=== PATIENT | male | born 1940 | race Caucasian/White ===

== ENCOUNTER 2016-06-11 16:14 | Inpatient (IN) | payer MEDICARE, BC ==
[2016-06-11 18:40] LABS: Basophils % (A) 0 %; CH 31.8; CHCM 35.4; Eosinophils # (A) 0.2 k/uL (0-0.7); Eosinophils % (A) 4 %; HCT 46.4 % (39.0-53.0); HDW 3.14; HGB 15.6 gm/dL (13.0-17.5); Luc # (Auto) 0.17; Luc % (Auto) 3; Lymphocytes # (A) 0.9 k/uL (1.0-4.8); Lymphocytes % (A) 16 %; MCH 30.4 pg (25.0-35.0); MCHC 33.6 g/dL (31.0-37.0); MCV 90.6 fL (80.0-100.0); Mean Platelet Volume 9.5; Monocytes # (A) 0.4 k/uL (0-1.0); Monocytes % (A) 7 %; Neutrophils % (A) 70 %; RBC 5.12 m/uL (4.30-5.90); RDW 14.2 % (11.5-15.5); WBC 5.8 k/uL (3.8-10.6); WBC (Perox) 5.91
--- NOTE | 2016-06-11 18:44 | XR ---
EXAMINATION TYPE: XR chest 2V DATE OF EXAM: 06/11/2016 6:32 PM COMPARISON: 10/15/2015 HISTORY: Weakness TECHNIQUE: Frontal and lateral views of the chest are obtained. FINDINGS: There is no heart failure nor confluent pneumonic infiltrate. There are sternal wires. The re is old right side rib fracture. There are no hilar masses. There is spurring in the thoracic spine . There is no evidence of pleural effusion. IMPRESSION: No active cardiopulmonary disease. No change.
--- NOTE | 2016-06-11 18:45 | ED ---
General Adult HPI - General Source: patient, family, RN notes reviewed Mode of arrival: wheelchair Limitations: no limitations <Erick Hernandez - Last Filed: 06/11/16 19:29> <Dioni Chu - Last Filed: 06/11/16 20:28> - General Chief complaint: Neuro Symptoms/Deficit Stated complaint: Dr Frank-Jose Stroke Time Seen by Provider: 06/11/16 17:22 - History of Present Illness Initial comments: 75-year-old male presents emergency Department with chief complaint of difficulty forming words. Patient states that around 1:00 PM that he felt that he was having difficulty forming his words though his states that he was talking clearly and there was no confusion and denies slurred speech or any abnormal speech. Patient states his symptoms lasted one to 2 hours ago and they resolved. Patient states he has no symptoms at this time. the room states that he did not have any facial drooping any difficulty ambulating any focal weakness. Patient called primary care physician who advised him to come emergency department for evaluation. Patient does have multiple coronary artery disease in which she takes multiple medications. Patient denies headache , dizziness, blurred vision, focal weakness, nausea, vomiting, chest pain or shortness of breath. Patient states he normally walks with a cane and is still able to family with no difficulty at this time. (Erick Hernandez) - Related Data Home Medications Medication Instructions Recorded Confirmed Aspirin 81 mg PO QAM 08/26/14 06/11/16 Atorvastatin [Lipitor] 40 mg PO HS 08/26/14 06/11/16 Cholecalciferol [Vitamin D3] 1,000 unit PO DAILY 08/26/14 06/11/16 Cilostazol [Pletal] 100 mg PO DAILY 08/26/14 06/11/16 DULoxetine HCL [Cymbalta] 60 mg PO DAILY 08/26/14 06/11/16 Donepezil [Aricept] 10 mg PO BID 08/26/14 06/11/16 Warren-3 Fatty Acids/Fish Oil [Fish 1 cap PO DAILY 08/26/14 06/11/16 Oil 1,000 mg Softgel] Nitroglycerin Sl Tabs [Nitrostat] 0.4 mg SUBLINGUAL Q5M PRN 10/16/14 06/11/16 Ipratropium-Albuterol Nebulize 3 ml INHALATION RT-Q6H PRN 05/24/15 06/11/16 [Duoneb 0.5 mg-3 mg/3 ml Soln] Levothyroxine Sodium [Synthroid] 75 mcg PO DAILY 05/24/15 06/11/16 Tamsulosin HCl [Flomax] 0.4 mg PO DAILY 05/24/15 06/11/16 Insulin Glargine [Lantus] 20 unit SQ QAM 10/15/15 06/11/16 Isosorbide Mononitrate ER [Imdur] 30 mg PO DAILY 10/15/15 06/11/16 Melatonin 3 mg PO HS 10/15/15 06/11/16 Acetaminophen [Tylenol] 325 mg PO DAILY 06/11/16 06/11/16 Atenolol [Tenormin] 50 mg PO BID 06/11/16 06/11/16 Furosemide [Lasix] 40 mg PO DAILY 06/11/16 06/11/16 HYDROcodone/APAP 5-325MG [[place] 1 tab PO Q6HR PRN 06/11/16 06/11/16 5-325] INSULIN LISPRO (HumaLOG) [humaLOG] See Protocol SQ ACHS 06/11/16 06/11/16 Oxybutynin Chloride [Ditropan] 5 mg PO BID 06/11/16 06/11/16 amLODIPine [Norvasc] 5 mg PO DAILY 06/11/16 06/11/16 Previous Rx's Medication Instructions Recorded Insulin Glargine [Lantus] 30 unit SQ HS vial 10/23/15 Pregabalin [Lyrica] 100 mg PO BID #20 cap 10/23/15 Allergies Allergy/AdvReac Type Severity Reaction Status Date / Time ciprofloxacin [From Cipro] Allergy Swelling Verified 06/11/16 18:12 ciprofloxacin HCl Allergy Swelling Verified 06/11/16 18:12 [From Cipro] latex Allergy Unknown Verified 06/11/16 18:12 NSAIDS (Non-Steroidal Allergy Unknown Verified 06/11/16 18:12 Anti-Inflamma Quinolones Allergy Unknown Verified 06/11/16 18:12 Review of Systems ROS Other: All systems not noted in ROS Statement are negative. <Erick Hernandez - Last Filed: 06/11/16 19:29> ROS Other: All systems not noted in ROS Statement are negative. <Dioni Chu - Last Filed: 06/11/16 20:28> ROS Statement: Those systems with pertinent positive or pertinent negative responses have been documented in the HPI. Past Medical History Past Medical History: Atrial Flutter, Coronary Artery Disease (CAD), Chest Pain / Angina, Heart Failure, COPD, Dementia, Diabetes Mellitus, Fibromyalgia, Hyperlipidemia, Hypertension, Myocardial Infarction (MA), Prostate Disorder, Renal Disease, Sleep Apnea/CPAP/BIPAP, Vascular Disorder Additional Past Medical History / Comment(s): IDDM,constipation, CHF-diastolic ejection fx 50-60%, chronic renal failure, aflutter, sleep apnea with no cpap, R leg erythema possible cellulitis in the past, PVD, DJD, chronic back pain, bulging and herniated discs, sciatica, disclocted knuckles, gout, arthiritis, prostate problem-pt unsure what problem is, tinnitis bilaterally, R eye stroke, umbilical hernia, diverticular disease, obesity. WOUNDS TO RT GREAT TOE AND LT FOOT 2ND TOE Last Myocardial Infarction Date:: 2004 History of Any Multi-Drug Resistant Organisms: MRSA Date of last positivie culture/infection: 10/17/2014 MDRO Source:: Sputum Past Surgical History: Coronary Bypass/CABG, Heart Catheterization, Tonsillectomy Additional Past Surgical History / Comment(s): 2005 triple vessel CABG, Ccath 2004, L caratid endartectomy, bilateral cataract removal with lens implants, colonoscopy, skin lesion removal. Past Anesthesia/Blood Transfusion Reactions: No Reported Reaction Past Psychological History: Anxiety, Depression Additional Psychological History / Comment(s): Pt lives at home with his .stated he had home care pt/ot but they are done.has cane/walker, hx of falls. Patient was a smoker from 1966 and quit in 1996 at 3 packs per day. He denies any medical marijuana, marijuana, street drug use. He does drink 1 bottle of beer per month. He was in the [employer] for 14 years and stationed in the [place]. He denies any recent travel. There is a dog in the home. Smoking Status: Former smoker Past Alcohol Use History: None Reported Additional Past Alcohol Use History / Comment(s): Pt started smoking about 1966 and quit in 1996. He smoked up to 3 ppd. Past Drug Use History: None Reported - Past Family History Father Family Medical History: Coronary Artery Disease (CAD) Additional Family Medical History / Comment(s): Father had CABG Mother Family Medical History: No Reported History Additional Family Medical History / Comment(s): Pt states mother was a heathy person. <Erick Hernandez M - Last Filed: 06/11/16 19:29> General Exam Limitations: no limitations General appearance: alert, in no apparent distress Head exam: Present: atraumatic, normocephalic, normal inspection Eye exam: Present: normal appearance, PERRL, EOMI. Absent: scleral icterus, conjunctival injection, periorbital swelling ENT exam: Present: normal exam, normal oropharynx, mucous membranes moist, TM's normal bilaterally, normal external ear exam Neck exam: Present: normal inspection, full ROM. Absent: tenderness, meningismus, lymphadenopathy Respiratory exam: Present: normal lung sounds bilaterally. Absent: respiratory distress, wheezes, rales, rhonchi, stridor Cardiovascular Exam: Present: regular rate, normal rhythm, normal heart sounds. Absent: systolic murmur, diastolic murmur, rubs, gallop, clicks GI/Abdominal exam: Present: soft, normal bowel sounds. Absent: distended, tenderness, guarding, rebound, rigid Neurological exam: Present: alert, oriented X3, CN II-XII intact, reflexes normal, other (Finger to nose intact bilaterally without overshooting). Absent : motor sensory deficit Psychiatric exam: Present: normal affect, normal mood Skin exam: Present: warm, dry, intact, normal color. Absent: rash <Erick Hernandez M - Last Filed: 06/11/16 19:29> General appearance: alert, in no apparent distress Head exam: Present: atraumatic, normocephalic, normal inspection Eye exam: Present: normal appearance, PERRL, EOMI. Absent: scleral icterus, conjunctival injection, periorbital swelling ENT exam: Present: normal exam, mucous membranes moist Neck exam: Present: normal inspection. Absent: tenderness, meningismus, lymphadenopathy Respiratory exam: Present: normal lung sounds bilaterally. Absent: respiratory distress, wheezes, rales, rhonchi, stridor Cardiovascular Exam: Present: regular rate, normal rhythm, normal heart sounds. Absent: systolic murmur, diastolic murmur, rubs, gallop, clicks GI/Abdominal exam: Present: soft, normal bowel sounds. Absent: distended, tenderness, guarding, rebound, rigid Extremities exam: Present: normal inspection, full ROM, normal capillary refill. Absent: tenderness, pedal edema, joint swelling, calf tenderness Back exam: Present: normal inspection Neurological exam: Present: alert, oriented X3, CN II-XII intact Psychiatric exam: Present: normal affect, normal mood Skin exam: Present: warm, dry, intact, normal color. Absent: rash <Dioni Chu - Last Filed: 06/11/16 20:28> Course <Erick Hernandez - Last Filed: 06/11/16 19:29> <Dioni Chu - Last Filed: 06/11/16 20:28> Vital Signs 06/11/16 06/11/16 06/11/16 16:20 18:18 20:17 Temperature 97.0 F L 97.4 F L 96.9 F L Pulse Rate 62 67 Pulse Rate [ 69 Supine] Respiratory 18 18 14 Rate Blood Pressure 133/75 148/73 Blood Pressure 134/95 [Right Arm Supine] O2 Sat by Pulse 97 96 96 Oximetry - Reevaluation(s) Reevaluation #1: 06/11/16 20:28 Patient examined, no worsening problems (Dioni Chu) EKG Findings - EKG Comments: EKG Findings:: EKG shows A. fib rate of 62, QRS 14, QTc 450 <Dioni Chu - Last Filed: 06/11/16 20:28> Medical Decision Making - Lab Data Result diagrams: 06/11/16 18:15 06/11/16 18:15 <Erick Hernandez - Last Filed: 06/11/16 19:29> - Lab Data Result diagrams: 06/11/16 18:15 06/11/16 18:15 <Dioni Chu - Last Filed: 06/11/16 20:28> - Lab Data Lab Results 06/11/16 06/11/16 06/11/16 Range/Units 18:15 18:15 18:15 WBC 5.8 (3.8-10.6) k/uL RBC 5.12 (4.30-5.90) m/uL Hgb 15.6 (13.0-17.5) gm/dL Hct 46.4 (39.0-53.0) % MCV 90.6 (80.0-100.0) fL MCH 30.4 (25.0-35.0) pg MCHC 33.6 (31.0-37.0) g/dL RDW 14.2 (11.5-15.5) % Plt Count 166 (150-450) k/uL Neutrophils % 70 % Lymphocytes % 16 % Monocytes % 7 % Eosinophils % 4 % Basophils % 0 % Neutrophils # 4.0 (1.3-7.7) k/uL Lymphocytes # 0.9 L (1.0-4.8) k/uL Monocytes # 0.4 (0-1.0) k/uL Eosinophils # 0.2 (0-0.7) k/uL Basophils # 0.0 (0-0.2) k/uL PT (9.0-12.0) sec INR (<1.1) APTT (22.0-30.0) sec Sodium 139 (137-145) mmol/L Potassium 3.9 (3.5-5.1) mmol/L Chloride 100 (98-107) mmol/L Carbon Dioxide 29 (22-30) mmol/L Anion Gap 10 mmol/L BUN 25 H (9-20) mg/dL Creatinine 1.77 H (0.66-1.25) mg/dL Est GFR (MDRD) Af Amer 46 (>60 ml/min/1.73 sqM) Est GFR (MDRD) Non-Af 38 (>60 ml/min/1.73 sqM) Glucose 189 H (74-99) mg/dL Calcium 9.0 (8.4-10.2) mg/dL Total Bilirubin 1.1 (0.2-1.3) mg/dL AST 15 L (17-59) U/L ALT 34 (21-72) U/L Alkaline Phosphatase 130 H (38-126) U/L Total Creatine Kinase 41 L (55-170) U/L CK-MB (CK-2) 0.4 (0.0-2.4) ng/mL CK-MB (CK-2) Rel Index 1.0 Troponin I <0.012 (0.000-0.034) ng/mL Total Protein 6.7 (6.3-8.2) g/dL Albumin 3.7 (3.5-5.0) g/dL 06/11/16 Range/Units 18:15 WBC (3.8-10.6) k/uL RBC (4.30-5.90) m/uL Hgb (13.0-17.5) gm/dL Hct (39.0-53.0) % MCV (80.0-100.0) fL MCH (25.0-35.0) pg MCHC (31.0-37.0) g/dL RDW (11.5-15.5) % Plt Count (150-450) k/uL Neutrophils % % Lymphocytes % % Monocytes % % Eosinophils % % Basophils % % Neutrophils # (1.3-7.7) k/uL Lymphocytes # (1.0-4.8) k/uL Monocytes # (0-1.0) k/uL Eosinophils # (0-0.7) k/uL Basophils # (0-0.2) k/uL PT 12.1 H (9.0-12.0) sec INR 1.2 (<1.1) APTT 25.0 (22.0-30.0) sec Sodium (137-145) mmol/L Potassium (3.5-5.1) mmol/L Chloride (98-107) mmol/L Carbon Dioxide (22-30) mmol/L Anion Gap mmol/L BUN (9-20) mg/dL Creatinine (0.66-1.25) mg/dL Est GFR (MDRD) Af Amer (>60 ml/min/1.73 sqM) Est GFR (MDRD) Non-Af (>60 ml/min/1.73 sqM) Glucose (74-99) mg/dL Calcium (8.4-10.2) mg/dL Total Bilirubin (0.2-1.3) mg/dL AST (17-59) U/L ALT (21-72) U/L Alkaline Phosphatase (38-126) U/L Total Creatine Kinase (55-170) U/L CK-MB (CK-2) (0.0-2.4) ng/mL CK-MB (CK-2) Rel Index Troponin I (0.000-0.034) ng/mL Total Protein (6.3-8.2) g/dL Albumin (3.5-5.0) g/dL Disposition <Erick Hernandez - Last Filed: 06/11/16 19:29> <Dioni Chu - Last Filed: 06/11/16 20:28> Clinical Impression: CVA (cerebral vascular accident) Disposition: ADMITTED IP TO THIS HOSP Condition: Stable
[2016-06-11 18:49] LABS: Potassium 3.9 mmol/L (3.5-5.1); Total Bilirubin 1.1 mg/dL (0.2-1.3); Total Protein 6.7 g/dL (6.3-8.2)
[2016-06-11 18:50] LABS: INR 1.2 (<1.1); Prothrombin Time 12.1 sec (9.0-12.0)
[2016-06-11 18:58] LABS: Creatine Kinase 41 U/L (55-170)
--- NOTE | 2016-06-11 18:59 | CT ---
EXAMINATION TYPE: CT brain wo con DATE OF EXAM: 06/11/2016 6:54 PM COMPARISON: 10/15/2015 HISTORY: weakness and speech disturbance CT DLP: 1183 mGycm Automated exposure control for dose reduction was used. FINDINGS: There is diffuse cerebral atrophy. There is no mass effect nor midline shift. There is no sign of int racranial hemorrhage. There is enlargement of occipital horn right lateral ventricle. The calvarium i s intact. IMPRESSION: Cerebral atrophy and old right occipital lobe infarct. No acute intracranial abnormality. No change.
[2016-06-11 19:11] LABS: Creatine Kinase MB 0.4 ng/mL (0.0-2.4); Troponin I <0.012 ng/mL (0.000-0.034)
[2016-06-11] MEDS ORDERED: HYDROcodone/APAP 5-325MG 1 EACH TAB PO PRN (19:33)
[2016-06-11] MEDS ORDERED: IPRATROPIUM-ALBUTEROL 3 ML NEB INHALATION PRN (19:33)
[2016-06-11 21:00] LABS: Glucose,Whole Blood 137 mg/dL (75-99)
[2016-06-11] MEDS ORDERED: NON-FORMULARY DRUG (Insulin Lispro (Humalog) 0 UNIT) SQ SCH (21:00)
[2016-06-11 21:36] VITALS: BMI 34.2
[2016-06-11] MEDS: ASPIRIN 325 MG TAB PO SCH (21:56)
[2016-06-11] MEDS: DONEPEZIL 10 MG TAB PO SCH (21:57)
[2016-06-11] MEDS: PREGABALIN 100 MG CAP PO SCH (21:57)
[2016-06-11] MEDS: ATORVASTATIN 40 MG TAB PO SCH (21:57)
[2016-06-11] MEDS: OXYBUTYNIN CHLORIDE 5 MG TAB PO SCH (21:57)
[2016-06-11] MEDS: ATENOLOL 50 MG TAB PO SCH (21:57)
[2016-06-11] MEDS: MELATONIN 3 MG TABLET PO SCH (21:57)
[2016-06-11] MEDS: INSULIN GLARGINE 100 UNIT/ML 10 ML VIAL SQ SCH (22:01)
[2016-06-12 06:22] LABS: Glucose,Whole Blood 149 mg/dL (75-99)
[2016-06-12] MEDS: LEVOTHYROXINE 75 MCG TAB PO SCH (06:48)
[2016-06-12 07:42] LABS: Cholesterol 108 mg/dL (<200); HDL Cholesterol 32 mg/dL (40-60); Triglycerides 73 mg/dL (<150)
--- NOTE | 2016-06-12 09:57 | US ---
EXAMINATION TYPE: US carotid duplex BILAT DATE OF EXAM: 06/12/2016 9:41 AM COMPARISON: In pacs CLINICAL HISTORY: Stenosis. Slurred speech, history of stroke and left endarterectomy EXAM MEASUREMENTS: RIGHT: Peak Systolic Velocity (PSV) cm/sec ----- Right CCA: 42.4 ----- Right ICA: 133.6 ----- Right ECA: 145.0 ICA/CCA ratio: 3.2 RIGHT: End Diastole cm/sec ----- Right CCA: 8.4 ----- Right ICA: 25.5 ----- Right ECA: 23.9 LEFT: Peak Systolic Velocity (PSV) cm/sec ----- Left CCA: 83.8 ----- Left ICA: 44.9 ----- Left ECA: 52.9 ICA/CCA ratio: 0.5 LEFT: End Diastole cm/sec ----- Left CCA: 0.0 ----- Left ICA: 22.7 ----- Left ECA: 6.1 VERTEBRALS (direction of flow): Right Vertebral: Antegrade Left Vertebral: Antegrade Findings: Bilateral intimal thickening with large amount of plaque seen bilateral CCA, bulb, ICA and ECA, eleva natalia velocities: proximal right ICA, distal right ICA, mid right ECA and proximal left CCA, 50 to 69% stenosis within right ICA with an ICA/CCA ratio of 3.2, elevated velocity seen within proximal left C CA with turbulent low velocity flow post proximal CCA stenosis IMPRESSION: 1. Extensive bilateral plaque greater on the right with findings suggestive of a 50-69% stenosis. Criteria for Assigning % of Stenosis / Diameter reduction (Estimation based on the indirect measurements of the internal carotid artery velocities (ICA PSV). 1. Normal (no stenosis)=ICA PSV < 125 cm/s: ratio < 2.0: ICA EDV<40 cm/s. 2. Less than 50% stenosis=ICA PSV < 125 cm/s: ratio < 2.0: ICA EDV<40 cm/s. 3. 50 to 69% stenosis=ICA PSV of 125 to 230 cm/s: ration 2.0 ? 4.0: ICA EDV 40-100 cm/s. 4. Greater than 70% stenosis to near occlusion= ICA PSV > 230 cm/s: ratio > 4.0: ICA EDV > 100 cm/s. 5. Near occlusion= ICA PSV velocities may be low or undetectable: variable ratio and ICA EDV. 6. Total occlusion=unable to detect flow.
[2016-06-12] MEDS: INSULIN LISPRO (humaLOG) 300 UNIT/3 ML VIAL SQ SCH ×5 (09:58→21:25)
[2016-06-12] MEDS: CILOSTAZOL 100 MG TAB PO SCH (09:59)
[2016-06-12] MEDS: DONEPEZIL 10 MG TAB PO SCH ×2 (09:59→20:02)
[2016-06-12] MEDS: ASPIRIN 325 MG TAB PO SCH (09:59)
[2016-06-12] MEDS: ATENOLOL 50 MG TAB PO SCH ×2 (09:59→20:02)
[2016-06-12] MEDS: amLODIPine 5 MG TAB PO SCH (09:59)
[2016-06-12] MEDS: OXYBUTYNIN CHLORIDE 5 MG TAB PO SCH ×2 (10:00→20:03)
[2016-06-12] MEDS: DULoxetine HCL 60 MG CAPSULE.DR PO SCH (10:00)
[2016-06-12] MEDS: ISOSORBIDE MONONITRATE ER 30 MG TAB.ER.24H PO SCH (10:00)
[2016-06-12] MEDS: FUROSEMIDE 40 MG TAB PO SCH (10:00)
[2016-06-12] MEDS: PREGABALIN 100 MG CAP PO SCH ×2 (10:01→20:03)
[2016-06-12] MEDS: INSULIN GLARGINE 100 UNIT/ML 10 ML VIAL SQ SCH ×2 (10:32→21:25)
[2016-06-12] MEDS: TAMSULOSIN 0.4 MG CAP.ER.24H PO SCH (10:32)
[2016-06-12 11:39] LABS: Glucose,Whole Blood 154 mg/dL (75-99)
--- NOTE | 2016-06-12 11:57 | P.CRDCN ---
<Rocío Albrecht - Last Filed: 06/12/16 11:45> History of Present Illness Consult date: 06/12/16 Reason for Consult (text): Atrial fibrillation Chief complaint: difficulty forming words History of present illness: This is a pleasant 75 rolled woman who follows with Dr. Munson in the office. He has a known history of coronary artery disease, heart failure, COPD, dementia , diabetes, hyperlipidemia, hypertension, paroxysmal atrial fibrillation, [place] in the past, renal insufficiency and sleep apnea. His historically not been anticoagulated secondary to frequent falls in the past. Presented to the emergency department after developing some difficulty forming his words that lasted a couple of hours. He denied any complaints of dizziness, lightheadedness, weakness or numbness or visual disturbances at that time. Computed tomography scan showed cerebral atrophy with old right occipital lobe infarct and no acute intracranial abnormality. Carotid duplex showed extensive bilateral plaque right greater than left with a stenosis of about 50-60%. Laboratory values showed a BUN of 25 and creatinine 1.7 which is actually improved from previous admission in October 2015. Upon examination this morning, patient is resting comfortably in bed. He denies any further complaints of difficulty in speaking. He does have some complaints of mild blurred vision. He's had no chest discomfort denies palpitations and has no shortness of breath or edema. Past Medical History Past Medical History: Atrial Flutter, Coronary Artery Disease (CAD), Chest Pain / Angina, Heart Failure, COPD, Dementia, Diabetes Mellitus, Fibromyalgia, Hyperlipidemia, Hypertension, Myocardial Infarction (IL), Prostate Disorder, Renal Disease, Sleep Apnea/CPAP/BIPAP, Vascular Disorder Additional Past Medical History / Comment(s): IDDM, chronic renal failure, aflutter, sleep apnea with no cpap, PVD, DJD, chronic back pain, bulging and herniated discs, sciatica, dislocated knuckles, gout, arthiritis, prostate problem-pt unsure what problem is, tinnitis bilaterally, R eye stroke, umbilical hernia, diverticular disease, obesity. Last Myocardial Infarction Date:: 2004 History of Any Multi-Drug Resistant Organisms: MRSA Date of last positivie culture/infection: 10/17/2014 MDRO Source:: Sputum Past Surgical History: Coronary Bypass/CABG, Heart Catheterization, Tonsillectomy Additional Past Surgical History / Comment(s): 2005 triple vessel CABG, Ccath 2004, L carotid endartectomy, bilateral cataract removal with lens implants, colonoscopy, skin lesion removal. Past Anesthesia/Blood Transfusion Reactions: No Reported Reaction Past Psychological History: Anxiety, Depression Additional Psychological History / Comment(s): Pt lives at home with his . has cane/walker, hx of falls. He denies any medical marijuana, marijuana, street drug use. He does drink 1 bottle of beer per month. He was in the [employer] for 14 years and stationed in the [place]. He denies any recent travel. There is a dog in the home. Smoking Status: Former smoker Past Alcohol Use History: None Reported Additional Past Alcohol Use History / Comment(s): Pt started smoking about 1966 and quit in 1996. He smoked up to 3 ppd. Past Drug Use History: None Reported - Past Family History Father Family Medical History: Coronary Artery Disease (CAD) Additional Family Medical History / Comment(s): Father had CABG Mother Family Medical History: No Reported History Additional Family Medical History / Comment(s): Pt states mother was a healthy person. Medications and Allergies Home Medications Medication Instructions Recorded Confirmed Type Aspirin 81 mg PO QAM 08/26/14 06/11/16 History Atorvastatin [Lipitor] 40 mg PO HS 08/26/14 06/11/16 History Cholecalciferol [Vitamin D3] 1,000 unit PO DAILY 08/26/14 06/11/16 History Cilostazol [Pletal] 100 mg PO DAILY 08/26/14 06/11/16 History DULoxetine HCL [Cymbalta] 60 mg PO DAILY 08/26/14 06/11/16 History Donepezil [Aricept] 10 mg PO BID 08/26/14 06/11/[address]-3 Fatty Acids/Fish Oil [Fish 1 cap PO DAILY 08/26/14 06/11/16 History Oil 1,000 mg Softgel] Nitroglycerin Sl Tabs [Nitrostat] 0.4 mg SUBLINGUAL Q5M PRN 10/16/14 06/11/16 History Ipratropium-Albuterol Nebulize 3 ml INHALATION RT-Q6H PRN 05/24/15 06/11/16 History [Duoneb 0.5 mg-3 mg/3 ml Soln] Levothyroxine Sodium [Synthroid] 75 mcg PO DAILY 05/24/15 06/11/16 History Tamsulosin HCl [Flomax] 0.4 mg PO DAILY 05/24/15 06/11/16 History Insulin Glargine [Lantus] 20 unit SQ QAM 10/15/15 06/11/16 History Isosorbide Mononitrate ER [Imdur] 30 mg PO DAILY 10/15/15 06/11/16 History Melatonin 3 mg PO HS 10/15/15 06/11/16 History Acetaminophen [Tylenol] 325 mg PO DAILY 06/11/16 06/11/16 History Atenolol [Tenormin] 50 mg PO BID 06/11/16 06/11/16 History Furosemide [Lasix] 40 mg PO DAILY 06/11/16 06/11/16 History HYDROcodone/APAP 5-325MG [[place] 1 tab PO Q6HR PRN 06/11/16 06/11/16 History 5-325] INSULIN LISPRO (HumaLOG) [humaLOG] See Protocol SQ ACHS 06/11/16 06/11/16 History Oxybutynin Chloride [Ditropan] 5 mg PO BID 06/11/16 06/11/16 History amLODIPine [Norvasc] 5 mg PO DAILY 06/11/16 06/11/16 History Allergies Allergy/AdvReac Type Severity Reaction Status Date / Time ciprofloxacin [From Cipro] Allergy Swelling Verified 06/11/16 18:12 ciprofloxacin HCl Allergy Swelling Verified 06/11/16 18:12 [From Cipro] latex Allergy Unknown Verified 06/11/16 18:12 NSAIDS (Non-Steroidal Allergy Unknown Verified 06/11/16 18:12 Anti-Inflamma Quinolones Allergy Unknown Verified 06/11/16 18:12 Physical Exam Vitals: Vital Signs Temp Pulse Pulse Resp BP BP Pulse Ox 06/12/16 04:00 97.1 F L 63 18 139/73 94 L 06/12/16 00:00 97.0 F L 66 18 104/71 95 06/11/16 21:29 97.9 F 54 L 18 146/90 94 L 06/11/16 20:50 97.9 F 54 L 18 146/90 94 L 06/11/16 20:17 96.9 F L 69 14 134/95 96 Intake and Output 06/11/16 06/12/16 06/12/16 22:59 06:59 14:59 Intake Total 360 900 180 Output Total 0 Balance 360 900 180 Intake: Oral 360 900 180 Output: Urine 0 Other: # Voids 2 Weight 108.1 kg 108.5 kg PHYSICAL EXAMINATION: HEENT: Head is atraumatic, normocephalic. Pupils equal, round. Neck is supple. There is no elevated jugular venous pressure. HEART EXAMINATION: Heart sounds irregularly irregular, S1 and S2 with systolic murmur. CHEST EXAMINATION: Lungs are clear to auscultation and precussion. No chest wall tenderness is noted on palpation or with deep breathing. ABDOMEN: Soft, nontender. Bowel sounds are heard. No organomegaly noted. EXTREMITIES: 1+ peripheral pulses with no evidence of peripheral edema and no calf tenderness noted. NEUROLOGIC patient is awake, alert and oriented x3. . Results 06/11/16 18:15 06/11/16 18:15 Lipids 06/12/16 Range/Units 07:03 Triglycerides 73 (<150) mg/dL Cholesterol 108 (<200) mg/dL HDL Cholesterol 32 L (40-60) mg/dL Current Medications Generic Name Dose Route Start Last Admin Trade Name Freq PRN Reason Stop Dose Admin Acetaminophen/Hydrocodone Bitart 1 each 06/11/16 19:33 [place] 5-325 PO Q6HR PRN Mild to Moderate Pain Albuterol/Ipratropium 3 ml 06/11/16 19:33 Duoneb 0.5 Mg-3 Mg/3 Ml Soln INHALATION RT-Q6H PRN Shortness Of Breath Amlodipine Besylate 5 mg 06/12/16 09:00 06/12/16 09:59 Norvasc PO 5 mg DAILY JOEL Administration Aspirin 325 mg 06/11/16 20:00 06/12/16 09:59 Aspirin PO 325 mg DAILY JOEL Administration Atenolol 50 mg 06/11/16 21:00 06/12/16 09:59 Tenormin PO 50 mg BID JOEL Administration Atorvastatin Calcium 40 mg 06/11/16 21:00 06/11/16 21:57 Lipitor PO 40 mg HS JOEL Administration Cilostazol 100 mg 06/12/16 09:00 06/12/16 09:59 Pletal PO 100 mg DAILY JOEL Administration Donepezil HCl 10 mg 06/11/16 21:00 06/12/16 09:59 Aricept PO 10 mg BID JOEL Administration Duloxetine HCl 60 mg 06/12/16 09:00 06/12/16 10:00 Cymbalta PO 60 mg DAILY JOEL Administration Furosemide 40 mg 06/12/16 09:00 06/12/16 10:00 Lasix PO 40 mg DAILY JOEL Administration Insulin Glargine 20 unit 06/12/16 09:00 06/12/16 10:32 Lantus SQ 20 unit QAM JOEL Administration Insulin Glargine 30 unit 06/11/16 21:00 06/11/16 22:01 Lantus SQ 30 unit HS JOEL Administration Insulin Human Lispro 0 unit 06/12/16 07:30 06/12/16 09:58 Humalog SQ Not Given ACHS [facility] Protocol Isosorbide Mononitrate 30 mg 06/12/16 09:00 06/12/16 10:00 Imdur PO 30 mg DAILY JOEL Administration Levothyroxine Sodium 75 mcg 06/12/16 06:30 06/12/16 06:48 Synthroid PO 75 mcg DAILY@0630 JOEL Administration Melatonin 3 mg 06/11/16 21:00 06/11/16 21:57 Melatonin PO 3 mg HS JOEL Administration Oxybutynin Chloride 5 mg 06/11/16 21:00 06/12/16 10:00 Ditropan PO 5 mg BID JOEL Administration Pregabalin 100 mg 06/11/16 21:00 06/12/16 10:01 Lyrica PO 100 mg BID JOEL Administration Tamsulosin HCl 0.4 mg 06/12/16 09:00 06/12/16 10:32 Flomax PO 0.4 mg DAILY JOEL Administration Intake and Output 06/11/16 06/12/16 06/12/16 22:59 06:59 14:59 Intake Total 360 900 180 Output Total 0 Balance 360 900 180 Intake: Oral 360 900 180 Output: Urine 0 Other: # Voids 2 Weight 108.1 kg 108.5 kg EKG Interpretations (text) Atrial fibrillation with controlled ventricular response Assessment and Plan Plan: Assessment and plan #1 expressive aphasia #2 paroxysmal atrial fibrillation, currently in atrial fibrillation with a controlled ventricular response not on anticoagulants secondary to frequent falls #3 COPD #4 hyperlipidemia #5 hypertension #6 renal insufficiency #7 dementia From cardiac standpoint, will obtain a 2-D echo as well as a TSH. Patient is not a candidate for anticoagulation due to frequent falls. We will continue to follow the patient provide further recommendations accordingly. 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 Patient was seen and examined. <Yasir Hunt - Last Filed: 06/12/16 14:54> Physical Exam Vitals: Vital Signs Temp Pulse Pulse Resp BP BP Pulse Ox 06/12/16 12:00 72 17 131/71 94 L 06/12/16 08:00 54 L 69 17 125/69 95 06/12/16 04:00 97.1 F L 63 18 139/73 94 L 06/12/16 00:00 97.0 F L 66 18 104/71 95 06/11/16 21:29 97.9 F 54 L 18 146/90 94 L 06/11/16 20:50 97.9 F 54 L 18 146/90 94 L 06/11/16 20:17 96.9 F L 69 14 134/95 96 Intake and Output 06/11/16 06/12/16 06/12/16 22:59 06:59 14:59 Intake Total 360 900 180 Output Total 0 Balance 360 900 180 Intake: Oral 360 900 180 Output: Urine 0 Other: # Voids 2 1 Weight 108.1 kg 108.5 kg Results 06/11/16 18:15 06/11/16 18:15 Lipids 06/12/16 Range/Units 07:03 Triglycerides 73 (<150) mg/dL Cholesterol 108 (<200) mg/dL HDL Cholesterol 32 L (40-60) mg/dL Current Medications Generic Name Dose Route Start Last Admin Trade Name Freq PRN Reason Stop Dose Admin Acetaminophen/Hydrocodone Bitart 1 each 06/11/16 19:33 [place] 5-325 PO Q6HR PRN Mild to Moderate Pain Albuterol/Ipratropium 3 ml 06/11/16 19:33 Duoneb 0.5 Mg-3 Mg/3 Ml Soln INHALATION RT-Q6H PRN Shortness Of Breath Amlodipine Besylate 5 mg 06/12/16 09:00 06/12/16 09:59 Norvasc PO 5 mg DAILY JOEL Administration Aspirin 325 mg 06/11/16 20:00 06/12/16 09:59 Aspirin PO 325 mg DAILY JOEL Administration Atenolol 50 mg 06/11/16 21:00 06/12/16 09:59 Tenormin PO 50 mg BID JOEL Administration Atorvastatin Calcium 40 mg 06/11/16 21:00 06/11/16 21:57 Lipitor PO 40 mg HS JOEL Administration Cilostazol 100 mg 06/12/16 09:00 06/12/16 09:59 Pletal PO 100 mg DAILY JOEL Administration Donepezil HCl 10 mg 06/11/16 21:00 06/12/16 09:59 Aricept PO 10 mg BID JOEL Administration Duloxetine HCl 60 mg 06/12/16 09:00 06/12/16 10:00 Cymbalta PO 60 mg DAILY JOEL Administration Furosemide 40 mg 06/12/16 09:00 06/12/16 10:00 Lasix PO 40 mg DAILY JOEL Administration Insulin Glargine 20 unit 06/12/16 09:00 06/12/16 10:32 Lantus SQ 20 unit QAM JOEL Administration Insulin Glargine 30 unit 06/11/16 21:00 06/11/16 22:01 Lantus SQ 30 unit HS JOEL Administration Insulin Human Lispro 0 unit 06/12/16 07:30 06/12/16 12:35 Humalog SQ 2 unit ACHS JOEL Administration Protocol Isosorbide Mononitrate 30 mg 06/12/16 09:00 06/12/16 10:00 Imdur PO 30 mg DAILY JOEL Administration Levothyroxine Sodium 75 mcg 06/12/16 06:30 06/12/16 06:48 Synthroid PO 75 mcg DAILY@0630 JOEL Administration Melatonin 3 mg 06/11/16 21:00 06/11/16 21:57 Melatonin PO 3 mg HS JOEL Administration Oxybutynin Chloride 5 mg 06/11/16 21:00 06/12/16 10:00 Ditropan PO 5 mg BID JOEL Administration Pregabalin 100 mg 06/11/16 21:00 06/12/16 10:01 Lyrica PO 100 mg BID JOEL Administration Tamsulosin HCl 0.4 mg 06/12/16 09:00 06/12/16 10:32 Flomax PO 0.4 mg DAILY JOEL Administration Intake and Output 06/11/16 06/12/16 06/12/16 22:59 06:59 14:59 Intake Total 360 900 180 Output Total 0 Balance 360 900 180 Intake: Oral 360 900 180 Output: Urine 0 Other: # Voids 2 1 Weight 108.1 kg 108.5 kg
[2016-06-12 16:15] LABS: Hemoglobin A1C 7.1 % (4.2-6.1)
[2016-06-12 16:38] LABS: Glucose,Whole Blood 124 mg/dL (75-99)
[2016-06-12] MEDS: ATORVASTATIN 40 MG TAB PO SCH (20:02)
[2016-06-12] MEDS: MELATONIN 3 MG TABLET PO SCH (20:03)
[2016-06-12] MEDS: HEPARIN SODIUM,PORCINE 5,000 UNIT/ML 1 ML VIAL SQ SCH (20:05)
[2016-06-12 21:15] LABS: Glucose,Whole Blood 187 mg/dL (75-99)
--- NOTE | 2016-06-12 21:47 | HP ---
DATE OF ADMISSION: 06/12/2016 CHIEF COMPLAINT: Difficulty talking. HISTORY OF PRESENT ILLNESS: This 75-year-old gentleman with a past medical history of multiple medical problems including history of atrial flutter, history of coronary artery disease, history of CHF, COPD, fibromyalgia, hypertension, myocardial infarction, sleep apnea, history of CAD, coronary artery bypass grafting, cardiac catheterization being followed by Dr. Escudero in the outpatient setting was apparently taken to [facility] and with complaints of difficulty in talking. The states that the patient was talking clearly in the beginning but there was some difficulty in forming words. There was slurring as per se and because of increased difficulty, the patient came to [facility] and admitted to the hospital for further evaluation and treatment. There is no history of fever, rigors or chills. No history of headache, loss of consciousness or seizures. Cardiology evaluating the patient. The homocysteine 15.8 and TSH is 7.80 and FT4 1.73. Other labs are CBC, normal. Creatinine is 1.77. The patient admitted to the hospital for further evaluation and treatment. A CAT scan of the brain was done on admission which showed cerebral atrophy with old right occipital infarct. No other acute changes are noted. EKG shows showed atrial fibrillation and carotid Doppler showed extensive bilateral plaque greater on the right with the findings of present patient is also seen Dr. Reyna previously. PAST MEDICAL HISTORY: History of atrial flutter, history of CAD, CHF, COPD, diabetes mellitus , fibromyalgia, hypertension, hyperlipidemia, history of myocardial infarction, sleep apnea, history of vascular disorder, history of CAD/CABG, cardiac catheterization. Medications prior to admission include home medications: 1. Norvasc 5 mg p.o. daily. 2. Flomax 0.4 daily. 3. Lyrica 100 mg b.i.d. 4. Ditropan 5 mg p.o. b.i.d. 5. [place]-3 fatty acids one p.o. daily. 6. Aricept ( ) p.r.n. 7. Melatonin 3 mg q.h.s. 8. Synthroid 75 mcg p.o. daily. 9. Imdur 30 mg p.o. daily. 10. DuoNeb q.i.d. and p.r.n. 11. Lantus 30 units subcu q.h.s. 13. [place] 5 mg q6h p.r.n. 14. Lasix 40 mg p.o. daily. 15. Aricept 10 mg b.i.d. 16. Cymbalta 60 mg p.o. daily. 17. Pletal 100 mg p.o. daily. 18. Vitamin D3 1000 daily. 19. Lipitor 40 q.h.s. 20. Tenormin 50 mg p.o. b.i.d. 21. Aspirin 81 mg q.a.m. 22. Tylenol 320 mg p.o. daily. ALLERGIES: CIPROFLOXACIN, LATEX, N-SAIDS, QUINOLONE. FAMILY HISTORY: History of coronary artery disease, coronary artery bypass grafting. SOCIAL HISTORY: No history of current smoking. Previous history of smoking. No history of alcohol intake. REVIEW OF SYSTEMS: ENT: No diminished hearing. No diminished vision. CARDIOVASCULAR: No angina or palpitations. RESPIRATORY : As mentioned earlier. GASTROINTESTINAL: No nausea or vomiting. : No dysuria. Nervous system: As mentioned earlier. ALLERGIES/IMMUNOLOGY: No asthma or hayfever. MUSCULOSKELETAL: As mentioned earlier. HEMATOLOGY/ONCOLOGY: No history of anemia. ENDOCRINE: Diabetes mellitus . CONSTITUTIONAL: As mentioned earlier. Dermatology: Negative. Rheumatology: Negative. PSYCHIATRY: As mentioned earlier alert. PHYSICAL EXAMINATION: Alert and oriented x3, pulse 64, blood pressure 120/64. Respiratory rate 18, temperature 97.4. Pulse ox 94% on room air. HEENT: Conjunctivae normal. NECK: No jugular venous distention. CARDIOVASCULAR: S1, S2 muffled. RESPIRATORY: Breath sounds diminished at the bases. A few scattered rhonchi and crackles. ABDOMEN: Soft. Nontender. No mass palpable. LEGS: No edema. No swelling. CENTRAL NERVOUS SYSTEM: Diffusely weak. LYMPHATICS: No lymph nodes palpable in the neck, axillae or groin. SKIN: No ulcer, rash or bleeding. LABS: Creatinine 1.77. Other labs are noted. Alkaline phosphatase is 130 and TSH 1.870. ASSESSMENT: 1. Dysphagia, cross eye possibly left hemispheric acute cerebrovascular incident. 2. Extensive bilateral plaque greater on the right with right carotid artery stenosis 50 to 69%. 3. Increased creatinine with chronic kidney disease, stage III. 4. Obesity, body mass index of 34.3. 5. History of atrial flutter. 6. History of coronary artery disease. 7. History of congestive heart failure. 8. History of chronic obstructive pulmonary disease. 9. History of dementia. 10. Diabetes mellitus type 2. 11. Fibromyalgia. 12. Hypertension essential. 13. Hyperlipidemia. 14. History of myocardial infarction. 15. Prostate disorder. 16. Sleep apnea. 17. History of atrial flutter. 18. History of Methicillin-resistant Staph aureus. 19. History of coronary artery disease, coronary artery bypass grafting. 20. History left carotid endarterectomy. 21. Anxiety, depression, not otherwise specified. 22. Remote history nicotine dependence. 23. FULL CODE. RECOMMENDATIONS AND DISCUSSION: In this 75 -year-old gentleman who presented with multiple complex medical issues we will monitor the patient closely. Continue with current medications. Continue antiplatelet agents. Continue current medication. Resume home medications. Continue with Lipitor 40 mg q.h.s. Cardiology and neurology consultations. I would also recommend DVT prophylaxis. Neurovascular work-up. Guarded prognosis because of multiple complex medical issues. Further recommendations to follow. A copy of dictation being forwarded to Dr. Escudero who is the primary physician. We will monitor the blood sugars as well. Hemoglobin A1c is 7.1 only. We will check UA with micro as well. Guarded prognosis. Further recommendations to follow. MTDD
--- NOTE | 2016-06-12 23:59 | P.CNNES ---
History of Present Illness Consult date: 06/12/16 Requesting physician: Erick Hernandez Reason for Consult: aphasia subacute CVA Chief complaint: aphasia History of Present Illness: The patient is a 75-year-old male being consult by neurology for aphasia. Patient was having difficulty forming his words though his states that he was talking clearly and there was no confusion and denies slurred speech or abnormal speech pattern. Patient states that symptoms lasted 1-2 hours and then resolved. He was asymptomatic on presentation at the ED. Spouse denies any facial drooping or any difficulty ambulating or other focal weakness. Patient was advised to primary care provider to come to the ED for evaluation. Patient does have a complex coronary artery disease history. Patient denied headache, dizziness, blurred vision, focal weakness, nausea, vomiting, chest pain or shortness of breath. Patient normally ambulates with a cane and is able to do so at this time with no difficulty. On contact, the patient was seated at the edge of the bed, eating off the bedside tray, alert and oriented 3 and in no acute distress. Review of Systems All systems not noted in HPI are negative. Past Medical History Past Medical History: Atrial Flutter, Coronary Artery Disease (CAD), Chest Pain / Angina, Heart Failure, COPD, Dementia, Diabetes Mellitus, Fibromyalgia, Hyperlipidemia, Hypertension, Myocardial Infarction ([place]), Prostate Disorder, Renal Disease, Sleep Apnea/CPAP/BIPAP, Vascular Disorder Additional Past Medical History / Comment(s): IDDM, chronic renal failure, aflutter, sleep apnea with no cpap, PVD, DJD, chronic back pain, bulging and herniated discs, sciatica, dislocated knuckles, gout, arthiritis, prostate problem-pt unsure what problem is, tinnitis bilaterally, R eye stroke, umbilical hernia, diverticular disease, obesity. Last Myocardial Infarction Date:: 2004 History of Any Multi-Drug Resistant Organisms: MRSA Date of last positivie culture/infection: 10/17/2014 MDRO Source:: Sputum Past Surgical History: Coronary Bypass/CABG, Heart Catheterization, Tonsillectomy Additional Past Surgical History / Comment(s): 2004 triple vessel CABG, Ccath 2004, L carotid endartectomy, bilateral cataract removal with lens implants, colonoscopy, skin lesion removal. Past Anesthesia/Blood Transfusion Reactions: No Reported Reaction Past Psychological History: Anxiety, Depression Additional Psychological History / Comment(s): Pt lives at home with his . has cane/walker, hx of falls. He denies any medical marijuana, marijuana, street drug use. He does drink 1 bottle of beer per month. He was in the [employer] for 14 years and stationed in the [place]. He denies any recent travel. There is a dog in the home. Smoking Status: Former smoker Past Alcohol Use History: None Reported Additional Past Alcohol Use History / Comment(s): Pt started smoking about 1966 and quit in 1996. He smoked up to 3 ppd. Past Drug Use History: None Reported - Past Family History Father Family Medical History: Coronary Artery Disease (CAD) Additional Family Medical History / Comment(s): Father had CABG Mother Family Medical History: No Reported History Additional Family Medical History / Comment(s): Pt states mother was a healthy person. Medications and Allergies Home Medications Medication Instructions Recorded Confirmed Type Aspirin 81 mg PO QAM 08/26/14 06/11/16 History Atorvastatin [Lipitor] 40 mg PO HS 08/26/14 06/11/16 History Cholecalciferol [Vitamin D3] 1,000 unit PO DAILY 08/26/14 06/11/16 History Cilostazol [Pletal] 100 mg PO DAILY 08/26/14 06/11/16 History DULoxetine HCL [Cymbalta] 60 mg PO DAILY 08/26/14 06/11/16 History Donepezil [Aricept] 10 mg PO BID 08/26/14 06/11/16 History [place]-3 Fatty Acids/Fish Oil [Fish 1 cap PO DAILY 08/26/14 06/11/16 History Oil 1,000 mg Softgel] Nitroglycerin Sl Tabs [Nitrostat] 0.4 mg SUBLINGUAL Q5M PRN 10/16/14 06/11/16 History Ipratropium-Albuterol Nebulize 3 ml INHALATION RT-Q6H PRN 05/24/15 06/11/16 History [Duoneb 0.5 mg-3 mg/3 ml Soln] Levothyroxine Sodium [Synthroid] 75 mcg PO DAILY 05/24/15 06/11/16 History Tamsulosin HCl [Flomax] 0.4 mg PO DAILY 05/24/15 06/11/16 History Insulin Glargine [Lantus] 20 unit SQ QAM 10/15/15 06/11/16 History Isosorbide Mononitrate ER [Imdur] 30 mg PO DAILY 10/15/15 06/11/16 History Melatonin 3 mg PO HS 10/15/15 06/11/16 History Acetaminophen [Tylenol] 325 mg PO DAILY 06/11/16 06/11/16 History Atenolol [Tenormin] 50 mg PO BID 06/11/16 06/11/16 History Furosemide [Lasix] 40 mg PO DAILY 06/11/16 06/11/16 History HYDROcodone/APAP 5-325MG [[place] 1 tab PO Q6HR PRN 06/11/16 06/11/16 History 5-325] INSULIN LISPRO (HumaLOG) [humaLOG] See Protocol SQ ACHS 06/11/16 06/11/16 History Oxybutynin Chloride [Ditropan] 5 mg PO BID 06/11/16 06/11/16 History amLODIPine [Norvasc] 5 mg PO DAILY 06/11/16 06/11/16 History Allergies Allergy/AdvReac Type Severity Reaction Status Date / Time ciprofloxacin [From Cipro] Allergy Swelling Verified 06/11/16 18:12 ciprofloxacin HCl Allergy Swelling Verified 06/11/16 18:12 [From Cipro] latex Allergy Unknown Verified 06/11/16 18:12 NSAIDS (Non-Steroidal Allergy Unknown Verified 06/11/16 18:12 Anti-Inflamma Quinolones Allergy Unknown Verified 06/11/16 18:12 Physical Examination - Vital Signs Vital Signs: Vital Signs Temp Pulse Pulse Resp BP Pulse Ox 06/12/16 20:00 97.0 F L 80 18 125/75 96 06/12/16 16:27 97.4 F L 64 69 18 128/65 95 06/12/16 12:00 72 17 131/71 94 L 06/12/16 08:00 54 L 69 17 125/69 95 06/12/16 04:00 97.1 F L 63 18 139/73 94 L 06/12/16 00:00 97.0 F L 66 18 104/71 95 Intake and Output 06/12/16 06/12/16 06/13/16 14:59 22:59 06:59 Intake Total 180 180 Balance 180 180 Intake: Oral 180 180 Other: # Voids 1 1 Constitutional: AOx3, cooperative Head: NC/AT Throat: Supple, no masses Respiratory: No increased work of breathing Cardiac: Regular rate and Rhythm GI: non tender, non distended Musculoskeletal: Strengths are equal bilaterally 5/5, upper extremities Lower extremity strengths are equal bilaterally at 5/5. Neurological: CN II-XII in tact, patient was AOx3, speech and language are normal, no unilateralizing weakness, no seizure activity note on physical exam. Sensation was normal. Integementary: no rash, no erythema Psychiatric: mood and affect appropriate Results - Laboratory Findings CBC and BMP: 06/11/16 18:15 06/11/16 18:15 Abnormal Lab Findings: Abnormal Labs 06/11/16 06/12/16 06/12/16 20:58 06:20 07:03 POC Glucose (mg/dL) 137 H 149 H Hemoglobin A1c HDL Cholesterol Homocysteine 15.39 H TSH 06/12/16 06/12/16 06/12/16 07:03 07:03 07:03 POC Glucose (mg/dL) Hemoglobin A1c 7.1 H HDL Cholesterol 32 L Homocysteine TSH 7.870 H 06/12/16 06/12/16 06/12/16 11:38 16:36 21:13 POC Glucose (mg/dL) 154 H 124 H 187 H Hemoglobin A1c HDL Cholesterol Homocysteine TSH - Diagnostic Findings Additional findings: CT of the brain: Old right occipital lobe infarct, cerebral atrophy noted. Carotid Doppler: External bilateral plaque at 50-69% stenosis. Lipid panel: Triglycerides 73, cholesterol 108, LDL 61, HDL 32. Homocystine elevated at 15.39. Assessment and Plan (1) Altered mental status Status: Acute (2) Expressive aphasia Status: Acute (3) TIA (transient ischemic attack) Status: Acute Plan: Patient does appear to have suffered a transient ischemic attack which resulted in intermittent expressive aphasia. CT of the brain noted no acute intracranial process. EEG is still pending. Serum homocystine level was elevated. I am going to prescribe Foltx at this time. Cardiology has already ordered an echocardiogram and a TSH level. Patient reports he has returned to baseline and he is not having difficulty with speech at this time. I did discuss with the patient based on his intermittent symptomology and the noted stenosis of 50-69% on carotid doppler study that the patient may benefit from a vascular consult. I do recommend a vascular consult for the patient at this time. If patient has any further neurological decline or any further symptoms, patient should be resent for immediate reimaging of the brain. continue neuro checks as previously ordered. Cardiology notes that the patient is not a candidate for anticoagulation due to recurrent falls. Neurology will continue to follow at this time. We'll provide further recommendations as needed or warranted.
[2016-06-13 06:38] LABS: Glucose,Whole Blood 88 mg/dL (75-99)
[2016-06-13] MEDS: INSULIN LISPRO (humaLOG) 300 UNIT/3 ML VIAL SQ SCH ×4 (06:52→21:37)
[2016-06-13] MEDS: LEVOTHYROXINE 75 MCG TAB PO SCH (06:53)
[2016-06-13 07:16] LABS: Basophils % (A) 0 %; CH 31.7; CHCM 35.1; Calcium 9.5 mg/dL (8.4-10.2); Eosinophils # (A) 0.4 k/uL (0-0.7); Eosinophils % (A) 5 %; HDW 3.11; HGB 15.6 gm/dL (13.0-17.5); Luc % (Auto) 3; Lymphocytes # (A) 1.3 k/uL (1.0-4.8); Lymphocytes % (A) 18 %; MCH 30.7 pg (25.0-35.0); MCHC 33.8 g/dL (31.0-37.0); MCV 90.8 fL (80.0-100.0); Mean Platelet Volume 9.3; Monocytes # (A) 0.6 k/uL (0-1.0); Monocytes % (A) 8 %; Neutrophils # (A) 4.8 k/uL (1.3-7.7); Neutrophils % (A) 66 %; Potassium 4.7 mmol/L (3.5-5.1); RBC 5.07 m/uL (4.30-5.90); WBC 7.2 k/uL (3.8-10.6); WBC (Perox) 7.55
[2016-06-13] MEDS: CILOSTAZOL 100 MG TAB PO SCH (08:18)
[2016-06-13] MEDS: ASPIRIN 325 MG TAB PO SCH (08:18)
[2016-06-13] MEDS: FUROSEMIDE 40 MG TAB PO SCH (08:18)
[2016-06-13] MEDS: HEPARIN SODIUM,PORCINE 5,000 UNIT/ML 1 ML VIAL SQ SCH ×2 (08:18→21:27)
[2016-06-13] MEDS: CYANOCOBALAMIN-FA-PYRIDOXINE 1 EACH TAB PO SCH (08:18)
[2016-06-13] MEDS: INSULIN GLARGINE 100 UNIT/ML 10 ML VIAL SQ SCH ×2 (08:18→21:26)
[2016-06-13] MEDS: PREGABALIN 100 MG CAP PO SCH ×2 (08:19→21:27)
[2016-06-13] MEDS: DULoxetine HCL 60 MG CAPSULE.DR PO SCH (08:19)
[2016-06-13] MEDS: DONEPEZIL 10 MG TAB PO SCH ×2 (08:19→21:27)
[2016-06-13] MEDS: ISOSORBIDE MONONITRATE ER 30 MG TAB.ER.24H PO SCH (08:19)
[2016-06-13] MEDS: ATENOLOL 50 MG TAB PO SCH ×2 (08:19→21:27)
[2016-06-13] MEDS: OXYBUTYNIN CHLORIDE 5 MG TAB PO SCH ×2 (08:19→21:27)
[2016-06-13] MEDS: amLODIPine 5 MG TAB PO SCH (08:19)
[2016-06-13] MEDS: MULTIVITAMINS, THERA 1 EACH TAB PO SCH (08:19)
[2016-06-13] MEDS: TAMSULOSIN 0.4 MG CAP.ER.24H PO SCH (08:20)
[2016-06-13 11:41] LABS: Glucose,Whole Blood 116 mg/dL (75-99)
--- NOTE | 2016-06-13 12:21 | P.GSCN ---
History of Present Illness Consult date: 06/13/16 Reason for Consult: Carotid stenosis and expressive aphasia Requesting physician: Shelbi Ruvalcaba History of present illness: This gentleman is well known to me. I first saw him when an solder making supervisor saw Hollenhorst plaques in the right eye. He was found at that time to have 50- 69% bilateral ICA stenosis. The patient tells me that he developed an episode where he felt his mouth was twisted. For about 5 minutes he had difficulty finding his words. It resolved spontaneously in only a few minutes. He denies focal motor, other speech, or visual deficits. His visual acuity has decreased in the last year or so. He denies seizures, syncope, or other deficits. Review of Systems All systems: negative Past Medical History Past Medical History: Atrial Flutter, Coronary Artery Disease (CAD), Chest Pain / Angina, Heart Failure, COPD, Dementia, Diabetes Mellitus, Fibromyalgia, Hyperlipidemia, Hypertension, Myocardial Infarction ([place]), Prostate Disorder, Renal Disease, Sleep Apnea/CPAP/BIPAP, Vascular Disorder Additional Past Medical History / Comment(s): IDDM, chronic renal failure, aflutter, sleep apnea with no cpap, PVD, DJD, chronic back pain, bulging and herniated discs, sciatica, dislocated knuckles, gout, arthiritis, prostate problem-pt unsure what problem is, tinnitis bilaterally, R eye stroke, umbilical hernia, diverticular disease, obesity. Last Myocardial Infarction Date:: 2004 History of Any Multi-Drug Resistant Organisms: MRSA Year Discovered:: 10/17/2014 MDRO Source:: Sputum Past Surgical History: Coronary Bypass/CABG, Heart Catheterization, Tonsillectomy Additional Past Surgical History / Comment(s): 2005 triple vessel CABG, Ccath 2005, L carotid endartectomy, bilateral cataract removal with lens implants, colonoscopy, skin lesion removal. Past Anesthesia/Blood Transfusion Reactions: No Reported Reaction Past Psychological History: Anxiety, Depression Additional Psychological History / Comment(s): Pt lives at home with his . has cane/walker, hx of falls. He denies any medical marijuana, marijuana, street drug use. He does drink 1 bottle of beer per month. He was in the [employer] for 14 years and stationed in the [place]. He denies any recent travel. There is a dog in the home. Smoking Status: Former smoker Past Alcohol Use History: None Reported Additional Past Alcohol Use History / Comment(s): Pt started smoking about 1966 and quit in 1996. He smoked up to 3 ppd. Past Drug Use History: None Reported - Past Family History Father Family Medical History: Coronary Artery Disease (CAD) Additional Family Medical History / Comment(s): Father had CABG Mother Family Medical History: No Reported History Additional Family Medical History / Comment(s): Pt states mother was a healthy person. Medications and Allergies Home Medications Medication Instructions Recorded Confirmed Type Aspirin 81 mg PO QAM 08/26/14 06/11/16 History Atorvastatin [Lipitor] 40 mg PO HS 08/26/14 06/11/16 History Cholecalciferol [Vitamin D3] 1,000 unit PO DAILY 08/26/14 06/11/16 History Cilostazol [Pletal] 100 mg PO DAILY 08/26/14 06/11/16 History DULoxetine HCL [Cymbalta] 60 mg PO DAILY 08/26/14 06/11/16 History Donepezil [Aricept] 10 mg PO BID 08/26/14 06/11/16 History [place]-3 Fatty Acids/Fish Oil [Fish 1 cap PO DAILY 08/26/14 06/11/16 History Oil 1,000 mg Softgel] Nitroglycerin Sl Tabs [Nitrostat] 0.4 mg SUBLINGUAL Q5M PRN 10/16/14 06/11/16 History Ipratropium-Albuterol Nebulize 3 ml INHALATION RT-Q6H PRN 05/24/15 06/11/16 History [Duoneb 0.5 mg-3 mg/3 ml Soln] Levothyroxine Sodium [Synthroid] 75 mcg PO DAILY 05/24/15 06/11/16 History Tamsulosin HCl [Flomax] 0.4 mg PO DAILY 05/24/15 06/11/16 History Insulin Glargine [Lantus] 20 unit SQ QAM 10/15/15 06/11/16 History Isosorbide Mononitrate ER [Imdur] 30 mg PO DAILY 10/15/15 06/11/16 History Melatonin 3 mg PO HS 10/15/15 06/11/16 History Acetaminophen [Tylenol] 325 mg PO DAILY 06/11/16 06/11/16 History Atenolol [Tenormin] 50 mg PO BID 06/11/16 06/11/16 History Furosemide [Lasix] 40 mg PO DAILY 06/11/16 06/11/16 History HYDROcodone/APAP 5-325MG [[place] 1 tab PO Q6HR PRN 06/11/16 06/11/16 History 5-325] INSULIN LISPRO (HumaLOG) [humaLOG] See Protocol SQ ACHS 06/11/16 06/11/16 History Oxybutynin Chloride [Ditropan] 5 mg PO BID 06/11/16 06/11/16 History amLODIPine [Norvasc] 5 mg PO DAILY 06/11/16 06/11/16 History Allergies Allergy/AdvReac Type Severity Reaction Status Date / Time ciprofloxacin [From Cipro] Allergy Swelling Verified 06/11/16 18:12 ciprofloxacin HCl Allergy Swelling Verified 06/11/16 18:12 [From Cipro] latex Allergy Unknown Verified 06/11/16 18:12 NSAIDS (Non-Steroidal Allergy Unknown Verified 06/11/16 18:12 Anti-Inflamma Quinolones Allergy Unknown Verified 06/11/16 18:12 Surgical - Exam Osteopathic Statement: *. No significant issues noted on an osteopathic structural exam other than those noted in the History and Physical/Consult. Vital Signs Temp Pulse Resp BP Pulse Ox 97.0 F L 62 18 133/75 97 06/11/16 16:20 06/11/16 16:20 06/11/16 16:20 06/11/16 16:20 06/11/16 16:20 - General well developed, well nourished, no distress, obese - Eyes normal ocular movement, no icteric - ENT no hearing loss, no congestion - Neck no masses, trachea midline carotid bruit: left - Respiratory normal expansion, normal respiratory effort, clear to auscultation - Cardiovascular Rhythm: irregularly irregular - Abdomen Abdomen: soft, non tender, no guarding, no rigid, no rebound - Integumentary no rash, no abnormal pigmentation - Neurologic no disoriented, no combative - Musculoskeletal normal posture - Psychiatric oriented to time, oriented to person, oriented to place, speech is normal, memory intact Results - Labs 06/13/16 06:19 06/13/16 06:19 Abnormal Lab Results - Last 24 Hours (Table) 06/12/16 06/12/16 06/12/16 Range/Units 07:03 07:03 07:03 Carbon Dioxide (22-30) mmol/L BUN (9-20) mg/dL Creatinine (0.66-1.25) mg/dL Glucose (74-99) mg/dL POC Glucose (mg/dL) (75-99) mg/dL Hemoglobin A1c 7.1 H (4.2-6.1) % Homocysteine 15.39 H (4.00-14.00) umol/L TSH 7.870 H (0.465-4.680) mIU/L 06/12/16 06/12/16 06/13/16 Range/Units 16:36 21:13 06:19 Carbon Dioxide 32 H (22-30) mmol/L BUN 32 H (9-20) mg/dL Creatinine 2.00 H (0.66-1.25) mg/dL Glucose 105 H (74-99) mg/dL POC Glucose (mg/dL) 124 H 187 H (75-99) mg/dL Hemoglobin A1c (4.2-6.1) % Homocysteine (4.00-14.00) umol/L TSH (0.465-4.680) mIU/L 06/13/16 Range/Units 11:39 Carbon Dioxide (22-30) mmol/L BUN (9-20) mg/dL Creatinine (0.66-1.25) mg/dL Glucose (74-99) mg/dL POC Glucose (mg/dL) 116 H (75-99) mg/dL Hemoglobin A1c (4.2-6.1) % Homocysteine (4.00-14.00) umol/L TSH (0.465-4.680) mIU/L Diabetes panel 06/12/16 06/13/16 Range/Units 07:03 06:19 Sodium 143 (137-145) mmol/L Potassium 4.7 (3.5-5.1) mmol/L Chloride 100 (98-107) mmol/L Carbon Dioxide 32 H (22-30) mmol/L BUN 32 H (9-20) mg/dL Creatinine 2.00 H (0.66-1.25) mg/dL Glucose 105 H (74-99) mg/dL Hemoglobin A1c 7.1 H (4.2-6.1) % Calcium 9.5 (8.4-10.2) mg/dL Thyroid panel 06/12/16 Range/Units 07:03 TSH 7.870 H (0.465-4.680) mIU/L Calcium panel 06/13/16 Range/Units 06:19 Calcium 9.5 (8.4-10.2) mg/dL Pituitary panel 06/12/16 06/13/16 Range/Units 07:03 06:19 Sodium 143 (137-145) mmol/L Potassium 4.7 (3.5-5.1) mmol/L Chloride 100 (98-107) mmol/L Carbon Dioxide 32 H (22-30) mmol/L BUN 32 H (9-20) mg/dL Creatinine 2.00 H (0.66-1.25) mg/dL Glucose 105 H (74-99) mg/dL Calcium 9.5 (8.4-10.2) mg/dL TSH 7.870 H (0.465-4.680) mIU/L Adrenal panel 06/13/16 Range/Units 06:19 Sodium 143 (137-145) mmol/L Potassium 4.7 (3.5-5.1) mmol/L Chloride 100 (98-107) mmol/L Carbon Dioxide 32 H (22-30) mmol/L BUN 32 H (9-20) mg/dL Creatinine 2.00 H (0.66-1.25) mg/dL Glucose 105 H (74-99) mg/dL Calcium 9.5 (8.4-10.2) mg/dL - Imaging Additional studies: CT of the brain shows an old right occipital infarct. No other abnormalities are seen. Carotid duplex shows 50-69% bilateral ICA stenosis. EKG shows atrial fibrillation. Assessment and Plan (1) Expressive aphasia Status: Acute (2) Carotid stenosis, bilateral Status: Acute Plan: For several reasons, I would recommend medical therapy at this time. #1 a brief episode of expressive aphasia is a bit difficult to pin down as to the exact source of the symptoms. #2 this patient is somewhat weak and in general somewhat debilitated. He has numerous rather significant comorbidities including type 2 diabetes that appears to be in fairly good control, atrial fibrillation, and marginal renal function with a creatinine of 2. #3 the degree of stenosis characterized by his carotid duplex does not appear to have changed significantly. This, however, has a certain lack of objective specificity. I would therefore recommend antiplatelet therapy if possible. If the patient is to be fully anticoagulated on Coumadin or other anticoagulant, if possible, I would simply add low-dose aspirin. I discussed this with he and his in detail. I will see him in the office in a couple of weeks and rediscuss the issue. If he as a similar repeat episode , or other more focal symptoms, I would consider a more aggressive approach.
[2016-06-13 13:59] LABS: Appearance,Urine Clear (Clear); Bilirubin,Urine Negative (Negative); Glucose,Urine (UA) Negative (Negative); Ketones,Urine Negative (Negative); Leukocyte Esterase,Urine Negative (Negative); Nitrite,Urine Negative (Negative); Protein,Urine Trace (Negative); Specific Gravity,Urine 1.007 (1.001-1.035); UA Billing (MACRO vs. MICRO) CHEM; Urobilinogen,Urine <2.0 mg/dL (<2.0)
[2016-06-13 16:38] LABS: Glucose,Whole Blood 149 mg/dL (75-99)
--- NOTE | 2016-06-13 19:32 | PN ---
DATE OF SERVICE: 06/13/2016 This 75 -year-old gentleman admitted with difficulty in speaking and possible TIA has extensive bilateral plaques. Dr. Reyna is following on the patient. Recommended outpatient follow-up. Neurology is also following the patient. No chest pain or palpitations. No fever. On exam, alert and oriented times three. Pulse 68, blood pressure 116/60, respirations 16, temperature 97 degrees. Pulse ox 94% on room air. HEENT: Conjunctivae normal. NECK: No jugular venous distention. CARDIOVASCULAR: S1, S2 muffled. RESPIRATORY: Breath sounds diminished at the bases. A few scattered rhonchi. No crackles. ABDOMEN: Soft, nontender. LEGS: No edema. No swelling. CENTRAL NERVOUS SYSTEM: Mild diffuse weakness. LABS: Creatinine is 2. Other labs are noted. ASSESSMENT: 1. Dysarthria, possibly caused by left hemispheric acute TIA per neuro. 2. Extensive bilateral plaque greater on the right with right carotid stenosis 50-69%. 3. Increased creatinine with chronic kidney disease Stage III. Acute on chronic kidney failure probably pre renal factors 4. Obesity with body mass index 34.3. 5. History of atrial flutter. 6. History of coronary artery disease. 7. History of congestive heart failure. 8. History of chronic obstructive pulmonary disease. 9. History of dementia. 10. Diabetes mellitus type 2. 11. Fibromyalgia. 12. Hypertension, essential. 13. Hyperlipidemia. 14. History of myocardial infarction. 15. Prostate disorder. 16. Sleep apnea. 17. History of atrial flutter. 18. No on anticoagulation because high risk of falls. 19. History Methicillin-resistant Staph aureus. 20. History of coronary artery disease, coronary artery bypass grafting. 21. History of carotid endarterectomy. 22. History of anxiety, depression, not otherwise specified. 23. Remote history of nicotine dependence. 24. FULL CODE. RECOMMENDATIONS AND DISCUSSION: In this 75-year-old gentleman who presented with multiple complex medical issues, we will monitor the patient closely. Continue the current medications. Continue symptomatic treatment. At this time, I recommend increase ambulation, monitor renal function closely. Continue with Lipitor and beta blockers. Neurology consultation appreciated. Guarded prognosis because of multiple complex medical issues. Further recommendations to follow. The cholesterol panel was noted. Prognosis guarded. Discussed with the patient. Understands and agrees. MADELINE
[2016-06-13] MEDS: MELATONIN 3 MG TABLET PO SCH (21:27)
[2016-06-13] MEDS: ATORVASTATIN 40 MG TAB PO SCH (21:27)
[2016-06-13 21:44] LABS: Glucose,Whole Blood 240 mg/dL (75-99)
--- NOTE | 2016-06-13 21:57 | P.PN ---
Subjective Principal diagnosis: aphasia, subacute CVA Interval Update: Patient is a 75 show male being followed by neurology for a aphasia and subacute CVA. Patient was having difficulty forming his words though his states that he was talking clearly and there was no confusion. He denies slurred speech or abnormal speech pattern. Patient stated symptoms lasted 12 hours then resolves. He was asymptomatic on presentation at the [facility]. Spouse denies any facial droop or any difficulty ambulating or focal weakness. Patient was advised by primary care provider to come to the ED for evaluation. Patient does have a complex coronary artery disease history. Patient denied headache, dizziness, blurred vision, focal weakness, nausea, vomiting, chest pain or shortness of breath. Patient normally ambulates with a cane and is able to do so at this time with no difficulty. Since being rounded on yesterday the patient's EEG is still pending, echocardiogram is pending. He was seen by vascular surgery and antiplatelet therapy was recommended. If the patient is unable to participate in anticoagulant therapy, recommendations included low-dose aspirin. It is noted the patient is currently on Pletal and 325 mg aspirin. On contact, the patient was supine in bed in no acute distress. He was alert and oriented 3. patient reports he has returned to baseline. Objective - Vital Signs Vital signs: Vital Signs Temp 97.8 F 06/13/16 16:00 Pulse 65 06/13/16 16:00 Resp 16 06/13/16 16:00 BP 130/72 06/13/16 16:00 Pulse Ox 94 L 06/13/16 16:00 Intake & Output 06/13/16 06/13/16 06/14/16 06:59 18:59 06:59 Intake Total 720 1680 Output Total 0 Balance 720 1680 Weight 107 kg Intake: Oral 720 1680 Output: Urine 0 Other: # Voids 1 2 - Exam Constitutional: AOx3, cooperative Head: NC/AT Throat: Supple, no masses Respiratory: No increased work of breathing Cardiac: Regular rate and Rhythm GI: non tender, non distended Musculoskeletal: Strengths are equal bilaterally 5/5 in the upper extremities, Lower extremity strengths are equal bilaterally at 5/5. Neurological: CN II-XII in tact, patient was AOx3, speech and language are normal, no unilateralizing weakness, no seizure activity note on physical exam. Sensation was normal. Integementary: no rash, no erythema Psychiatric: mood and affect appropriate - Labs CBC & Chem 7: 06/13/16 06:19 06/13/16 06:19 Labs: Abnormal Lab Results - Last 24 Hours (Table) 06/13/16 06/13/16 06/13/16 Range/Units 06:19 11:39 13:30 Carbon Dioxide 32 H (22-30) mmol/L BUN 32 H (9-20) mg/dL Creatinine 2.00 H (0.66-1.25) mg/dL Glucose 105 H (74-99) mg/dL POC Glucose (mg/dL) 116 H (75-99) mg/dL Urine Protein Trace H (Negative) 06/13/16 Range/Units 16:28 Carbon Dioxide (22-30) mmol/L BUN (9-20) mg/dL Creatinine (0.66-1.25) mg/dL Glucose (74-99) mg/dL POC Glucose (mg/dL) 149 H (75-99) mg/dL Urine Protein (Negative) Assessment and Plan (1) Altered mental status Status: Acute (2) Expressive aphasia Status: Acute (3) TIA (transient ischemic attack) Status: Acute Plan: Patient does appear to have suffered a transient ischemic attack which resulted in intermittent expressive aphasia. CT of the brain noted no acute intracranial process. EEG is still pending. Serum homocystine level was elevated. Patient was started on Foltx which he is tolerating and no adverse effects reported. Cardiology has already ordered an echocardiogram. Patient reports he has returned to baseline and he is not having difficulty with speech at this time. I had recommended a vascular consult which was completed. See vascular consult note for further details. However, vascular recommended anticoagulant therapy. This was previously ruled out by cardiology due to increased risk for falls. Patient is currently on 325 mg aspirin. I am going to discontinue that and start 81 mg aspirin daily. I noted the patient is on Pletal which contraindicates the initiation of Plavix due to increased risk of bleeding. For these reasons, the patient will be continued on 81 mg aspirin daily at this time. It is noted that the patient has a NSAID allergy but he has tolerated 325 mg aspirin without adverse effects in the past. I would recommend consideration of a KENJI to further evaluate if there is a left atrial appendage (PACO) thrombus possibly causing these TIAs / expressive aphasia episodes or a echocardiogram with bubble study to determine if there is an ASD. If patient has any further neurological decline or any further symptoms, patient should be resent for immediate reimaging of the brain. Continue neuro checks as previously ordered. Neurology will continue to follow at this time. We'll provide further recommendations as needed or warranted.
[2016-06-14 05:59] VITALS: TEMP 97.5
[2016-06-14 06:35] LABS: Glucose,Whole Blood 102 mg/dL (75-99)
[2016-06-14] MEDS: INSULIN LISPRO (humaLOG) 300 UNIT/3 ML VIAL SQ SCH ×3 (07:01→16:49)
[2016-06-14] MEDS: LEVOTHYROXINE 75 MCG TAB PO SCH (07:01)
[2016-06-14 07:10] LABS: Basophils % (A) 0 %; CH 31.7; CHCM 35.1; Eosinophils # (A) 0.3 k/uL (0-0.7); Eosinophils % (A) 5 %; HDW 3.13; HGB 15.4 gm/dL (13.0-17.5); Luc # (Auto) 0.27; Luc % (Auto) 4; Lymphocytes # (A) 1.4 k/uL (1.0-4.8); Lymphocytes % (A) 21 %; MCH 30.4 pg (25.0-35.0); MCHC 33.4 g/dL (31.0-37.0); MCV 91.1 fL (80.0-100.0); Mean Platelet Volume 9.5; Monocytes # (A) 0.5 k/uL (0-1.0); Monocytes % (A) 8 %; Neutrophils # (A) 3.9 k/uL (1.3-7.7); Neutrophils % (A) 61 %; RBC 5.05 m/uL (4.30-5.90); RDW 14.3 % (11.5-15.5); WBC 6.5 k/uL (3.8-10.6); WBC (Perox) 6.68
[2016-06-14 07:26] LABS: Calcium 9.3 mg/dL (8.4-10.2); Potassium 4.3 mmol/L (3.5-5.1)
--- NOTE | 2016-06-14 08:53 | CDI ---
In responding to this query, please exercise your independent professional judgment. The [facility] Coding Staff and Clinical Documentation Specialists appreciate your assistance in clarifying documentation, maintaining compliance with coding guidelines, accurately documenting patients condition and capturing severity of illness. The fact that a question is asked does not imply that any particular answer is desired or expected. Communication forms are a method of clarifying documentation and are not made part of the Legal Health Record. Thank you in advance for your clarification. Last Revision, March [address] [facility] [place] [address] Documentation Clarification Form Date: 06/14/2016 8:36:00 AM From: Juancarlos Larsen, RN, BSN, CDI Admit Date: 06/11/2016 7:31:00 PM Patient Name: Jaguar Farnsworth Visit Number: [id number] Dr. Shelbi Ruvalcaba: Conflicting documentation has been found in the medical record. On 06/13/16 your documentation reads "dysarthria, possibly caused by left hemispheric acute cerebrovascular incident" On 06/13/16 neurologist documentation reads "Acute TIA, expressive aphasia" History/Risk Factors: 75 yo male with a history of Aflutter, Parox Afib, CHF, previous left CEA and hyperlipidemia presents with c/o he is having difficulty forming words. He states the symptoms last for a short time and resolved. He is currently note on anti-coagulants secondary to freq falls. Clinical Indicators: CT brain showed "cerebral atrophy and old right occipital lobe infarct, no acute abnormality" carotid dopplers: extensive b/l plaque greater on the right with 50-69% stenosis Treatment: ASA, Lipitor, Pletal, ECHO (pending), EEG (pending), vascular surgery consult, PT In your opinion what is the most clinically appropriate diagnosis for this patient? * Possible left hemispheric acute CVA * Possible embolic TIA d/t cerebral embolism in the setting of Afib (not on anti-coagulants) * Possible TIA d/t carotid stenosis OTHER explanation of clinical findings Unable to determine (no explanation for clinical findings) Please document in your progress notes and discharge summary in order to capture severity of illness and risk of mortality. Include clinical findings that support your diagnosis. FYI: Press F11 to launch patient chart. Place X here if this finding has no clinical significance, is not applicable or if you are not able to provide any additional documentation. MTDD
[2016-06-14] MEDS ORDERED: ASPIRIN 81 MG CHEW PO SCH (09:00)
--- NOTE | 2016-06-14 09:08 | CDI ---
In responding to this query, please exercise your independent professional judgment. The [facility] Coding Staff and Clinical Documentation Specialists appreciate your assistance in clarifying documentation, maintaining compliance with coding guidelines, accurately documenting patients condition and capturing severity of illness. The fact that a question is asked does not imply that any particular answer is desired or expected. Communication forms are a method of clarifying documentation and are not made part of the Legal Health Record. Thank you in advance for your clarification. Last Revision, March 2015 Nusrat York [address] [facility] [place] [address] Documentation Clarification Form Date: 06/14/2016 8:53:00 AM From: Juancarlos Larsen, RN, BSN, CDI Admit Date: 06/11/2016 7:31:00 PM Patient Name: Jaguar Farnsworth Visit Number: [id number] Dr. Shelbi Ruvalcaba: Patient presents with a BUN/CR/GFR of: 25/1.77/38 History/Risk Factors: 75 yo male with a history of chronic renal failure stage III, CHF, HTN, DM and obesity Patients baseline BUN/CR/GFR: unknown In your progress note from 06/13, it reads: "increased Creatinine with CKD III" Clinical Indicators: Current Cr: 1.77->2.00->2.20 Current BUN: 25->32->40 Treatment: IVF: none Other: daily BUN/Cr/lytes In order to capture the severity of condition, please clarify if the condition signifies: Acute renal failure Please specify (if known): Cortical, Medullary, or Tubular Necrosis? Acute kidney injury Acute on chronic renal failure Unable to determine Other, specify Please document in your progress notes and discharge summary in order to capture severity of illness and risk of mortality. Include clinical findings that support your diagnosis. FYI: Press F11 to launch patient chart. Place X here if this finding has no clinical significance, is not applicable or if you are not able to provide any additional documentation. NAHEDD
[2016-06-14] MEDS: ATENOLOL 50 MG TAB PO SCH (09:55)
[2016-06-14] MEDS: DULoxetine HCL 60 MG CAPSULE.DR PO SCH (09:56)
[2016-06-14] MEDS: MULTIVITAMINS, THERA 1 EACH TAB PO SCH (09:56)
[2016-06-14] MEDS: FUROSEMIDE 40 MG TAB PO SCH (09:56)
[2016-06-14] MEDS: PREGABALIN 100 MG CAP PO SCH (09:56)
[2016-06-14] MEDS: DONEPEZIL 10 MG TAB PO SCH (09:56)
[2016-06-14] MEDS: CILOSTAZOL 100 MG TAB PO SCH (09:56)
[2016-06-14] MEDS: OXYBUTYNIN CHLORIDE 5 MG TAB PO SCH (09:56)
[2016-06-14] MEDS: ISOSORBIDE MONONITRATE ER 30 MG TAB.ER.24H PO SCH (09:56)
[2016-06-14] MEDS: CYANOCOBALAMIN-FA-PYRIDOXINE 1 EACH TAB PO SCH (09:56)
[2016-06-14] MEDS: amLODIPine 5 MG TAB PO SCH (09:56)
[2016-06-14] MEDS: TAMSULOSIN 0.4 MG CAP.ER.24H PO SCH (09:57)
[2016-06-14] MEDS: HEPARIN SODIUM,PORCINE 5,000 UNIT/ML 1 ML VIAL SQ SCH (09:57)
[2016-06-14] MEDS: INSULIN GLARGINE 100 UNIT/ML 10 ML VIAL SQ SCH (10:06)
--- NOTE | 2016-06-14 10:17 | ECHOF ---
Referral Reason:cva MEASUREMENTS -------- HEIGHT: 177.8 cm WEIGHT: 104.3 kg BP: 109/75 RVIDd: 3.1 cm (< 3.3) IVSd: 1.2 cm (0.6 - 1.1) LVIDd: 4.3 cm (3.9 - 5.3) LVPWd: 1.3 cm (0.6 - 1.1) IVSs: 1.8 cm LVIDs: 3.0 cm LVPWs: 1.7 cm LA Diam: 4.1 cm (2.7 - 3.8) LAESV Index (A-L): 17.54 ml/m Ao Diam: 3.6 cm (2.0 - 3.7) AV Cusp: 2.0 cm (1.5 - 2.6) LA Diam: 3.5 cm (2.7 - 3.8) MV EXCURSION: 8.113 mm (> 18.000) MV EF SLOPE: 39 mm/s (70 - 150) EPSS: 1.3 cm MV E Donald: 1.12 m/s MV DecT: 274 ms MV A Donald: 0.24 m/s MV E/A Ratio: 4.62 FINDINGS -------- Resting bradycardia (HR<60bpm). This was a technically adequate study. There is mild concentric left ventricular hypertrophy. Overall left ventricular systolic function is normal with, an EF between 55 - 60 %. The right ventricle is normal in size. Normal LA size by volume 22+/-6 ml/m2. The right atrium is normal in size. The aortic valve is trileaflet and appears structurally normal. Mild mitral annular calcification present. Mild mitral regurgitation is present. Trace tricuspid regurgitation present. Pulmonic valve appears structurally normal. The aortic root, ascending aorta and aortic arch are normal. Normal inferior vena cava with normal inspiratory collapse consistent with estimated right atrial pressure of 5 mmHg. There is no pericardial effusion. CONCLUSIONS -------- 1. Resting bradycardia (HR<60bpm). 2. Mild mitral regurgitation is present. 3. Trace tricuspid regurgitation present. 4. Pulmonic valve appears structurally normal. 5. The aortic root, ascending aorta and aortic arch are normal. 6. There is no pericardial effusion. 7. This was a technically adequate study. 8. There is mild concentric left ventricular hypertrophy. 9. Overall left ventricular systolic function is normal with, an EF between 55 - 60 %. 10. The right ventricle is normal in size. 11. Normal LA size by volume 22+/-6 ml/m2. 12. The right atrium is normal in size. 13. The aortic valve is trileaflet and appears structurally normal. 14. Mild mitral annular calcification present. [employer] ADVOCATE: Marian Hernandez RDCS
[2016-06-14 10:31] VITALS: RESP 18
--- NOTE | 2016-06-14 11:24 | CT ---
EXAMINATION TYPE: CT lumbar spine wo con DATE OF EXAM: 06/14/2016 11:00 AM COMPARISON: NONE HISTORY: pain CT DLP: 1182.3 mGycm CONTRAST: Unenhanced CT of the lumbar spine is performed , patient injected with mL of . Unenhanced CT of the lumbar spine was performed. Bone and soft tissue window settings are submitted as well as coronal and sagittal reconstructions. L1-L2: Normal disc space height. No disc herniation protrusion or central stenosis. No facet joint arthropathy. No evidence for foraminal encroachment. L2-L3: Normal disc space height. No disc herniation protrusion or central stenosis. No facet joint arthropathy. No evidence for foraminal encroachment. L3-L4: Moderate to severe degenerative disc space narrowing is identified. Circumferential disc bulge and spondylosis. There is hypertrophy of the ligamentum flavum and facet joint arthropathy resulting in [id number] central stenosis. Large Schmorl node is identified within the inferior endplate of L3. L4-L5: Severe disc desiccation with vacuum disc seen. Grade 1 anterolisthesis L4 and L5 measuring 6 m m. Circumferential disc bulge with hypertrophy of the ligamentum flavum and facet joint arthropathy c ontribute to severe central stenosis. L5-S1: Severe vacuum disc noted. Grade 1 retrolisthesis of L5 on S1 measuring 5 mm. Posterior disc bu lge with encapsulating spur resulting in disc endplate complex. Effacement of the ventral thecal sac with bilateral lateral recess stenosis and bilateral foraminal encroachment. No definite central sten osis identified at this time. No paraspinal masses are identified. Lumbar segments are free if fracture. Abdominal aortic aneurysm at the level of the aortic hiatus measuring 3.9 cm. IMPRESSION: 1. Multilevel degenerative disc disease. 2. 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
--- NOTE | 2016-06-14 11:50 | P.PN ---
Subjective Principal diagnosis: expressive aphasia, subacute CVA Interval Update: Patient is a 75 show male being followed by neurology for a aphasia and subacute CVA. Patient was having difficulty forming his words though his states that he was talking clearly and there was no confusion. He denies slurred speech or abnormal speech pattern. Patient stated symptoms lasted 12 hours then resolves. He was asymptomatic on presentation at the [facility]. Spouse denies any facial droop or any difficulty ambulating or focal weakness. Patient was advised by primary care provider to come to the ED for evaluation. Patient does have a complex coronary artery disease history. Patient denied headache, nausea, vomiting, chest pain or shortness of breath. The patient was positive today for dizziness, blurred vision, focal weakness after experiencing blurry vision while ambulating in the bathroom. Patient states that he lost his balance and fell back against the wall and injured his back. He states that the back does have low back pain on the right which is nonradiating and is rated at approximately a 3 out of 10. He stated he told nursing they are aware. He states the blurry vision began consistently since sometime midday yesterday when I rounded on him yesterday he denied any blurry vision at that time and was still reporting a return to baseline. Patient normally ambulates with a cane and is able to do so at this time with no difficulty. The patient's EEG is still pending. He was seen by vascular surgery Yesterday and antiplatelet therapy was recommended. If the patient is unable to participate in anticoagulant therapy, recommendations included low-dose aspirin. It is noted the patient is currently on Pletal and 325 mg aspirin. On contact, the patient was supine in bed in no acute distress. He was alert and oriented 3, but reported the noted vision changes and fall above. Objective - Vital Signs Vital signs: Vital Signs Temp 97.5 F L 06/14/16 04:00 Pulse 75 06/14/16 08:00 Resp 18 06/14/16 08:00 BP 128/96 06/14/16 08:00 Pulse Ox 97 06/14/16 08:00 Intake & Output 06/13/16 06/14/16 06/14/16 18:59 06:59 18:59 Intake Total 1680 840 120 Output Total 0 675 Balance 1680 165 120 Weight 104.5 kg Intake: Oral 1680 840 120 Output: Urine 0 675 Other: # Voids 2 1 2 - Exam Constitutional: AOx3, cooperative Head: NC/AT Throat: Supple, no masses Respiratory: No increased work of breathing Cardiac: Regular rate and Rhythm GI: non tender, non distended Musculoskeletal: Strengths are equal bilaterally 5/5 in the upper extremities, Lower extremity strengths are equal bilaterally at 5/5. patient had pain with palpation in the low right flank. Patient denied pain with either extension or flexion at the waist. Patient also had associated lumbar right-sided paraspinal stiffness noted on exam. Neurological: CN II-XII in tact, patient was AOx3, speech and language are normal, no unilateralizing weakness, no seizure activity note on physical exam. Sensation was normal. Integementary: no rash, right low flank bruise Psychiatric: mood and affect appropriate - Labs CBC & Chem 7: 06/14/16 06:47 06/14/16 06:47 Labs: Abnormal Lab Results - Last 24 Hours (Table) 06/13/16 06/13/16 06/13/16 Range/Units 11:39 13:30 16:28 Carbon Dioxide (22-30) mmol/L BUN (9-20) mg/dL Creatinine (0.66-1.25) mg/dL POC Glucose (mg/dL) 116 H 149 H (75-99) mg/dL Urine Protein Trace H (Negative) 06/13/16 06/14/16 06/14/16 Range/Units 21:36 06:20 06:47 Carbon Dioxide 32 H (22-30) mmol/L BUN 40 H (9-20) mg/dL Creatinine 2.20 H (0.66-1.25) mg/dL POC Glucose (mg/dL) 240 H 102 H (75-99) mg/dL Urine Protein (Negative) Assessment and Plan (1) Altered mental status Status: Acute (2) Expressive aphasia Status: Acute (3) TIA (transient ischemic attack) Status: Acute (4) Vision changes Status: Acute (5) Gait instability Status: Acute Plan: 1. Vision changes/gait instability/expressive aphasia/subacute CVA: Patient does appear to have suffered a transient ischemic attack which resulted in intermittent expressive aphasia. CT of the brain noted no acute intracranial process. EEG is still pending. Serum homocystine level was elevated. Patient was started on Foltx which he is tolerating and no adverse effects reported. Cardiology has already ordered an echocardiogram. Patient has returned to baseline for speech. However the last 18-24 hours, the patient has begun developing persistent blurry vision and gait instability as evidenced by his loss of balance and contact with the wall in the bathroom. I am going to order a CT of the brain without contrast. Patient's Bun and creatinine are elevated. Patient was seen by vascular yesterday and they recommended anticoagulant therapy. This was previously ruled out by cardiology due to increased risk for falls. Patient is on 81 mg aspirin daily. I noted the patient is on Pletal which contraindicates the initiation of Plavix due to increased risk of bleeding. For these reasons, the patient will be continued on 81 mg aspirin daily at this time. It is noted that the patient has a NSAID allergy but he has tolerated 325 mg aspirin without adverse effects in the past. I would recommend consideration of a KENJI to further evaluate if there is a left atrial appendage (PACO) thrombus possibly causing these TIAs / expressive aphasia episodes or a echocardiogram with bubble study to determine if there is an ASD. Based on the patient's change in neurological status, neurology will continue to follow and will wait for the results of CT of the brain. Continue neuro checks every shift. at this time I will defer telemetry monitoring to cardiology. They may need to be reconsulted based on the patient's updated status. 2. Lumbago: Patient reported a fall during ambulation while in the bathroom sometime last evening. He follows proceeded by blurred vision that had become consistent throughout the day yesterday. This is a new change for the patient as he had been reported back to baseline when rounding earlier yesterday. On exam the patient does have reproducible pain in the right low flank and in the right lumbar area. He does have some myofascial pain as well as some lumbar paraspinal stiffness on the right. I am going to request a CT of the lumbar spine without contrast attempt identifying any other underlying etiology. Further treatment options recommendations be forthcoming based on results of imaging. 3. Fall risk: Based on cardiology's earlier remarks and the incident within the last 24 hours regarding some degree of fall with the patient, patient should be placed on fall risk precautions consistent with policy. I discussed the patient's pertinent medical information with Dr. Fry. He agrees with the plan of care as implemented.
--- NOTE | 2016-06-14 12:26 | CT ---
EXAMINATION TYPE: CT brain wo con DATE OF EXAM: 06/14/2016 12:11 PM COMPARISON: 06/11/2016 HISTORY: Patient poor historian. Visual changes. CT DLP: [address] of the brain was performed. The ventricles, basal cisterns and sulci overlying the cerebral convexities demonstrate moderate to s evere enlargement. There is no evidence for intracranial hemorrhage or sulcal effacement. Remote insult right occipital region. There is decreased attenuation about the periventricular white matter and deep white matter of both c erebral hemispheres, compatible with chronic small vessel ischemia. Differential diagnosis does inclu de demyelination. No mass effects are seen.No midline shift. Osseous calvarium is intact. If symptoms persist consider MRI. IMPRESSION: 1. Age related atrophic and chronic small vessel ischemic change without acute intracranial process s een at this time.
--- NOTE | 2016-06-14 13:55 | P.PN ---
Subjective Principal diagnosis: Carotid stenosis, expressive aphasia. Patient sitting up in bed in no apparent distress. Denies any complaints. States the symptoms which brought him in have resolved. Objective - Vital Signs Vital signs: Vital Signs Temp 97.5 F L 06/14/16 04:00 Pulse 76 06/14/16 12:00 Resp 18 06/14/16 12:00 BP 121/76 06/14/16 12:00 Pulse Ox 92 L 06/14/16 12:00 Intake & Output 06/13/16 06/14/16 06/14/16 18:59 06:59 18:59 Intake Total 1680 840 240 Output Total 0 675 Balance 1680 165 240 Weight 104.5 kg Intake: Oral 1680 840 240 Output: Urine 0 675 Other: # Voids 2 1 2 - Constitutional General appearance: Present: cooperative, no acute distress - Respiratory Details: Lungs sounds diminished bilaterally, respirations even, nonlabored. Remains on room air. - Cardiovascular Details: S1, S2 present. Irregular rate, rhythm, atrial fibrillation on telemetry. Bilateral lower extremity edema present, palpable radial, DP, PT pulses bilaterally. - Gastrointestinal Gastrointestinal Comment(s): Abdomen soft, nontender, nondistended. Active bowel sounds 4 quadrants. - Genitourinary Genitourinary Comment(s): Voiding clear, yellow urine per urinal. - Psychiatric Psychiatric: Present: A&O x's 3, appropriate affect, intact judgment & insight - Allied health notes Allied health notes reviewed: nursing - Labs CBC & Chem 7: 06/14/16 06:47 06/14/16 06:47 Labs: Abnormal Lab Results - Last 24 Hours (Table) 06/13/16 06/13/16 06/13/16 Range/Units 13:30 16:28 21:36 Carbon Dioxide (22-30) mmol/L BUN (9-20) mg/dL Creatinine (0.66-1.25) mg/dL POC Glucose (mg/dL) 149 H 240 H (75-99) mg/dL Urine Protein Trace H (Negative) 06/14/16 06/14/16 Range/Units 06:20 06:47 Carbon Dioxide 32 H (22-30) mmol/L BUN 40 H (9-20) mg/dL Creatinine 2.20 H (0.66-1.25) mg/dL POC Glucose (mg/dL) 102 H (75-99) mg/dL Urine Protein (Negative) - Imaging and Cardiology CT Scan - head: report reviewed Assessment and Plan (1) Expressive aphasia Status: Acute (2) Carotid stenosis, bilateral Status: Acute Plan: 1. As per consult note recommend antiplatelet therapy versus Coumadin. 2. Monitor neurological status. 3. Appreciate neuro recommendations. 4. Your medical management. Time with Patient: Less than 30
--- NOTE | 2016-06-14 16:07 | DS ---
DATE OF ADMISSION: 06/11/2016 DATE OF DISCHARGE: FINAL DIAGNOSES: 1. Dysarthria possibly caused by left hemispheric transient ischemic attack per neurology secondary to carotid stenosis. 2. Extensive bilateral plaque greater on the right with right carotid stenosis 50 to 69%. 3. Increased creatinine with chronic kidney disease, stage III. 4. Acute on chronic kidney failure, possibly secondary to prerenal factors. 5. Obesity with body mass index 34.3. 6. History atrial flutter. 7. History of coronary artery disease. 8. History of congestive heart failure. 9. History of chronic obstructive pulmonary disease. 10. History of dementia. 11. History of diabetes mellitus type 2. 12. Fibromyalgia. 13. Hypertension essential. 14. Hyperlipidemia. 15. History of myocardial infarction. 16. History of prostate disorder. 17. History of sleep apnea. 18. History of atrial flutter. 19. Not on any anticoagulation becuase of high risk of falls. 20. History of Methicillin-resistant Staph aureus. 21. History of coronary artery disease, coronary artery bypass grafting. 22. History of carotid endarterectomy. 23. History of anxiety and depression, not otherwise specified. 24. Remote history of nicotine dependence. 25. Severe degenerative joint disease of the back with lumbar canal stenosis in the CAT scan. The CAT scan findings are noted to be followed with neurology. 26. FULL CODE. DISCHARGE DISPOSITION: The patient will be discharged in a stable condition with guarded prognosis. Total time taken 35 minutes. The patient will be discharged to [facility]. Total time taken 35 minutes. HISTORY OF PRESENT ILLNESS: This 76 -year-old gentleman with a past medical history of multiple medical problems admitted with dysarthria and features of transient ischemic attack. The patient also had bilateral carotid stenosis, seen by neurology and as well as vascular surgery recommend outpatient follow-up. Medications were adjusted. The patient improved significantly. The dose of levothyroxine increased because of the high TSH and normal FT4. On exam, vitals are stable. CARDIOVASCULAR SYSTEM: S1, S2 muffled. RESPIRATORY: Breath sounds diminished at the bases. A few scattered rhonchi and crackles. ABDOMEN: Soft, nontender. DISCHARGE ADVICE AND MEDICATIONS: 1. Diet is cardiac. 2. Activity limited until follow-up. 3. Follow-up with Dr. Escudero after discharge from the [facility]. 4. Follow-up with Dr. Zuleta in [facility]. 5. CBC and BMP in 2 to 3 days. 6. Follow-up with Dr. Fry as advised. 7. Follow-up with Dr. Reyna as advised. 8. Medications are as follows: Tylenol 325 mg p.o. daily p.r.n. 9. Aspirin 81 mg p.o. daily. 10. Tenormin 50 mg p.o. daily. 11. Lipitor 40 mg q.h.s. 12. Vitamin D3 1000 daily. 13. Pletal 100 milligrams p.o. daily. 14. Cymbalta 60 mg p.o. daily. 15. Aricept 10 mg p.o. b.i.d. 16. Folic acid 1 mg daily. 17. Lasix 40 mg p.o. daily. 18. [place] 5 mg q.6 p.r.n. 19. Humalog scale 150 to 200, 2 units, 201 to 250 4 units, 251 to 300 6, 301 to 350 8 units, 350 to 400 10 units, more than 400 call. 20. Lantus 30 units subcutaneously at bedtime. 21. Lantus 10 units subcu q.a.m. 22. Albuterol Atrovent updrafts q.i.d. and p.r.n. 23. Imdur ER 30 mg p.o. daily. 24. Levothyroxine 100 milligrams q.a.m. please note changed dose. 25. Melatonin 3 mg q.h.s. 26. Multivitamin 1 p.o. daily. 27. Nitrostat 0.4 sublingual p.r.n. 28. [place] 3 fatty acid p.o. daily. 29. Ditropan 5 mg p.o. b.i.d. 30. Lyrica 100 milligrams p.o. b.i.d. 31. Flomax 0.4 daily. 32. Thiamine 100 mg p.o. daily. 33. Norvasc 5 mg p.o. daily. MTDD
[2016-06-14 16:44] VITALS: BP 148/96; PULSE 79
[2016-06-14 16:44] LABS: Glucose,Whole Blood 129 mg/dL (75-99)
--- NOTE | 2016-06-15 08:31 | EEG ---
DATE OF SERVICE: 06/14/2016 REASON FOR TESTING: Stroke. AGE: 75Y DESCRIPTION OF THE PROCEDURE: This EEG was performed using a 21-channel digital electroencephalograph, following the international 10 to 20 system. DESCRIPTION OF THE RECORDING: From the beginning of the tracing, and with the patient's eyes closed, the background rhythm was mostly consisting of 8 Hz alpha frequency in the posterior occipital leads. No obvious asymmetry is seen. Photic stimulation was performed with a minimal driving response seen. No pathological waves were elicited. Frequent muscle and movement artifacts are seen. Hyperventilation was not performed. The patient remains awake throughout the tracing. No epileptiform discharges were seen. His EKG lead showed an irregularly irregular rhythm with a normal rate. INTERPRETATION: This awake EEG can be considered within normal limits except his EKG lead showed an irregularly irregular rhythm. No epileptiform discharges were seen. The absence of epileptiform discharges does not rule out the diagnosis of epilepsy, therefore, clinical correlation is recommended.
== END 2016-06-14 18:56 | DRG 68 ==
LOC: EC 16:14 → 6SEL 19:31
PROVIDERS: ADMIT Hospitalist; ATTEND Hospitalist
DX: I65.23 Occlusion and stenosis of bilateral carotid arteries (principal); N17.9 Acute kidney failure, unspecified; I48.92 Unspecified atrial flutter; I13.0 Hypertensive heart and chronic kidney disease with heart failure and stage 1 through stage 4 chronic kidney disease, or unspecified chronic kidney disease; I50.32 Chronic diastolic (congestive) heart failure; E11.22 Type 2 diabetes mellitus with diabetic chronic kidney disease; R47.01 Aphasia; I48.0 Paroxysmal atrial fibrillation; F03.90 Unspecified dementia, unspecified severity, without behavioral disturbance, psychotic disturbance, mood disturbance, and anxiety; F32.9 Major depressive disorder, single episode, unspecified; R13.10 Dysphagia, unspecified; J44.9 Chronic obstructive pulmonary disease, unspecified; E78.5 Hyperlipidemia, unspecified; E66.9 Obesity, unspecified; F41.9 Anxiety disorder, unspecified; G47.30 Sleep apnea, unspecified; I25.10 Atherosclerotic heart disease of native coronary artery without angina pectoris; I25.2 Old myocardial infarction; M47.9 Spondylosis, unspecified; M48.06 Spinal stenosis, lumbar region; M79.7 Fibromyalgia; N18.3 Chronic kidney disease, stage 3 (moderate); N42.9 Disorder of prostate, unspecified; K42.9 Umbilical hernia without obstruction or gangrene; K57.90 Diverticulosis of intestine, part unspecified, without perforation or abscess without bleeding; R26.9 Unspecified abnormalities of gait and mobility; R47.1 Dysarthria and anarthria; I73.9 Peripheral vascular disease, unspecified; G89.29 Other chronic pain; M10.9 Gout, unspecified; M19.90 Unspecified osteoarthritis, unspecified site; Z68.34 Body mass index [BMI] 34.0-34.9, adult; Z79.4 Long term (current) use of insulin; Z79.82 Long term (current) use of aspirin; Z79.899 Other long term (current) drug therapy; Z88.6 Allergy status to analgesic agent; Z88.1 Allergy status to other antibiotic agents; Z91.040 Latex allergy status; Z86.14 Personal history of Methicillin resistant Staphylococcus aureus infection; Z87.891 Personal history of nicotine dependence; Z91.81 History of falling; Z95.1 Presence of aortocoronary bypass graft; Z82.49 Family history of ischemic heart disease and other diseases of the circulatory system; W18.30XA Fall on same level, unspecified, initial encounter; Y92.231 Patient bathroom in hospital as the place of occurrence of the external cause
CPT/HCPCS: 36415; 70450; 71020; 72131; 80048; 80053; 80061; 81003; 82550; 82553; 83036; 83090; 84439; 84443; 84484; 85025; 85610; 85730; 93005; 93306; 93880; 95819; 99285

== ENCOUNTER → 2017-02-01 | Outpatient (CLI) | payer MEDICARE, BC ==
--- NOTE | 2017-02-01 19:12 | US ---
EXAMINATION TYPE: US kidneys/renal and bladder DATE OF EXAM: 02/01/2017 COMPARISON: US renal February 26, 2015 CLINICAL HISTORY: N18.3 CKD. EXAM MEASUREMENTS: Right Kidney: 9.1 x 4.4 x 4.8 cm Left Kidney: 12.3 x 5.3 x 5.0 cm Right Kidney: superior cyst measuring 1.7 x 1.6 x 1.4cm, inferior cyst measuring 1.8 x 1.4 x 1.6cm s imple in appearance stable. Left Kidney: No hydronephrosis or masses seen Bladder: Irregular wall There is no evidence for hydronephrosis at this point in time. Some asymmetric atrophy and cortical t hinning of right kidney is redemonstrated.. No new suspicious solid or cystic masses are identified on images saved. The urinary bladder is anechoic. Bilateral ureteral jets are not seen. IMPRESSION: There remains heterogeneous lobulated contour to bladder wall similar in appearance in retrospect to prior study, consider outlet obstruction or product of chronic cystitis. Clinical correlation advised . Asymmetric atrophy of right kidney redemonstrated and stable. No hydronephrosis is evident currentl y.
== END | disposition home or self-care (01) ==
LOC: RADUSWWP 15:46
PROVIDERS: ATTEND Internal Medicine Nephrology
DX: N26.1 Atrophy of kidney (terminal) (principal); N18.3 Chronic kidney disease, stage 3 (moderate)
CPT/HCPCS: 76770

== ENCOUNTER 2017-08-13 20:37 | Inpatient (IN) | payer BC, MEDICARE ==
--- NOTE | 2017-08-13 21:12 | CT ---
EXAMINATION TYPE: CT brain wo con for TPA DATE OF EXAM: 08/13/2017 COMPARISON: 06/14/2016 HISTORY: Neuro deficits. CT DLP: 1069.2 mGycm Automated exposure control for dose reduction was used. FINDINGS: There is cerebral cortical atrophy. There is no mass effect nor midline shift. There is no evidence o f intracranial hemorrhage. There is enlargement of the ventricles. There is patchy hypodensity in the white matter around the lateral ventricles. The calvarium is intact. IMPRESSION: EXTENSIVE ATROPHY AND CHRONIC SMALL VESSEL ISCHEMIA. NO HEMORRHAGE. NO ACUTE INTRACRANIAL ABNORMALITY . NO SIGNIFICANT CHANGE COMPARED TO OLD EXAM.
[2017-08-13 21:18] LABS: Basophils % (A) 0 %; Eosinophils # (A) 0.2 k/uL (0-0.7); Eosinophils % (A) 3 %; HCT 44.3 % (39.0-53.0); HGB 15.9 gm/dL (13.0-17.5); Hyperchromasia Slight; Lymphocytes % (A) 12 %; MCH 31.9 pg (25.0-35.0); Mean Platelet Volume 9.4; Monocytes # (A) 0.6 k/uL (0-1.0); Monocytes % (A) 7 %; Neutrophils # (A) 6.6 k/uL (1.3-7.7); Neutrophils % (A) 77 %; Platelet Count 209 k/uL (150-450); RDW 13.7 % (11.5-15.5); WBC 8.6 k/uL (3.8-10.6)
[2017-08-13 21:19] LABS: MCV 88.7 fL (80.0-100.0)
[2017-08-13 21:31] LABS: INR 1.2 (<1.2); Partial Thromboplastin Time 23.4 sec (22.0-30.0); Prothrombin Time 11.4 sec (9.0-12.0)
[2017-08-13 21:32] LABS: Albumin 3.6 g/dL (3.5-5.0); Calcium 9.3 mg/dL (8.4-10.2); Creatine Kinase 39 U/L (55-170); Potassium 3.9 mmol/L (3.5-5.1); Total Bilirubin 0.5 mg/dL (0.2-1.3); Total Protein 6.3 g/dL (6.3-8.2)
--- NOTE | 2017-08-13 21:37 | XR ---
EXAMINATION TYPE: XR chest 2V DATE OF EXAM: 08/13/2017 COMPARISON: 06/11/2016 HISTORY: Left-sided weakness TECHNIQUE: Frontal and lateral views of the chest are obtained. FINDINGS: There is some infiltrate and atelectasis in the left lower lobe. There is no gross heart f ailure. There are sternal wires. There are chest leads. There is old right-sided healed rib fracture. IMPRESSION: There is new infiltrate and atelectasis in the left lower lobe compared to last exam. No heart failure seen.
[2017-08-13 21:44] LABS: Creatine Kinase MB 0.6 ng/mL (0.0-2.4); Troponin I <0.012 ng/mL (0.000-0.034)
--- NOTE | 2017-08-13 22:21 | ED ---
General Adult HPI - General Chief complaint: Neuro Symptoms/Deficit Stated complaint: Possible CVA Time Seen by Provider: 08/13/17 20:38 Source: patient, EMS Mode of arrival: EMS Limitations: no limitations - History of Present Illness Initial comments: 76-year-old male presenting with left upper extremity weakness. Weakness began at 6:15. Patient does have history of atrial fibrillation, history of multiple TIAs and CVA in the past. Patient had no residual deficit according to family. Denies headache. Denies vision changes. Denies chest pain or shortness of breath. Patient was brought in as a priority 1 call stroke by EMS. No abdominal pain, no vomiting or diarrhea. No injury. - Related Data Home Medications Medication Instructions Recorded Confirmed Aspirin 81 mg PO QAM 08/26/14 06/11/16 Atorvastatin [Lipitor] 40 mg PO HS 08/26/14 06/11/16 Cholecalciferol [Vitamin D3] 1,000 unit PO DAILY 08/26/14 06/11/16 Cilostazol [Pletal] 100 mg PO DAILY 08/26/14 06/11/16 DULoxetine HCL [Cymbalta] 60 mg PO DAILY 08/26/14 06/11/16 Donepezil [Aricept] 10 mg PO BID 08/26/14 06/11/16 [place]-3 Fatty Acids/Fish Oil [Fish 1 cap PO DAILY 08/26/14 06/11/16 Oil 1,000 mg Softgel] Nitroglycerin Sl Tabs [Nitrostat] 0.4 mg SUBLINGUAL Q5M PRN 10/16/14 06/11/16 Tamsulosin HCl [Flomax] 0.4 mg PO DAILY 05/24/15 06/11/16 Insulin Glargine [Lantus] 20 unit SQ QAM 10/15/15 06/11/16 Isosorbide Mononitrate ER [Imdur] 30 mg PO DAILY 10/15/15 06/11/16 Melatonin 3 mg PO HS 10/15/15 06/11/16 Acetaminophen [Tylenol] 325 mg PO DAILY 06/11/16 06/11/16 Atenolol [Tenormin] 50 mg PO BID 06/11/16 06/11/16 Furosemide [Lasix] 40 mg PO DAILY 06/11/16 06/11/16 Oxybutynin Chloride [Ditropan] 5 mg PO BID 06/11/16 06/11/16 amLODIPine [Norvasc] 5 mg PO DAILY 06/11/16 06/11/16 Previous Rx's Medication Instructions Recorded Insulin Glargine [Lantus] 30 unit SQ HS vial 10/23/15 Folic Acid 1 mg PO DAILY #30 tablet 06/14/16 HYDROcodone/APAP 5-325MG [Adams 1 tab PO Q6HR PRN #20 tab 06/14/16 5-325] INSULIN LISPRO (HumaLOG) [humaLOG] 0 unit SQ ACHS #1 vial 06/14/16 Ipratropium-Albuterol Nebulize 3 ml INHALATION QID #0 06/14/16 [Duoneb 0.5 mg-3 mg/3 ml Soln] Levothyroxine Sodium [Levo-T] 100 mcg PO DAILY #1 tablet 06/14/16 Multivitamins, Thera [Multivitamin 1 each PO DAILY@1200 tab 06/14/16 (formulary)] Pregabalin [Lyrica] 100 mg PO BID #20 cap 06/14/16 Thiamine [Vitamin B-1] 100 mg PO DAILY #30 tablet 06/14/16 Allergies Allergy/AdvReac Type Severity Reaction Status Date / Time ciprofloxacin [From Cipro] Allergy Swelling Verified 08/13/17 20:55 ciprofloxacin HCl Allergy Swelling Verified 08/13/17 20:55 [From Cipro] latex Allergy Unknown Verified 08/13/17 20:55 NSAIDS (Non-Steroidal Allergy Unknown Verified 08/13/17 20:55 Anti-Inflamma Quinolones Allergy Unknown Verified 08/13/17 20:55 Review of Systems ROS Statement: Those systems with pertinent positive or pertinent negative responses have been documented in the HPI. ROS Other: All systems not noted in ROS Statement are negative. Past Medical History Past Medical History: Atrial Flutter, Coronary Artery Disease (CAD), Chest Pain / Angina, Heart Failure, COPD, Dementia, Diabetes Mellitus, Fibromyalgia, Hyperlipidemia, Hypertension, Myocardial Infarction ([place]), Prostate Disorder, Renal Disease, Sleep Apnea/CPAP/BIPAP, Vascular Disorder Additional Past Medical History / Comment(s): IDDM, chronic renal failure, aflutter, sleep apnea with no cpap, PVD, DJD, chronic back pain, bulging and herniated discs, sciatica, dislocated knuckles, gout, arthiritis, prostate problem-pt unsure what problem is, tinnitis bilaterally, R eye stroke, umbilical hernia, diverticular disease, obesity. Last Myocardial Infarction Date:: 2004 History of Any Multi-Drug Resistant Organisms: MRSA Date of last positivie culture/infection: 10/17/2014 MDRO Source:: Sputum Past Surgical History: Coronary Bypass/CABG, Heart Catheterization, Tonsillectomy Additional Past Surgical History / Comment(s): 2004 triple vessel CABG, Ccath 2004, L carotid endartectomy, bilateral cataract removal with lens implants, colonoscopy, skin lesion removal. Past Anesthesia/Blood Transfusion Reactions: No Reported Reaction Past Psychological History: Anxiety, Depression Smoking Status: Former smoker Past Alcohol Use History: None Reported Past Drug Use History: None Reported - Past Family History Father Family Medical History: Coronary Artery Disease (CAD) Additional Family Medical History / Comment(s): Father had CABG Mother Family Medical History: No Reported History Additional Family Medical History / Comment(s): Pt states mother was a healthy person. General Exam Limitations: no limitations General appearance: alert, in no apparent distress Head exam: Present: atraumatic, normocephalic Eye exam: Present: normal appearance, PERRL ENT exam: Present: normal exam Neck exam: Present: normal inspection. Absent: tenderness Respiratory exam: Present: normal lung sounds bilaterally. Absent: respiratory distress Cardiovascular Exam: Present: regular rate, tachycardia GI/Abdominal exam: Present: soft. Absent: distended, tenderness Extremities exam: Present: normal inspection, normal capillary refill, other ( Left upper extremity proximal weakness, good sciences dean strength). Absent: pedal edema Back exam: Present: normal inspection. Absent: full ROM, tenderness Neurological exam: Present: alert, oriented X3, CN II-XII intact, motor sensory deficit (Left upper extremity proximal weakness, normal sciences dean strength, NIH 1) Psychiatric exam: Present: normal affect, normal mood Skin exam: Present: warm, dry, intact. Absent: cyanosis, diaphoretic Course Vital Signs 08/13/17 08/13/17 08/13/17 20:44 20:59 21:10 Temperature 98.7 F Pulse Rate 70 74 78 Respiratory 18 18 16 Rate Blood Pressure 149/120 148/93 139/81 O2 Sat by Pulse 97 99 98 Oximetry 08/13/17 21:25 Temperature Pulse Rate 70 Respiratory 16 Rate Blood Pressure 149/91 O2 Sat by Pulse 97 Oximetry EKG Findings - EKG Comments: EKG Findings:: EKG, atrial fibrillation, incomplete right bundle, rate of 73, QRS duration 110, QTC 449, no acute ischemic changes, no significant change compared to old EKG. Medical Decision Making - Medical Decision Making 76-year-old male presenting with sudden onset left upper extremity weakness. Head CT is obtained, this is negative for intracranial hemorrhage, does show chronic ischemic changes as well as diffuse atrophy. EKG is atrial fibrillation , rate controlled, no ischemia. NIH is 1. CBC unremarkable, creatinine 1.53 which is at baseline, electrolytes and glucose within normal limits. Case is discussed with Dr. Allison, interventional stroke neurologist, given the low NIH and previous history of TIA and stroke, patient is not a TPA candidate. Patient will be admitted for further stroke evaluation. - Lab Data Result diagrams: 08/13/17 21:07 08/13/17 21:07 Lab Results 08/13/17 08/13/17 08/13/17 Range/Units 21:07 21:07 21:07 WBC 8.6 (3.8-10.6) k/uL RBC 5.00 (4.30-5.90) m/uL Hgb 15.9 (13.0-17.5) gm/dL Hct 44.3 (39.0-53.0) % MCV 88.7 D (80.0-100.0) fL MCH 31.9 (25.0-35.0) pg MCHC 36.0 (31.0-37.0) g/dL RDW 13.7 (11.5-15.5) % Plt Count 209 (150-450) k/uL Neutrophils % 77 % Lymphocytes % 12 % Monocytes % 7 % Eosinophils % 3 % Basophils % 0 % Neutrophils # 6.6 (1.3-7.7) k/uL Lymphocytes # 1.0 (1.0-4.8) k/uL Monocytes # 0.6 (0-1.0) k/uL Eosinophils # 0.2 (0-0.7) k/uL Basophils # 0.0 (0-0.2) k/uL Hyperchromasia Slight PT (9.0-12.0) sec INR (<1.2) APTT (22.0-30.0) sec Sodium 142 (137-145) mmol/L Potassium 3.9 (3.5-5.1) mmol/L Chloride 102 (98-107) mmol/L Carbon Dioxide 26 (22-30) mmol/L Anion Gap 14 mmol/L BUN 30 H (9-20) mg/dL Creatinine 1.53 H (0.66-1.25) mg/dL Est GFR (CKD-EPI)AfAm 50 (>60 ml/min/1.73 sqM) Est GFR (CKD-EPI)NonAf 43 (>60 ml/min/1.73 sqM) Glucose 186 H (74-99) mg/dL Calcium 9.3 (8.4-10.2) mg/dL Total Bilirubin 0.5 (0.2-1.3) mg/dL AST 13 L (17-59) U/L ALT 22 (21-72) U/L Alkaline Phosphatase 132 H (38-126) U/L Total Creatine Kinase 39 L (55-170) U/L CK-MB (CK-2) 0.6 (0.0-2.4) ng/mL CK-MB (CK-2) Rel Index 1.5 Troponin I <0.012 (0.000-0.034) ng/mL Total Protein 6.3 (6.3-8.2) g/dL Albumin 3.6 (3.5-5.0) g/dL 08/13/17 Range/Units 21:07 WBC (3.8-10.6) k/uL RBC (4.30-5.90) m/uL Hgb (13.0-17.5) gm/dL Hct (39.0-53.0) % MCV (80.0-100.0) fL MCH (25.0-35.0) pg MCHC (31.0-37.0) g/dL RDW (11.5-15.5) % Plt Count (150-450) k/uL Neutrophils % % Lymphocytes % % Monocytes % % Eosinophils % % Basophils % % Neutrophils # (1.3-7.7) k/uL Lymphocytes # (1.0-4.8) k/uL Monocytes # (0-1.0) k/uL Eosinophils # (0-0.7) k/uL Basophils # (0-0.2) k/uL Hyperchromasia PT 11.4 (9.0-12.0) sec INR 1.2 H (<1.2) APTT 23.4 (22.0-30.0) sec Sodium (137-145) mmol/L Potassium (3.5-5.1) mmol/L Chloride (98-107) mmol/L Carbon Dioxide (22-30) mmol/L Anion Gap mmol/L BUN (9-20) mg/dL Creatinine (0.66-1.25) mg/dL Est GFR (CKD-EPI)AfAm (>60 ml/min/1.73 sqM) Est GFR (CKD-EPI)NonAf (>60 ml/min/1.73 sqM) Glucose (74-99) mg/dL Calcium (8.4-10.2) mg/dL Total Bilirubin (0.2-1.3) mg/dL AST (17-59) U/L ALT (21-72) U/L Alkaline Phosphatase (38-126) U/L Total Creatine Kinase (55-170) U/L CK-MB (CK-2) (0.0-2.4) ng/mL CK-MB (CK-2) Rel Index Troponin I (0.000-0.034) ng/mL Total Protein (6.3-8.2) g/dL Albumin (3.5-5.0) g/dL Critical Care Time Critical Care Time: Yes Total Critical Care Time: 35 Disposition Clinical Impression: Cerebrovascular accident Disposition: ADMITTED IP TO THIS [facility] Condition: Serious Referrals: Erick Escudero DO [Primary Care Provider] - 1-2 days Decision to Admit Reason: Admit from EC Decision Date: 08/13/17 Decision Time: 22:22
[2017-08-13] MEDS ORDERED: ASPIRIN 325 MG TAB PO STA (22:22)
[2017-08-13] MEDS ORDERED: HYDROcodone/APAP 5-325MG 1 EACH TAB PO PRN (22:23)
[2017-08-14 06:11] LABS: Glucose,Whole Blood 201 mg/dL (75-99)
[2017-08-14 06:45] LABS: Cholesterol 109 mg/dL (<200); HDL Cholesterol 30 mg/dL (40-60); LDL Cholesterol,Calculated 49 mg/dL (0-99); Triglycerides 148 mg/dL (<150)
[2017-08-14] MEDS: LEVOTHYROXINE 100 MCG TAB PO SCH (06:45)
[2017-08-14] MEDS: IPRATROPIUM-ALBUTEROL 3 ML NEB INHALATION SCH ×4 (08:07→21:06)
[2017-08-14] MEDS: FUROSEMIDE 40 MG TAB PO SCH (09:06)
[2017-08-14] MEDS: ATENOLOL 50 MG TAB PO SCH ×2 (09:06→21:04)
[2017-08-14] MEDS: ISOSORBIDE MONONITRATE ER 30 MG TAB.ER.24H PO SCH (09:06)
[2017-08-14] MEDS: CILOSTAZOL 100 MG TAB PO SCH (09:06)
[2017-08-14] MEDS: amLODIPine 5 MG TAB PO SCH (09:06)
[2017-08-14] MEDS: INSULIN DETEMIR 100 UNIT/ML 10 ML VIAL SQ SCH ×2 (09:06→21:05)
[2017-08-14] MEDS: PREGABALIN 100 MG CAP PO SCH ×2 (09:06→21:04)
[2017-08-14] MEDS: DONEPEZIL 10 MG TAB PO SCH ×2 (09:06→21:04)
[2017-08-14 12:25] LABS: Glucose,Whole Blood 299 mg/dL (75-99)
--- NOTE | 2017-08-14 14:56 | P.HPIM ---
History of Present Illness H&P Date: 08/14/17 Chief Complaint: Left-sided weakness Patient is a 76-year-old male with a known history of atrial fibrillation, history of falls, CAD status post bypass graft, hypertension, hyperlipidemia, diabetes type 2 obstructive sleep apnea, history of left carotid endarterectomy/ peripheral vascular disease and multiple other medical problems came to ER with complaints of left upper hand weakness which started around 6:15 PM yesterday evening. Patient does have a history of TIA with visual problems previously about 5 years ago. Otherwise patient denied any headache or vision changes. No chest pain. No short of breath. No fever no chills. No recent illnesses. Patient is not on any anticoagulation currently. CT brain showed extensive atrophy and chronic small wasn't ischemia. No hemorrhage. No acute intracranial abnormality. No syncope and change compared to old exam EKG showed atrial fibrillation. Review of Systems Constitutional: Patient denies any fever or chills . No generalized weakness or weight loss. Abdomen: Patient denied nausea vomiting and diarrhea and abdominal pain. Cardiovascular: Patient denies any chest pain or short of breath no palpitations. Respiratory: patient denied any cough is from production. No shortness of breath Neurologic: Left hand weakness. Patient denied any numbness or tingling headache. Musculoskeletal: Patient denies any complaints of joint swelling or deformity. Skin: Negative Psychiatric: Negative Endocrine: No heat or cold intolerance. No recent weight gain. Genitourinary: No dysuria or hematuria. All other 14 point ROS negative except the above Past Medical History Past Medical History: Atrial Flutter, Coronary Artery Disease (CAD), Chest Pain / Angina, Heart Failure, COPD, Dementia, Diabetes Mellitus, Fibromyalgia, Hyperlipidemia, Hypertension, Myocardial Infarction ([place]), Prostate Disorder, Renal Disease, Sleep Apnea/CPAP/BIPAP, Vascular Disorder Additional Past Medical History / Comment(s): IDDM, chronic renal failure, aflutter, sleep apnea with no cpap, PVD, DJD, chronic back pain, bulging and herniated discs, sciatica, dislocated knuckles, gout, arthiritis, prostate problem-pt unsure what problem is, tinnitis bilaterally, R eye stroke, umbilical hernia, diverticular disease, obesity. Last Myocardial Infarction Date:: 2004 History of Any Multi-Drug Resistant Organisms: MRSA Date of last positivie culture/infection: 10/17/2014 MDRO Source:: Sputum Past Surgical History: Coronary Bypass/CABG, Heart Catheterization, Tonsillectomy Additional Past Surgical History / Comment(s): 2005 triple vessel CABG, Ccath 2005, L carotid endartectomy, bilateral cataract removal with lens implants, colonoscopy, skin lesion removal. Past Anesthesia/Blood Transfusion Reactions: No Reported Reaction Past Psychological History: Anxiety, Depression Additional Psychological History / Comment(s): Pt lives at home with his . has cane/walker, hx of falls. He denies any medical marijuana, marijuana, street drug use. He does drink 1 bottle of beer per month. He was in the [employer] for 14 years and stationed in the [place]. He denies any recent travel. There is a dog in the home. Smoking Status: Former smoker Past Alcohol Use History: None Reported Additional Past Alcohol Use History / Comment(s): Pt started smoking about 1966 and quit in 1996. He smoked up to 3 ppd. Past Drug Use History: None Reported - Past Family History Father Family Medical History: Coronary Artery Disease (CAD) Additional Family Medical History / Comment(s): Father had CABG Mother Family Medical History: No Reported History Additional Family Medical History / Comment(s): Pt states mother was a healthy person. Medications and Allergies Home Medications Medication Instructions Recorded Confirmed Type Aspirin 81 mg PO QAM 08/26/14 08/14/17 History Atorvastatin [Lipitor] 40 mg PO HS 08/26/14 08/14/17 History Cholecalciferol [Vitamin D3] 1,000 unit PO DAILY 08/26/14 08/14/17 History Cilostazol [Pletal] 100 mg PO DAILY 08/26/14 08/14/17 History DULoxetine HCL [Cymbalta] 60 mg PO DAILY 08/26/14 08/14/17 History Donepezil [Aricept] 10 mg PO BID 08/26/14 08/14/17 History [place]-3 Fatty Acids/Fish Oil [Fish 1 cap PO DAILY 08/26/14 08/14/17 History Oil 1,000 mg Softgel] Nitroglycerin Sl Tabs [Nitrostat] 0.4 mg SUBLINGUAL Q5M PRN 10/16/14 08/14/17 History Tamsulosin HCl [Flomax] 0.4 mg PO DAILY 05/24/15 08/14/17 History Isosorbide Mononitrate ER [Imdur] 30 mg PO DAILY 10/15/15 08/14/17 History Melatonin 3 mg PO HS 10/15/15 08/14/17 History Atenolol [Tenormin] 50 mg PO DAILY 06/11/16 08/14/17 History Oxybutynin Chloride [Ditropan] 5 mg PO BID 06/11/16 08/14/17 History amLODIPine [Norvasc] 5 mg PO DAILY 06/11/16 08/14/17 History Thiamine [Vitamin B-1] 100 mg PO DAILY #30 tablet 06/14/16 08/14/17 Rx Furosemide [Lasix] 20 mg PO BID 08/14/17 08/14/17 History INSULIN LISPRO (HumaLOG) [humaLOG] See Protocol SQ ACHS 08/14/17 08/14/17 History Insulin Glargine,Hum.rec.anlog 20 unit SQ DAILY 08/14/17 08/14/17 History [Lantus Solostar] Insulin Glargine,Hum.rec.anlog 25 unit SQ HS 08/14/17 08/14/17 History [Lantus Solostar] Levothyroxine Sodium [Synthroid] 75 mcg PO DAILY 08/14/17 08/14/17 History Allergies Allergy/AdvReac Type Severity Reaction Status Date / Time ciprofloxacin [From Cipro] Allergy Swelling Verified 08/14/17 12:56 ciprofloxacin HCl Allergy Swelling Verified 08/14/17 12:56 [From Cipro] latex Allergy Unknown Verified 08/14/17 12:56 NSAIDS (Non-Steroidal Allergy Unknown Verified 08/14/17 12:56 Anti-Inflamma Quinolones Allergy Unknown Verified 08/14/17 12:56 Physical Exam Vitals: Vital Signs Temp Pulse Pulse Resp BP BP Pulse Ox 08/14/17 08:00 97.2 F L 86 18 136/85 94 L 08/14/17 04:00 61 16 124/61 97 08/14/17 00:00 97.8 F 78 16 150/79 100 08/13/17 22:52 98.7 F 76 18 142/88 97 08/13/17 22:25 80 18 148/86 99 08/13/17 22:22 75 18 153/83 98 08/13/17 21:25 70 16 149/91 97 08/13/17 21:10 78 16 139/81 98 08/13/17 20:59 74 18 148/93 99 08/13/17 20:44 98.7 F 70 18 149/120 97 Intake and Output 08/13/17 08/14/17 08/14/17 22:59 06:59 14:59 Intake Total 240 Balance 240 Intake: Oral 240 Other: Voiding Method Diaper Incontinent # Voids 2 Weight 107.955 kg 102 kg PHYSICAL EXAMINATION: Patient is lying in the bed comfortably, no acute distress, awake alert and oriented.. HEENT: Normocephalic. Neck is supple. Pupils reactive. Nostrils clear. Oral cavity is moist. Ears reveal no drainage. Neck reveals no JVD, carotid bruits, or thyromegaly. CHEST EXAMINATION: Trachea is central. Symmetrical expansion. Lung rodriguez clear to auscultation and percussion. CARDIAC: Normal S1, S2 with no gallops. Irregularly irregular rhythm. No murmurs ABDOMEN: Soft. Bowel sounds normal. No organomegaly. No abdominal bruits. Extremities: reveal no edema. No clubbing or cyanosis Neurologically awake, alert, oriented x3. Left upper extremity weakness with muscle strength 3 / 5. Patient is not able to raise the hand above shoulder. Skin: No rash or skin lesions. Psychiatric: Cooperative. Nonsuicidal Musculoskeletal: No joint swelling or deformity. Normal range of motion. Results CBC & Chem 7: 08/13/17 21:07 08/13/17 21:07 Labs: Abnormal Lab Results - Last 24 Hours (Table) 08/13/17 08/13/17 08/13/17 Range/Units 21:07 21:07 21:07 INR 1.2 H (<1.2) BUN 30 H (9-20) mg/dL Creatinine 1.53 H (0.66-1.25) mg/dL Glucose 186 H (74-99) mg/dL POC Glucose (mg/dL) (75-99) mg/dL AST 13 L (17-59) U/L Alkaline Phosphatase 132 H (38-126) U/L Total Creatine Kinase 39 L (55-170) U/L HDL Cholesterol (40-60) mg/dL 08/14/17 08/14/17 Range/Units 06:02 06:06 INR (<1.2) BUN (9-20) mg/dL Creatinine (0.66-1.25) mg/dL Glucose (74-99) mg/dL POC Glucose (mg/dL) 201 H (75-99) mg/dL AST (17-59) U/L Alkaline Phosphatase (38-126) U/L Total Creatine Kinase (55-170) U/L HDL Cholesterol 30 L (40-60) mg/dL Thrombosis Risk Factor Assmnt - DVT/VTE Prophylaxis DVT/VTE Prophylaxis: Pharmacologic Prophylaxis ordered - Choose All That Apply Each Factor Represents 1 point: Obesity (BMI >25) Each Risk Factor Represents 3 Points: Age 75 years or older Thrombosis Risk Factor Assessment Total Risk Factor Score: 4 Thrombosis Risk Factor Assessment Level: Moderate Risk Assessment and Plan Assessment: Left upper activity weakness with possible CVA. CT head negative for any acute process Chronic atrial fibrillation. Acute kidney injury Hypothyroidism Diabetic peripheral neuropathy History of previous TIA and right eye visual changes resolved now Hypertension Diabetes type 2 History of [place] Coronary artery disease with history of CABG triple-vessel Obstructive sleep apnea on CPAP History of left carotid endarterectomy Chronic back pain History of gout Degenerative joint disease Obesity Dementia Anxiety and depression Previous history of smoking. DVT prophylaxis Plan: Patient will be continued on aspirin and statins along with his home medications and telemetry monitoring. Neurology and cardiology will be consulted. Patient is not on any anticoagulation at this time. We will continue to follow closely. Further recommendations based on the clinical course. Prognosis is guarded. Time with Patient: Greater than 30
[2017-08-14] MEDS: HEPARIN SODIUM,PORCINE 5,000 UNIT/ML 1 ML VIAL SQ SCH ×2 (16:34→23:16)
[2017-08-14 17:22] LABS: Glucose,Whole Blood 301 mg/dL (75-99)
--- NOTE | 2017-08-14 17:32 | P.CNNES ---
History of Present Illness Consult date: 08/14/17 Reason for Consult: Patient admitted with left sided weakness and possible stroke. History of Present Illness: This patient is a 76-year-old right-handed white male with a known history of chronic atrial fibrillation and long-standing history of diabetes mellitus and coronary artery disease. Patient presented yesterday with symptoms of acute onset of left hand weakness. According to the patient the symptoms began yesterday evening at about 6:15 PM. He has a history of previous TIA and stroke which she suffered back in 2006. Apparently this left him with some visual problems from the initial stroke. Patient has a history of chronic atrial fibrillation but is not on any anticoagulation treatment at this time. Due to the acute left arm weakness he was brought into the emergency room yesterday at [facility] for evaluation. He was seen in the ER by Dr. Herr. Computed tomography scan of the brain was performed and revealed extensive atrophy and chronic small vessel ischemia. No evidence of hemorrhage or acute intracranial abnormality. No significant change compared to her old computed tomography scan performed on 06/14/2016. Due to the onset of symptoms he was evaluated for possibility of TPA by the ER physician Dr. Herr. The neuro interventionalists was contacted a [facility] Payton Allison we evaluated his and I stroke scale which was noted to be 1.0. His studies were also reviewed and he was deemed not to be a candidate for TPA by Dr. Allison. They've recommended the patient be admitted for full stroke evaluation. Cardiology has been consult for further evaluation of his atrial fibrillation. He has been taking one baby aspirin daily and should continue on the same for secondary stroke prevention. His stroke risk factors include long history of diabetes mellitus which apparently has been under fairly good control. He states that he is not on any specific statin drug for treatment of hyperlipidemia. He is being treated for underlying dementia and does take Aricept 10 mg twice a day. The patient states he did not experience any left leg weakness. It is only been noticed in his left arm. He is now been admitted and neurology has been consulted for further evaluation and recommendations. Review of Systems Constitutional: Denies chills, Denies fever Eyes: denies blurred vision, denies pain Ears, nose, mouth and throat: Denies headache, Denies sore throat Cardiovascular: Denies chest pain, Denies shortness of breath Respiratory: Denies cough Gastrointestinal: Denies abdominal pain, Denies diarrhea, Denies nausea, Denies vomiting Musculoskeletal: Denies myalgias Integumentary: Denies pruritus, Denies rash Neurological: Reports lack of coordination, Reports motor disturbance, Reports paresthesias, Reports transient paralysis, Denies numbness, Denies weakness Psychiatric: Denies anxiety, Denies depression Endocrine: Denies fatigue, Denies weight change Past Medical History Past Medical History: Atrial Flutter, Coronary Artery Disease (CAD), Chest Pain / Angina, Heart Failure, COPD, Dementia, Diabetes Mellitus, Fibromyalgia, Hyperlipidemia, Hypertension, Myocardial Infarction ([place]), Prostate Disorder, Renal Disease, Sleep Apnea/CPAP/BIPAP, Vascular Disorder Additional Past Medical History / Comment(s): IDDM, chronic renal failure, aflutter, sleep apnea with no cpap, PVD, DJD, chronic back pain, bulging and herniated discs, sciatica, dislocated knuckles, gout, arthiritis, prostate problem-pt unsure what problem is, tinnitis bilaterally, R eye stroke, umbilical hernia, diverticular disease, obesity. Last Myocardial Infarction Date:: 2004 History of Any Multi-Drug Resistant Organisms: MRSA Date of last positivie culture/infection: 10/17/2014 MDRO Source:: Sputum Past Surgical History: Coronary Bypass/CABG, Heart Catheterization, Tonsillectomy Additional Past Surgical History / Comment(s): 2004 triple vessel CABG, Ccath 2004, L carotid endartectomy, bilateral cataract removal with lens implants, colonoscopy, skin lesion removal. Past Anesthesia/Blood Transfusion Reactions: No Reported Reaction Past Psychological History: Anxiety, Depression Additional Psychological History / Comment(s): Pt lives at home with his . has cane/walker, hx of falls. He denies any medical marijuana, marijuana, street drug use. He does drink 1 bottle of beer per month. He was in the [employer] for 14 years and stationed in the [place]. He denies any recent travel. There is a dog in the home. Smoking Status: Former smoker Past Alcohol Use History: None Reported Additional Past Alcohol Use History / Comment(s): Pt started smoking about 1966 and quit in 1996. He smoked up to 3 ppd. Past Drug Use History: None Reported - Past Family History Father Family Medical History: Coronary Artery Disease (CAD) Additional Family Medical History / Comment(s): Father had CABG Mother Family Medical History: No Reported History Additional Family Medical History / Comment(s): Pt states mother was a healthy person. Medications and Allergies Home Medications Medication Instructions Recorded Confirmed Type Aspirin 81 mg PO QAM 08/26/14 08/14/17 History Atorvastatin [Lipitor] 40 mg PO HS 08/26/14 08/14/17 History Cholecalciferol [Vitamin D3] 1,000 unit PO DAILY 08/26/14 08/14/17 History Cilostazol [Pletal] 100 mg PO DAILY 08/26/14 08/14/17 History DULoxetine HCL [Cymbalta] 60 mg PO DAILY 08/26/14 08/14/17 History Donepezil [Aricept] 10 mg PO BID 08/26/14 08/14/17 History [place]-3 Fatty Acids/Fish Oil [Fish 1 cap PO DAILY 08/26/14 08/14/17 History Oil 1,000 mg Softgel] Nitroglycerin Sl Tabs [Nitrostat] 0.4 mg SUBLINGUAL Q5M PRN 10/16/14 08/14/17 History Tamsulosin HCl [Flomax] 0.4 mg PO DAILY 05/24/15 08/14/17 History Isosorbide Mononitrate ER [Imdur] 30 mg PO DAILY 10/15/15 08/14/17 History Melatonin 3 mg PO HS 10/15/15 08/14/17 History Atenolol [Tenormin] 50 mg PO DAILY 06/11/16 08/14/17 History Oxybutynin Chloride [Ditropan] 5 mg PO BID 06/11/16 08/14/17 History amLODIPine [Norvasc] 5 mg PO DAILY 06/11/16 08/14/17 History Thiamine [Vitamin B-1] 100 mg PO DAILY #30 tablet 06/14/16 08/14/17 Rx Furosemide [Lasix] 20 mg PO BID 08/14/17 08/14/17 History INSULIN LISPRO (HumaLOG) [humaLOG] See Protocol SQ ACHS 08/14/17 08/14/17 History Insulin Glargine,Hum.rec.anlog 20 unit SQ DAILY 08/14/17 08/14/17 History [Lantus Solostar] Insulin Glargine,Hum.rec.anlog 25 unit SQ HS 08/14/17 08/14/17 History [Lantus Solostar] Levothyroxine Sodium [Synthroid] 75 mcg PO DAILY 08/14/17 08/14/17 History Allergies Allergy/AdvReac Type Severity Reaction Status Date / Time ciprofloxacin [From Cipro] Allergy Swelling Verified 08/14/17 12:56 ciprofloxacin HCl Allergy Swelling Verified 08/14/17 12:56 [From Cipro] latex Allergy Unknown Verified 08/14/17 12:56 NSAIDS (Non-Steroidal Allergy Unknown Verified 08/14/17 12:56 Anti-Inflamma Quinolones Allergy Unknown Verified 08/14/17 12:56 Physical Examination - Vital Signs Vital Signs: Vital Signs Temp Pulse Pulse Resp BP BP Pulse Ox 08/14/17 12:00 97.0 F L 77 18 134/77 95 08/14/17 08:00 97.2 F L 86 18 136/85 94 L 08/14/17 04:00 61 16 124/61 97 08/14/17 00:00 97.8 F 78 16 150/79 100 08/13/17 22:52 98.7 F 76 18 142/88 97 08/13/17 22:25 80 18 148/86 99 08/13/17 22:22 75 18 153/83 98 08/13/17 21:25 70 16 149/91 97 08/13/17 21:10 78 16 139/81 98 08/13/17 20:59 74 18 148/93 99 08/13/17 20:44 98.7 F 70 18 149/120 97 Intake and Output 08/14/17 08/14/17 08/14/17 06:59 14:59 22:59 Intake Total 710 Balance 710 Intake: Oral 710 Other: Voiding Method Diaper Incontinent # Voids 2 1 Weight 102 kg - Constitutional General appearance: average body habitus, cooperative - EENT EENT: PERRL, mucous membranes moist - Respiratory Respiratory: lungs clear, normal breath sounds - Cardiovascular Cardiovascular: regular rate, normal S1, normal S2 Extremities: no peripheral edema bilaterally - Gastrointestinal Gastrointestinal: normoactive bowel sounds - Integumentary Integumentary: normal - Neurologic Cranial nerve examination: PERRL, EOMI, V1/V2/V3 grossly intact, face symmetric , tongue midline, intact gag reflex, intact corneal reflex, normal palatal elevation Speech examination: intact Sensorimotor examination: intact Motor examination - right side: 4/5: biceps, triceps, wrist flexion, wrist extension, venue attendant, hip flexors, knee extensors, dorsiflexion, toe extension (EHL) , plantarflexion Motor examination - left side: 2/5: biceps, triceps, wrist flexion, wrist extension, venue attendant, 4/5: hip flexors, knee extensors, dorsiflexion, toe extension ( EHL), plantarflexion Detailed sensory examination: intact Reflex and gait examination: intact Reflexes: 1+: ankle, bicep, knee, tricep - Musculoskeletal Musculoskeletal: no pain - Psychiatric Psychiatric: mood/affect appropriate, cooperative Results - Laboratory Findings CBC and BMP: 08/13/17 21:07 08/13/17 21:07 Abnormal Lab Findings: Abnormal Labs 08/13/17 08/13/17 08/13/17 21:07 21:07 21:07 INR 1.2 H BUN 30 H Creatinine 1.53 H Glucose 186 H POC Glucose (mg/dL) AST 13 L Alkaline Phosphatase 132 H Total Creatine Kinase 39 L HDL Cholesterol 08/14/17 08/14/17 08/14/17 06:02 06:06 12:06 INR BUN Creatinine Glucose POC Glucose (mg/dL) 201 H 299 H AST Alkaline Phosphatase Total Creatine Kinase HDL Cholesterol 30 L Assessment and Plan (1) Acute right arterial ischemic stroke, MCA (middle cerebral artery) Current Visit: Yes Status: Acute Code(s): I63.511 - CEREB INFRC D/T UNSP OCCLS OR STENOS OF RIGHT MID CEREB ART SNOMED Code(s): 642669054 (2) Atrial fibrillation Current Visit: Yes Status: Acute Code(s): I48.91 - UNSPECIFIED ATRIAL FIBRILLATION SNOMED Code(s): 33682489 (3) Dementia Current Visit: Yes Status: Acute Code(s): F03.90 - UNSPECIFIED DEMENTIA WITHOUT BEHAVIORAL DISTURBANCE SNOMED Code(s): 27370330 (4) Encephalopathy Current Visit: No Status: Acute Code(s): G93.40 - ENCEPHALOPATHY, UNSPECIFIED SNOMED Code(s): 72539115 (5) HTN (hypertension) Current Visit: No Status: Acute Code(s): I10 - ESSENTIAL (PRIMARY) HYPERTENSION SNOMED Code(s): 95174822 Plan: This patient is a 76-year-old male admitted with sudden onset of left arm weakness that began yesterday evening at about 6:15 PM. He was brought into the emergency room for further evaluation and the [facility]. He was seen in the ER by Dr. Herr. He underwent computed tomography scan of the brain results which are noted above. The neuro interventionalists was contacted at [facility] regarding this patient's symptoms and possible use for TPA. His NIH stroke scale in the ER was documented by Dr. Herr is being 1.0. Due to the low score on his NIH and review of his other studies it was determined by Dr. Allison that this patient was not a candidate for TPA. He was admitted to Hospital for further stroke evaluation. His neurological examination reveals him to have left-sided hemiparesis arm greater than leg. We are recommending a complete stroke evaluation to the patient. Discussed include history suggesting acute right MCA stroke. We recommended he have a MRI of the brain for further evaluation. He does have a history of chronic atrial fibrillation and we are waiting further recommendations from cardiology. Currently the patient is not anticoagulated. We reviewed the test results today with the patient in detail. All of his questions were answered. We will continue close neurological follow-up for the patient. His overall prognosis at this time remains guarded. Time with Patient: Greater than 30
[2017-08-14] MEDS: ASPIRIN 325 MG TAB PO SCH (18:56)
[2017-08-14 20:52] LABS: Glucose,Whole Blood 295 mg/dL (75-99)
[2017-08-14] MEDS: ATORVASTATIN 40 MG TAB PO SCH (21:04)
[2017-08-14] MEDS: INSULIN ASPART 100 UNIT/ML 1 ML 10 ML VIAL SQ SCH (21:05)
[2017-08-15 06:08] LABS: Glucose,Whole Blood 148 mg/dL (75-99)
[2017-08-15] MEDS: LEVOTHYROXINE 100 MCG TAB PO SCH (06:35)
[2017-08-15] MEDS: INSULIN ASPART 100 UNIT/ML 1 ML 10 ML VIAL SQ SCH ×4 (06:39→21:54)
[2017-08-15 06:51] LABS: Basophils % (A) 0 %; Eosinophils # (A) 0.3 k/uL (0-0.7); Eosinophils % (A) 3 %; HCT 47.9 % (39.0-53.0); HGB 16.6 gm/dL (13.0-17.5); Lymphocytes # (A) 1.1 k/uL (1.0-4.8); Lymphocytes % (A) 14 %; MCH 31.1 pg (25.0-35.0); MCHC 34.7 g/dL (31.0-37.0); MCV 89.5 fL (80.0-100.0); Mean Platelet Volume 8.8; Monocytes # (A) 0.7 k/uL (0-1.0); Monocytes % (A) 9 %; Neutrophils # (A) 5.9 k/uL (1.3-7.7); Neutrophils % (A) 71 %; Platelet Count 199 k/uL (150-450); RBC 5.35 m/uL (4.30-5.90); RDW 13.7 % (11.5-15.5); WBC 8.2 k/uL (3.8-10.6)
[2017-08-15 06:57] LABS: Calcium 9.6 mg/dL (8.4-10.2)
[2017-08-15] MEDS: IPRATROPIUM-ALBUTEROL 3 ML NEB INHALATION SCH ×4 (08:10→20:02)
[2017-08-15] MEDS: amLODIPine 5 MG TAB PO SCH (08:20)
[2017-08-15] MEDS: HEPARIN SODIUM,PORCINE 5,000 UNIT/ML 1 ML VIAL SQ SCH (08:20)
[2017-08-15] MEDS: ASPIRIN 325 MG TAB PO SCH (08:20)
[2017-08-15] MEDS: FUROSEMIDE 40 MG TAB PO SCH (08:21)
[2017-08-15] MEDS: CILOSTAZOL 100 MG TAB PO SCH (08:21)
[2017-08-15] MEDS: ISOSORBIDE MONONITRATE ER 30 MG TAB.ER.24H PO SCH (08:21)
[2017-08-15] MEDS: ATENOLOL 50 MG TAB PO SCH ×2 (08:21→21:56)
[2017-08-15] MEDS: DONEPEZIL 10 MG TAB PO SCH ×2 (08:21→22:01)
--- NOTE | 2017-08-15 08:21 | P.CRDCN ---
History of Present Illness Consult date: 08/15/17 Chief complaint: CVA History of present illness: This is a pleasant 76-year-old gentleman who was seen in the office last in November [address] Munson with an extensive past medical history presented to the emergency room complaining of left sided weakness. The patient was diagnosed with TIA/CVA. It was felt at that point that he was not a candidate to receive TPA and he was treated medically. The computed tomography scan of the head did not show any evidence of acute stroke. We get involved in the care of the patient because he does have chronic atrial fibrillation but he is not on any anticoagulation. The patient beside that does have history of coronary artery disease and he underwent CABG in the past, hypertension, dyslipidemia, history of carotid disease, and history of peripheral arterial disease. The last echocardiogram was from May 2016 and at that point revealed normal left ventricular systolic function. He was seen by the cardiology service as a consult back in 2016 as well and we felt at that point that the patient was not a candidate to receive anticoagulation because of high risk of falling and bleeding. Beside the left sided weakness, the patient does not complain from any chest pain or discomfort or difficulty breathing. No heart racing or fluttering feeling and no dizziness or lightheadedness. He stated that he does have overall poor functional capacity and he is able to walk only to the bathroom on his own. He lost fall but his falling as not as frequent according to what he is saying. Beside that hemodynamically he seems to be stable. The heart rate is controlled and he continues to be in atrial fibrillation. Past Medical History Past Medical History: Atrial Flutter, Coronary Artery Disease (CAD), Chest Pain / Angina, Heart Failure, COPD, Dementia, Diabetes Mellitus, Fibromyalgia, Hyperlipidemia, Hypertension, Myocardial Infarction (CA), Prostate Disorder, Renal Disease, Sleep Apnea/CPAP/BIPAP, Vascular Disorder Additional Past Medical History / Comment(s): IDDM, chronic renal failure, aflutter, sleep apnea with no cpap, PVD, DJD, chronic back pain, bulging and herniated discs, sciatica, dislocated knuckles, gout, arthiritis, prostate problem-pt unsure what problem is, tinnitis bilaterally, R eye stroke, umbilical hernia, diverticular disease, obesity. Last Myocardial Infarction Date:: 2004 History of Any Multi-Drug Resistant Organisms: MRSA Date of last positivie culture/infection: 10/17/2014 MDRO Source:: Sputum Past Surgical History: Coronary Bypass/CABG, Heart Catheterization, Tonsillectomy Additional Past Surgical History / Comment(s): 2005 triple vessel CABG, Ccath 2005, L carotid endartectomy, bilateral cataract removal with lens implants, colonoscopy, skin lesion removal. Past Anesthesia/Blood Transfusion Reactions: No Reported Reaction Past Psychological History: Anxiety, Depression Additional Psychological History / Comment(s): Pt lives at home with his . has cane/walker, hx of falls. He denies any medical marijuana, marijuana, street drug use. He does drink 1 bottle of beer per month. He was in the [employer] for 14 years and stationed in the [place]. He denies any recent travel. There is a dog in the home. Smoking Status: Former smoker Past Alcohol Use History: None Reported Additional Past Alcohol Use History / Comment(s): Pt started smoking about 1966 and quit in 1996. He smoked up to 3 ppd. Past Drug Use History: None Reported - Past Family History Father Family Medical History: Coronary Artery Disease (CAD) Additional Family Medical History / Comment(s): Father had CABG Mother Family Medical History: No Reported History Additional Family Medical History / Comment(s): Pt states mother was a healthy person. Medications and Allergies Home Medications Medication Instructions Recorded Confirmed Type Aspirin 81 mg PO QAM 08/26/14 08/14/17 History Atorvastatin [Lipitor] 40 mg PO HS 08/26/14 08/14/17 History Cholecalciferol [Vitamin D3] 1,000 unit PO DAILY 08/26/14 08/14/17 History Cilostazol [Pletal] 100 mg PO DAILY 08/26/14 08/14/17 History DULoxetine HCL [Cymbalta] 60 mg PO DAILY 08/26/14 08/14/17 History Donepezil [Aricept] 10 mg PO BID 08/26/14 08/14/17 History [place]-3 Fatty Acids/Fish Oil [Fish 1 cap PO DAILY 08/26/14 08/14/17 History Oil 1,000 mg Softgel] Nitroglycerin Sl Tabs [Nitrostat] 0.4 mg SUBLINGUAL Q5M PRN 10/16/14 08/14/17 History Tamsulosin HCl [Flomax] 0.4 mg PO DAILY 05/24/15 08/14/17 History Isosorbide Mononitrate ER [Imdur] 30 mg PO DAILY 10/15/15 08/14/17 History Melatonin 3 mg PO HS 10/15/15 08/14/17 History Atenolol [Tenormin] 50 mg PO DAILY 06/11/16 08/14/17 History Oxybutynin Chloride [Ditropan] 5 mg PO BID 06/11/16 08/14/17 History amLODIPine [Norvasc] 5 mg PO DAILY 06/11/16 08/14/17 History Thiamine [Vitamin B-1] 100 mg PO DAILY #30 tablet 06/14/16 08/14/17 Rx Furosemide [Lasix] 20 mg PO BID 08/14/17 08/14/17 History INSULIN LISPRO (HumaLOG) [humaLOG] See Protocol SQ ACHS 08/14/17 08/14/17 History Insulin Glargine,Hum.rec.anlog 20 unit SQ DAILY 08/14/17 08/14/17 History [Lantus Solostar] Insulin Glargine,Hum.rec.anlog 25 unit SQ HS 08/14/17 08/14/17 History [Lantus Solostar] Levothyroxine Sodium [Synthroid] 75 mcg PO DAILY 08/14/17 08/14/17 History Allergies Allergy/AdvReac Type Severity Reaction Status Date / Time ciprofloxacin [From Cipro] Allergy Swelling Verified 08/14/17 12:56 ciprofloxacin HCl Allergy Swelling Verified 08/14/17 12:56 [From Cipro] latex Allergy Unknown Verified 08/14/17 12:56 NSAIDS (Non-Steroidal Allergy Unknown Verified 08/14/17 12:56 Anti-Inflamma Quinolones Allergy Unknown Verified 08/14/17 12:56 Physical Exam Vitals: Vital Signs Temp Pulse Resp BP Pulse Ox 08/15/17 04:00 67 18 149/86 93 L 08/15/17 00:00 79 18 138/79 95 08/14/17 20:00 96.8 F L 76 18 140/68 95 08/14/17 16:00 97.7 F 81 18 140/79 96 08/14/17 12:00 97.0 F L 77 18 134/77 95 Intake and Output 08/14/17 08/15/17 08/15/17 22:59 06:59 14:59 Intake Total 240 Balance 240 Intake: Oral 240 Other: Voiding Method Diaper Diaper Incontinent Incontinent # Voids 1 1 Weight 100 kg - Constitutional General appearance: no acute distress - Respiratory Respiratory: bilateral: CTA - Cardiovascular Rhythm: regular Heart sounds: normal: S1, S2 Results 08/15/17 06:30 08/15/17 06:30 CBC 08/15/17 Range/Units 06:30 WBC 8.2 (3.8-10.6) k/uL RBC 5.35 (4.30-5.90) m/uL Hgb 16.6 (13.0-17.5) gm/dL Hct 47.9 (39.0-53.0) % Plt Count 199 (150-450) k/uL Comprehensive Metabolic Panel 08/15/17 Range/Units 06:30 Sodium 145 (137-145) mmol/L Potassium 4.0 (3.5-5.1) mmol/L Chloride 102 (98-107) mmol/L Carbon Dioxide 31 H (22-30) mmol/L BUN 32 H (9-20) mg/dL Creatinine 1.74 H (0.66-1.25) mg/dL Glucose 143 H (74-99) mg/dL Calcium 9.6 (8.4-10.2) mg/dL Current Medications Generic Name Dose Route Start Last Admin Trade Name Freq PRN Reason Stop Dose Admin Hydrocodone Bitart/Acetaminophen 1 each 08/13/17 22:23 Jones 5-325 PO Q6HR PRN Pain Albuterol/Ipratropium 3 ml 08/14/17 09:00 08/14/17 21:06 Duoneb 0.5 Mg-3 Mg/3 Ml Soln INHALATION Not Given QID JOEL Amlodipine Besylate 5 mg 08/14/17 09:00 08/14/17 09:06 Norvasc PO 5 mg DAILY JOEL Administration Aspirin 325 mg 08/14/17 18:00 08/14/17 18:56 Aspirin PO 325 mg DAILY JOEL Administration Atenolol 50 mg 08/14/17 09:00 08/14/17 21:04 Tenormin PO 50 mg BID JOEL Administration Atorvastatin Calcium 40 mg 08/14/17 21:00 08/14/17 21:04 Lipitor PO 40 mg HS JOEL Administration Cilostazol 100 mg 08/14/17 09:00 08/14/17 09:06 Pletal PO 100 mg DAILY JOEL Administration Donepezil HCl 10 mg 08/14/17 09:00 08/14/17 21:04 Aricept PO 10 mg BID JOEL Administration Furosemide 40 mg 08/14/17 09:00 08/14/17 09:06 Lasix PO 40 mg DAILY JOEL Administration Heparin Sodium (Porcine) 5,000 unit 08/14/17 16:00 08/14/17 23:16 Heparin SQ 5,000 unit Q8HR JOEL Administration Insulin Aspart 0 unit 08/14/17 21:00 08/15/17 06:39 Novolog SQ 1 unit ACHS JOEL Administration Protocol Insulin Detemir 20 unit 08/14/17 09:00 08/14/17 09:06 Levemir SQ 20 unit QAM JOEL Administration Insulin Detemir 30 unit 08/14/17 21:00 08/14/17 21:05 Levemir SQ 30 unit HS JOEL Administration Isosorbide Mononitrate 30 mg 08/14/17 09:00 08/14/17 09:06 Imdur PO 30 mg DAILY JOEL Administration Levothyroxine Sodium 100 mcg 08/14/17 06:30 08/15/17 06:35 Synthroid PO 100 mcg DAILY@0630 JOEL Administration Pregabalin 100 mg 08/14/17 09:00 08/14/17 21:04 Lyrica PO 100 mg BID JOEL Administration Intake and Output 08/14/17 08/15/17 08/15/17 22:59 06:59 14:59 Intake Total 240 Balance 240 Intake: Oral 240 Other: Voiding Method Diaper Diaper Incontinent Incontinent # Voids 1 1 Weight 100 kg 08/15/17 06:30 08/15/17 06:30 Assessment and Plan Assessment: Assessment #1 left sided weakness related to TIA/CVA #2 chronic atrial fibrillation was controlled heart rate was not on any anticoagulation as an outpatient #3 coronary artery disease and status post coronary artery that is grafting #4 peripheral arterial disease and carotid disease #5 multiple comorbid conditions including hypertension and dyslipidemia #6 preserved left ventricular systolic function based on echocardiogram in 2017 Plan #1 the patient continues to be hemodynamically stable and continues to have A. fib with controlled heart rate #2 I would consider starting the patient on oral anticoagulation with Eliquis at the small dose #3 if he develops any more episodes of falling/bleeding he might be a candidate to receive the left atrial appendage closure device #4 obtain an echocardiogram was Doppler #5 follow-up with the patient. Thank you for allowing us participate in his care
[2017-08-15] MEDS: PREGABALIN 100 MG CAP PO SCH ×2 (08:24→22:01)
[2017-08-15] MEDS: INSULIN DETEMIR 100 UNIT/ML 10 ML VIAL SQ SCH ×2 (08:24→21:54)
--- NOTE | 2017-08-15 12:24 | US ---
EXAMINATION TYPE: US carotid duplex BILAT DATE OF EXAM: 08/15/2017 COMPARISON: US 06/12/2016 CLINICAL HISTORY: Acute right hemispheric stroke.. Weakness, dizziness. Left endarterectomy per patie nt EXAM MEASUREMENTS: RIGHT: Peak Systolic Velocity (PSV) cm/sec ----- Right CCA: 29.8 ----- Right ICA: 134.5 ----- Right ECA: 12.5 ICA/CCA ratio: 4.5 RIGHT: End Diastole cm/sec ----- Right CCA: 12.0 ----- Right ICA: 30.0 ----- Right ECA: 0.0 LEFT: Peak Systolic Velocity (PSV) cm/sec ----- Left CCA: 271.5 ----- Left ICA: 45.3 ----- Left ECA: 73.5 ICA/CCA ratio: 0.2 LEFT: End Diastole cm/sec ----- Left CCA: 38.4 ----- Left ICA: 20.9 ----- Left ECA: 6.5 VERTEBRALS (direction of flow): Right Vertebral: Antegrade Left Vertebral: Antegrade Rhythm: Normal Severe amount of plaque noted bilaterally. Elevated velocities visualized in right proximal ICA, left mid/distal CCA. Decreased velocities visualized in the right ECA and left ICA. IMPRESSION: 1. There is severe plaque noted bilaterally with findings suggestive of a severe greater than 70% christin nosis on the right. Ratio on the left suggests significantly elevated velocity within the left common carotid artery and a significant stenosis cannot be excluded. Would recommend a CTA of the carotid bifurcations for furt her evaluation. Criteria for Assigning % of Stenosis / Diameter reduction (Estimation based on the indirect measurements of the internal carotid artery velocities (ICA PSV). 1. Normal (no stenosis)=ICA PSV < 125 cm/s: ratio < 2.0: ICA EDV<40 cm/s. 2. Less than 50% stenosis=ICA PSV < 125 cm/s: ratio < 2.0: ICA EDV<40 cm/s. 3. 50 to 69% stenosis=ICA PSV of 125 to 230 cm/s: ration 2.0 ? 4.0: ICA EDV 40-100 cm/s. 4. Greater than 70% stenosis to near occlusion= ICA PSV > 230 cm/s: ratio > 4.0: ICA EDV > 100 cm/s. 5. Near occlusion= ICA PSV velocities may be low or undetectable: variable ratio and ICA EDV. 6. Total occlusion=unable to detect flow.
[2017-08-15 12:40] LABS: Glucose,Whole Blood 212 mg/dL (75-99)
[2017-08-15 16:47] LABS: Glucose,Whole Blood 305 mg/dL (75-99)
--- NOTE | 2017-08-15 17:53 | P.PN ---
Subjective Progress Note Date: 08/15/17 This patient is a 76-year-old right-handed white male who was seen in neurology consultation yesterday with acute left-sided weakness. He has a known history of chronic atrial fibrillation and has not been on any anticoagulation. Patient was seen yesterday after he presented with symptoms of left arm weakness. He underwent initial computed tomography scan of the brain which failed to reveal any evidence of acute stroke. He completed a carotid Doppler ultrasound today which revealed severe plaque formation bilaterally with findings suggesting severe greater than 70% stenosis of the right ICA. CTA angiogram of the carotid Dopplers was recommended. Would also recommend primary physician to consider vascular surgery consultation for this patient regarding the carotid artery stenosis involving the right internal carotid artery. As noted his MRI final report is pending but clearly review the films indicates multiple areas of acute infarction in the right hemisphere. Patient was also able to complete MRI of the brain today the results of which are still pending. Review of the MRI films however reveals evidence of multiple embolic areas of ischemia involving the right hemisphere. Patient was seen by cardiology for further evaluation of his atrial fibrillation. Dr. Alba is recommending to consider oral anticoagulation with Eliquis at a small dose. If he develops more episodes of falling or bleeding he might be a candidate to receive the left atrial appendage closure device. We will await further recommendations from Dr. Alba. We reviewed the results of the MRI in detail today with the patient. We also updated him on the results of his carotid Doppler study. We will await further recommendations from Dr. Ruvalcaba in regards to his carotid artery disease and will await possible vascular surgery consultation. His overall prognosis at this time remains very guarded. Objective - Vital Signs Vital signs: Vital Signs Temp 97.4 F L 08/15/17 12:35 Pulse 70 08/15/17 12:35 Resp 16 08/15/17 12:35 BP 163/86 08/15/17 12:35 Pulse Ox 96 08/15/17 12:35 Intake & Output 08/14/17 08/15/17 08/15/17 18:59 06:59 18:59 Intake Total 950 240 Balance 950 240 Weight 100 kg Intake: Oral 950 240 Other: Voiding Method Diaper Diaper Incontinent Incontinent # Voids 1 1 - Exam Physical examination: PHYSICAL EXAMINATION: Patient is resting comfortably in bed. VITAL SIGNS: Blood pressure is [163/86]. Heart rate is [70]. Respiration is [16] . Temperature is [97.4]. HEENT: Head is atraumatic, neck is supple, there were no carotid bruits. CHEST: Lungs are clear to auscultation and percussion. CARDIAC: S1, S2 normal rate and rhythm. There is no murmur. ABDOMEN: Soft and nontender. Bowel sounds are present. EXTREMITIES: There is no pedal edema. Peripheral pulses are present. Neurological examination: Patient's neurological examination is unchanged from yesterday. He continues to demonstrate left upper extremity weakness. Speech is somewhat clear today. - Labs CBC & Chem 7: 08/15/17 06:30 08/15/17 06:30 Labs: Abnormal Lab Results - Last 24 Hours (Table) 08/14/17 08/14/17 08/15/17 Range/Units 17:20 20:51 06:06 Carbon Dioxide (22-30) mmol/L BUN (9-20) mg/dL Creatinine (0.66-1.25) mg/dL Glucose (74-99) mg/dL POC Glucose (mg/dL) 301 H 295 H 148 H (75-99) mg/dL 08/15/17 08/15/17 Range/Units 06:30 12:37 Carbon Dioxide 31 H (22-30) mmol/L BUN 32 H (9-20) mg/dL Creatinine 1.74 H (0.66-1.25) mg/dL Glucose 143 H (74-99) mg/dL POC Glucose (mg/dL) 212 H (75-99) mg/dL Assessment and Plan (1) Acute right arterial ischemic stroke, MCA (middle cerebral artery) Current Visit: Yes Status: Acute Code(s): I63.511 - CEREB INFRC D/T UNSP OCCLS OR STENOS OF RIGHT MID CEREB ART SNOMED Code(s): 238297639 (2) Atrial fibrillation Current Visit: Yes Status: Acute Code(s): I48.91 - UNSPECIFIED ATRIAL FIBRILLATION SNOMED Code(s): 16494174 (3) Dementia Current Visit: Yes Status: Acute Code(s): F03.90 - UNSPECIFIED DEMENTIA WITHOUT BEHAVIORAL DISTURBANCE SNOMED Code(s): 37986998 (4) Encephalopathy Current Visit: No Status: Acute Code(s): G93.40 - ENCEPHALOPATHY, UNSPECIFIED SNOMED Code(s): 20807043 (5) HTN (hypertension) Current Visit: No Status: Acute Code(s): I10 - ESSENTIAL (PRIMARY) HYPERTENSION SNOMED Code(s): 72767227 Plan: This patient is a 76-year-old male being evaluated for acute left arm weakness. He has a history of chronic atrial fibrillation and has not been on any anticoagulation. Patient underwent carotid Doppler ultrasound the results of which are noted above. MRI of the brain was completed today and we're waiting final report. Review the MRI films reveals multiple areas of embolic infarction involving the right hemisphere. Patient was seen by cardiology and recommendations have been noted. Patient will likely need to be considered for long-term anticoagulation given the results of his MRI of the brain today. He has a history of chronic atrial fibrillation but has not been on any anticoagulant therapy. Patient likely will require anticoagulation long-term given his MRI findings. His carotid Doppler ultrasound also reveals significant severe stenosis of the right internal carotid artery. We are recommending vascular surgery consultation for this patient regarding this finding. We will await further recommendations from Dr. Alba in regards to his chronic atrial fibrillation. Dr. Alba is considering starting him on low dose Eliquis for management of the atrial fibrillation. His overall prognosis at this time remains very guarded. We have discussed the results of the MRI of the brain and carotid Doppler results in detail with the patient today. He is aware of the new findings of stroke involving the right hemisphere of the brain. Patient will require PT OT and possible subacute rehab as he makes recovery from this stroke.
--- NOTE | 2017-08-15 18:44 | MR ---
EXAMINATION TYPE: MR brain wo con DATE OF EXAM: 08/15/2017 COMPARISON: NONE HISTORY: Patient with left sided weakness and stroke CONTRAST: Performed utilizing 0 mL intravenous Gadavist gadolinium contrast. TECHNIQUE: Multiplanar, multiecho imaging on a 3.0 Rosalba magnet is performed through the brain. Stud y is performed within 24 hours of arrival to the hospital. The craniovertebral junction is normal. The pituitary is small and atrophic. Diffusion-weighted imaging is performed. There are scattered areas of cortical abnormal signal. The largest area appears to involve the right occipital lobe extending into the right parietal lobe. Ther e are cortical areas of increased signal along the left vertex. Increased signal is within the cortex of the right frontal lobe. There is increased signal along the anterior cortical margins of the righ t and left frontal lobes which may be artifactual however. Findings are suspicious for cortical ische adrian. Consider venous infarcts as well as arterial within the differential. Multiple vascular distribu tion is evident as well as bilaterality. Rare disease entity could include Creutzfeldt Merrick disease . However, no basal ganglion involvement is evident. Hypoglycemia potentially could be considered but again no basal ganglion involvement is evident. White matter changes are evident along the cortex best visualized at the right prior occipital region corresponding to the diffusion weighting abnormality. Some mild periventricular white matter hyperin tensity is also present. Ventricles are markedly prominent. However, temporal horn dilatation is not evident. Findings are com patible with atrophy. There are prominent sulci as well as prominence of the extra-axial spaces also compatible with atrophy. Dural venous sinus appears patent. Straight sinus appears patent. IMPRESSIONS: 1. Increased signal along the parietal occipital cortex on the right extending towards the vertex roe picious for acute ischemic change. This would correlate with the patient's symptoms. 2. Additional areas of ischemic change would include the left parietal vertex. Small amount of white matter change along the right frontal cortex. 3. Given the bilateral distribution and multiple anterior and posterior vascular distribution differe ntial should include venous infarcts and emboli. Rare disease entity could include Creutzfeldt Merrick disease.
--- NOTE | 2017-08-15 19:04 | EEG ---
ELECTROENCEPHALOGRAM REPORT DATE OF EE08/15/2017 ELECTROENCEPHALOGRAPHIC EXAMINATION REPORT: INDICATION FOR EXAMINATION: This patient is a 76-year-old male being evaluated for acute left arm weakness and possible right hemispheric stroke. Patient with history of chronic atrial fibrillation. AGE: 76. EEG FINDINGS: A routine 21-channel awake digital EEG recording was accomplished utilizing the 10-20 international system with bipolar and referential montages. The background activity in the most alert resting state consists of a low to medium amplitude, poorly developed and poorly sustained 6 Hz activity over the posterior head regions. This posterior rhythm attenuates to eye opening. There is a small amount of low amplitude 18-20 Hz beta activity seen maximally over the anterior head regions. Muscle and movement artifact was observed on a few occasions during the tracing. Hyperventilation was not performed. Photic stimulation at flash frequencies of 2-30 Hz produced a minimal occipital driving response. No epileptiform discharges were seen. IMPRESSION: This EEG is moderately abnormal in a diffuse fashion due to slowing of the EEG background. The EEG failed to reveal any focal, lateralized, or epileptiform abnormalities. Clinical correlation is recommended. MMODL / IJN: [id number] /
[2017-08-15 21:14] LABS: Glucose,Whole Blood 268 mg/dL (75-99)
[2017-08-15] MEDS: ATORVASTATIN 40 MG TAB PO SCH (21:56)
[2017-08-15] MEDS: APIXABAN 2.5 MG TABLET PO SCH (21:56)
--- NOTE | 2017-08-15 23:20 | P.PN ---
Subjective Progress Note Date: 08/15/17 Principal diagnosis: Acute CVA with left-sided weakness Patient is a 76-year-old male with a known history of atrial fibrillation, history of falls, CAD status post bypass graft, hypertension, hyperlipidemia, diabetes type 2 obstructive sleep apnea, history of left carotid endarterectomy/ peripheral vascular disease and multiple other medical problems came to ER with complaints of left upper hand weakness which started around 6:15 PM yesterday evening. Patient does have a history of TIA with visual problems previously about 5 years ago. Otherwise patient denied any headache or vision changes. No chest pain. No short of breath. No fever no chills. No recent illnesses. Patient is not on any anticoagulation currently. CT brain showed extensive atrophy and chronic small wasn't ischemia. No hemorrhage. No acute intracranial abnormality. No syncope and change compared to old exam EKG showed atrial fibrillation. 08/15/2017 Currently patient denied any complaints of chest pain or shortness of breath. Patient is still in atrial fibrillation. Cardiology has seen the patient and recommended anticoagulation. Otherwise patient had MRI of the brain done today showed acute CVA possible embolic nature. Carotid duplex showed severe stenosis greater than 70%. EEG showed no acute peptic form activity. Neurology and cardiology is following. Basilar surgery was consulted. PT OT consulted as well. Patient does not have any swallowing difficulty. 2-D echo cardiac exam was done today. Otherwise patient still having left-sided weakness. All other review of systems negative except the above Active Medications Generic Name Dose Route Start Last Admin Trade Name Freq PRN Reason Stop Dose Admin Hydrocodone Bitart/Acetaminophen 1 each 08/13/17 22:23 [place] 5-325 PO Q6HR PRN Pain Albuterol/Ipratropium 3 ml 08/14/17 09:00 08/15/17 20:02 Duoneb 0.5 Mg-3 Mg/3 Ml Soln INHALATION 3 ml QID JOEL Administration Amlodipine Besylate 5 mg 08/14/17 09:00 08/15/17 08:20 Norvasc PO 5 mg DAILY JOEL Administration Apixaban 2.5 mg 08/15/17 21:00 08/15/17 21:56 Eliquis PO 2.5 mg BID JOEL Administration Aspirin 325 mg 08/14/17 18:00 08/15/17 08:20 Aspirin PO 325 mg DAILY JOEL Administration Atenolol 50 mg 08/14/17 09:00 08/15/17 21:56 Tenormin PO 50 mg BID JOEL Administration Atorvastatin Calcium 40 mg 08/14/17 21:00 08/15/17 21:56 Lipitor PO 40 mg HS JOEL Administration Cilostazol 100 mg 08/14/17 09:00 08/15/17 08:21 Pletal PO 100 mg DAILY JOEL Administration Donepezil HCl 10 mg 08/14/17 09:00 08/15/17 22:01 Aricept PO 10 mg BID JOEL Administration Furosemide 40 mg 08/14/17 09:00 08/15/17 08:21 Lasix PO 40 mg DAILY JOEL Administration Insulin Aspart 0 unit 08/14/17 21:00 08/15/17 21:54 Novolog SQ 6 unit ACHS COUNTS INCLUDE 234 BEDS AT THE [facility] Administration Protocol Insulin Detemir 20 unit 08/14/17 09:00 08/15/17 08:24 Levemir SQ 20 unit QAM JOEL Administration Insulin Detemir 30 unit 08/14/17 21:00 08/15/17 21:54 Levemir SQ 30 unit HS COUNTS INCLUDE 234 BEDS AT THE [facility] Administration Isosorbide Mononitrate 30 mg 08/14/17 09:00 08/15/17 08:21 Imdur PO 30 mg DAILY JOEL Administration Levothyroxine Sodium 100 mcg 08/14/17 06:30 08/15/17 06:35 Synthroid PO 100 mcg DAILY@0630 JOEL Administration Pregabalin 100 mg 08/14/17 09:00 08/15/17 22:01 Lyrica PO 100 mg BID JOEL Administration Objective - Vital Signs Vital signs: Vital Signs Temp 97.3 F L 08/15/17 15:41 Pulse 63 08/15/17 15:41 Resp 18 08/15/17 15:41 BP 125/70 08/15/17 15:41 Pulse Ox 99 08/15/17 15:41 Intake & Output 08/15/17 08/15/17 08/16/17 06:59 18:59 06:59 Intake Total 720 Balance 720 Weight 100 kg Intake: Oral 720 Other: Voiding Method Diaper Diaper Incontinent Incontinent # Voids 1 1 # Bowel Movements 1 - Exam PHYSICAL EXAMINATION: Patient is lying in the bed comfortably, no acute distress, awake alert and oriented.. HEENT: Normocephalic. Neck is supple. Pupils reactive. Nostrils clear. Oral cavity is moist. Ears reveal no drainage. Neck reveals no JVD, carotid bruits, or thyromegaly. CHEST EXAMINATION: Trachea is central. Symmetrical expansion. Lung rodriguez clear to auscultation and percussion. CARDIAC: Normal S1, S2 with no gallops. No murmurs. Irregularly irregular rhythm ABDOMEN: Soft. Bowel sounds normal. No organomegaly. No abdominal bruits. Extremities: reveal no edema. No clubbing or cyanosis Neurologically awake, alert, oriented x3 . Patient does have left-sided weakness.07/18 Skin: No rash or skin lesions. Psychiatric: Coperative. Nonsuicidal Musculoskeletal: No joint swelling or deformity. Normal range of motion. - Labs CBC & Chem 7: 08/15/17 06:30 08/15/17 06:30 Labs: Abnormal Lab Results - Last 24 Hours (Table) 08/13/17 08/14/17 08/15/17 Range/Units 21:07 20:51 06:06 Carbon Dioxide (22-30) mmol/L BUN (9-20) mg/dL Creatinine (0.66-1.25) mg/dL Glucose (74-99) mg/dL POC Glucose (mg/dL) 295 H 148 H (75-99) mg/dL Hemoglobin A1c 8.0 H (4.0-6.0) % 08/15/17 08/15/17 08/15/17 Range/Units 06:30 12:37 16:40 Carbon Dioxide 31 H (22-30) mmol/L BUN 32 H (9-20) mg/dL Creatinine 1.74 H (0.66-1.25) mg/dL Glucose 143 H (74-99) mg/dL POC Glucose (mg/dL) 212 H 305 H (75-99) mg/dL Hemoglobin A1c (4.0-6.0) % Assessment and Plan Assessment: Left upper activity 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 CT head negative for any acute process. MRI of the brain showed acute CVA probably embolic Severe carotid artery stenosis Chronic atrial fibrillation. Started on anticoagulation Acute kidney injury Hypothyroidism Diabetic peripheral neuropathy History of previous TIA and right eye visual changes resolved now Hypertension Diabetes type 2 History of [place] Coronary artery disease with history of CABG triple-vessel Obstructive sleep apnea on CPAP History of left carotid endarterectomy Chronic back pain History of gout Degenerative joint disease Obesity Dementia Anxiety and depression Previous history of smoking. DVT prophylaxis Plan: Patient will be continued on aspirin and statins along with his home medications and telemetry monitoring. Started on anticoagulation Neurology and cardiology is following. 2-D echocardiography was ordered. Edwards surgery was consulted. We will continue to follow closely. Further recommendations based on the clinical course. Prognosis is guarded. Time with Patient: Greater than 30
[2017-08-16 06:12] LABS: Glucose,Whole Blood 180 mg/dL (75-99)
[2017-08-16] MEDS: LEVOTHYROXINE 100 MCG TAB PO SCH (06:49)
[2017-08-16] MEDS: INSULIN ASPART 100 UNIT/ML 1 ML 10 ML VIAL SQ SCH ×4 (06:49→22:02)
[2017-08-16] MEDS: IPRATROPIUM-ALBUTEROL 3 ML NEB INHALATION SCH ×4 (07:38→21:12)
[2017-08-16] MEDS: INSULIN DETEMIR 100 UNIT/ML 10 ML VIAL SQ SCH ×2 (09:06→22:02)
[2017-08-16] MEDS: APIXABAN 2.5 MG TABLET PO SCH ×2 (09:06→19:53)
[2017-08-16] MEDS: ATENOLOL 50 MG TAB PO SCH ×2 (09:06→19:53)
[2017-08-16] MEDS: amLODIPine 5 MG TAB PO SCH (09:07)
[2017-08-16] MEDS: FUROSEMIDE 40 MG TAB PO SCH (09:07)
[2017-08-16] MEDS: CILOSTAZOL 100 MG TAB PO SCH (09:07)
[2017-08-16] MEDS: DONEPEZIL 10 MG TAB PO SCH ×2 (09:07→19:53)
[2017-08-16] MEDS: ASPIRIN 325 MG TAB PO SCH (09:07)
[2017-08-16] MEDS: ISOSORBIDE MONONITRATE ER 30 MG TAB.ER.24H PO SCH (09:07)
[2017-08-16] MEDS: PREGABALIN 100 MG CAP PO SCH ×2 (09:12→19:53)
--- NOTE | 2017-08-16 10:21 | CDI ---
Last Revision, April 2017 Documentation Clarification Form Date: 08/16/17 1018 From: Radha Bonner RN, CCDS Admit Date: 08/13/2017 10:23:00 PM Patient Name: Jaguar Farnsworth Visit Number: [id number] ATTENTION: The Clinical Documentation Specialists (CDI) and [facility] Coding Staff appreciate your assistance in clarifying documentation. Please respond to the clarification below the line at the bottom and electronically sign. The CDI & [facility] Coding staff will review the response and follow-up if needed. Please note: Queries are made part of the Legal Health Record. If you have any questions, please contact the author of this message via ITS. Dr. Sindhu Roper History/Risk Factors: CHF, chronic AF, SABRINA, DM2, [place], TIA, CABG Clinical Indicators: VS/Pulse OX: Temp 98.7, HR 70, RR 18, B/P 149/120, spo2 97% ra BNP: not checked 06/14/16 Echocardiogram Results: EF 55-60% Chest X Ray: new infiltrate and atelectasis in the left lower lobe Treatment: Lasix 40 mg PO QD In your professional opinion, can you please clarify the acuity and type of CHF if known? Chronic Systolic Heart Failure: Chronic Diastolic Heart Failure: Chronic Systolic & Diastolic Heart Failure: Unable to Determine Other, please specify Please continue to document in your progress notes and discharge summary in order to capture severity of illness and risk of mortality. Include clinical findings that support your diagnosis. MTDD
--- NOTE | 2017-08-16 10:31 | CDI ---
Last Revision, April 2017 Documentation Clarification Form Date: 08/16/17 1029 From: Radha Bonner RN, CCDS Admit Date: 08/13/2017 10:23:00 PM Patient Name: Jaguar Farnsworth Visit Number: [id number] ATTENTION: The Clinical Documentation Specialists (CDI) and [facility] Coding Staff appreciate your assistance in clarifying documentation. Please respond to the clarification below the line at the bottom and electronically sign. The CDI & [facility] Coding staff will review the response and follow-up if needed. Please note: Queries are made part of the Legal Health Record. If you have any questions, please contact the author of this message via ITS. Dr. Sindhu Roper Chronic Renal disease is documented in the PMH and requires further specificity. History/Risk Factors: CRF, HTN, DM, CAD, [place], CABG, SABRINA Clinical Indicators: Current BUN: 30/32 CR: 1.53/1.74 GFR: 43/37 07/16/17 Patients Baseline: BUN/CR/GFR: 33/1.5/45 Treatment: IVF: none given Lasix 40 mg PO QD In order to capture the severity of condition, please clarify if the condition signifies: CKD Stage 1 (GFR > 90) CKD Stage 2 (GFR 60-89) CKD Stage 3 (GFR 30-59) CKD Stage 4 (GFR 15-29) CKD Stage 5 (GFR <15) ESRD Other, please specify Unable to determine Please continue to document in your progress notes and discharge summary in order to capture severity of illness and risk of mortality. Include clinical findings that support your diagnosis. MTDD
--- NOTE | 2017-08-16 11:34 | ECHOF ---
Referral Reason:A. FIB MEASUREMENTS -------- HEIGHT: 152.4 cm WEIGHT: 99.8 kg BP: RVIDd: 2.8 cm (< 3.3) IVSd: 1.3 cm (0.6 - 1.1) LVIDd: 4.2 cm (3.9 - 5.3) LVPWd: 1.4 cm (0.6 - 1.1) IVSs: 1.8 cm LVIDs: 2.6 cm LVPWs: 1.7 cm LA Diam: 4.4 cm (2.7 - 3.8) Ao Diam: 4.1 cm (2.0 - 3.7) AV Cusp: 1.7 cm (1.5 - 2.6) LA Diam: 4.6 cm (2.7 - 3.8) MV EXCURSION: 12.495 mm (> 18.000) MV EF SLOPE: 51 mm/s (70 - 150) EPSS: 0.4 cm MV E Donald: 1.19 m/s MV DecT: 244 ms MV A Donald: 0.18 m/s MV E/A Ratio: 6.60 RAP: 5.00 mmHg RVSP: 12.77 mmHg FINDINGS -------- Sinus rhythm. This was a technically adequate study. The left ventricular size is normal. There is mild concentric left ventricular hypertrophy. Overa ll left ventricular systolic function is normal with, an EF between 55 - 60 %. The right ventricle is normal in size. The left atrium is mildly dilated. The right atrial size is normal. There is mild aortic valve sclerosis. There is no evidence of aortic regurgitation. Mild mitral annular calcification present. Mild mitral regurgitation is present. Mild tricuspid regurgitation present. There is no evidence of pulmonary hypertension. The right v entricular systolic pressure, as measured by Doppler, is 12.77mmHg. There is no pulmonic regurgitation present. The aortic root size is normal. There is no pericardial effusion. CONCLUSIONS -------- 1. The left ventricular size is normal. 2. There is mild concentric left ventricular hypertrophy. 3. Overall left ventricular systolic function is normal with, an EF between 55 - 60 %. 4. The left atrium is mildly dilated. 5. There is mild aortic valve sclerosis. 6. Mild mitral annular calcification present. 7. Mild mitral regurgitation is present. 8. Mild tricuspid regurgitation present. 9. There is no evidence of pulmonary hypertension. 10. The right ventricular systolic pressure, as measured by Doppler, is 12.77mmHg. 11. There is no pulmonic regurgitation present. 12. The aortic root size is normal. 13. There is no pericardial effusion. LOSS PREVENTION DETECTIVE: Danay Keating RDCS
[2017-08-16 12:01] LABS: Glucose,Whole Blood 183 mg/dL (75-99)
--- NOTE | 2017-08-16 15:40 | P.PN ---
Subjective Progress Note Date: 08/16/17 Principal diagnosis: CVA This is a pleasant 76-year-old gentleman who follows with Dr. Munson in the office, he has a history of chronic persistent atrial fibrillation, not on anticoagulation, coronary artery disease with prior bypass surgery, hypertension , hyperlipidemia, carotid disease, peripheral arterial disease. He presented to the hospital with an acute CVA was seen in consultation yesterday by Dr. Gama. Patient was initiated on Eliquis for anticoagulation. Was seen and examined this morning, blood pressure 160/90, heart rate in the 60s to 70s, 95% on room air. Objective - Vital Signs Vital signs: Vital Signs Temp 96.7 F L 08/16/17 08:00 Pulse 78 08/16/17 12:00 Resp 16 08/16/17 12:00 BP 165/95 08/16/17 08:00 Pulse Ox 95 08/16/17 08:00 Intake & Output 08/15/17 08/16/17 08/16/17 18:59 06:59 18:59 Intake Total 720 480 Balance 720 480 Weight 99.5 kg Intake: Oral 720 480 Other: Voiding Method Diaper Diaper Diaper Incontinent Incontinent Incontinent # Voids 1 2 2 # Bowel Movements 1 1 - Exam PHYSICAL EXAMINATION: HEENT: Head is atraumatic, normocephalic. Pupils equal, round. Neck is supple. There is no elevated jugular venous pressure. HEART EXAMINATION: Heart S1, S2 irregularly irregular . No murmur or gallop heard. CHEST EXAMINATION: Lungs are clear to auscultation and precussion. No chest wall tenderness is noted on palpation or with deep breathing. ABDOMEN: Soft, nontender. Bowel sounds are heard. No organomegaly noted. EXTREMITIES: 2+ peripheral pulses with no evidence of peripheral edema and no calf tenderness noted. NEUROLOGIC patient is awake, alert and oriented -3. Positive left-sided weakness . - Labs CBC & Chem 7: 08/15/17 06:30 08/15/17 06:30 Labs: Abnormal Lab Results - Last 24 Hours (Table) 08/15/17 08/15/17 08/16/17 Range/Units 16:40 21:13 06:09 POC Glucose (mg/dL) 305 H 268 H 180 H (75-99) mg/dL 08/16/17 Range/Units 11:47 POC Glucose (mg/dL) 183 H (75-99) mg/dL Assessment and Plan Plan: Assessment and plan #1 acute CVA #2 chronic persistent atrial fibrillation, now on anticoagulation in the form of Eliquis #3 severe carotid disease #4 hypothyroidism Number 5 diabetes #6 coronary artery disease with prior bypass surgery #7 obstructive sleep apnea #8 prior history of smoking #9 dementia #10 hyperlipidemia Plan Echocardiogram with Doppler study was performed which revealed an ejection fraction of 55-60%. From cardiology's perspective, we will recommend to continue patient on current medication. We will follow along with you now on an as-needed basis only, please don't hesitate to call with any questions. DNP note has been reviewed, I agree with a documented findings and plan of care. Patient was seen and examined.
[2017-08-16 16:53] LABS: Glucose,Whole Blood 322 mg/dL (75-99)
--- NOTE | 2017-08-16 17:50 | CONS ---
CONSULTATION This is a 76 gentleman who has been admitted with history of acute onset of left arm weakness. This happened on Tuesday and he has been admitted to the hospital and had a complete stroke workup. The patient was not a candidate for tPA. The patient has history of atrial fibrillation and also patient has history of coronary artery bypass graft in the past. The patient also has history of hypertension. Ultrasound of the carotid has about 70% on the right side and patient had MRI of the brain which showed acute ischemic changes on the right occipital lobe. CT of the brain showed extensive atrophy with chronic small-vessel disease. EXAMINATION: Patient was seen in his room. His vital signs stable. NECK: Supple. CHEST: Clear to auscultation. Good air entry into both lungs. ABDOMEN: Soft. Vascular examination brachial radial femoral pulses are present. CENTRAL NERVOUS SYSTEM: patient is oriented to time and place. The patient has marked weakness of the left upper arm. The patient has a normal motor function of the lower extremity. IMPRESSION: 1. Acute right anterior ischemic stroke. 2. Atrial fibrillation. 3. History of dementia. 4. Hypertension. PLAN: The patient antiplatelet therapy. The patient will be needing physical therapy. When patient improves neurologically, then we will discuss about surgical intervention. We will follow with you. Thank you very much. MMODL / IJN: [id number] /
[2017-08-16] MEDS: ATORVASTATIN 40 MG TAB PO SCH (19:53)
--- NOTE | 2017-08-16 20:17 | P.PN ---
Subjective Progress Note Date: 08/16/17 This patient is a 76-year-old right-handed white male who was seen in neurology consultation yesterday with acute left-sided weakness. He has a known history of chronic atrial fibrillation and has not been on any anticoagulation. Patient was seen yesterday after he presented with symptoms of left arm weakness. He underwent initial computed tomography scan of the brain which failed to reveal any evidence of acute stroke. He completed a carotid Doppler ultrasound today which revealed severe plaque formation bilaterally with findings suggesting severe greater than 70% stenosis of the right ICA. CTA angiogram of the carotid Dopplers was recommended. Would also recommend primary physician to consider vascular surgery consultation for this patient regarding the carotid artery stenosis involving the right internal carotid artery. As noted his MRI final report is pending but clearly review the films indicates multiple areas of acute infarction in the right hemisphere. Patient was also able to complete MRI of the brain today the results of which are still pending. Review of the MRI films however reveals evidence of multiple embolic areas of ischemia involving the right hemisphere. Patient was seen by cardiology for further evaluation of his atrial fibrillation. Dr. Alba is recommending to consider oral anticoagulation with Eliquis at a small dose. If he develops more episodes of falling or bleeding he might be a candidate to receive the left atrial appendage closure device. We will await further recommendations from Dr. Alba. We reviewed the results of the MRI in detail today with the patient. We also updated him on the results of his carotid Doppler study. We will await further recommendations from Dr. Ruvalcaba in regards to his carotid artery disease and will await possible vascular surgery consultation. Vascular surgery was consulted today. We are waiting there further recommendations. Patient is to continue to work with PTOT and will possibly need inpatient rehab placement. His overall prognosis at this time remains very guarded. Objective - Vital Signs Vital signs: Vital Signs Temp 96.7 F L 08/16/17 08:00 Pulse 76 08/16/17 16:21 Resp 16 08/16/17 12:00 BP 165/95 08/16/17 08:00 Pulse Ox 95 08/16/17 08:00 Intake & Output 08/15/17 08/16/17 08/16/17 18:59 06:59 18:59 Intake Total 720 480 Balance 720 480 Weight 99.5 kg Intake: Oral 720 480 Other: Voiding Method Diaper Diaper Diaper Incontinent Incontinent Incontinent # Voids 1 2 1 # Bowel Movements 1 1 - Exam Physical examination: PHYSICAL EXAMINATION: Patient is resting comfortably in bed. VITAL SIGNS: Blood pressure is [165/95]. Heart rate is [67]. Respiration is [16] . Temperature is [97.7]. HEENT: Head is atraumatic, neck is supple, there were no carotid bruits. CHEST: Lungs are clear to auscultation and percussion. CARDIAC: S1, S2 normal rate and rhythm. There is no murmur. ABDOMEN: Soft and nontender. Bowel sounds are present. EXTREMITIES: There is no pedal edema. Peripheral pulses are present. Neurological examination: Patient's neurological examination is unchanged from yesterday. He continues to demonstrate left upper extremity weakness. Speech is somewhat clear today. - Labs CBC & Chem 7: 08/15/17 06:30 08/15/17 06:30 Labs: Abnormal Lab Results - Last 24 Hours (Table) 08/15/17 08/16/17 08/16/17 Range/Units 21:13 06:09 11:47 POC Glucose (mg/dL) 268 H 180 H 183 H (75-99) mg/dL 08/16/17 Range/Units 16:46 POC Glucose (mg/dL) 322 H (75-99) mg/dL Assessment and Plan (1) Acute right arterial ischemic stroke, MCA (middle cerebral artery) Current Visit: Yes Status: Acute Code(s): I63.511 - CEREB INFRC D/T UNSP OCCLS OR STENOS OF RIGHT MID CEREB ART SNOMED Code(s): 849123835 (2) Atrial fibrillation Current Visit: Yes Status: Acute Code(s): I48.91 - UNSPECIFIED ATRIAL FIBRILLATION SNOMED Code(s): 81434246 (3) Dementia Current Visit: Yes Status: Acute Code(s): F03.90 - UNSPECIFIED DEMENTIA WITHOUT BEHAVIORAL DISTURBANCE SNOMED Code(s): 83903453 (4) Encephalopathy Current Visit: No Status: Acute Code(s): G93.40 - ENCEPHALOPATHY, UNSPECIFIED SNOMED Code(s): 34291324 (5) HTN (hypertension) Current Visit: No Status: Acute Code(s): I10 - ESSENTIAL (PRIMARY) HYPERTENSION SNOMED Code(s): 46594077 Plan: This patient is a 76-year-old male who is being evaluated for acute right hemispheric stroke. He is undergone MRI of the brain the results of which are noted above. MRI does reveal evidence of multiple areas of right hemispheric ischemic changes. He was seen by cardiology for history of chronic atrial fibrillation and was not initially on anticoagulation. He is now been started on Eliquis for long-term anticoagulation. Cardiology has seen the patient. He does have severe carotid artery disease as well and vascular surgery has been consulted. Neurologically there is no new changes in his neurological findings. Continues to have evidence of left arm weakness. We will continue close neurological follow-up for the patient. Overall prognosis at this time remains guarded. Would consider inpatient rehab placement for the patient as well pending PT OT evaluations. His overall prognosis at this time remains guarded.
[2017-08-16 20:56] LABS: Glucose,Whole Blood 242 mg/dL (75-99)
--- NOTE | 2017-08-16 23:39 | P.PN ---
Subjective Progress Note Date: 08/16/17 Principal diagnosis: Acute CVA with left-sided weakness Patient is a 76-year-old male with a known history of atrial fibrillation, history of falls, CAD status post bypass graft, hypertension, hyperlipidemia, diabetes type 2 obstructive sleep apnea, history of left carotid endarterectomy/ peripheral vascular disease and multiple other medical problems came to ER with complaints of left upper hand weakness which started around 6:15 PM yesterday evening. Patient does have a history of TIA with visual problems previously about 5 years ago. Otherwise patient denied any headache or vision changes. No chest pain. No short of breath. No fever no chills. No recent illnesses. Patient is not on any anticoagulation currently. CT brain showed extensive atrophy and chronic small wasn't ischemia. No hemorrhage. No acute intracranial abnormality. No syncope and change compared to old exam EKG showed atrial fibrillation. 08/15/2017 Currently patient denied any complaints of chest pain or shortness of breath. Patient is still in atrial fibrillation. Cardiology has seen the patient and recommended anticoagulation. Otherwise patient had MRI of the brain done today showed acute CVA possible embolic nature. Carotid duplex showed severe stenosis greater than 70%. EEG showed no acute peptic form activity. Neurology and cardiology is following. Basilar surgery was consulted. PT OT consulted as well. Patient does not have any swallowing difficulty. 2-D echo cardiac exam was done today. Otherwise patient still having left-sided weakness. 08/16/2017 Patient is still having left upper extremity weakness. First physical therapy. Vascular surgery has been consulted. Otherwise patient will be continued on current management and possible transfer to rehab. No fever no chills. No chest pain or shortness of breath. All other review of systems negative except the above Active Medications Generic Name Dose Route Start Last Admin Trade Name Freq PRN Reason Stop Dose Admin Hydrocodone Bitart/Acetaminophen 1 each 08/13/17 22:23 [place] 5-325 PO Q6HR PRN Pain Albuterol/Ipratropium 3 ml 08/14/17 09:00 08/15/17 20:02 Duoneb 0.5 Mg-3 Mg/3 Ml Soln INHALATION 3 ml QID JOEL Administration Amlodipine Besylate 5 mg 08/14/17 09:00 08/15/17 08:20 Norvasc PO 5 mg DAILY JOEL Administration Apixaban 2.5 mg 08/15/17 21:00 08/15/17 21:56 Eliquis PO 2.5 mg BID JOEL Administration Aspirin 325 mg 08/14/17 18:00 08/15/17 08:20 Aspirin PO 325 mg DAILY [facility] Administration Atenolol 50 mg 08/14/17 09:00 08/15/17 21:56 Tenormin PO 50 mg BID [facility] Administration Atorvastatin Calcium 40 mg 08/14/17 21:00 08/15/17 21:56 Lipitor PO 40 mg HS [facility] Administration Cilostazol 100 mg 08/14/17 09:00 08/15/17 08:21 Pletal PO 100 mg DAILY JOEL Administration Donepezil HCl 10 mg 08/14/17 09:00 08/15/17 22:01 Aricept PO 10 mg BID [facility] Administration Furosemide 40 mg 08/14/17 09:00 08/15/17 08:21 Lasix PO 40 mg DAILY [facility] Administration Insulin Aspart 0 unit 08/14/17 21:00 08/15/17 21:54 Novolog SQ 6 unit ACHS [facility] Administration Protocol Insulin Detemir 20 unit 08/14/17 09:00 08/15/17 08:24 Levemir SQ 20 unit QAM [facility] Administration Insulin Detemir 30 unit 08/14/17 21:00 08/15/17 21:54 Levemir SQ 30 unit HS [facility] Administration Isosorbide Mononitrate 30 mg 08/14/17 09:00 08/15/17 08:21 Imdur PO 30 mg DAILY [facility] Administration Levothyroxine Sodium 100 mcg 08/14/17 06:30 08/15/17 06:35 Synthroid PO 100 mcg DAILY@0630 [facility] Administration Pregabalin 100 mg 08/14/17 09:00 08/15/17 22:01 Lyrica PO 100 mg BID [facility] Administration Objective - Vital Signs Vital signs: Vital Signs Temp 98.1 F 08/16/17 22:52 Pulse 85 08/16/17 22:52 Resp 18 08/16/17 22:52 BP 174/91 08/16/17 22:52 Pulse Ox 98 08/16/17 22:52 Intake & Output 08/16/17 08/16/17 08/17/17 06:59 18:59 06:59 Intake Total 720 Balance 720 Weight 99.5 kg Intake: Oral 720 Other: Voiding Method Diaper Diaper Diaper Incontinent Incontinent Incontinent # Voids 2 1 1 # Bowel Movements 1 - Exam PHYSICAL EXAMINATION: Patient is lying in the bed comfortably, no acute distress, awake alert and oriented.. HEENT: Normocephalic. Neck is supple. Pupils reactive. Nostrils clear. Oral cavity is moist. Ears reveal no drainage. Neck reveals no JVD, carotid bruits, or thyromegaly. CHEST EXAMINATION: Trachea is central. Symmetrical expansion. Lung rodriguez clear to auscultation and percussion. CARDIAC: Normal S1, S2 with no gallops. No murmurs. Irregularly irregular rhythm ABDOMEN: Soft. Bowel sounds normal. No organomegaly. No abdominal bruits. Extremities: reveal no edema. No clubbing or cyanosis Neurologically awake, alert, oriented x3 . Patient does have left-sided weakness.07/18 Skin: No rash or skin lesions. Psychiatric: Coperative. Nonsuicidal Musculoskeletal: No joint swelling or deformity. Normal range of motion. 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 CT head negative for any acute process. MRI of the brain showed acute CVA probably embolic Severe carotid artery stenosis Chronic atrial fibrillation. Started on anticoagulation Chronic CHF with diastolic dysfunction Acute kidney injury on CK D stage III Hypothyroidism Diabetic peripheral neuropathy History of previous TIA and right eye visual changes resolved now Hypertension Diabetes type 2 History of NC Coronary artery disease with history of CABG triple-vessel Obstructive sleep apnea on CPAP History of left carotid endarterectomy Chronic back pain History of gout Degenerative joint disease Obesity Dementia Anxiety and depression Previous history of smoking. DVT prophylaxis Plan: Patient will be continued on aspirin and statins along with his home medications and telemetry monitoring. Started on anticoagulation with eliquis. Neurology and cardiology is following. 2-D echocardiography wasdone. vascular surgery was consulted. We will continue to follow closely. Further recommendations based on the clinical course. Prognosis is guarded. Anticipate transferred to rehab Time with Patient: Greater than 30
[2017-08-17] MEDS: LEVOTHYROXINE 100 MCG TAB PO SCH (06:46)
[2017-08-17 06:51] LABS: Glucose,Whole Blood 220 mg/dL (75-99)
[2017-08-17] MEDS: IPRATROPIUM-ALBUTEROL 3 ML NEB INHALATION SCH ×4 (07:41→19:25)
[2017-08-17] MEDS: INSULIN ASPART 100 UNIT/ML 1 ML 10 ML VIAL SQ SCH ×4 (08:10→21:20)
[2017-08-17] MEDS: INSULIN DETEMIR 100 UNIT/ML 10 ML VIAL SQ SCH ×2 (08:11→21:21)
[2017-08-17] MEDS: FUROSEMIDE 40 MG TAB PO SCH (08:14)
[2017-08-17] MEDS: ASPIRIN 325 MG TAB PO SCH (08:14)
[2017-08-17] MEDS: ATENOLOL 50 MG TAB PO SCH ×2 (08:14→20:08)
[2017-08-17] MEDS: CILOSTAZOL 100 MG TAB PO SCH (08:14)
[2017-08-17] MEDS: DONEPEZIL 10 MG TAB PO SCH ×2 (08:14→20:08)
[2017-08-17] MEDS: amLODIPine 5 MG TAB PO SCH (08:14)
[2017-08-17] MEDS: APIXABAN 2.5 MG TABLET PO SCH ×2 (08:14→20:08)
[2017-08-17] MEDS: ISOSORBIDE MONONITRATE ER 30 MG TAB.ER.24H PO SCH (08:14)
[2017-08-17 08:15] LABS: Basophils % (A) 0 %; Eosinophils # (A) 0.3 k/uL (0-0.7); Eosinophils % (A) 3 %; Lymphocytes # (A) 1.1 k/uL (1.0-4.8); Lymphocytes % (A) 10 %; MCH 31.4 pg (25.0-35.0); MCHC 34.7 g/dL (31.0-37.0); MCV 90.5 fL (80.0-100.0); Mean Platelet Volume 8.7; Monocytes # (A) 0.8 k/uL (0-1.0); Monocytes % (A) 7 %; Neutrophils # (A) 8.7 k/uL (1.3-7.7); Neutrophils % (A) 77 %; Platelet Count 201 k/uL (150-450); RBC 5.42 m/uL (4.30-5.90); RDW 13.8 % (11.5-15.5); WBC 11.2 k/uL (3.8-10.6)
[2017-08-17] MEDS: PREGABALIN 100 MG CAP PO SCH ×2 (08:16→20:38)
[2017-08-17 08:23] LABS: Calcium 10.3 mg/dL (8.4-10.2); Potassium 4.9 mmol/L (3.5-5.1)
[2017-08-17 11:53] LABS: Glucose,Whole Blood 303 mg/dL (75-99)
[2017-08-17 17:15] LABS: Glucose,Whole Blood 319 mg/dL (75-99)
--- NOTE | 2017-08-17 17:27 | PN ---
PROGRESS NOTE This is a 76-year-old gentleman who came with a history of left arm hemiparesis. Patient has history of atrial fibrillation, on Eliquis. Patient had an ultrasound which showed right side 70% stenosis. CT of the brain showed atrophy with chronic small-vessel disease. MRI showed acute ischemic changes on the right occipital lobe. On examination, patient was seen in his room. His motor function of the left arm has a deficit. No improvement since admission. Patient is on Eliquis. PLAN: Patient will go to rehab for physical therapy and he will follow up in my office in 2 weeks. MMODL / IJN: [id number] /
[2017-08-17] MEDS: ATORVASTATIN 40 MG TAB PO SCH (20:08)
[2017-08-17 20:41] LABS: Glucose,Whole Blood 298 mg/dL (75-99)
[2017-08-17 22:32] VITALS: RESP 18
--- NOTE | 2017-08-18 01:04 | P.PN ---
Subjective Progress Note Date: 08/17/17 Principal diagnosis: Acute CVA with left-sided weakness Patient is a 76-year-old male with a known history of atrial fibrillation, history of falls, CAD status post bypass graft, hypertension, hyperlipidemia, diabetes type 2 obstructive sleep apnea, history of left carotid endarterectomy/ peripheral vascular disease and multiple other medical problems came to ER with complaints of left upper hand weakness which started around 6:15 PM yesterday evening. Patient does have a history of TIA with visual problems previously about 5 years ago. Otherwise patient denied any headache or vision changes. No chest pain. No short of breath. No fever no chills. No recent illnesses. Patient is not on any anticoagulation currently. CT brain showed extensive atrophy and chronic small wasn't ischemia. No hemorrhage. No acute intracranial abnormality. No syncope and change compared to old exam EKG showed atrial fibrillation. 08/15/2017 Currently patient denied any complaints of chest pain or shortness of breath. Patient is still in atrial fibrillation. Cardiology has seen the patient and recommended anticoagulation. Otherwise patient had MRI of the brain done today showed acute CVA possible embolic nature. Carotid duplex showed severe stenosis greater than 70%. EEG showed no acute peptic form activity. Neurology and cardiology is following. Basilar surgery was consulted. PT OT consulted as well. Patient does not have any swallowing difficulty. 2-D echo cardiac exam was done today. Otherwise patient still having left-sided weakness. 08/16/2017 Patient is still having left upper extremity weakness. Participating physical therapy. Vascular surgery has been consulted. Otherwise patient will be continued on current management and possible transfer to rehab. No fever no chills. No chest pain or shortness of breath. 08/17/2017 Patient denied any complaints of chest pain or shortness of breath. Left upper extremity weakness is still present but slightly improved as per patient. Participating in physical therapy. Vascular surgery because to follow-up as an outpatient. Otherwise anticipate discharged to rehab in next 24 hours. All other review of systems negative except the above Active Medications Generic Name Dose Route Start Last Admin Trade Name Freq PRN Reason Stop Dose Admin Hydrocodone Bitart/Acetaminophen 1 each 08/13/17 22:23 [place] 5-325 PO Q6HR PRN Pain Albuterol/Ipratropium 3 ml 08/14/17 09:00 08/15/17 20:02 Duoneb 0.5 Mg-3 Mg/3 Ml Soln INHALATION 3 ml QID JOEL Administration Amlodipine Besylate 5 mg 08/14/17 09:00 08/15/17 08:20 Norvasc PO 5 mg DAILY JOEL Administration Apixaban 2.5 mg 08/15/17 21:00 08/15/17 21:56 Eliquis PO 2.5 mg BID JOEL Administration Aspirin 325 mg 08/14/17 18:00 08/15/17 08:20 Aspirin PO 325 mg DAILY JOEL Administration Atenolol 50 mg 08/14/17 09:00 08/15/17 21:56 Tenormin PO 50 mg BID JOEL Administration Atorvastatin Calcium 40 mg 08/14/17 21:00 08/15/17 21:56 Lipitor PO 40 mg HS [facility] Administration Cilostazol 100 mg 08/14/17 09:00 08/15/17 08:21 Pletal PO 100 mg DAILY JOEL Administration Donepezil HCl 10 mg 08/14/17 09:00 08/15/17 22:01 Aricept PO 10 mg BID JOEL Administration Furosemide 40 mg 08/14/17 09:00 08/15/17 08:21 Lasix PO 40 mg DAILY [facility] Administration Insulin Aspart 0 unit 08/14/17 21:00 08/15/17 21:54 Novolog SQ 6 unit ACHS [facility] Administration Protocol Insulin Detemir 20 unit 08/14/17 09:00 08/15/17 08:24 Levemir SQ 20 unit QAM [facility] Administration Insulin Detemir 30 unit 08/14/17 21:00 08/15/17 21:54 Levemir SQ 30 unit HS [facility] Administration Isosorbide Mononitrate 30 mg 08/14/17 09:00 08/15/17 08:21 Imdur PO 30 mg DAILY JOEL Administration Levothyroxine Sodium 100 mcg 08/14/17 06:30 08/15/17 06:35 Synthroid PO 100 mcg DAILY@0630 [facility] Administration Pregabalin 100 mg 08/14/17 09:00 08/15/17 22:01 Lyrica PO 100 mg BID JOEL Administration Objective - Vital Signs Vital signs: Vital Signs Temp 97.6 F 08/17/17 20:00 Pulse 88 08/17/17 20:00 Resp 20 08/17/17 19:21 BP 143/88 08/17/17 20:00 Pulse Ox 95 08/17/17 20:00 Intake & Output 08/17/17 08/17/17 08/18/17 06:59 18:59 06:59 Intake Total 400 Balance 400 Weight 99 kg Intake: Oral 400 Other: Voiding Method Incontinent Incontinent Diaper # Voids 3 3 # Bowel Movements 0 - Exam PHYSICAL EXAMINATION: Patient is lying in the bed comfortably, no acute distress, awake alert and oriented.. HEENT: Normocephalic. Neck is supple. Pupils reactive. Nostrils clear. Oral cavity is moist. Ears reveal no drainage. Neck reveals no JVD, carotid bruits, or thyromegaly. CHEST EXAMINATION: Trachea is central. Symmetrical expansion. Lung rodriguez clear to auscultation and percussion. CARDIAC: Normal S1, S2 with no gallops. No murmurs. Irregularly irregular rhythm ABDOMEN: Soft. Bowel sounds normal. No organomegaly. No abdominal bruits. Extremities: reveal no edema. No clubbing or cyanosis Neurologically awake, alert, oriented x3 . Patient does have left-sided weakness.3/5 Skin: No rash or skin lesions. Psychiatric: Coperative. Nonsuicidal Musculoskeletal: No joint swelling or deformity. Normal range of motion. - Labs CBC & Chem 7: 08/17/17 07:51 08/17/17 07:51 Labs: Abnormal Lab Results - Last 24 Hours (Table) 08/17/17 08/17/17 08/17/17 Range/Units 06:49 07:51 07:51 WBC 11.2 H (3.8-10.6) k/uL Neutrophils # 8.7 H (1.3-7.7) k/uL Carbon Dioxide 33 H (22-30) mmol/L BUN 37 H (9-20) mg/dL Creatinine 1.63 H (0.66-1.25) mg/dL Glucose 211 H (74-99) mg/dL POC Glucose (mg/dL) 220 H (75-99) mg/dL Calcium 10.3 H (8.4-10.2) mg/dL 08/17/17 08/17/17 08/17/17 Range/Units 11:31 16:53 20:36 WBC (3.8-10.6) k/uL Neutrophils # (1.3-7.7) k/uL Carbon Dioxide (22-30) mmol/L BUN (9-20) mg/dL Creatinine (0.66-1.25) mg/dL Glucose (74-99) mg/dL POC Glucose (mg/dL) 303 H 319 H 298 H (75-99) mg/dL Calcium (8.4-10.2) mg/dL Assessment and Plan Assessment: Left upper activity 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 CT head negative for any acute process. MRI of the brain showed acute CVA probably embolic Severe carotid artery stenosis Chronic atrial fibrillation. Started on anticoagulation Chronic CHF with diastolic dysfunction Acute kidney injury on CK D stage III Hypothyroidism Diabetic peripheral neuropathy History of previous TIA and right eye visual changes resolved now Hypertension Diabetes type 2 History of NC Coronary artery disease with history of CABG triple-vessel Obstructive sleep apnea on CPAP History of left carotid endarterectomy Chronic back pain History of gout Degenerative joint disease Obesity Dementia Anxiety and depression Previous history of smoking. DVT prophylaxis Plan: Patient will be continued on aspirin and statins along with his home medications and telemetry monitoring. Started on anticoagulation with eliquis. Neurology and cardiology is following. 2-D echocardiography was done. vascular surgery has seen the patient and recommends no surgical intervention at this time.. We will continue to follow closely. Further recommendations based on the clinical course. Prognosis is guarded. Anticipate transferred to rehab in next 24 hours Time with Patient: Greater than 30
[2017-08-18] MEDS: LEVOTHYROXINE 100 MCG TAB PO SCH (06:34)
[2017-08-18] MEDS: IPRATROPIUM-ALBUTEROL 3 ML NEB INHALATION SCH ×4 (07:03→15:26)
[2017-08-18 07:15] LABS: Glucose,Whole Blood 215 mg/dL (75-99)
--- NOTE | 2017-08-18 07:40 | P.PN ---
Subjective Progress Note Date: 08/17/17 This patient is a 76-year-old right-handed white male who was seen in neurology consultation yesterday with acute left-sided weakness. He has a known history of chronic atrial fibrillation and has not been on any anticoagulation. Patient was seen yesterday after he presented with symptoms of left arm weakness. He underwent initial computed tomography scan of the brain which failed to reveal any evidence of acute stroke. He completed a carotid Doppler ultrasound today which revealed severe plaque formation bilaterally with findings suggesting severe greater than 70% stenosis of the right ICA. CTA angiogram of the carotid Dopplers was recommended. Would also recommend primary physician to consider vascular surgery consultation for this patient regarding the carotid artery stenosis involving the right internal carotid artery. As noted his MRI final report is pending but clearly review the films indicates multiple areas of acute infarction in the right hemisphere. Patient was also able to complete MRI of the brain today the results of which are still pending. Review of the MRI films however reveals evidence of multiple embolic areas of ischemia involving the right hemisphere. Patient was seen by cardiology for further evaluation of his atrial fibrillation. Dr. Alba is recommending to consider oral anticoagulation with Eliquis at a small dose. If he develops more episodes of falling or bleeding he might be a candidate to receive the left atrial appendage closure device. We will await further recommendations from Dr. Alba. We reviewed the results of the MRI in detail today with the patient. We also updated him on the results of his carotid Doppler study. We will await further recommendations from Dr. Ruvalcaba in regards to his carotid artery disease and will await possible vascular surgery consultation. Vascular surgery was consulted today. We are waiting there further recommendations. Patient is to continue to work with PTOT and will possibly need inpatient rehab placement. His overall prognosis at this time remains very guarded. Objective - Vital Signs Vital signs: Vital Signs Temp 97.1 F L 08/17/17 16:20 Pulse 75 08/17/17 16:20 Resp 20 08/17/17 16:20 BP 140/76 08/17/17 16:20 Pulse Ox 95 08/17/17 16:20 Intake & Output 08/17/17 08/17/17 08/18/17 06:59 18:59 06:59 Intake Total 400 Balance 400 Weight 99 kg Intake: Oral 400 Other: Voiding Method Incontinent Incontinent # Voids 3 3 # Bowel Movements 0 - Exam Physical examination: PHYSICAL EXAMINATION: Patient is resting comfortably in bed. VITAL SIGNS: Blood pressure is [140/76]. Heart rate is [75]. Respiration is [20] . Temperature is [97.1]. HEENT: Head is atraumatic, neck is supple, there were no carotid bruits. CHEST: Lungs are clear to auscultation and percussion. CARDIAC: S1, S2 normal rate and rhythm. There is no murmur. ABDOMEN: Soft and nontender. Bowel sounds are present. EXTREMITIES: There is no pedal edema. Peripheral pulses are present. Neurological examination: Patient's neurological examination is unchanged from yesterday. He continues to demonstrate left upper extremity weakness. Speech is somewhat clear today. - Labs CBC & Chem 7: 08/17/17 07:51 08/17/17 07:51 Labs: Abnormal Lab Results - Last 24 Hours (Table) 08/16/17 08/17/17 08/17/17 Range/Units 20:55 06:49 07:51 WBC 11.2 H (3.8-10.6) k/uL Neutrophils # 8.7 H (1.3-7.7) k/uL Carbon Dioxide (22-30) mmol/L BUN (9-20) mg/dL Creatinine (0.66-1.25) mg/dL Glucose (74-99) mg/dL POC Glucose (mg/dL) 242 H 220 H (75-99) mg/dL Calcium (8.4-10.2) mg/dL 08/17/17 08/17/17 08/17/17 Range/Units 07:51 11:31 16:53 WBC (3.8-10.6) k/uL Neutrophils # (1.3-7.7) k/uL Carbon Dioxide 33 H (22-30) mmol/L BUN 37 H (9-20) mg/dL Creatinine 1.63 H (0.66-1.25) mg/dL Glucose 211 H (74-99) mg/dL POC Glucose (mg/dL) 303 H 319 H (75-99) mg/dL Calcium 10.3 H (8.4-10.2) mg/dL Assessment and Plan (1) Acute right arterial ischemic stroke, MCA (middle cerebral artery) Current Visit: Yes Status: Acute Code(s): I63.511 - CEREB INFRC D/T UNSP OCCLS OR STENOS OF RIGHT MID CEREB ART SNOMED Code(s): 349405430 (2) Atrial fibrillation Current Visit: Yes Status: Acute Code(s): I48.91 - UNSPECIFIED ATRIAL FIBRILLATION SNOMED Code(s): 18819912 (3) Dementia Current Visit: Yes Status: Acute Code(s): F03.90 - UNSPECIFIED DEMENTIA WITHOUT BEHAVIORAL DISTURBANCE SNOMED Code(s): 36605459 (4) Encephalopathy Current Visit: No Status: Acute Code(s): G93.40 - ENCEPHALOPATHY, UNSPECIFIED SNOMED Code(s): 09345841 (5) HTN (hypertension) Current Visit: No Status: Acute Code(s): I10 - ESSENTIAL (PRIMARY) HYPERTENSION SNOMED Code(s): 98912561 Plan: This patient is a 76-year-old male who is being evaluated for acute right hemispheric stroke. He is undergone MRI of the brain the results of which are noted above. MRI does reveal evidence of multiple areas of right hemispheric ischemic changes. He was seen by cardiology for history of chronic atrial fibrillation and was not initially on anticoagulation. He is now been started on Eliquis for long-term anticoagulation. Cardiology has seen the patient. He does have severe carotid artery disease as well and vascular surgery has been consulted. Neurologically there is no new changes in his neurological findings. Continues to have evidence of left arm weakness. We will continue close neurological follow-up for the patient. Patient was seen by vascular surgery and they have reviewed his recent CTA angiogram results of the head and neck. No surgical intervention is being planned for him at this time. Overall prognosis at this time remains guarded. Would consider inpatient rehab placement for the patient as well pending PT OT evaluations. His overall prognosis at this time remains guarded.
[2017-08-18] MEDS: APIXABAN 2.5 MG TABLET PO SCH (09:15)
[2017-08-18] MEDS: CILOSTAZOL 100 MG TAB PO SCH (09:15)
[2017-08-18] MEDS: FUROSEMIDE 40 MG TAB PO SCH (09:16)
[2017-08-18] MEDS: ATENOLOL 50 MG TAB PO SCH (09:16)
[2017-08-18] MEDS: amLODIPine 5 MG TAB PO SCH (09:16)
[2017-08-18] MEDS: INSULIN ASPART 100 UNIT/ML 1 ML 10 ML VIAL SQ SCH ×2 (09:16→12:40)
[2017-08-18] MEDS: DONEPEZIL 10 MG TAB PO SCH (09:16)
[2017-08-18] MEDS: ASPIRIN 325 MG TAB PO SCH (09:16)
[2017-08-18] MEDS: INSULIN DETEMIR 100 UNIT/ML 10 ML VIAL SQ SCH (09:16)
[2017-08-18] MEDS: ISOSORBIDE MONONITRATE ER 30 MG TAB.ER.24H PO SCH (09:16)
[2017-08-18] MEDS: PREGABALIN 100 MG CAP PO SCH (10:01)
[2017-08-18 12:30] LABS: Glucose,Whole Blood 270 mg/dL (75-99)
--- NOTE | 2017-08-18 15:01 | P.DS ---
Providers Date of admission: 08/13/17 22:23 Expected date of discharge: 08/18/17 Attending physician: Shelbi Ruvalcaba Consults: 08/13/17 22:23 Consult Physician Routine Consulting Provider: Loly Amezcua Consult Reason/Comments: CVA Do you want consulting provider notified?: Yes 08/14/17 14:37 Consult Physician Routine Consulting Provider: Wong Alba Consult Reason/Comments: Atrial fibrillation.? Anticoagulation Do you want consulting provider notified?: Yes 08/15/17 22:35 Consult Physician Routine Consulting Provider: Spencer Clark Consult Reason/Comments: Carotid stenosis Do you want consulting provider notified?: Yes Primary care physician: [facility] Course: Left upper activity weakness due to acute CVA involving right MCA. CT head negative for any acute process. MRI of the brain showed acute CVA probably embolic Severe carotid artery stenosis Chronic atrial fibrillation. Started on anticoagulation Chronic CHF with diastolic dysfunction Acute kidney injury on CK D stage III. Improving Hypothyroidism Diabetic peripheral neuropathy History of previous TIA and right eye visual changes resolved now Hypertension Diabetes type 2 History of AR Coronary artery disease with history of CABG triple-vessel Obstructive sleep apnea on CPAP History of left carotid endarterectomy Chronic back pain History of gout Degenerative joint disease Obesity Dementia Anxiety and depression Previous history of smoking. DVT prophylaxis Hospital course Patient is a 76-year-old male with a known history of atrial fibrillation, history of falls, CAD status post bypass graft, hypertension, hyperlipidemia, diabetes type 2 obstructive sleep apnea, history of left carotid endarterectomy/ peripheral vascular disease and multiple other medical problems came to ER with complaints of left upper hand weakness which started around 6:15 PM yesterday evening. Patient does have a history of TIA with visual problems previously about 5 years ago. Otherwise patient denied any headache or vision changes. No chest pain. No short of breath. No fever no chills. No recent illnesses. Patient is not on any anticoagulation currently. CT brain showed extensive atrophy and chronic small wasn't ischemia. No hemorrhage. No acute intracranial abnormality. No syncope and change compared to old exam EKG showed atrial fibrillation. 08/15/2017 Currently patient denied any complaints of chest pain or shortness of breath. Patient is still in atrial fibrillation. Cardiology has seen the patient and recommended anticoagulation. Otherwise patient had MRI of the brain done today showed acute CVA possible embolic nature. Carotid duplex showed severe stenosis greater than 70%. EEG showed no acute peptic form activity. Neurology and cardiology is following. Basilar surgery was consulted. PT OT consulted as well. Patient does not have any swallowing difficulty. 2-D echo cardiac exam was done today. Otherwise patient still having left-sided weakness. 08/16/2017 Patient is still having left upper extremity weakness. Participating physical therapy. Vascular surgery has been consulted. Otherwise patient will be continued on current management and possible transfer to rehab. No fever no chills. No chest pain or shortness of breath. 08/17/2017 Patient denied any complaints of chest pain or shortness of breath. Left upper extremity weakness is still present but slightly improved as per patient. Participating in physical therapy. Vascular surgery because to follow-up as an outpatient. Otherwise anticipate discharged to rehab in next 24 hours. Patient was continued on aspirin and statins along with his home medications and telemetry monitoring. Started on anticoagulation with eliquis. Neurology and cardiology has seen the patient. 2-D echocardiography was done. vascular surgery has seen the patient and recommends no surgical intervention at this time.. PTOT is following. Anticipate transferred to rehab in next 24 hours PHYSICAL EXAMINATION: Patient is lying in the bed comfortably, no acute distress, awake alert and oriented.. HEENT: Normocephalic. Neck is supple. Pupils reactive. Nostrils clear. Oral cavity is moist. Ears reveal no drainage. Neck reveals no JVD, carotid bruits, or thyromegaly. CHEST EXAMINATION: Trachea is central. Symmetrical expansion. Lung rodriguez clear to auscultation and percussion. CARDIAC: Normal S1, S2 with no gallops. No murmurs. Irregularly irregular rhythm ABDOMEN: Soft. Bowel sounds normal. No organomegaly. No abdominal bruits. Extremities: reveal no edema. No clubbing or cyanosis Neurologically awake, alert, oriented x3 . Patient does have left-sided weakness.3/5 Skin: No rash or skin lesions. Psychiatric: Coperative. Nonsuicidal Musculoskeletal: No joint swelling or deformity. Normal range of motion Vital Signs - 24 hr 08/17/17 08/17/17 08/17/17 15:28 15:39 15:48 Temperature Pulse Rate 71 74 Pulse Rate [ 90 Pulse Oximetery ] Respiratory 14 14 14 Rate Blood Pressure [Left Arm] Blood Pressure [Right Arm Supine] O2 Sat by Pulse 96 Oximetry 08/17/17 08/17/17 08/17/17 16:20 19:21 20:00 Temperature 97.1 F L 97.6 F Pulse Rate Pulse Rate [ 75 84 88 Pulse Oximetery ] Respiratory 20 20 Rate Blood Pressure [Left Arm] Blood Pressure 140/76 143/88 [Right Arm Supine] O2 Sat by Pulse 95 95 Oximetry 08/17/17 08/18/17 08/18/17 22:31 05:56 12:13 Temperature 98.2 F 98.6 F Pulse Rate 72 Pulse Rate [ 82 104 H Pulse Oximetery ] Respiratory 18 18 Rate Blood Pressure 146/98 130/81 [Left Arm] Blood Pressure [Right Arm Supine] O2 Sat by Pulse 94 L 97 Oximetry Total time taken greater than 35 minutes including 18 minutes for counseling and coordination of care. Patient Condition at Discharge: Serious Plan - Discharge Summary Discharge Rx Participant: No New Discharge Prescriptions: New Apixaban [Eliquis] 2.5 mg PO BID #60 tablet Atenolol [Tenormin] 50 mg PO BID #60 tab Continue Cilostazol [Pletal] 100 mg PO DAILY Cholecalciferol [Vitamin D3] 1,000 unit PO DAILY DULoxetine HCL [Cymbalta] 60 mg PO DAILY [place]-3 Fatty Acids/Fish Oil [Fish Oil 1,000 mg Softgel] 1 cap PO DAILY Atorvastatin [Lipitor] 40 mg PO HS Aspirin 81 mg PO QAM Donepezil [Aricept] 10 mg PO BID Nitroglycerin Sl Tabs [Nitrostat] 0.4 mg SUBLINGUAL Q5M PRN PRN Reason: Chest Pain Tamsulosin HCl [Flomax] 0.4 mg PO DAILY Melatonin 3 mg PO HS Isosorbide Mononitrate ER [Imdur] 30 mg PO DAILY Oxybutynin Chloride [Ditropan] 5 mg PO BID amLODIPine [Norvasc] 5 mg PO DAILY Levothyroxine Sodium [Synthroid] 75 mcg PO DAILY Furosemide [Lasix] 20 mg PO BID INSULIN LISPRO (HumaLOG) [humaLOG] See Protocol SQ ACHS Changed Insulin Glargine,Hum.rec.anlog [Lantus Solostar] 25 unit SQ DAILY #0 Insulin Glargine,Hum.rec.anlog [Lantus Solostar] 30 unit SQ HS #0 Discontinued Atenolol [Tenormin] 50 mg PO DAILY Thiamine [Vitamin B-1] 100 mg PO DAILY #30 tablet Discharge Medication List Aspirin 81 mg PO QAM 08/26/14 [History] Atorvastatin [Lipitor] 40 mg PO HS 08/26/14 [History] Cholecalciferol [Vitamin D3] 1,000 unit PO DAILY 08/26/14 [History] Cilostazol [Pletal] 100 mg PO DAILY 08/26/14 [History] DULoxetine HCL [Cymbalta] 60 mg PO DAILY 08/26/14 [History] Donepezil [Aricept] 10 mg PO BID 08/26/14 [History] [place]-3 Fatty Acids/Fish Oil [Fish Oil 1,000 mg Softgel] 1 cap PO DAILY [History] Nitroglycerin Sl Tabs [Nitrostat] 0.4 mg SUBLINGUAL Q5M PRN 10/16/14 [History] Tamsulosin HCl [Flomax] 0.4 mg PO DAILY 05/24/15 [History] Isosorbide Mononitrate ER [Imdur] 30 mg PO DAILY 10/15/15 [History] Melatonin 3 mg PO HS 10/15/15 [History] Oxybutynin Chloride [Ditropan] 5 mg PO BID 06/11/16 [History] amLODIPine [Norvasc] 5 mg PO DAILY 06/11/16 [History] Furosemide [Lasix] 20 mg PO BID 08/14/17 [History] INSULIN LISPRO (HumaLOG) [humaLOG] See Protocol SQ ACHS 08/14/17 [History] Levothyroxine Sodium [Synthroid] 75 mcg PO DAILY 08/14/17 [History] Apixaban [Eliquis] 2.5 mg PO BID #60 tablet 08/18/17 [Rx] Atenolol [Tenormin] 50 mg PO BID #60 tab 08/18/17 [Rx] Insulin Glargine,Hum.rec.anlog [Lantus Solostar] 25 unit SQ DAILY #0 08/18/17 [ Rx] Insulin Glargine,Hum.rec.anlog [Lantus Solostar] 30 unit SQ HS #0 08/18/17 [Rx] Follow up Appointment(s)/Referral(s): Spencer Clark MD [STAFF PHYSICIAN] - 08/24/17 Erick Escudero DO [Primary Care Provider] - 1-2 days Activity/Diet/Wound Care/Special Instructions: Dr. Clark wants patient to see him in his office on 08/24/17. Discharge Disposition: TRANSFER TO SNF/ECF
[2017-08-18 15:33] VITALS: BP 138/66; TEMP 97
[2017-08-18 15:35] VITALS: PULSE 84
--- NOTE | 2017-08-18 23:26 | P.PN ---
Subjective Progress Note Date: 08/18/17 This patient is a 76-year-old right-handed white male who was seen in neurology consultation yesterday with acute left-sided weakness. He has a known history of chronic atrial fibrillation and has not been on any anticoagulation. Patient was seen yesterday after he presented with symptoms of left arm weakness. He underwent initial computed tomography scan of the brain which failed to reveal any evidence of acute stroke. He completed a carotid Doppler ultrasound today which revealed severe plaque formation bilaterally with findings suggesting severe greater than 70% stenosis of the right ICA. CTA angiogram of the carotid Dopplers was recommended. Would also recommend primary physician to consider vascular surgery consultation for this patient regarding the carotid artery stenosis involving the right internal carotid artery. As noted his MRI final report is pending but clearly review the films indicates multiple areas of acute infarction in the right hemisphere. Patient was also able to complete MRI of the brain today the results of which are still pending. Review of the MRI films however reveals evidence of multiple embolic areas of ischemia involving the right hemisphere. Patient was seen by cardiology for further evaluation of his atrial fibrillation. Dr. Alba is recommending to consider oral anticoagulation with Eliquis at a small dose. If he develops more episodes of falling or bleeding he might be a candidate to receive the left atrial appendage closure device. We will await further recommendations from Dr. Alba. We reviewed the results of the MRI in detail today with the patient. We also updated him on the results of his carotid Doppler study. We will await further recommendations from Dr. Ruvalcaba in regards to his carotid artery disease and will await possible vascular surgery consultation. Vascular surgery was consulted today. We are waiting there further recommendations. Patient is to continue to work with PTOT and will possibly need inpatient rehab placement. His overall prognosis at this time remains very guarded. Objective - Vital Signs Vital signs: Vital Signs Temp 97.0 F L 08/18/17 15:00 Pulse 84 08/18/17 15:35 Resp 18 08/18/17 15:00 BP 138/66 08/18/17 15:00 Pulse Ox 95 08/18/17 15:00 Intake & Output 08/17/17 08/18/17 08/18/17 18:59 06:59 18:59 Intake Total 400 480 Balance 400 480 Weight 98 kg Intake: Oral 400 480 Other: Voiding Method Incontinent Diaper # Voids 3 3 4 # Bowel Movements 0 - Exam Physical examination: PHYSICAL EXAMINATION: Patient is resting comfortably in bed. VITAL SIGNS: Blood pressure is [138/65]. Heart rate is [79]. Respiration is [18] . Temperature is [97.0]. HEENT: Head is atraumatic, neck is supple, there were no carotid bruits. CHEST: Lungs are clear to auscultation and percussion. CARDIAC: S1, S2 normal rate and rhythm. There is no murmur. ABDOMEN: Soft and nontender. Bowel sounds are present. EXTREMITIES: There is no pedal edema. Peripheral pulses are present. Neurological examination: Patient's neurological examination is unchanged from yesterday. He continues to demonstrate left upper extremity weakness. Speech is somewhat clear today. - Labs CBC & Chem 7: 08/17/17 07:51 08/17/17 07:51 Labs: Abnormal Lab Results - Last 24 Hours (Table) 08/17/17 08/18/17 08/18/17 Range/Units 20:36 07:10 12:08 POC Glucose (mg/dL) 298 H 215 H 270 H (75-99) mg/dL Assessment and Plan (1) Acute right arterial ischemic stroke, MCA (middle cerebral artery) Status: Acute Code(s): I63.511 - CEREB INFRC D/T UNSP OCCLS OR STENOS OF RIGHT MID CEREB ART SNOMED Code(s): 699690461 (2) Atrial fibrillation Status: Acute Code(s): I48.91 - UNSPECIFIED ATRIAL FIBRILLATION SNOMED Code( s): 11429296 (3) Dementia Status: Acute Code(s): F03.90 - UNSPECIFIED DEMENTIA WITHOUT BEHAVIORAL DISTURBANCE SNOMED Code(s): 40726506 (4) Encephalopathy Status: Acute Code(s): G93.40 - ENCEPHALOPATHY, UNSPECIFIED SNOMED Code(s): 99271746 (5) HTN (hypertension) Status: Acute Code(s): I10 - ESSENTIAL (PRIMARY) HYPERTENSION SNOMED Code(s) : 16994266 Plan: This patient is a 76-year-old male who is being evaluated for acute right hemispheric stroke. He is undergone MRI of the brain the results of which are noted above. MRI does reveal evidence of multiple areas of right hemispheric ischemic changes. He was seen by cardiology for history of chronic atrial fibrillation and was not initially on anticoagulation. He is now been started on Eliquis for long-term anticoagulation. Cardiology has seen the patient. He does have severe carotid artery disease as well and vascular surgery has been consulted. Neurologically there is no new changes in his neurological findings. Continues to have evidence of left arm weakness. We will continue close neurological follow-up for the patient. Patient was seen by vascular surgery and they have reviewed his recent CTA angiogram results of the head and neck. No surgical intervention is being planned for him at this time. Overall prognosis at this time remains guarded. Would consider inpatient rehab placement for the patient as well pending PT OT evaluations. Patient is being considered for discharge later today. He may follow-up in the outpatient neurology clinic as needed. His overall prognosis at this time remains guarded.
--- NOTE | 2017-08-21 18:44 | CDI ---
Paroxysmal Last Revision, April 2017 Documentation Clarification Form Date: 08/21/17 From: Nubia Mccurdy Phone: If you have a question regarding this query, please contact Katelyn Bruno at [phone] between 8am and 5pm Admit Date: 08/13/2017 10:23:00 PM Patient Name: Jaguar Farnsworth Visit Number: [id number] Discharge Date: 08/18/17 ATTENTION: The Clinical Documentation Specialists (CDI) and [facility] Coding Staff appreciate your assistance in clarifying documentation. Please respond to the clarification below the line at the bottom and electronically sign. The CDI & [facility] Coding staff will review the response and follow-up if needed. Please note: Queries are made part of the Legal Health Record. If you have any questions, please contact the author of this message via ITS. Dr. Wong Alba Atrial Flutter is documented in the past medical history of the ED note, H&P, [facility] [place]'s consult note and in your consult note. History/Risk factors: Patient has a history of smoking, RI, hypertension, diabetes and anxiety. EKG/telemetry: Atrial fibrillation, incomplete right bundle, rate of 73, QRS duration 110, QTC 449, no acute ischemic changes, no significant change compared to old EKG. Treatment: Patient is on Atenolo daily and Norvasc daily, In your professional opinion, in order to capture the severity of condition; can you please clarify the type of atrial flutter if known? Typical/Type I Atypical/Type II Other, please specify Unable to determine Paroxysmal MTDD
== END 2017-08-18 17:05 | DRG 65 ==
LOC: EC 20:37 → 6SEL 22:23 → 4MS4W 08-16 22:28
PROVIDERS: ADMIT Hospitalist; ATTEND Hospitalist
DX: I63.131 Cerebral infarction due to embolism of right carotid artery (principal); N17.9 Acute kidney failure, unspecified; I48.1 Persistent atrial fibrillation; I13.0 Hypertensive heart and chronic kidney disease with heart failure and stage 1 through stage 4 chronic kidney disease, or unspecified chronic kidney disease; I50.32 Chronic diastolic (congestive) heart failure; I48.92 Unspecified atrial flutter; E11.22 Type 2 diabetes mellitus with diabetic chronic kidney disease; E11.42 Type 2 diabetes mellitus with diabetic polyneuropathy; E11.51 Type 2 diabetes mellitus with diabetic peripheral angiopathy without gangrene; I48.2 Chronic atrial fibrillation; G83.24 Monoplegia of upper limb affecting left nondominant side; E03.9 Hypothyroidism, unspecified; R29.701 NIHSS score 1; E66.9 Obesity, unspecified; E78.5 Hyperlipidemia, unspecified; F03.90 Unspecified dementia, unspecified severity, without behavioral disturbance, psychotic disturbance, mood disturbance, and anxiety; F32.9 Major depressive disorder, single episode, unspecified; F41.9 Anxiety disorder, unspecified; G47.33 Obstructive sleep apnea (adult) (pediatric); G89.29 Other chronic pain; I25.10 Atherosclerotic heart disease of native coronary artery without angina pectoris; I25.2 Old myocardial infarction; J44.9 Chronic obstructive pulmonary disease, unspecified; M19.90 Unspecified osteoarthritis, unspecified site; M79.7 Fibromyalgia; M10.9 Gout, unspecified; M54.9 Dorsalgia, unspecified; N18.3 Chronic kidney disease, stage 3 (moderate); M54.30 Sciatica, unspecified side; K57.90 Diverticulosis of intestine, part unspecified, without perforation or abscess without bleeding; N42.9 Disorder of prostate, unspecified; R32 Unspecified urinary incontinence; Z79.4 Long term (current) use of insulin; Z79.82 Long term (current) use of aspirin; Z79.899 Other long term (current) drug therapy; Z98.42 Cataract extraction status, left eye; Z98.41 Cataract extraction status, right eye; Z96.1 Presence of intraocular lens; Z95.1 Presence of aortocoronary bypass graft; Z91.81 History of falling; Z87.891 Personal history of nicotine dependence; Z86.73 Personal history of transient ischemic attack (TIA), and cerebral infarction without residual deficits; Z86.14 Personal history of Methicillin resistant Staphylococcus aureus infection; Z88.6 Allergy status to analgesic agent; Z88.1 Allergy status to other antibiotic agents; Z91.040 Latex allergy status; Z68.31 Body mass index [BMI] 31.0-31.9, adult; Z82.49 Family history of ischemic heart disease and other diseases of the circulatory system
CPT/HCPCS: 36415; 70450; 70551; 71046; 80048; 80053; 80061; 82550; 82553; 83036; 84484; 85025; 85610; 85730; 93005; 93306; 93880; 94640; 94760; 95819; 99291

== ENCOUNTER 2017-10-09 12:26 | Observation (INO) | payer MEDICARE ==
[2017-10-09] MEDS ORDERED: SODIUM CHLORIDE 0.9% 1,000 ML IV STA (12:40)
[2017-10-09 13:07] LABS: Glucose,Whole Blood 111 mg/dL (75-99)
[2017-10-09 13:11] LABS: Basophils % (A) 0 %; Eosinophils # (A) 0.3 k/uL (0-0.7); Eosinophils % (A) 4 %; HCT 45.2 % (39.0-53.0); HGB 15.6 gm/dL (13.0-17.5); Lymphocytes # (A) 1.1 k/uL (1.0-4.8); Lymphocytes % (A) 16 %; MCH 31.4 pg (25.0-35.0); MCHC 34.6 g/dL (31.0-37.0); MCV 90.8 fL (80.0-100.0); Mean Platelet Volume 9.1; Monocytes # (A) 0.6 k/uL (0-1.0); Monocytes % (A) 9 %; Neutrophils # (A) 4.8 k/uL (1.3-7.7); Neutrophils % (A) 68 %; Platelet Count 202 k/uL (150-450); RBC 4.98 m/uL (4.30-5.90); RDW 14.1 % (11.5-15.5)
--- NOTE | 2017-10-09 13:16 | ED ---
Weakness HPI - General Chief complaint: Weakness Stated complaint: Weakness Time Seen by Provider: 10/09/17 12:40 Source: patient, EMS Mode of arrival: EMS Limitations: no limitations - History of Present Illness Initial comments: 77 years old male with a history of CVA and residual weakness of the left upper and left lower extremity at 10 AM today he was not able to move his left arm and the left leg, he felt very DVT Gen. and he also has a headache since then he denies any chest pain no shortness of breath no pleuritic chest pain no abdominal pain no frequency urgency dysuria. He has a history of atrial fib/ flutter and he is on aliquots Review of system is unremarkable - Related Data Home Medications Medication Instructions Recorded Confirmed Aspirin 81 mg PO QAM 08/26/14 10/09/17 Atorvastatin [Lipitor] 40 mg PO HS 08/26/14 10/09/17 Cholecalciferol [Vitamin D3] 1,000 unit PO DAILY 08/26/14 10/09/17 Cilostazol [Pletal] 100 mg PO DAILY 08/26/14 10/09/17 DULoxetine HCL [Cymbalta] 60 mg PO DAILY 08/26/14 10/09/17 Donepezil [Aricept] 10 mg PO BID 08/26/14 10/09/17 [place]-3 Fatty Acids/Fish Oil [Fish 1 cap PO DAILY 08/26/14 10/09/17 Oil 1,000 mg Softgel] Nitroglycerin Sl Tabs [Nitrostat] 0.4 mg SUBLINGUAL Q5M PRN 10/16/14 10/09/17 Tamsulosin HCl [Flomax] 0.4 mg PO DAILY 05/24/15 10/09/17 Isosorbide Mononitrate ER [Imdur] 30 mg PO DAILY 10/15/15 10/09/17 Melatonin 3 mg PO HS 10/15/15 10/09/17 Oxybutynin Chloride [Ditropan] 5 mg PO BID 06/11/16 10/09/17 amLODIPine [Norvasc] 5 mg PO DAILY 06/11/16 10/09/17 Furosemide [Lasix] 20 mg PO BID 08/14/17 10/09/17 INSULIN LISPRO (HumaLOG) [humaLOG] See Protocol SQ ACHS 08/14/17 10/09/17 Levothyroxine Sodium [Synthroid] 75 mcg PO DAILY 08/14/17 10/09/17 Memantine [Namenda] 10 mg PO DAILY 10/09/17 10/09/17 Tolterodine Tartrate [Detrol LA] 4 mg PO DAILY 10/09/17 10/09/17 Previous Rx's Medication Instructions Recorded Apixaban [Eliquis] 2.5 mg PO BID #60 tablet 08/18/17 Atenolol [Tenormin] 50 mg PO BID #60 tab 08/18/17 Insulin Glargine,Hum.rec.anlog 25 unit SQ DAILY #0 08/18/17 [Lantus Solostar] Insulin Glargine,Hum.rec.anlog 30 unit SQ HS #0 08/18/17 [Lantus Solostar] Allergies Allergy/AdvReac Type Severity Reaction Status Date / Time ciprofloxacin [From Cipro] Allergy Swelling Verified 10/09/17 12:38 ciprofloxacin HCl Allergy Swelling Verified 10/09/17 12:38 [From Cipro] latex Allergy Unknown Verified 10/09/17 12:38 NSAIDS (Non-Steroidal Allergy Unknown Verified 10/09/17 12:38 Anti-Inflamma Quinolones Allergy Unknown Verified 10/09/17 12:38 Review of Systems ROS Statement: Those systems with pertinent positive or pertinent negative responses have been documented in the HPI. ROS Other: All systems not noted in ROS Statement are negative. Past Medical History Past Medical History: Atrial Flutter, Coronary Artery Disease (CAD), Chest Pain / Angina, Heart Failure, COPD, Dementia, Diabetes Mellitus, Fibromyalgia, Hyperlipidemia, Hypertension, Myocardial Infarction ([place]), Prostate Disorder, Renal Disease, Sleep Apnea/CPAP/BIPAP, Vascular Disorder Additional Past Medical History / Comment(s): IDDM, chronic renal failure, aflutter, sleep apnea with no cpap, PVD, DJD, chronic back pain, bulging and herniated discs, sciatica, dislocated knuckles, gout, arthiritis, prostate problem-pt unsure what problem is, tinnitis bilaterally, R eye stroke, umbilical hernia, diverticular disease, obesity. Last Myocardial Infarction Date:: 2004 History of Any Multi-Drug Resistant Organisms: MRSA Date of last positivie culture/infection: 10/17/2014 MDRO Source:: Sputum Past Surgical History: Coronary Bypass/CABG, Heart Catheterization, Tonsillectomy Additional Past Surgical History / Comment(s): 2004 triple vessel CABG, Ccath 2005, L carotid endartectomy, bilateral cataract removal with lens implants, colonoscopy, skin lesion removal. Past Anesthesia/Blood Transfusion Reactions: No Reported Reaction Past Psychological History: Anxiety, Depression Smoking Status: Former smoker Past Alcohol Use History: None Reported Past Drug Use History: None Reported - Past Family History Father Family Medical History: Coronary Artery Disease (CAD) Additional Family Medical History / Comment(s): Father had CABG Mother Family Medical History: No Reported History Additional Family Medical History / Comment(s): Pt states mother was a healthy person. General Exam - General Exam Comments Initial Comments: General: The patient is awake and alert, in no distress, he does look pale and tired, GCS is 15 Skin: Skin is warm and dry and no rashes or lesions are noted. Noticed localized infection on the both toes Eye: Pupils are equal, round and reactive to light, extra-ocular movements are intact; there is normal conjunctiva bilaterally. Pupils are constricted bilateral Ears, nose, mouth and throat: There are moist mucous membranes and no oral lesions. Neck: The neck is supple, there is no tenderness or JVD. Cardiovascular: There is a regular rate and rhythm. No murmur, rub or gallop is appreciated. Respiratory: To auscultation bilateral, no wheezing no rhonchi no distress respiratory villanueva noticed Gastrointestinal: Soft, non-distended, non-tender abdomen without masses or organomegaly noted. There is no rebound or guarding present. Bowel sounds are unremarkable. Back: There is no tenderness to palpation in the midline. There is no obvious deformity. Musculoskeletal: Left upper or lower extremity has residual weakness from the previous CVA, right upper or lower extremity exam is normal no motor or sensory deficits noticed Neurological: CN II-XII intact, Cranial nerves III through XII are intact. There are no obvious motor or sensory deficits. Coordination appears grossly intact. Speech is normal. Psychiatric: Cooperative, appropriate mood & affect, normal judgment. Limitations: no limitations Course Vital Signs 10/09/17 10/09/17 10/09/17 12:33 13:32 14:22 Temperature 97.4 F L Pulse Rate 67 74 77 Respiratory 18 18 18 Rate Blood Pressure 137/81 165/77 156/87 O2 Sat by Pulse 98 99 99 Oximetry Patient is reassessed at term 1356 he said he is too weak to go home he has nobody at home to look after him a patient be admitted to Dr. Ruvalcaba service, CBC , INR, compressive metabolic panel were unremarkable creatinine is 1.6 troponin is fine her urinalysis was slightly positive will need a cultures chest x-ray ruled out any infiltrate head CT ruled out any massive stroke EKG Findings - EKG Comments: EKG Findings:: KG is atrial fibrillation incomplete right bundle branch block ventricular rate is 79 QRS duration is 1 of 4 QT/QTc is 398/456 and 50 CK G does not reveal any ST elevation or ST depression Medical Decision Making - Lab Data Result diagrams: 10/09/17 12:57 10/09/17 12:57 Lab Results 10/09/17 10/09/17 10/09/17 Range/Units 12:57 12:57 12:57 WBC 7.0 (3.8-10.6) k/uL RBC 4.98 (4.30-5.90) m/uL Hgb 15.6 (13.0-17.5) gm/dL Hct 45.2 (39.0-53.0) % MCV 90.8 (80.0-100.0) fL MCH 31.4 (25.0-35.0) pg MCHC 34.6 (31.0-37.0) g/dL RDW 14.1 (11.5-15.5) % Plt Count 202 (150-450) k/uL Neutrophils % 68 % Lymphocytes % 16 % Monocytes % 9 % Eosinophils % 4 % Basophils % 0 % Neutrophils # 4.8 (1.3-7.7) k/uL Lymphocytes # 1.1 (1.0-4.8) k/uL Monocytes # 0.6 (0-1.0) k/uL Eosinophils # 0.3 (0-0.7) k/uL Basophils # 0.0 (0-0.2) k/uL PT (9.0-12.0) sec INR (<1.2) APTT (22.0-30.0) sec Sodium 147 H (137-145) mmol/L Potassium 4.1 (3.5-5.1) mmol/L Chloride 105 (98-107) mmol/L Carbon Dioxide 27 (22-30) mmol/L Anion Gap 15 mmol/L BUN 37 H (9-20) mg/dL Creatinine 1.60 H (0.66-1.25) mg/dL Est GFR (CKD-EPI)AfAm 47 (>60 ml/min/1.73 sqM) Est GFR (CKD-EPI)NonAf 41 (>60 ml/min/1.73 sqM) Glucose 141 H (74-99) mg/dL POC Glucose (mg/dL) (75-99) mg/dL POC Glu R And D Lab Technician ID Plasma Lactic Acid Constantin (0.7-2.0) mmol/L Calcium 9.4 (8.4-10.2) mg/dL Total Bilirubin 0.9 (0.2-1.3) mg/dL AST 17 (17-59) U/L ALT 29 (21-72) U/L Alkaline Phosphatase 119 (38-126) U/L Total Creatine Kinase 65 (55-170) U/L CK-MB (CK-2) 0.5 (0.0-2.4) ng/mL CK-MB (CK-2) Rel Index 0.8 Troponin I <0.012 (0.000-0.034) ng/mL Total Protein 6.6 (6.3-8.2) g/dL Albumin 3.9 (3.5-5.0) g/dL Urine Color Urine Appearance (Clear) Urine pH (5.0-8.0) Ur Specific [place] (1.001-1.035) Urine Protein (Negative) Urine Glucose (UA) (Negative) Urine Ketones (Negative) Urine Blood (Negative) Urine Nitrite (Negative) Urine Bilirubin (Negative) Urine Urobilinogen (<2.0) mg/dL Ur Leukocyte Esterase (Negative) Urine RBC (0-5) /hpf Urine WBC (0-5) /hpf Urine Bacteria (None) /hpf Hyaline Casts (0-2) /lpf Urine Mucus (None) /hpf 10/09/17 10/09/17 10/09/17 Range/Units 12:57 12:57 13:05 WBC (3.8-10.6) k/uL RBC (4.30-5.90) m/uL Hgb (13.0-17.5) gm/dL Hct (39.0-53.0) % MCV (80.0-100.0) fL MCH (25.0-35.0) pg MCHC (31.0-37.0) g/dL RDW (11.5-15.5) % Plt Count (150-450) k/uL Neutrophils % % Lymphocytes % % Monocytes % % Eosinophils % % Basophils % % Neutrophils # (1.3-7.7) k/uL Lymphocytes # (1.0-4.8) k/uL Monocytes # (0-1.0) k/uL Eosinophils # (0-0.7) k/uL Basophils # (0-0.2) k/uL PT 11.0 (9.0-12.0) sec INR 1.1 (<1.2) APTT 23.0 (22.0-30.0) sec Sodium (137-145) mmol/L Potassium (3.5-5.1) mmol/L Chloride (98-107) mmol/L Carbon Dioxide (22-30) mmol/L Anion Gap mmol/L BUN (9-20) mg/dL Creatinine (0.66-1.25) mg/dL Est GFR (CKD-EPI)AfAm (>60 ml/min/1.73 sqM) Est GFR (CKD-EPI)NonAf (>60 ml/min/1.73 sqM) Glucose (74-99) mg/dL POC Glucose (mg/dL) 111 H (75-99) mg/dL POC Glu R And D Lab Technician ID Ifeoma Dan Plasma Lactic Acid Constantin 1.1 (0.7-2.0) mmol/L Calcium (8.4-10.2) mg/dL Total Bilirubin (0.2-1.3) mg/dL AST (17-59) U/L ALT (21-72) U/L Alkaline Phosphatase (38-126) U/L Total Creatine Kinase (55-170) U/L CK-MB (CK-2) (0.0-2.4) ng/mL CK-MB (CK-2) Rel Index Troponin I (0.000-0.034) ng/mL Total Protein (6.3-8.2) g/dL Albumin (3.5-5.0) g/dL Urine Color Urine Appearance (Clear) Urine pH (5.0-8.0) Ur Specific [place] (1.001-1.035) Urine Protein (Negative) Urine Glucose (UA) (Negative) Urine Ketones (Negative) Urine Blood (Negative) Urine Nitrite (Negative) Urine Bilirubin (Negative) Urine Urobilinogen (<2.0) mg/dL Ur Leukocyte Esterase (Negative) Urine RBC (0-5) /hpf Urine WBC (0-5) /hpf Urine Bacteria (None) /hpf Hyaline Casts (0-2) /lpf Urine Mucus (None) /hpf 10/09/17 Range/Units 13:25 WBC (3.8-10.6) k/uL RBC (4.30-5.90) m/uL Hgb (13.0-17.5) gm/dL Hct (39.0-53.0) % MCV (80.0-100.0) fL MCH (25.0-35.0) pg MCHC (31.0-37.0) g/dL RDW (11.5-15.5) % Plt Count (150-450) k/uL Neutrophils % % Lymphocytes % % Monocytes % % Eosinophils % % Basophils % % Neutrophils # (1.3-7.7) k/uL Lymphocytes # (1.0-4.8) k/uL Monocytes # (0-1.0) k/uL Eosinophils # (0-0.7) k/uL Basophils # (0-0.2) k/uL PT (9.0-12.0) sec INR (<1.2) APTT (22.0-30.0) sec Sodium (137-145) mmol/L Potassium (3.5-5.1) mmol/L Chloride (98-107) mmol/L Carbon Dioxide (22-30) mmol/L Anion Gap mmol/L BUN (9-20) mg/dL Creatinine (0.66-1.25) mg/dL Est GFR (CKD-EPI)AfAm (>60 ml/min/1.73 sqM) Est GFR (CKD-EPI)NonAf (>60 ml/min/1.73 sqM) Glucose (74-99) mg/dL POC Glucose (mg/dL) (75-99) mg/dL POC Glu R And D Lab Technician ID Plasma Lactic Acid Constantin (0.7-2.0) mmol/L Calcium (8.4-10.2) mg/dL Total Bilirubin (0.2-1.3) mg/dL AST (17-59) U/L ALT (21-72) U/L Alkaline Phosphatase (38-126) U/L Total Creatine Kinase (55-170) U/L CK-MB (CK-2) (0.0-2.4) ng/mL CK-MB (CK-2) Rel Index Troponin I (0.000-0.034) ng/mL Total Protein (6.3-8.2) g/dL Albumin (3.5-5.0) g/dL Urine Color Yellow Urine Appearance Clear (Clear) Urine pH 5.5 (5.0-8.0) Ur Specific [place] 1.014 (1.001-1.035) Urine Protein Trace H (Negative) Urine Glucose (UA) Negative (Negative) Urine Ketones Negative (Negative) Urine Blood Negative (Negative) Urine Nitrite Negative (Negative) Urine Bilirubin Negative (Negative) Urine Urobilinogen <2.0 (<2.0) mg/dL Ur Leukocyte Esterase Moderate H (Negative) Urine RBC 2 (0-5) /hpf Urine WBC 18 H (0-5) /hpf Urine Bacteria Rare H (None) /hpf Hyaline Casts 1 (0-2) /lpf Urine Mucus Rare H (None) /hpf Disposition Clinical Impression: Generalized weakness Disposition: ADMITTED IP TO THIS [facility] Condition: Good Referrals: Erick Escudero DO [Primary Care Provider] - 1-2 days
[2017-10-09 13:21] LABS: Albumin 3.9 g/dL (3.5-5.0); Calcium 9.4 mg/dL (8.4-10.2); Potassium 4.1 mmol/L (3.5-5.1); Total Bilirubin 0.9 mg/dL (0.2-1.3); Total Protein 6.6 g/dL (6.3-8.2)
[2017-10-09 13:32] LABS: Appearance,Urine Clear (Clear); Bacteria,Urine Rare /hpf; Bilirubin,Urine Negative (Negative); Blood,Urine Negative (Negative); Color,Urine Yellow; Glucose,Urine (UA) Negative (Negative); Hyaline Casts,Urine 1 /lpf (0-2); Ketones,Urine Negative (Negative); Leukocyte Esterase,Urine Moderate (Negative); Mucus,Urine Rare /hpf; Nitrite,Urine Negative (Negative); PH, Urine 5.5 (5.0-8.0); Protein,Urine Trace (Negative); RBC,Urine 2 /hpf (0-5); Specific Gravity,Urine 1.014 (1.001-1.035); Urobilinogen,Urine <2.0 mg/dL (<2.0); WBC,Urine 18 /hpf (0-5)
[2017-10-09 13:35] LABS: Creatine Kinase 65 U/L (55-170)
[2017-10-09 13:38] LABS: INR 1.1 (<1.2)
[2017-10-09 13:48] LABS: Creatine Kinase MB 0.5 ng/mL (0.0-2.4); Troponin I <0.012 ng/mL (0.000-0.034)
--- NOTE | 2017-10-09 13:55 | CT ---
EXAMINATION TYPE: CT brain wo con DATE OF EXAM: 10/09/2017 COMPARISON: 08/13/2017 INDICATION: Weakness DLP: 1085 mGycm, Automated exposure control for dose reduction was used. CONTRAST: None CT of the brain is performed utilizing 3 mm thick sections through the posterior fossa and 3 mm thick sections through the remaining calvarium. Study is performed within 24 hours of arrival to the hosp [facility]. No abnormal hyperdensity is present to suggest an acute intracranial hemorrhage. No mass lesion is evident. No acute infarcts are evident. Ventricles and sulci are very prominent for the patient age. Paranasal sinuses and mastoid air cells within the [id number] are clear. IMPRESSIONS: 1. Atrophy. Exam appears stable from comparison.
--- NOTE | 2017-10-09 13:56 | XR ---
EXAMINATION TYPE: XR chest 2V DATE OF EXAM: 10/09/2017 COMPARISON: 08/13/2017 INDICATION: Weakness heart failure COPD TECHNIQUE: Frontal and lateral views of the chest are obtained. FINDINGS: The heart size is normal. The pulmonary vasculature is normal. The lungs are clear. Sternotomy wires are present from previous CABG. IMPRESSION: 1. No acute pulmonary process.
[2017-10-09] MEDS ORDERED: NALOXONE 0.4 MG/ML 1 ML VIAL IV PRN (14:58)
[2017-10-09] MEDS ORDERED: NITROGLYCERIN SL TABS 0.4 MG TAB SUBLINGUAL PRN (15:01)
[2017-10-09 16:40] LABS: Glucose,Whole Blood 89 mg/dL (75-99)
[2017-10-09] MEDS: FUROSEMIDE 20 MG TAB PO SCH (17:17)
[2017-10-09] MEDS ORDERED: ACETAMINOPHEN TAB 325 MG TAB PO PRN (18:14)
[2017-10-09] MEDS: ceFAZolin 1,000 MG in DEXTROSE/WATER 1 50ML.BAG IVPB SCH ×2 (18:56→23:40)
[2017-10-09] MEDS ORDERED: INSULIN DETEMIR 100 UNIT/ML 10 ML VIAL SQ SCH (21:00)
[2017-10-09 21:09] LABS: Glucose,Whole Blood 175 mg/dL (75-99)
--- NOTE | 2017-10-09 21:11 | HP ---
HISTORY AND PHYSICAL DATE OF SERVICE: 10/09/2016 CHIEF COMPLAINT: Weakness. HISTORY OF PRESENT ILLNESS: This 77-year-old gentleman with a past medical history of multiple medical problems including CAD, CHF, COPD, dementia, diabetes, fibromyalgia, hypertension, hyperlipidemia, also had a stroke on the left side. The patient has an extremely complex recent medical history. The patient was recently admitted with weakness and subsequently sent to rehab and after that patient went home. The patient was weak and unable to get up and patient also noted cellulitis of the left foot. Patient also had diarrhea, which is mostly in the morning according to him. Patient also has atrial fibrillation. The patient is on anticoagulation. Patient being followed by Dr. Escudero in the outpatient setting. There is no history of fever, rigors. No history of headache, loss of consciousness, seizures. PAST MEDICAL HISTORY: Atrial fibrillation, CAD, CHF, COPD, CHF, dementia, diabetes, history of fibromyalgia hypertension hyperlipidemia. MEDICATIONS: Prior to admission include home medications are: 1. Norvasc 5 mg p.o. daily. 2. Detrol LA 4 mg p.o. q.h.s. 3. Flomax 0.4 daily. 4. [place]-3 fatty acids 1 p.o. q.h.s. 5. Nitrostat 0.4 mg sublingual. 6. Namenda 10 mg p.o. b.i.d. 7. Melatonin 3 mg q.h.s. 8. Synthroid 70 mg p.o. daily. 9. Imdur 30 mg b.i.d. 10.Lantus 30 units subcu b.i.d. 11.Humalog 5 units t.i.d. 12.Lasix 20 mg b.i.d. 13.Flonase 1 spray daily. 14.Aricept 10 mg p.o. b.i.d. 15.Cymbalta 60 mg p.o. daily. 16.Pletal 100 mg p.o. daily. 17.Vitamin D 3000 daily. 18.Lipitor 40 mg q.h.s. 19.Tenormin 50 mg p.o. b.i.d. 20.Aspirin 81 mg. 21.Eliquis 2.5 mg p.o. b.i.d. 22.Tylenol 650 q.6 p.r.n. ALLERGIES: CIPRO, LATEX, NSAIDs AND QUINOLONES. FAMILY HISTORY: History of CAD and CABG. SOCIAL HISTORY: Previous history of smoking. No history of alcohol intake. REVIEW OF SYSTEMS: ENT: Diminished hearing and diminished vision. CARDIOVASCULAR: No angina. Respiration as mentioned earlier. GI no nausea or vomiting. : No dysuria. Central nervous system: No numbness, weakness. ALLERGY/IMMUNOLOGY: No asthma or hayfever. Musculoskeletal: As mentioned earlier. Hematology/Oncology: As mentioned earlier. Endocrine: As mentioned earlier. Constitutional: As mentioned earlier. Dermatology: Negative. Rheumatology: Negative. Psychiatry: As mentioned earlier. EXAMINATION: GENERAL: Alert and oriented times three. VITAL SIGNS: Pulse 75, blood pressure 150/70, respiration 19, temperature 97.2, pulse ox 100% on 2 L. HEENT is conjunctivae normal. Oral mucosa moist. NECK is no jugular venous distention. No carotid bruit. No lymph node enlargement. CARDIOVASCULAR system: S1, S2 muffled. No S3, no S4. RESPIRATORY: Breath sounds diminished in the bases. A few scattered rhonchi and crackles. ABDOMEN: Soft, nontender. No mass palpable. LEGS bilateral leg swelling and bilateral cellulitis also present. Nervous system: Higher functions as mentioned earlier. Moves all four extremities, significant weakness on the left side and mild diffuse weakness on right side also present. LYMPHATICS: No lymph nodes palpable in the neck, axillae or groin. Dermatology: Aspiration of the legs mentioned earlier. JOINTS no active deforming arthropathy. LABS: WBC normal. Sodium 147, creatinine is 1.60. ASSESSMENT: 1. Diffuse weakness, multifactorial for evaluation rule out acute stroke. 2. History of old left-sided stroke. 3. Diarrhea continuing. 4. Increased creatinine with chronic kidney disease stage 3. 5. Possible urinary tract infection. 6. History atrial flutter. 7. History of coronary artery disease. 8. History of congestive heart failure. 9. Chronic obstructive pulmonary disease. 10.Dementia. 11.Diabetes type 2. 12.Hypertension. 13.Hyperlipidemia. 14.History of prostate disease. 15.Sleep apnea. 16.History of degenerative joint disease. 17.History of coronary artery disease/coronary artery bypass grafting. 18.Anxiety/depression. RECOMMENDATIONS AND DISCUSSION: In this 77-year-old gentleman who presented with multiple complex medical issues, we will monitor the patient closely, continue the current medications, management and symptomatic treatment. Otherwise at this time also I will gently hydrate the patient and I would monitor creatinine closely. PT, OT evaluation. Monitor blood sugars closely. Resume the home medications. I would also get neurology evaluation to rule out the possibility of any TIA or CVA, new CVI. Otherwise continue to monitor. Guarded prognosis and I would also get Gastroenterology for evaluation of chronic diarrhea as well. Prognosis guarded. Further recommendations to follow. Copy of dictation being forwarded to Dr. Escudero who is the primary physician. MMODL / IJN: [id number] /
[2017-10-09] MEDS: ATORVASTATIN 40 MG TAB PO SCH (21:12)
[2017-10-09] MEDS: APIXABAN 2.5 MG TABLET PO SCH (21:12)
[2017-10-09] MEDS: OXYBUTYNIN CHLORIDE 5 MG TAB PO SCH (21:12)
[2017-10-09] MEDS: INSULIN DETEMIR 100 UNIT/ML 10 ML VIAL SQ SCH (21:12)
[2017-10-09] MEDS: DONEPEZIL 10 MG TAB PO SCH (21:12)
[2017-10-09] MEDS: ATENOLOL 50 MG TAB PO SCH (21:12)
[2017-10-09] MEDS: MELATONIN 3 MG TABLET PO SCH (21:12)
[2017-10-10 06:19] LABS: Glucose,Whole Blood 139 mg/dL (75-99)
[2017-10-10 06:52] LABS: Basophils % (A) 0 %; Eosinophils # (A) 0.4 k/uL (0-0.7); Eosinophils % (A) 4 %; HCT 43.5 % (39.0-53.0); HGB 14.9 gm/dL (13.0-17.5); Lymphocytes # (A) 1.1 k/uL (1.0-4.8); Lymphocytes % (A) 12 %; MCH 31.8 pg (25.0-35.0); MCHC 34.2 g/dL (31.0-37.0); MCV 92.8 fL (80.0-100.0); Mean Platelet Volume 8.5; Monocytes # (A) 0.7 k/uL (0-1.0); Monocytes % (A) 8 %; Neutrophils # (A) 6.3 k/uL (1.3-7.7); Neutrophils % (A) 73 %; Platelet Count 176 k/uL (150-450); RBC 4.68 m/uL (4.30-5.90); RDW 14.5 % (11.5-15.5); WBC 8.7 k/uL (3.8-10.6)
[2017-10-10 07:01] LABS: Calcium 8.8 mg/dL (8.4-10.2); Potassium 4.1 mmol/L (3.5-5.1)
[2017-10-10] MEDS: LEVOTHYROXINE 75 MCG TAB PO SCH (07:05)
[2017-10-10] MEDS: INSULIN ASPART 100 UNIT/ML 1 ML 10 ML VIAL SQ SCH ×3 (07:12→17:03)
[2017-10-10] MEDS ORDERED: NON-FORMULARY DRUG (Omega-3 Fatty Acids/Fish Oil [Fish Oil 1,000 Mg Softgel] 1 CAP) PO SCH (09:00)
[2017-10-10] MEDS ORDERED: NON-FORMULARY DRUG (Tolterodine Tartrate [Detrol La] 4 MG) PO SCH (09:00)
[2017-10-10] MEDS ORDERED: INSULIN DETEMIR 100 UNIT/ML 10 ML VIAL SQ SCH (09:00)
[2017-10-10] MEDS: FUROSEMIDE 20 MG TAB PO SCH ×2 (09:05→17:03)
[2017-10-10] MEDS: DULoxetine HCL 60 MG CAPSULE.DR PO SCH (09:05)
[2017-10-10] MEDS: MEMANTINE 10 MG TAB PO SCH (09:05)
[2017-10-10] MEDS: APIXABAN 2.5 MG TABLET PO SCH ×2 (09:05→22:35)
[2017-10-10] MEDS: amLODIPine 5 MG TAB PO SCH (09:05)
[2017-10-10] MEDS: ISOSORBIDE MONONITRATE ER 30 MG TAB.ER.24H PO SCH (09:06)
[2017-10-10] MEDS: FLUTICASONE 50MCG/SPRAY NASAL 16GM EA NOSTRIL SCH (09:06)
[2017-10-10] MEDS: OXYBUTYNIN CHLORIDE 5 MG TAB PO SCH ×2 (09:06→22:35)
[2017-10-10] MEDS: CILOSTAZOL 100 MG TAB PO SCH (09:06)
[2017-10-10] MEDS: DONEPEZIL 10 MG TAB PO SCH ×2 (09:06→22:35)
[2017-10-10] MEDS: ATENOLOL 50 MG TAB PO SCH ×2 (09:06→22:35)
[2017-10-10] MEDS: ceFAZolin 1,000 MG in DEXTROSE/WATER 1 50ML.BAG IVPB SCH ×2 (09:06→17:03)
[2017-10-10] MEDS: ASPIRIN 81 MG PO SCH (09:06)
[2017-10-10] MEDS: TAMSULOSIN 0.4 MG CAP.ER.24H PO SCH (09:06)
[2017-10-10] MEDS: CHOLECALCIFEROL 1,000 UNIT TAB PO SCH (09:06)
[2017-10-10] MEDS: INSULIN DETEMIR 100 UNIT/ML 10 ML VIAL SQ SCH ×2 (10:37→22:35)
--- NOTE | 2017-10-10 11:37 | P.CNNES ---
History of Present Illness Consult date: 10/10/17 Reason for Consult: Patient admitted with generalized weakness and TIA. History of Present Illness: This patient is a 77-year-old right-handed white male who recently a month ago was admitted to hospital with acute left-sided weakness. He had undergone an MRI of the brain during that hospitalization which revealed him to have suffered an acute right parietal occipital stroke. Patient has several stroke risk factors including atrial fibrillation and is currently on anticoagulation with Eliquis. The patient was [facility] recovering for over a month at [facility]. He underwent therapy there for over a month and then was discharged to home. The patient has been staying at home with his . He has been complaining of generalized weakness. Over the last few days he had noted increased weakness on his left side. He was unable to get up and ambulate at home and his is unable to care for him. He was brought into the emergency room yesterday and was seen in the ER at [facility] by Dr. Bynum. He underwent a CAT scan of the brain yesterday which revealed atrophy. No other acute changes were noted. The patient as noted has a history of chronic atrial fibrillation and is on long-term anticoagulation. The patient states that his left side is been feeling numb and weak. It is possible he may have had a recurrence of right hemispheric stroke or TIA. We have recommended a complete stroke evaluation for this patient. Patient does have history of underlying dementia. He is currently on treatment for this condition none to medications and should continue the same. He denies any headache at this time. He states his is unable to care for him due to her medical issues. Patient may require subacute rehab at the time of discharge. We will have PT OT see him and then also consider inpatient rehab for the patient pending consultation with Dr. Holland. Neurology is now consulted for further evaluation and recommendations. Review of Systems Constitutional: Denies chills, Denies fever Eyes: denies blurred vision, denies pain Ears, nose, mouth and throat: Denies headache, Denies sore throat Cardiovascular: Denies chest pain, Denies shortness of breath Respiratory: Denies cough Gastrointestinal: Denies abdominal pain, Denies diarrhea, Denies nausea, Denies vomiting Musculoskeletal: Denies myalgias Integumentary: Denies pruritus, Denies rash Neurological: Reports confusion, Reports motor disturbance, Reports tingling, Denies numbness, Denies weakness Psychiatric: Denies anxiety, Denies depression Endocrine: Denies fatigue, Denies weight change Past Medical History Past Medical History: Atrial Flutter, Coronary Artery Disease (CAD), Chest Pain / Angina, Heart Failure, COPD, Dementia, Diabetes Mellitus, Fibromyalgia, Hyperlipidemia, Hypertension, Myocardial Infarction ([place]), Prostate Disorder, Renal Disease, Sleep Apnea/CPAP/BIPAP, Vascular Disorder Additional Past Medical History / Comment(s): IDDM, chronic renal failure, aflutter, sleep apnea with no cpap, PVD, DJD, chronic back pain, bulging and herniated discs, sciatica, dislocated knuckles, gout, arthiritis, prostate problem-pt unsure what problem is, tinnitis bilaterally, R eye stroke, umbilical hernia, diverticular disease, obesity. Last Myocardial Infarction Date:: 2004 History of Any Multi-Drug Resistant Organisms: MRSA Date of last positivie culture/infection: 10/17/2014 MDRO Source:: Sputum Past Surgical History: Coronary Bypass/CABG, Heart Catheterization, Tonsillectomy Additional Past Surgical History / Comment(s): 2004 triple vessel CABG, Ccath 2004, L carotid endartectomy, bilateral cataract removal with lens implants, colonoscopy, skin lesion removal. Past Anesthesia/Blood Transfusion Reactions: No Reported Reaction Past Psychological History: Anxiety, Depression Additional Psychological History / Comment(s): Pt lives at home with his . has cane/walker, hx of falls. He denies any medical marijuana, marijuana, street drug use. He does drink 1 bottle of beer per month. He was in the [employer] for 14 years and stationed in the [employer] only. He denies any recent travel. There is a dog in the home. Smoking Status: Former smoker Past Alcohol Use History: None Reported Additional Past Alcohol Use History / Comment(s): Pt started smoking about 1966 and quit in 1996. He smoked up to 3 ppd. Past Drug Use History: None Reported - Past Family History Father Family Medical History: Coronary Artery Disease (CAD) Additional Family Medical History / Comment(s): Father had CABG Mother Family Medical History: No Reported History Additional Family Medical History / Comment(s): Pt states mother was a healthy person. Medications and Allergies Home Medications Medication Instructions Recorded Confirmed Type Aspirin 81 mg PO HS 08/26/14 10/09/17 History Atorvastatin [Lipitor] 40 mg PO HS 08/26/14 10/09/17 History Cholecalciferol [Vitamin D3] 1,000 unit PO DAILY 08/26/14 10/09/17 History Cilostazol [Pletal] 100 mg PO DAILY 08/26/14 10/09/17 History DULoxetine HCL [Cymbalta] 60 mg PO DAILY 08/26/14 10/09/17 History Donepezil [Aricept] 10 mg PO BID 08/26/14 10/09/17 History [place]-3 Fatty Acids/Fish Oil [Fish 1 cap PO HS 08/26/14 10/09/17 History Oil 1,000 mg Softgel] Nitroglycerin Sl Tabs [Nitrostat] 0.4 mg SUBLINGUAL Q5M PRN 10/16/14 10/09/17 History Tamsulosin HCl [Flomax] 0.4 mg PO DAILY 05/24/15 10/09/17 History Isosorbide Mononitrate ER [Imdur] 30 mg PO DAILY 10/15/15 10/09/17 History Melatonin 3 mg PO HS 10/15/15 10/09/17 History amLODIPine [Norvasc] 5 mg PO DAILY 06/11/16 10/09/17 History Furosemide [Lasix] 20 mg PO BID 08/14/17 10/09/17 History INSULIN LISPRO (HumaLOG) [humaLOG] 5 unit SQ TID 08/14/17 10/09/17 History Levothyroxine Sodium [Synthroid] 75 mcg PO DAILY 08/14/17 10/09/17 History Apixaban [Eliquis] 2.5 mg PO BID #60 tablet 08/18/17 10/09/17 Rx Atenolol [Tenormin] 50 mg PO BID #60 tab 08/18/17 10/09/17 Rx Acetaminophen [Tylenol] 650 mg PO Q6HR PRN 10/09/17 10/09/17 History Fluticasone Nasal [place] [Flonase 1 spray EA NOSTRIL DAILY 10/09/17 10/09/17 History Nasal [place]] Insulin Glargine [Lantus] 30 unit SQ BID 10/09/17 10/09/17 History Memantine [Namenda] 10 mg PO BID 10/09/17 10/09/17 History Tolterodine Tartrate [Detrol LA] 4 mg PO HS 10/09/17 10/09/17 History Allergies Allergy/AdvReac Type Severity Reaction Status Date / Time ciprofloxacin [From Cipro] Allergy Swelling Verified 10/09/17 15:27 ciprofloxacin HCl Allergy Swelling Verified 10/09/17 15:27 [From Cipro] latex Allergy Unknown Verified 10/09/17 15:27 NSAIDS (Non-Steroidal Allergy Unknown Verified 10/09/17 15:27 Anti-Inflamma Quinolones Allergy Unknown Verified 10/09/17 15:27 Physical Examination - Vital Signs Vital Signs: Vital Signs Temp Pulse Pulse Resp BP BP Pulse Ox 10/10/17 04:00 96.8 F L 82 18 144/67 96 10/10/17 00:00 97.2 F L 71 16 122/68 96 10/09/17 20:00 96.9 F L 78 16 132/69 96 10/09/17 16:00 97.1 F L 68 20 161/83 91 L 10/09/17 15:39 97.6 F 75 19 150/77 100 10/09/17 15:15 68 20 10/09/17 14:22 77 18 156/87 99 10/09/17 13:32 74 18 165/77 99 10/09/17 12:33 97.4 F L 67 18 137/81 98 Intake and Output 10/09/17 10/10/17 10/10/17 22:59 06:59 14:59 Intake Total 246 Balance 246 Intake: IV 10 Invasive Line 1 10 Oral 236 Other: Voiding Method Diaper Incontinent # Voids 1 2 # Bowel Movements 1 Weight 103.419 kg 100.5 kg - Constitutional General appearance: average body habitus, cooperative - EENT EENT: PERRL, mucous membranes moist - Respiratory Respiratory: lungs clear, normal breath sounds - Cardiovascular Cardiovascular: regular rate, normal S1, normal S2 Extremities: no peripheral edema bilaterally - Gastrointestinal Gastrointestinal: normoactive bowel sounds - Integumentary Integumentary: normal - Neurologic Cranial nerve examination: PERRL, EOMI, VFF, V1/V2/V3 grossly intact, face symmetric, intact gag reflex, intact corneal reflex, normal palatal elevation Speech examination: intact Sensorimotor examination: intact Motor examination - right side: 4/5: biceps, triceps, wrist flexion, wrist extension, malted milk masher, hip flexors, knee extensors, dorsiflexion, toe extension (EHL) , plantarflexion Motor examination - left side: 3/5: biceps, triceps, wrist flexion, wrist extension, malted milk masher, hip flexors, knee extensors, dorsiflexion, toe extension (EHL) , plantarflexion Detailed sensory examination: intact Reflex and gait examination: intact Reflexes: 1+: ankle, bicep, knee, tricep - Musculoskeletal Musculoskeletal: no pain - Psychiatric Psychiatric: mood/affect appropriate, cooperative Results - Laboratory Findings CBC and BMP: 10/10/17 06:07 10/10/17 06:07 Abnormal Lab Findings: Abnormal Labs 10/09/17 10/09/17 10/09/17 12:57 13:05 13:25 Sodium 147 H BUN 37 H Creatinine 1.60 H Glucose 141 H POC Glucose (mg/dL) 111 H Urine Protein Trace H Ur Leukocyte Esterase Moderate H Urine WBC 18 H Urine Bacteria Rare H Urine Mucus Rare H 10/09/17 10/10/17 10/10/17 21:01 06:07 06:14 Sodium BUN 31 H Creatinine 1.45 H Glucose 133 H POC Glucose (mg/dL) 175 H 139 H Urine Protein Ur Leukocyte Esterase Urine WBC Urine Bacteria Urine Mucus Assessment and Plan (1) Acute right arterial ischemic stroke, MCA (middle cerebral artery) Current Visit: No Status: Acute Code(s): I63.511 - CEREB INFRC D/T UNSP OCCLS OR STENOS OF RIGHT MID CEREB ART SNOMED Code(s): 163523505 (2) Weakness Current Visit: Yes Status: Acute Code(s): R53.1 - WEAKNESS SNOMED Code(s) : 27834301 (3) Atrial fibrillation Current Visit: No Status: Acute Code(s): I48.91 - UNSPECIFIED ATRIAL FIBRILLATION SNOMED Code(s): 63662964 (4) Dementia Current Visit: No Status: Acute Code(s): F03.90 - UNSPECIFIED DEMENTIA WITHOUT BEHAVIORAL DISTURBANCE SNOMED Code(s): 88317775 Plan: This patient is a 77-year-old right-handed white male who was brought into the emergency room yesterday with generalized weakness. Patient states he was having more difficulty with left-sided weakness and numbness involving his arm and leg. The patient has history of previous stroke a month ago for which she was evaluated. He underwent MRI study last month that revealed an acute right parietal occipital infarct. [facility]. He was [facility] from the [facility] and has been continuing to have increased weakness on his left side. He is unable to stay at home as his is not able to care for him. He was admitted to hospital for further evaluation. The patient seems to have more weakness on his left side as well as numbness. We are recommending a repeat MRI of the brain to be done for further evaluation of extension of stroke versus new areas of acute infarction. He is to be anticoagulated given his history of atrial fibrillation. We will obtain a PT OT consultation as well as evaluation from Dr. Holland for inpatient rehab. This patient's overall prognosis at this time remains very guarded. Time with Patient: Greater than 30
[2017-10-10 11:53] LABS: Glucose,Whole Blood 180 mg/dL (75-99)
[2017-10-10 16:32] LABS: Glucose,Whole Blood 286 mg/dL (75-99)
--- NOTE | 2017-10-10 19:45 | PN ---
PROGRESS NOTE DATE OF SERVICE: 10/10/2017 INTERVAL HISTORY: This 77-year-old gentleman who was admitted with generalized weakness also had history of left-sided stroke. The patient is being closely monitored at this time. The patient has been also seen by Dr. Ernesto Amezcua who is following the patient closely. No chest pain. No palpitations. No fever. PHYSICAL EXAM: Alert and oriented x3. Pulse 77, blood pressure 141/67, respirations 18, temperature 97.2, pulse ox 94% on room air HEENT: Conjunctivae normal. Oral mucosa moist. NECK: No jugular venous distention. No lymph node enlargement. CARDIOVASCULAR: S1, S2. RESPIRATORY: Diminished breath sounds at the bases. A few rhonchi, no crackles. ABDOMEN: Soft, nontender. LEGS: No swelling. NERVOUS SYSTEM: No focal deficits. LABS: Creatinine 1.45. ASSESSMENT: 1. Diffuse weakness, multifactorial for evaluation to rule out acute stroke. 2. History of recent left-sided stroke. 3. Diarrhea continuing. 4. Increased creatinine with chronic kidney stage 3. 5. Possibly urinary tract infection. 6. History atrial flutter. 7. History of congestive heart failure. 8. Chronic obstructive pulmonary disease. 9. Dementia. 10.Diabetes type 2. 11.Hypertension. 12.Hyperlipidemia. 13.History of prostate disease. 14.Sleep apnea. 15.History of DJD. 16.History of CAD, CABG. 17.Anxiety and depression. RECOMMENDATIONS: Recommend to continue current management, continue to monitor, continue symptomatic treatment. Otherwise, guarded prognosis. Further recommendations to follow. See orders for details. PT OT evaluation, possible ECF rehab. SAHARA / JENARON: [id number] /
[2017-10-10 20:30] LABS: Glucose,Whole Blood 208 mg/dL (75-99)
[2017-10-10] MEDS: MELATONIN 3 MG TABLET PO SCH (22:35)
[2017-10-10] MEDS: ATORVASTATIN 40 MG TAB PO SCH (22:35)
[2017-10-11] MEDS: ceFAZolin 1,000 MG in DEXTROSE/WATER 1 50ML.BAG IVPB SCH ×4 (03:16→23:17)
[2017-10-11 05:41] LABS: Glucose,Whole Blood 94 mg/dL (75-99)
--- NOTE | 2017-10-11 06:14 | P.CONS ---
History of Present Illness - Chief Complaint Gait disturbance - History of Present Illness I had the opportunity to see patient for inpatient rehab consultation with regard to gait disturbance. He was admitted to [facility] October 09 acute onset left -sided weakness. Seen by Dr. Elena Delong who diagnosed right MCA infarct. Head CT demonstrated stable atrophy. Chest x-ray no active disease. PT and OT prescribed and I added speech therapy. Previous functional history as elicited from patient: 83-year-old right-handed white male who is and lives and 2 floor home with . Retired. does the cooking, laundry, driving. assists patient with bathing and dressing. Uses roller walker for gait. History smoking remote past doesn't smoke currently. Perhaps a weekly drink currently. Dr. Escudero is regular doctor. Family history father of [place]. Review of Systems Review of systems: ENT: Denies sneezes or discharge. Eyes: Denies discharge or photophobia. Cardiac: Denies chest pain or palpitation. Pulmonary: Denies cough or shortness of breath. Gastrointestinal: Denies nausea, emesis, constipation, diarrhea. Genitourinary: Denies discharge or frequency. Musculoskeletal: Denies muscle or bone aches. Neurologic: Confusion and left-sided weakness. Endocrine: Denies shakes or sweats. Oncology: Denies cancers. Dermatologic: Denies rash, itching, pruritus. ALLERGY/immunology: Denies sneezes, rashes. Past Medical History Past Medical History: Atrial Flutter, Coronary Artery Disease (CAD), Chest Pain / Angina, Heart Failure, COPD, Dementia, Diabetes Mellitus, Fibromyalgia, Hyperlipidemia, Hypertension, Myocardial Infarction ([place]), Prostate Disorder, Renal Disease, Sleep Apnea/CPAP/BIPAP, Vascular Disorder Additional Past Medical History / Comment(s): IDDM, chronic renal failure, aflutter, sleep apnea with no cpap, PVD, DJD, chronic back pain, bulging and herniated discs, sciatica, dislocated knuckles, gout, arthiritis, prostate problem-pt unsure what problem is, tinnitis bilaterally, R eye stroke, umbilical hernia, diverticular disease, obesity. Last Myocardial Infarction Date:: 2004 History of Any Multi-Drug Resistant Organisms: MRSA Year Discovered:: 10/17/2014 MDRO Source:: Sputum Past Surgical History: Coronary Bypass/CABG, Heart Catheterization, Tonsillectomy Additional Past Surgical History / Comment(s): 2004 triple vessel CABG, Ccath 2005, L carotid endartectomy, bilateral cataract removal with lens implants, colonoscopy, skin lesion removal. Past Anesthesia/Blood Transfusion Reactions: No Reported Reaction Past Psychological History: Anxiety, Depression Additional Psychological History / Comment(s): Pt lives at home with his . has cane/walker, hx of falls. He denies any medical marijuana, marijuana, street drug use. He does drink 1 bottle of beer per month. He was in the [employer] for 14 years and stationed in the [employer] only. He denies any recent travel. There is a dog in the home. Smoking Status: Former smoker Past Alcohol Use History: None Reported Additional Past Alcohol Use History / Comment(s): Pt started smoking about 1966 and quit in 1996. He smoked up to 3 ppd. Past Drug Use History: None Reported - Past Family History Father Family Medical History: Coronary Artery Disease (CAD) Additional Family Medical History / Comment(s): Father had CABG Mother Family Medical History: No Reported History Additional Family Medical History / Comment(s): Pt states mother was a healthy person. Medications and Allergies Home Medications Medication Instructions Recorded Confirmed Type Aspirin 81 mg PO HS 08/26/14 10/09/17 History Atorvastatin [Lipitor] 40 mg PO HS 08/26/14 10/09/17 History Cholecalciferol [Vitamin D3] 1,000 unit PO DAILY 08/26/14 10/09/17 History Cilostazol [Pletal] 100 mg PO DAILY 08/26/14 10/09/17 History DULoxetine HCL [Cymbalta] 60 mg PO DAILY 08/26/14 10/09/17 History Donepezil [Aricept] 10 mg PO BID 08/26/14 10/09/17 History [place]-3 Fatty Acids/Fish Oil [Fish 1 cap PO HS 08/26/14 10/09/17 History Oil 1,000 mg Softgel] Nitroglycerin Sl Tabs [Nitrostat] 0.4 mg SUBLINGUAL Q5M PRN 10/16/14 10/09/17 History Tamsulosin HCl [Flomax] 0.4 mg PO DAILY 05/24/15 10/09/17 History Isosorbide Mononitrate ER [Imdur] 30 mg PO DAILY 10/15/15 10/09/17 History Melatonin 3 mg PO HS 10/15/15 10/09/17 History amLODIPine [Norvasc] 5 mg PO DAILY 06/11/16 10/09/17 History Furosemide [Lasix] 20 mg PO BID 08/14/17 10/09/17 History INSULIN LISPRO (HumaLOG) [humaLOG] 5 unit SQ TID 08/14/17 10/09/17 History Levothyroxine Sodium [Synthroid] 75 mcg PO DAILY 08/14/17 10/09/17 History Apixaban [Eliquis] 2.5 mg PO BID #60 tablet 08/18/17 10/09/17 Rx Atenolol [Tenormin] 50 mg PO BID #60 tab 08/18/17 10/09/17 Rx Acetaminophen [Tylenol] 650 mg PO Q6HR PRN 10/09/17 10/09/17 History Fluticasone Nasal [place] [Flonase 1 spray EA NOSTRIL DAILY 10/09/17 10/09/17 History Nasal [place]] Insulin Glargine [Lantus] 30 unit SQ BID 10/09/17 10/09/17 History Memantine [Namenda] 10 mg PO BID 10/09/17 10/09/17 History Tolterodine Tartrate [Detrol LA] 4 mg PO HS 10/09/17 10/09/17 History Allergies Allergy/AdvReac Type Severity Reaction Status Date / Time ciprofloxacin [From Cipro] Allergy Swelling Verified 10/09/17 15:27 ciprofloxacin HCl Allergy Swelling Verified 10/09/17 15:27 [From Cipro] latex Allergy Unknown Verified 10/09/17 15:27 NSAIDS (Non-Steroidal Allergy Unknown Verified 10/09/17 15:27 Anti-Inflamma Quinolones Allergy Unknown Verified 10/09/17 15:27 Physical Exam Vitals: Vital Signs Temp Pulse Resp BP Pulse Ox 10/11/17 04:00 97.2 F L 72 16 139/85 96 10/11/17 00:00 72 16 161/77 94 L 10/10/17 20:00 97.0 F L 66 18 127/77 95 10/10/17 16:10 97.9 F 77 18 141/67 95 10/10/17 11:30 98 F 78 18 148/70 95 10/10/17 09:06 98 F 78 18 151/75 97 Intake and Output 10/10/17 10/10/17 10/11/17 14:59 22:59 06:59 Intake Total 360 410 Balance 360 410 Intake: Intake, IV Titration 50 Amount ceFAZolin 1,000 mg In 50 Dextrose/Water 1 50ml.bag @ 100 mls/hr IVPB Q8HR JOEL Rx#:[id number] Oral 360 360 Other: Voiding Method Diaper Diaper Diaper Incontinent Incontinent Incontinent # Voids 2 2 # Bowel Movements 2 Weight 101 kg Skin: Atrophic, intact. General: Overweight build and comfortable appearance. Head: Normocephalic, atraumatic. Eyes: Symmetric. Pupils equal round. Ears: Symmetric. Hearing within normal limits. Mouth: Clear. Neck: Supple. Carotid without bruit. Cardiac: Regular rate and rhythm. Lungs: Clear anteriorly and posteriorly. Abdomen: Soft active nontender. Extremities: Normal tone. Overweight. Neurological: Mental status: Alert, cooperative, pleasant. Cranial nerves: Symmetric facial tone and trapezius. Motor: Normal strength and isolation right side. Left arm and flexion equaled extension synergy and left leg with elements of isolation including ankle. Sensation: Intact throughout. DTRs: Symmetric and equal throughout. Mobility: Sits and stands with physical assistance. Results CBC & Chem 7: 10/10/17 06:07 10/10/17 06:07 Labs: Abnormal Lab Results - Last 24 Hours (Table) 10/10/17 10/10/17 10/10/17 Range/Units 06:07 06:14 11:51 BUN 31 H (9-20) mg/dL Creatinine 1.45 H (0.66-1.25) mg/dL Glucose 133 H (74-99) mg/dL POC Glucose (mg/dL) 139 H 180 H (75-99) mg/dL 10/10/17 10/10/17 Range/Units 16:30 20:28 BUN (9-20) mg/dL Creatinine (0.66-1.25) mg/dL Glucose (74-99) mg/dL POC Glucose (mg/dL) 286 H 208 H (75-99) mg/dL Microbiology - Last 24 Hours (Table) 10/09/17 18:37 Blood Culture - Preliminary Blood No Growth after 24 hours Chest x-ray: report reviewed (No active disease) CT Scan - head: report reviewed (Stable cerebral atrophy) Assessment and Plan (1) Acute right arterial ischemic stroke, MCA (middle cerebral artery) Current Visit: No Status: Acute Code(s): I63.511 - CEREB INFRC D/T UNSP OCCLS OR STENOS OF RIGHT MID CEREB ART SNOMED Code(s): 861519121 Plan: Impression: 1. Gait disturbance. 2. Right MCA stroke result in left hemiparesthesias. 3. Hypertension. 4. Dyslipidemia. 5. Fibromyalgia. 6. Coronary disease with history of [place] and angina. 8. Sleep apnea with CPAP. 9. Dementia. 10. Diabetes. 11. Chronic kidney disease. 12. BPH. 13. Atrial flutter. 14. COPD. 15. CHF. Comments and plan: At this time PT and OT prescribed and added speech therapy. Follow therapies with yourself. Must determine caregiver/ goals for return to home.
[2017-10-11 06:30] LABS: Basophils % (A) 0 %; Eosinophils # (A) 0.4 k/uL (0-0.7); Eosinophils % (A) 4 %; HCT 43.8 % (39.0-53.0); HGB 14.9 gm/dL (13.0-17.5); Lymphocytes # (A) 1.1 k/uL (1.0-4.8); Lymphocytes % (A) 13 %; MCH 31.4 pg (25.0-35.0); MCV 92.4 fL (80.0-100.0); Mean Platelet Volume 8.9; Monocytes # (A) 0.8 k/uL (0-1.0); Monocytes % (A) 9 %; Neutrophils % (A) 71 %; Platelet Count 174 k/uL (150-450); RBC 4.74 m/uL (4.30-5.90); RDW 14.4 % (11.5-15.5); WBC 8.5 k/uL (3.8-10.6)
[2017-10-11 06:51] LABS: Calcium 9.1 mg/dL (8.4-10.2)
[2017-10-11] MEDS: INSULIN ASPART 100 UNIT/ML 1 ML 10 ML VIAL SQ SCH ×3 (07:03→17:08)
[2017-10-11] MEDS: LEVOTHYROXINE 75 MCG TAB PO SCH (07:03)
[2017-10-11] MEDS: ISOSORBIDE MONONITRATE ER 30 MG TAB.ER.24H PO SCH (07:46)
[2017-10-11] MEDS: DONEPEZIL 10 MG TAB PO SCH ×2 (07:46→20:48)
[2017-10-11] MEDS: ASPIRIN 81 MG PO SCH (07:46)
[2017-10-11] MEDS: amLODIPine 5 MG TAB PO SCH (07:46)
[2017-10-11] MEDS: CILOSTAZOL 100 MG TAB PO SCH (07:46)
[2017-10-11] MEDS: FUROSEMIDE 20 MG TAB PO SCH ×2 (07:46→15:34)
[2017-10-11] MEDS: MEMANTINE 10 MG TAB PO SCH (07:46)
[2017-10-11] MEDS: OXYBUTYNIN CHLORIDE 5 MG TAB PO SCH ×2 (07:46→20:48)
[2017-10-11] MEDS: CHOLECALCIFEROL 1,000 UNIT TAB PO SCH (07:46)
[2017-10-11] MEDS: ATENOLOL 50 MG TAB PO SCH ×2 (07:46→20:48)
[2017-10-11] MEDS: INSULIN DETEMIR 100 UNIT/ML 10 ML VIAL SQ SCH ×2 (07:47→22:09)
[2017-10-11] MEDS: APIXABAN 2.5 MG TABLET PO SCH ×2 (07:47→20:48)
[2017-10-11] MEDS: FLUTICASONE 50MCG/SPRAY NASAL 16GM EA NOSTRIL SCH (07:47)
--- NOTE | 2017-10-11 08:35 | MR ---
EXAMINATION TYPE: MR brain wo con DATE OF EXAM: 10/11/2017 COMPARISON: CT brain from 2 days ago. MRI brain from August 15, 2017 HISTORY: Recurrent left-sided weakness per order. TECHNIQUE: Multiplanar, multisequence imaging of the brain and brainstem is performed without IV cont rast. FINDINGS: Diffusion weighted images demonstrate no evidence of a recent infarct or other diffusion abnormality. There is no worrisome extra-axial fluid collection. There is persistent ventricular and sulcal promin ence consistent with diffuse cerebral atrophy. There are areas of old infarct high right parietal reg ion there are axial image 25 and bilateral inferior occipital region suspected near axial image 17 re demonstrated. Confluent areas of T2 hyperintensity periventricular white matter again seen. Midline structures demonstrate normal morphology. Thinning of corpus callosum is redemonstrated. The craniocervical junction appears within normal limits. Normal vascular flow voids are present. The vis ualized sinuses are clear and the globes are intact. IMPRESSION: 1. No evidence of a recent infarct. 2. Redemonstration of moderate to severe diffuse cerebral atrophy and more mild chronic small vessel ischemic change, suspect old occipital lobe infarcts bilaterally. More newer but chronic infarct high right parietal region is again seen. No significant change from prior studies.
[2017-10-11] MEDS: DULoxetine HCL 60 MG CAPSULE.DR PO SCH (08:53)
[2017-10-11] MEDS: TAMSULOSIN 0.4 MG CAP.ER.24H PO SCH (08:53)
[2017-10-11 12:09] LABS: Glucose,Whole Blood 111 mg/dL (75-99)
--- NOTE | 2017-10-11 15:55 | PN ---
PROGRESS NOTE DATE OF SERVICE: 10/11/2017 This 77-year-old gentleman admitted with diffuse weakness which is multifactorial, also being evaluated by Physical Therapy at this time. The patient also had multiple other medical issues, including diarrhea, history of acute on chronic kidney disease, chronic kidney stage 3 as well as possible UTI. The patient is being closely monitored at this time. The patient is on broad-spectrum IV antibiotics. PAST MEDICAL HISTORY: Reviewed. REVIEW OF SYSTEMS: CARDIOVASCULAR: No angina or palpitations. RESPIRATORY: As mentioned earlier. GI: As mentioned earlier. : As mentioned earlier. NERVOUS: Diffusely weak. CURRENT MEDICATIONS: Reviewed, include: 1. Tylenol 650 every 6 hours p.r.n. 2. Norvasc 5 mg b.i.d. 3. Eliquis 2.5 mg b.i.d. 4. Aspirin 81 mg. 5. Tenormin 250 mg. 6. Lipitor 40 mg. 7. Vitamin D3. 8. Pletal. 9. Aricept 10 mg b.i.d. 10.Cymbalta 60 mg p.o. daily. 11.Lasix 20 mg b.i.d. 12.NovoLog. 13.Levemir 30 units subcu b.i.d. 14.Synthroid 70 mg p.o. daily. 15.Melatonin 3 mg p.o. q.h.s. 16.Namenda 10 mg p.o. q.h.s.. 17.Narcan 0.2 q.2h p.r.n. 18.Nitrostat 0.4 mg sublingual p.r.n. 19.Ditropan 5 mg p.o. b.i.d. 20.Flomax 0.4 daily. PHYSICAL EXAM: Patient is alert, oriented x3. Pulse 66, blood pressure 132/70, respirations 18, temperature 96.8, pulse ox 98% on room air. HEENT: Conjunctivae normal. Oral mucosa moist. NECK: No jugular venous distention. No carotid bruits. No lymph node enlargement. CARDIOVASCULAR: S1, S2 muffled. RESPIRATORY: Breath sounds diminished in the bases. A few scattered rhonchi and crackles. ABDOMEN: Soft, nontender. No mass palpable. LEGS: Minimal edema. NERVOUS SYSTEM: Diffusely weak and wasting also present. LABS: CBC within normal limits. Creatinine 1.5. Other labs are noted. ASSESSMENT: 1. Diffuse weakness, multifactorial for evaluation, possible acute transient ischemic attack. 2. History of recent left-sided stroke. 3. Diarrhea. 4. Increased creatinine with chronic kidney disease with possible acute on chronic renal failure. 5. Possible urinary tract infection. 6. Atrial flutter. 7. History of congestive heart failure. 8. Chronic obstructive pulmonary disease. 9. Dementia. 10.Diabetes mellitus type 2. 11.Hypertension. 12.History of prostate cancer. 13.Sleep apnea. 14.History of degenerative joint disease. 15.History of coronary artery disease, coronary artery bypass graft. 16.Anxiety, depression. RECOMMENDATIONS AND DISCUSSION: Recommend to continue current medications. Continue the monitoring and symptomatic treatment. Otherwise, have a PT/OT evaluation. MRI noted. However, the patient had multiple complex medical issues as mentioned earlier. The patient will require more than 2 nights stay in the hospital to treat and stabilize above-mentioned multiple medical complications which are life-threatening. Overall prognosis extremely guarded. Further recommendations to follow. MMODL / IJN: [id number] /
[2017-10-11 17:15] LABS: Glucose,Whole Blood 183 mg/dL (75-99)
--- NOTE | 2017-10-11 17:41 | P.PN ---
Subjective Progress Note Date: 10/11/17 This patient is a 77 year old male admitted for evaluation of generalized weakness and possible extension of stroke. 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 He has been left with some residual left- sided hemiparesis. He was admitted for further evaluation of new or recurrent stroke. He underwent MRI of the brain today the results of which indicated no evidence of recent infarct. Moderate degree of diffuse cerebral atrophy and chronic small vessel ischemic changes noted. Evidence of old occipital lobe infarcts bilaterally. Chronic infarct in the right parietal lobe is again seen. We reviewed the MRI results today with the patient. Clearly no evidence of new or acute stroke. He was evaluated by speech therapy today and we are waiting their recommendations. He was seen by Dr. Holland earlier today for possible placement into the inpatient rehab unit at [facility]. We will await his final recommendations. Patient states he is doing about the same today with no other new findings. Would continue with discharge planning for this patient which is already underway. His overall prognosis at this time remains guarded. Objective - Vital Signs Vital signs: Vital Signs Temp 96.9 F L 10/11/17 11:30 Pulse 66 10/11/17 11:30 Resp 18 10/11/17 11:30 BP 132/72 10/11/17 11:30 Pulse Ox 96 10/11/17 11:30 Intake & Output 10/10/17 10/11/17 10/11/17 18:59 06:59 18:59 Intake Total 770 510 Output Total 400 Balance 770 110 Weight 101 kg Intake: Intake, IV Titration 50 50 Amount ceFAZolin 1,000 mg In 50 50 Dextrose/Water 1 50ml.bag @ 100 mls/hr IVPB Q8HR [facility] Rx#:[id number] Oral 720 460 Output: Urine 400 Other: Voiding Method Diaper Diaper Diaper Incontinent Incontinent Incontinent # Voids 2 2 # Bowel Movements 2 - Exam Physical Examination: PHYSICAL EXAMINATION: Patient is resting comfortably in bed. VITAL SIGNS: Blood pressure is [119/69]. Heart rate is [67]. Respiration is [18] . Temperature is [97.5]. HEENT: Head is atraumatic, neck is supple, there were no carotid bruits. CHEST: Lungs are clear to auscultation and percussion. CARDIAC: S1, S2 normal rate and rhythm. There is no murmur. ABDOMEN: Soft and nontender. Bowel sounds are present. EXTREMITIES: There is no pedal edema. Peripheral pulses are present. Neurological examination: Patient has residual left-sided hemiparesis. Speech remains clear with no evidence of any aphasia or dysarthria. Cranial nerves II through XII are grossly intact. Motor examination reveals left-sided hemiparesis arm greater than leg. - Labs CBC & Chem 7: 10/11/17 05:56 10/11/17 05:56 Labs: Abnormal Lab Results - Last 24 Hours (Table) 10/10/17 10/10/17 10/11/17 Range/Units 16:30 20:28 05:56 BUN 31 H (9-20) mg/dL Creatinine 1.45 H (0.66-1.25) mg/dL Glucose 117 H (74-99) mg/dL POC Glucose (mg/dL) 286 H 208 H (75-99) mg/dL 10/11/17 Range/Units 12:02 BUN (9-20) mg/dL Creatinine (0.66-1.25) mg/dL Glucose (74-99) mg/dL POC Glucose (mg/dL) 111 H (75-99) mg/dL Microbiology - Last 24 Hours (Table) 10/09/17 18:37 Blood Culture - Preliminary Blood No Growth after 24 hours Assessment and Plan (1) Acute right arterial ischemic stroke, MCA (middle cerebral artery) Current Visit: No Status: Acute Code(s): I63.511 - CEREB INFRC D/T UNSP OCCLS OR STENOS OF RIGHT MID CEREB ART SNOMED Code(s): 197904222 (2) Weakness Current Visit: Yes Status: Acute Code(s): R53.1 - WEAKNESS SNOMED Code(s) : 55330707 (3) Atrial fibrillation Current Visit: No Status: Acute Code(s): I48.91 - UNSPECIFIED ATRIAL FIBRILLATION SNOMED Code(s): 67015429 (4) Dementia Current Visit: No Status: Acute Code(s): F03.90 - UNSPECIFIED DEMENTIA WITHOUT BEHAVIORAL DISTURBANCE SNOMED Code(s): 71456548 Plan: This patient is a 77-year-old male who was admitted to Hospital with symptoms of worsening left-sided weakness and possible recurrent stroke. He underwent MRI of the brain today the results of which are noted above. No evidence of acute stroke as based on diffusion weighted imaging results. Patient does have evidence of bilateral occipital infarcts and a chronic right parietal lobe infarct which is all old. He was evaluated today by Dr. Sung for possible inpatient rehab placement. We are waiting final recommendations. Patient is to continue with current treatment plans. Continue with PT/OT and speech therapy evaluations. His overall prognosis at this time remains very guarded. Patient does have history of underlying dementia which remain stable at this time. He is to continue with his current medications for treatment. As noted we are waiting seismology teacher placement for him and will await further recommendations from the assortment planner. His overall prognosis as noted remains guarded.
[2017-10-11] MEDS: MELATONIN 3 MG TABLET PO SCH (20:48)
[2017-10-11] MEDS: ATORVASTATIN 40 MG TAB PO SCH (20:48)
[2017-10-11 21:44] LABS: Glucose,Whole Blood 169 mg/dL (75-99)
[2017-10-12] MEDS: HYDROcodone/APAP 5-325MG 1 EACH TAB PO PRN ×3 (00:34→20:45)
[2017-10-12] MEDS: LEVOTHYROXINE 75 MCG TAB PO SCH (06:21)
[2017-10-12 07:31] LABS: Glucose,Whole Blood 114 mg/dL (75-99)
[2017-10-12] MEDS: INSULIN DETEMIR 100 UNIT/ML 10 ML VIAL SQ SCH ×2 (08:08→20:46)
[2017-10-12] MEDS: INSULIN ASPART 100 UNIT/ML 1 ML 10 ML VIAL SQ SCH ×3 (08:09→17:52)
[2017-10-12] MEDS: FUROSEMIDE 20 MG TAB PO SCH ×2 (08:10→15:32)
[2017-10-12] MEDS: ISOSORBIDE MONONITRATE ER 30 MG TAB.ER.24H PO SCH (08:10)
[2017-10-12] MEDS: ATENOLOL 50 MG TAB PO SCH ×2 (08:10→20:45)
[2017-10-12] MEDS: APIXABAN 2.5 MG TABLET PO SCH ×2 (08:10→20:46)
[2017-10-12] MEDS: ASPIRIN 81 MG PO SCH (08:10)
[2017-10-12] MEDS: DULoxetine HCL 60 MG CAPSULE.DR PO SCH (08:10)
[2017-10-12] MEDS: TAMSULOSIN 0.4 MG CAP.ER.24H PO SCH (08:10)
[2017-10-12] MEDS: CILOSTAZOL 100 MG TAB PO SCH (08:10)
[2017-10-12] MEDS: MEMANTINE 10 MG TAB PO SCH (08:10)
[2017-10-12] MEDS: OXYBUTYNIN CHLORIDE 5 MG TAB PO SCH ×2 (08:10→20:45)
[2017-10-12] MEDS: amLODIPine 5 MG TAB PO SCH (08:11)
[2017-10-12] MEDS: DONEPEZIL 10 MG TAB PO SCH ×2 (08:11→20:45)
[2017-10-12] MEDS: FLUTICASONE 50MCG/SPRAY NASAL 16GM EA NOSTRIL SCH (08:17)
[2017-10-12] MEDS: ceFAZolin 1,000 MG in DEXTROSE/WATER 1 50ML.BAG IVPB SCH ×3 (09:00→23:26)
[2017-10-12 09:44] LABS: Basophils % (A) 0 %; Eosinophils # (A) 0.4 k/uL (0-0.7); Eosinophils % (A) 6 %; HCT 42.6 % (39.0-53.0); HGB 14.7 gm/dL (13.0-17.5); Lymphocytes # (A) 1.2 k/uL (1.0-4.8); Lymphocytes % (A) 17 %; MCH 31.9 pg (25.0-35.0); MCHC 34.4 g/dL (31.0-37.0); MCV 92.8 fL (80.0-100.0); Mean Platelet Volume 8.8; Monocytes # (A) 0.6 k/uL (0-1.0); Monocytes % (A) 8 %; Neutrophils # (A) 4.6 k/uL (1.3-7.7); Neutrophils % (A) 66 %; Platelet Count 184 k/uL (150-450); RBC 4.59 m/uL (4.30-5.90); RDW 14.1 % (11.5-15.5)
[2017-10-12 10:02] LABS: Calcium 8.9 mg/dL (8.4-10.2); Potassium 4.3 mmol/L (3.5-5.1)
[2017-10-12] MEDS: CHOLECALCIFEROL 1,000 UNIT TAB PO SCH (12:37)
[2017-10-12 12:40] LABS: Glucose,Whole Blood 147 mg/dL (75-99)
--- NOTE | 2017-10-12 15:25 | EEG ---
ELECTROENCEPHALOGRAM REPORT DATE OF EE10/11/2017 ELECTROENCEPHALOGRAPHIC EXAMINATION REPORT: INDICATION FOR EXAMINATION: This patient is a 77-year-old male being evaluated for new onset of left-sided weakness. Patient with recent finding of right parietal stroke. Repeat MRI of the brain fails to reveal any acute stroke findings. AGE: 77 EEG FINDINGS: A routine 21 channel awake digital EEG recording was accomplished utilizing the 10-20 international system with bipolar and referential montages. The background activity in the most alert resting state consists of a low to medium amplitude, fairly well-developed and well-sustained 6-7 Hz activity over the posterior head regions. This posterior rhythm attenuates to eye opening. There is a small amount of low amplitude 18-20 Hz beta activity seen maximally over the anterior head regions. Muscle and movement artifact was observed on a few occasions during the tracing. Hyperventilation was not performed. Photic stimulation at flash frequencies of 2-30 Hz produced a minimal occipital driving response. No epileptiform discharges were seen. IMPRESSION: This EEG is mildly abnormal in a diffuse fashion due to slowing of the EEG background. The EEG failed to reveal any focal, lateralized, or epileptiform abnormalities. Clinical correlation is recommended. MMODL / IJN: [id number] /
--- NOTE | 2017-10-12 16:00 | P.PN ---
Subjective Progress Note Date: 10/12/17 Progress note being dictated for Dr. Potts Interval history: This a 77-year-old gentleman admitted with generalized diffuse weakness, acute on chronic renal failure, possible UTI and multiple other medical issues in a patient with history of recent left-sided stroke. Evaluated by neurology with workup completed. Maintained on broad-spectrum IV antibiotics. Diarrhea subsided. Afebrile, normal WBC. Creatinine 1.42. Objective - Vital Signs Vital signs: Vital Signs Temp 97.2 F L 10/12/17 14:43 Pulse 76 10/12/17 14:43 Resp 18 10/12/17 14:43 BP 123/64 10/12/17 14:43 Pulse Ox 95 10/12/17 14:43 Intake & Output 10/11/17 10/12/17 10/12/17 18:59 06:59 18:59 Intake Total 510 400 200 Output Total 600 Balance -90 400 200 Intake: Intake, IV Titration 50 Amount ceFAZolin 1,000 mg In 50 Dextrose/Water 1 50ml.bag @ 100 mls/hr IVPB Q8HR [facility] Rx#:[id number] Oral 460 400 200 Output: Urine 600 Other: Voiding Method Diaper Diaper Diaper Incontinent Incontinent Incontinent # Voids 1 2 3 # Bowel Movements 2 0 - Exam PHYSICAL EXAM: VITAL SIGNS: As above GENERAL: Sitting up in bed, no acute HEENT: Conjunctivae normal. eyes normal. NECK: No JVD. No thyroid enlargement. No LNs CARDIOVASCULAR: S1, S2 muffled. No murmur RESPIRATION: Breath sounds diminished in the bases. Occasional scattered rhonchi and fine bibasilar crackles. ABDOMEN: Soft, nontender . No guarding. no masses palpable.Bowel sounds heard. LEGS: Mild edema PSYCHIATRY: Alert and oriented -3, mood and affect normal. NERVOUS SYSTEM: Cranial N 2-12 grossly normal. Moves all 4 limbs. Diffuse weakness with left hemiparesis ;left arm greater than left leg. Microbiology 10/09/17 18:37 Blood Blood Culture - Preliminary No Growth after 48 hours 10/11/17 12:57 Urine,Catheterized Urine Culture - Preliminary - Labs CBC & Chem 7: 10/12/17 08:58 10/12/17 08:58 Labs: Abnormal Lab Results - Last 24 Hours (Table) 10/11/17 10/11/17 10/12/17 Range/Units 17:05 21:41 07:25 BUN (9-20) mg/dL Creatinine (0.66-1.25) mg/dL Glucose (74-99) mg/dL POC Glucose (mg/dL) 183 H 169 H 114 H (75-99) mg/dL 10/12/17 10/12/17 Range/Units 08:58 12:32 BUN 29 H (9-20) mg/dL Creatinine 1.42 H (0.66-1.25) mg/dL Glucose 152 H (74-99) mg/dL POC Glucose (mg/dL) 147 H (75-99) mg/dL Microbiology - Last 24 Hours (Table) 10/09/17 18:37 Blood Culture - Preliminary Blood No Growth after 48 hours 10/11/17 12:57 Urine Culture - Preliminary Urine,Catheterized Assessment and Plan Assessment: 1. Diffuse weakness, multifactorial for evaluation, possible acute TIA in a patient with history of recent left-sided CVA with residual left hemiparesis 2. Diarrhea, improving 3. Acute on chronic renal failure 4. Possible acute UTI 5. Atrial flutter 6. CHF 7. Dementia, type unknown 8. Diabetes mellitus type 2 Plan: Continue on current medication regime ,monitoring and symptomatic treatment. Urine and blood cultures pending. Maintain IV antibiotics of cefazolin. Evaluated by physical therapy with subacute rehab recommended at discharge. Follow closely with neurology. The impression and plan of care has been dictated as directed. : I performed a history and examination of this patient, discussed the same with the dictator. I agree with the dictator's note ,documented as a scribe. Any additional findings or plans will be noted.
[2017-10-12 17:12] LABS: Glucose,Whole Blood 172 mg/dL (75-99)
--- NOTE | 2017-10-12 19:07 | P.PN ---
Subjective Progress Note Date: 10/12/17 This patient is a 77 year old male admitted for evaluation of generalized weakness and possible extension of stroke. 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 He has been left with some residual left- sided hemiparesis. He was admitted for further evaluation of new or recurrent stroke. He underwent MRI of the brain today the results of which indicated no evidence of recent infarct. Moderate degree of diffuse cerebral atrophy and chronic small vessel ischemic changes noted. Evidence of old occipital lobe infarcts bilaterally. Chronic infarct in the right parietal lobe is again seen. We reviewed the MRI results today with the patient. Clearly no evidence of new or acute stroke. He was evaluated by speech therapy today and we are waiting their recommendations. He was seen by Dr. Holland earlier today for possible placement into the inpatient rehab unit at [facility]. Discharge planning is in progress for subacute rehab pending authorization. We will await his final recommendations. Patient states he is doing about the same today with no other new findings. Would continue with discharge planning for this patient which is already underway. His overall prognosis at this time remains guarded. Objective - Vital Signs Vital signs: Vital Signs Temp 97.2 F L 10/12/17 14:43 Pulse 76 10/12/17 15:30 Resp 16 10/12/17 15:30 BP 123/64 10/12/17 14:43 Pulse Ox 95 10/12/17 14:43 Intake & Output 10/12/17 10/12/17 10/13/17 06:59 18:59 06:59 Intake Total 400 200 Balance 400 200 Intake: Oral 400 200 Other: Voiding Method Diaper Diaper Incontinent Incontinent # Voids 2 3 # Bowel Movements 0 - Exam Physical Examination: PHYSICAL EXAMINATION: Patient is resting comfortably in bed. VITAL SIGNS: Blood pressure is [123/64]. Heart rate is [76]. Respiration is [18] . Temperature is [97.2]. HEENT: Head is atraumatic, neck is supple, there were no carotid bruits. CHEST: Lungs are clear to auscultation and percussion. CARDIAC: S1, S2 normal rate and rhythm. There is no murmur. ABDOMEN: Soft and nontender. Bowel sounds are present. EXTREMITIES: There is no pedal edema. Peripheral pulses are present. Neurological examination: Patient has residual left-sided hemiparesis. Speech remains clear with no evidence of any aphasia or dysarthria. Cranial nerves II through XII are grossly intact. Motor examination reveals left-sided hemiparesis arm greater than leg. - Labs CBC & Chem 7: 10/12/17 08:58 10/12/17 08:58 Labs: Abnormal Lab Results - Last 24 Hours (Table) 10/11/17 10/12/17 10/12/17 Range/Units 21:41 07:25 08:58 BUN 29 H (9-20) mg/dL Creatinine 1.42 H (0.66-1.25) mg/dL Glucose 152 H (74-99) mg/dL POC Glucose (mg/dL) 169 H 114 H (75-99) mg/dL 10/12/17 10/12/17 Range/Units 12:32 17:02 BUN (9-20) mg/dL Creatinine (0.66-1.25) mg/dL Glucose (74-99) mg/dL POC Glucose (mg/dL) 147 H 172 H (75-99) mg/dL Microbiology - Last 24 Hours (Table) 10/09/17 18:37 Blood Culture - Preliminary Blood No Growth after 48 hours 10/11/17 12:57 Urine Culture - Preliminary Urine,Catheterized Assessment and Plan (1) Acute right arterial ischemic stroke, MCA (middle cerebral artery) Current Visit: No Status: Acute Code(s): I63.511 - CEREB INFRC D/T UNSP OCCLS OR STENOS OF RIGHT MID CEREB ART SNOMED Code(s): 018829901 (2) Weakness Current Visit: Yes Status: Acute Code(s): R53.1 - WEAKNESS SNOMED Code(s) : 58091939 (3) Atrial fibrillation Current Visit: No Status: Acute Code(s): I48.91 - UNSPECIFIED ATRIAL FIBRILLATION SNOMED Code(s): 27822714 (4) Dementia Current Visit: No Status: Acute Code(s): F03.90 - UNSPECIFIED DEMENTIA WITHOUT BEHAVIORAL DISTURBANCE SNOMED Code(s): 77398759 Plan: This patient is a 77-year-old male who was admitted to Hospital with symptoms of acute left-sided weakness. He was found to have generalized weakness as well continuing to his overall admission criteria. Patient underwent initial computed tomography scan of the brain which was reported negative for any acute findings. He had a subsequent MRI of the brain which failed to reveal any evidence of acute or new areas of stroke. He has left-sided hemiparesis from a previous stroke. He is requiring subacute rehab for long-term management at this time. He has been doing better since admission and is currently making slow progress. His diffuse weakness is multifactorial and he would be best served by placement into the subacute rehab for ongoing physical and occupational therapy. He is currently on IV antibiotics as well for treatment of his UTI. He has noted slight improvement with left-sided weakness today. We will continue close neurological follow-up with the patient during this admission. As noted he is awaiting subacute rehab placement pending his insurance authorization. His overall prognosis at this time remains guarded.
[2017-10-12 20:44] LABS: Glucose,Whole Blood 182 mg/dL (75-99)
[2017-10-12] MEDS: MELATONIN 3 MG TABLET PO SCH (20:45)
[2017-10-12] MEDS: ATORVASTATIN 40 MG TAB PO SCH (20:45)
[2017-10-13] MEDS: LEVOTHYROXINE 75 MCG TAB PO SCH (06:32)
[2017-10-13 07:29] LABS: Glucose,Whole Blood 120 mg/dL (75-99)
[2017-10-13] MEDS: INSULIN ASPART 100 UNIT/ML 1 ML 10 ML VIAL SQ SCH ×3 (07:34→17:38)
[2017-10-13] MEDS: FLUTICASONE 50MCG/SPRAY NASAL 16GM EA NOSTRIL SCH (07:48)
[2017-10-13] MEDS: ceFAZolin 1,000 MG in DEXTROSE/WATER 1 50ML.BAG IVPB SCH ×3 (07:49→23:41)
[2017-10-13] MEDS: CILOSTAZOL 100 MG TAB PO SCH (07:50)
[2017-10-13] MEDS: amLODIPine 5 MG TAB PO SCH (07:50)
[2017-10-13] MEDS: OXYBUTYNIN CHLORIDE 5 MG TAB PO SCH ×2 (07:50→21:13)
[2017-10-13] MEDS: INSULIN DETEMIR 100 UNIT/ML 10 ML VIAL SQ SCH ×2 (07:50→21:14)
[2017-10-13] MEDS: TAMSULOSIN 0.4 MG CAP.ER.24H PO SCH (07:50)
[2017-10-13] MEDS: ISOSORBIDE MONONITRATE ER 30 MG TAB.ER.24H PO SCH (07:50)
[2017-10-13] MEDS: APIXABAN 2.5 MG TABLET PO SCH ×2 (07:50→21:13)
[2017-10-13] MEDS: ASPIRIN 81 MG PO SCH (07:50)
[2017-10-13] MEDS: CHOLECALCIFEROL 1,000 UNIT TAB PO SCH (07:50)
[2017-10-13] MEDS: DONEPEZIL 10 MG TAB PO SCH ×2 (07:50→21:14)
[2017-10-13] MEDS: DULoxetine HCL 60 MG CAPSULE.DR PO SCH (07:50)
[2017-10-13] MEDS: ATENOLOL 50 MG TAB PO SCH ×2 (07:50→21:13)
[2017-10-13] MEDS: MEMANTINE 10 MG TAB PO SCH (07:50)
[2017-10-13] MEDS: FUROSEMIDE 20 MG TAB PO SCH ×2 (07:50→16:16)
[2017-10-13 08:36] LABS: Basophils % (A) 0 %; Eosinophils # (A) 0.4 k/uL (0-0.7); Eosinophils % (A) 5 %; HCT 42.5 % (39.0-53.0); HGB 14.8 gm/dL (13.0-17.5); Lymphocytes # (A) 1.1 k/uL (1.0-4.8); Lymphocytes % (A) 16 %; MCH 31.8 pg (25.0-35.0); MCHC 34.9 g/dL (31.0-37.0); MCV 91.3 fL (80.0-100.0); Mean Platelet Volume 8.7; Monocytes # (A) 0.6 k/uL (0-1.0); Monocytes % (A) 8 %; Neutrophils # (A) 4.5 k/uL (1.3-7.7); Neutrophils % (A) 67 %; Platelet Count 179 k/uL (150-450); RBC 4.66 m/uL (4.30-5.90); RDW 14.1 % (11.5-15.5); WBC 6.7 k/uL (3.8-10.6)
[2017-10-13 08:54] LABS: Calcium 8.9 mg/dL (8.4-10.2); Potassium 4.1 mmol/L (3.5-5.1)
[2017-10-13] MEDS: HYDROcodone/APAP 5-325MG 1 EACH TAB PO PRN ×2 (11:05→23:40)
[2017-10-13 11:59] LABS: Glucose,Whole Blood 148 mg/dL (75-99)
--- NOTE | 2017-10-13 13:22 | P.DS ---
Providers Date of admission: 10/09/17 15:07 Expected date of discharge: 10/13/17 Attending physician: Shelbi Potts Consults: 10/09/17 14:58 Consult Physician Stat Consulting Provider: Loly Amezcua Consult Reason/Comments: TIA Do you want consulting provider notified?: Yes, Notify in am 10/11/17 08:00 Consult Physician Routine Consulting Provider: Kemal Holland Consult Reason/Comments: Right hemispheric stroke with new left sided weakness. Do you want consulting provider notified?: Yes Primary care physician: [facility] Course: Final Diagnoses: 1. Diffuse weakness, multifactorial for evaluation, possible acute TIA in a patient with history of recent left-sided CVA with residual left hemiparesis 2. Diarrhea, improving 3. Acute on chronic renal failure 4. Possible acute UTI ruled out, urine culture negative, afebrile, normal WBC, asymptomatic. 5. Atrial flutter 6. CHF 7. Dementia, type unknown 8. Diabetes mellitus type 2 Hospital course:This a 77-year-old gentleman admitted with generalized diffuse weakness, acute on chronic renal failure, and multiple other medical issues in a patient with history of recent left-sided stroke. Evaluated by neurology with workup completed. Brain CT reported non-acute. Brain MRI reported nonacute Maintained on empiric broad-spectrum IV antibiotics for possible acute UTI. Urine culture negative. Significant clinical improvement. Cleared by neurology for discharge. Patient is being discharged to subacute rehab in a stable condition with guarded prognosis. PHYSICAL EXAM: GENERAL: Alert and oriented 2, Sitting up in bed, no acute distress CARDIOVASCULAR: S1, S2 muffled. No murmur RESPIRATION: Breath sounds diminished in the bases. Occasional scattered rhonchi and fine bibasilar crackles. ABDOMEN: Soft, nontender . No guarding. no masses palpable.Bowel sounds heard. NERVOUS SYSTEM: Cranial N 2-12 grossly normal. Moves all 4 limbs. Diffuse weakness with left hemiparesis ;left arm greater than left leg. The impression and plan of care has been dictated as directed. : I performed a history and examination of this patient, discussed the same with the dictator. I agree with the dictator's note ,documented as a scribe. Any additional findings or plans will be noted. Time taken: 35 minutes Patient Condition at Discharge: Stable Plan - Discharge Summary Discharge Rx Participant: No New Discharge Prescriptions: New Oxybutynin Chloride [Ditropan] 5 mg PO BID tab Continue Cilostazol [Pletal] 100 mg PO DAILY Cholecalciferol [Vitamin D3] 1,000 unit PO DAILY DULoxetine HCL [Cymbalta] 60 mg PO DAILY Dyess-3 Fatty Acids/Fish Oil [Fish Oil 1,000 mg Softgel] 1 cap PO HS Atorvastatin [Lipitor] 40 mg PO HS Aspirin 81 mg PO HS Donepezil [Aricept] 10 mg PO BID Nitroglycerin Sl Tabs [Nitrostat] 0.4 mg SUBLINGUAL Q5M PRN PRN Reason: Chest Pain Tamsulosin HCl [Flomax] 0.4 mg PO DAILY Melatonin 3 mg PO HS Isosorbide Mononitrate ER [Imdur] 30 mg PO DAILY amLODIPine [Norvasc] 5 mg PO DAILY Levothyroxine Sodium [Synthroid] 75 mcg PO DAILY Furosemide [Lasix] 20 mg PO BID Apixaban [Eliquis] 2.5 mg PO BID #60 tablet Atenolol [Tenormin] 50 mg PO BID #60 tab Tolterodine Tartrate [Detrol LA] 4 mg PO HS Memantine [Namenda] 10 mg PO BID Acetaminophen [Tylenol] 650 mg PO Q6HR PRN PRN Reason: Pain Insulin Glargine [Lantus] 30 unit SQ BID Fluticasone Nasal [place]a [Flonase Nasal [place]] 1 spray EA NOSTRIL DAILY Changed INSULIN LISPRO (HumaLOG) [humaLOG] 5 unit SQ AC-TID #0 Discharge Medication List Aspirin 81 mg PO HS 08/26/14 [History] Atorvastatin [Lipitor] 40 mg PO HS 08/26/14 [History] Cholecalciferol [Vitamin D3] 1,000 unit PO DAILY 08/26/14 [History] Cilostazol [Pletal] 100 mg PO DAILY 08/26/14 [History] DULoxetine HCL [Cymbalta] 60 mg PO DAILY 08/26/14 [History] Donepezil [Aricept] 10 mg PO BID 08/26/14 [History] Dyess-3 Fatty Acids/Fish Oil [Fish Oil 1,000 mg Softgel] 1 cap PO HS 08/26/14 [ History] Nitroglycerin Sl Tabs [Nitrostat] 0.4 mg SUBLINGUAL Q5M PRN 10/16/14 [History] Tamsulosin HCl [Flomax] 0.4 mg PO DAILY 05/24/15 [History] Isosorbide Mononitrate ER [Imdur] 30 mg PO DAILY 10/15/15 [History] Melatonin 3 mg PO HS 10/15/15 [History] amLODIPine [Norvasc] 5 mg PO DAILY 06/11/16 [History] Furosemide [Lasix] 20 mg PO BID 08/14/17 [History] Levothyroxine Sodium [Synthroid] 75 mcg PO DAILY 08/14/17 [History] Apixaban [Eliquis] 2.5 mg PO BID #60 tablet 08/18/17 [Rx] Atenolol [Tenormin] 50 mg PO BID #60 tab 08/18/17 [Rx] Acetaminophen [Tylenol] 650 mg PO Q6HR PRN 10/09/17 [History] Fluticasone Nasal [place] [Flonase Nasal [place]] 1 spray EA NOSTRIL DAILY 10/09/17 [History] Insulin Glargine [Lantus] 30 unit SQ BID 10/09/17 [History] Memantine [Namenda] 10 mg PO BID 10/09/17 [History] Tolterodine Tartrate [Detrol LA] 4 mg PO HS 10/09/17 [History] INSULIN LISPRO (HumaLOG) [humaLOG] 5 unit SQ AC-TID #0 10/13/17 [Rx] Oxybutynin Chloride [Ditropan] 5 mg PO BID tab 10/13/17 [Rx] Follow up Appointment(s)/Referral(s): Erick Escudero DO [Primary Care Provider] - 1 Week (After discharge from subacute rehab) Gautam Gale MD [STAFF PHYSICIAN] - 3 Days (While at subacute rehab) Patient Instructions/Handouts: Weakness (GEN) Activity/Diet/Wound Care/Special Instructions: [facility] Cardiac, diabetic diet. DNR code status Activity as tolerated, fall precautions. Discharge Disposition: TRANSFER TO SNF/ECF
--- NOTE | 2017-10-13 16:21 | P.PN ---
Subjective Progress Note Date: 10/13/17 This patient is a 77 year old male admitted for evaluation of generalized weakness and possible extension of stroke. 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 He has been left with some residual left- sided hemiparesis. He was admitted for further evaluation of new or recurrent stroke. He underwent MRI of the brain today the results of which indicated no evidence of recent infarct. Moderate degree of diffuse cerebral atrophy and chronic small vessel ischemic changes noted. Evidence of old occipital lobe infarcts bilaterally. Chronic infarct in the right parietal lobe is again seen. We reviewed the MRI results today with the patient. Clearly no evidence of new or acute stroke. He was evaluated by speech therapy today and we are waiting their recommendations. He was seen by Dr. Holland earlier today for possible placement into the inpatient rehab unit at [facility]. Discharge planning is in progress for subacute rehab pending authorization. We will await his final recommendations. Patient states he is doing about the same today with no other new findings. Would continue with discharge planning for this patient which is already underway. According to nursing staff he will be transferred to subacute rehab later today. Patient's neurological examination remains unchanged today. His overall prognosis at this time remains guarded. Objective - Vital Signs Vital signs: Vital Signs Temp 98.3 F 10/13/17 05:35 Pulse 78 10/13/17 05:35 Resp 20 10/13/17 05:35 BP 132/63 10/13/17 05:35 Pulse Ox 93 L 10/13/17 05:35 Intake & Output 10/12/17 10/13/17 10/13/17 18:59 06:59 18:59 Intake Total 200 Balance 200 Intake: Oral 200 Other: Voiding Method Diaper Diaper Incontinent Incontinent # Voids 3 4 1 # Bowel Movements 0 - Exam Physical Examination: PHYSICAL EXAMINATION: Patient is resting comfortably in bed. VITAL SIGNS: Blood pressure is [132/63]. Heart rate is [78]. Respiration is [20] . Temperature is [98.3]. HEENT: Head is atraumatic, neck is supple, there were no carotid bruits. CHEST: Lungs are clear to auscultation and percussion. CARDIAC: S1, S2 normal rate and rhythm. There is no murmur. ABDOMEN: Soft and nontender. Bowel sounds are present. EXTREMITIES: There is no pedal edema. Peripheral pulses are present. Neurological examination: Patient has residual left-sided hemiparesis. Speech remains clear with no evidence of any aphasia or dysarthria. Cranial nerves II through XII are grossly intact. Motor examination reveals left-sided hemiparesis arm greater than leg. - Labs CBC & Chem 7: 10/13/17 07:53 10/13/17 07:53 Labs: Abnormal Lab Results - Last 24 Hours (Table) 10/12/17 10/12/17 10/13/17 Range/Units 17:02 20:41 07:26 BUN (9-20) mg/dL Creatinine (0.66-1.25) mg/dL Glucose (74-99) mg/dL POC Glucose (mg/dL) 172 H 182 H 120 H (75-99) mg/dL 10/13/17 10/13/17 Range/Units 07:53 11:57 BUN 31 H (9-20) mg/dL Creatinine 1.45 H (0.66-1.25) mg/dL Glucose 121 H (74-99) mg/dL POC Glucose (mg/dL) 148 H (75-99) mg/dL Microbiology - Last 24 Hours (Table) 10/09/17 18:37 Blood Culture - Preliminary Blood No Growth after 72 hours 10/11/17 12:57 Urine Culture - Final Urine,Catheterized Assessment and Plan (1) Acute right arterial ischemic stroke, MCA (middle cerebral artery) Current Visit: No Status: Acute Code(s): I63.511 - CEREB INFRC D/T UNSP OCCLS OR STENOS OF RIGHT MID CEREB ART SNOMED Code(s): 759863452 (2) Weakness Current Visit: Yes Status: Acute Code(s): R53.1 - WEAKNESS SNOMED Code(s) : 03787631 (3) Atrial fibrillation Current Visit: No Status: Acute Code(s): I48.91 - UNSPECIFIED ATRIAL FIBRILLATION SNOMED Code(s): 56986120 (4) Dementia Current Visit: No Status: Acute Code(s): F03.90 - UNSPECIFIED DEMENTIA WITHOUT BEHAVIORAL DISTURBANCE SNOMED Code(s): 94997123 Plan: This patient is a 77-year-old male who was admitted to Hospital with symptoms of acute left-sided weakness. He was found to have generalized weakness as well continuing to his overall admission criteria. Patient underwent initial computed tomography scan of the brain which was reported negative for any acute findings. He had a subsequent MRI of the brain which failed to reveal any evidence of acute or new areas of stroke. He has left-sided hemiparesis from a previous stroke. He is requiring subacute rehab for long-term management at this time. He has been doing better since admission and is currently making slow progress. His diffuse weakness is multifactorial and he would be best served by placement into the subacute rehab for ongoing physical and occupational therapy. He is currently on IV antibiotics as well for treatment of his UTI. He has noted slight improvement with left-sided weakness today. We will continue close neurological follow-up with the patient during this admission. As noted he is awaiting subacute rehab placement pending his insurance authorization. According to the nursing staff today he will be transferred to subacute rehab later today. He may follow-up in the outpatient nausea clinic in 3-4 weeks. His overall prognosis at this time remains guarded.
[2017-10-13 17:33] LABS: Glucose,Whole Blood 178 mg/dL (75-99)
[2017-10-13 20:47] LABS: Glucose,Whole Blood 158 mg/dL (75-99)
[2017-10-13] MEDS: ATORVASTATIN 40 MG TAB PO SCH (21:13)
[2017-10-13] MEDS: MELATONIN 3 MG TABLET PO SCH (21:14)
[2017-10-14 04:10] VITALS: RESP 20
[2017-10-14] MEDS: LEVOTHYROXINE 75 MCG TAB PO SCH (06:26)
[2017-10-14 06:39] VITALS: BP 136/74; PULSE 68; TEMP 97.3
[2017-10-14 06:52] LABS: Glucose,Whole Blood 140 mg/dL (75-99)
[2017-10-14] MEDS: INSULIN DETEMIR 100 UNIT/ML 10 ML VIAL SQ SCH (08:04)
[2017-10-14] MEDS: INSULIN ASPART 100 UNIT/ML 1 ML 10 ML VIAL SQ SCH ×2 (08:04→12:18)
[2017-10-14] MEDS: FLUTICASONE 50MCG/SPRAY NASAL 16GM EA NOSTRIL SCH (08:04)
[2017-10-14] MEDS: DULoxetine HCL 60 MG CAPSULE.DR PO SCH (08:05)
[2017-10-14] MEDS: amLODIPine 5 MG TAB PO SCH (08:05)
[2017-10-14] MEDS: APIXABAN 2.5 MG TABLET PO SCH (08:05)
[2017-10-14] MEDS: ASPIRIN 81 MG PO SCH (08:05)
[2017-10-14] MEDS: OXYBUTYNIN CHLORIDE 5 MG TAB PO SCH (08:05)
[2017-10-14] MEDS: MEMANTINE 10 MG TAB PO SCH (08:05)
[2017-10-14] MEDS: DONEPEZIL 10 MG TAB PO SCH (08:05)
[2017-10-14] MEDS: ATENOLOL 50 MG TAB PO SCH (08:05)
[2017-10-14] MEDS: ceFAZolin 1,000 MG in DEXTROSE/WATER 1 50ML.BAG IVPB SCH (08:05)
[2017-10-14] MEDS: ISOSORBIDE MONONITRATE ER 30 MG TAB.ER.24H PO SCH (08:05)
[2017-10-14] MEDS: CILOSTAZOL 100 MG TAB PO SCH (08:05)
[2017-10-14] MEDS: FUROSEMIDE 20 MG TAB PO SCH (08:05)
[2017-10-14] MEDS: TAMSULOSIN 0.4 MG CAP.ER.24H PO SCH (08:05)
[2017-10-14 08:59] LABS: Basophils % (A) 0 %; Eosinophils # (A) 0.4 k/uL (0-0.7); Eosinophils % (A) 5 %; HCT 43.9 % (39.0-53.0); HGB 15.2 gm/dL (13.0-17.5); Lymphocytes # (A) 1.2 k/uL (1.0-4.8); Lymphocytes % (A) 14 %; MCH 31.6 pg (25.0-35.0); MCHC 34.6 g/dL (31.0-37.0); MCV 91.3 fL (80.0-100.0); Mean Platelet Volume 8.4; Monocytes # (A) 0.7 k/uL (0-1.0); Monocytes % (A) 8 %; Neutrophils # (A) 5.6 k/uL (1.3-7.7); Neutrophils % (A) 69 %; Platelet Count 175 k/uL (150-450); RBC 4.81 m/uL (4.30-5.90); RDW 14.2 % (11.5-15.5); WBC 8.2 k/uL (3.8-10.6)
[2017-10-14 09:09] LABS: Potassium 4.1 mmol/L (3.5-5.1)
[2017-10-14 11:44] LABS: Glucose,Whole Blood 189 mg/dL (75-99)
[2017-10-14] MEDS: CHOLECALCIFEROL 1,000 UNIT TAB PO SCH (12:18)
--- NOTE | 2017-10-14 16:33 | P.PN ---
Subjective Progress Note Date: 10/13/17 Progress note being dictated for Dr. Potts Interval history: This a 77-year-old gentleman admitted with generalized diffuse weakness, acute on chronic renal failure, possible UTI and multiple other medical issues in a patient with history of recent left-sided stroke. Evaluated by neurology with workup completed. Maintained on broad-spectrum IV antibiotics. Diarrhea subsided. Afebrile, normal WBC. Creatinine 1.42. 10/13/17 tired this morning, states did not sleep well. Creatinine 1.45 .Afebrile, normal WBC. Good diet intake, denies nausea or vomiting. Objective - Vital Signs Vital signs: Vital Signs Temp 98.4 F 10/13/17 15:05 Pulse 75 10/13/17 15:05 Resp 16 10/13/17 15:05 BP 127/71 10/13/17 15:05 Pulse Ox 95 10/13/17 15:05 Intake & Output 10/13/17 10/13/17 10/14/17 06:59 18:59 06:59 Output Total 1000 Balance -1000 Output: Urine 1000 Other: Voiding Method Diaper Incontinent # Voids 4 2 - Exam PHYSICAL EXAM: VITAL SIGNS: As above GENERAL: Sitting up in bed, no acute HEENT: Conjunctivae normal. eyes normal. Oral mucosa moist NECK: No JVD. No thyroid enlargement. No LNs CARDIOVASCULAR: S1, S2 muffled. No murmur RESPIRATION: Breath sounds diminished in the bases. Occasional scattered rhonchi and fine bibasilar crackles. ABDOMEN: Soft, nontender . No guarding. no masses palpable.Bowel sounds heard. LEGS: Mild edema PSYCHIATRY: Alert and oriented -3, mood and affect normal. NERVOUS SYSTEM: Cranial N 2-12 grossly normal. Moves all 4 limbs. Diffuse weakness with left hemiparesis ;left arm greater than left leg. - Labs CBC & Chem 7: 10/14/17 08:25 10/14/17 08:25 Labs: Abnormal Lab Results - Last 24 Hours (Table) 10/12/17 10/13/17 10/13/17 Range/Units 20:41 07:26 07:53 BUN 31 H (9-20) mg/dL Creatinine 1.45 H (0.66-1.25) mg/dL Glucose 121 H (74-99) mg/dL POC Glucose (mg/dL) 182 H 120 H (75-99) mg/dL 10/13/17 10/13/17 Range/Units 11:57 17:31 BUN (9-20) mg/dL Creatinine (0.66-1.25) mg/dL Glucose (74-99) mg/dL POC Glucose (mg/dL) 148 H 178 H (75-99) mg/dL Microbiology - Last 24 Hours (Table) 10/09/17 18:37 Blood Culture - Preliminary Blood No Growth after 72 hours 10/11/17 12:57 Urine Culture - Final Urine,Catheterized Assessment and Plan Assessment: 1. Diffuse weakness, multifactorial for evaluation, possible acute TIA in a patient with history of recent left-sided CVA with residual left hemiparesis 2. Diarrhea, improving 3. Acute on chronic renal failure 4. Possible acute UTI 5. Atrial flutter 6. CHF 7. Dementia, type unknown 8. Diabetes mellitus type 2 Plan: Continue on current medication regime , antibiotics, monitoring and symptomatic treatment. Discharge planning in progress for subacute rehab pending authorization. The impression and plan of care has been dictated as directed. : I performed a history and examination of this patient, discussed the same with the dictator. I agree with the dictator's note ,documented as a scribe. Any additional findings or plans will be noted.
== END 2017-10-14 13:32 ==
LOC: EC 12:26 → 6SEL 15:07 → 4MS4W 10-11 17:19
PROVIDERS: ADMIT Hospitalist; ATTEND Hospitalist
DX: R53.1 Weakness (principal); I69.354 Hemiplegia and hemiparesis following cerebral infarction affecting left non-dominant side; R19.7 Diarrhea, unspecified; N17.9 Acute kidney failure, unspecified; I13.0 Hypertensive heart and chronic kidney disease with heart failure and stage 1 through stage 4 chronic kidney disease, or unspecified chronic kidney disease; N18.3 Chronic kidney disease, stage 3 (moderate); E11.22 Type 2 diabetes mellitus with diabetic chronic kidney disease; I50.9 Heart failure, unspecified; I48.92 Unspecified atrial flutter; I48.2 Chronic atrial fibrillation; J44.9 Chronic obstructive pulmonary disease, unspecified; I25.10 Atherosclerotic heart disease of native coronary artery without angina pectoris; E78.5 Hyperlipidemia, unspecified; F03.90 Unspecified dementia, unspecified severity, without behavioral disturbance, psychotic disturbance, mood disturbance, and anxiety; M79.7 Fibromyalgia; G47.30 Sleep apnea, unspecified; Z99.89 Dependence on other enabling machines and devices; G89.29 Other chronic pain; M54.9 Dorsalgia, unspecified; M10.9 Gout, unspecified; K57.30 Diverticulosis of large intestine without perforation or abscess without bleeding; F41.9 Anxiety disorder, unspecified; F32.9 Major depressive disorder, single episode, unspecified; I25.2 Old myocardial infarction; N42.9 Disorder of prostate, unspecified; K42.9 Umbilical hernia without obstruction or gangrene; M54.30 Sciatica, unspecified side; E66.9 Obesity, unspecified; Z68.31 Body mass index [BMI] 31.0-31.9, adult; L03.116 Cellulitis of left lower limb; L03.115 Cellulitis of right lower limb; M19.90 Unspecified osteoarthritis, unspecified site; R20.0 Anesthesia of skin; Z85.46 Personal history of malignant neoplasm of prostate; Z95.1 Presence of aortocoronary bypass graft; Z86.14 Personal history of Methicillin resistant Staphylococcus aureus infection; Z87.891 Personal history of nicotine dependence; Z79.82 Long term (current) use of aspirin; Z79.01 Long term (current) use of anticoagulants; Z79.890 Hormone replacement therapy; Z79.4 Long term (current) use of insulin; Z79.899 Other long term (current) drug therapy; Z88.6 Allergy status to analgesic agent; Z88.1 Allergy status to other antibiotic agents; Z91.040 Latex allergy status; Z82.49 Family history of ischemic heart disease and other diseases of the circulatory system
CPT/HCPCS: 99285 ×2; 96361 ×6; 96365; 96366 ×5; 36415; 94760; 95819; 93005; 97530; 97163; 97535 ×2; 97167; 92523; 80053; 80048 ×5; 82550; 82553; 83605; 84484; 85025 ×6; 85610; 85730; 81001; 87040; 87324; 87086; 71046; 70450; 70551; G0378 ×7; J0690 ×6

== ENCOUNTER 2018-06-11 07:10 | Inpatient (IN) | payer MEDICARE ==
[2018-06-11] MEDS ORDERED: PANTOPRAZOLE 40 MG/10 ML VIAL IVP STA (08:06)
--- NOTE | 2018-06-11 08:09 | ED ---
General Adult HPI - General Chief complaint: Recheck/Abnormal Lab/Rx Stated complaint: GI Bleed Time Seen by Provider: 06/11/18 07:42 Source: patient, EMS, RN notes reviewed Mode of arrival: EMS Limitations: no limitations - History of Present Illness Initial comments: Patient is a pleasant 77-year-old male presenting to the emergency department with concerns for rectal bleeding. Patient states he has left shoulder discomfort. Patient admits shoulder discomfort is chronic and unchanged. Patient is wearing a shoulder brace. Nursing staff reported that patient had a single bloody bowel movement. Patient does admit this. Patient denies any abdominal pain. Patient denies any nausea vomiting. No fatigue. No fever. - Related Data Home Medications Medication Instructions Recorded Confirmed Aspirin 81 mg PO HS 08/26/14 10/09/17 Atorvastatin [Lipitor] 40 mg PO HS 08/26/14 10/09/17 Cholecalciferol [Vitamin D3] 1,000 unit PO DAILY 08/26/14 10/09/17 Cilostazol [Pletal] 100 mg PO DAILY 08/26/14 10/09/17 DULoxetine HCL [Cymbalta] 60 mg PO DAILY 08/26/14 10/09/17 Donepezil [Aricept] 10 mg PO BID 08/26/14 10/09/17 [place]-3 Fatty Acids/Fish Oil [Fish 1 cap PO HS 08/26/14 10/09/17 Oil 1,000 mg Softgel] Nitroglycerin Sl Tabs [Nitrostat] 0.4 mg SUBLINGUAL Q5M PRN 10/16/14 10/09/17 Tamsulosin HCl [Flomax] 0.4 mg PO DAILY 05/24/15 10/09/17 Isosorbide Mononitrate ER [Imdur] 30 mg PO DAILY 10/15/15 10/09/17 Melatonin 3 mg PO HS 10/15/15 10/09/17 amLODIPine [Norvasc] 5 mg PO DAILY 06/11/16 10/09/17 Furosemide [Lasix] 20 mg PO BID 08/14/17 10/09/17 Levothyroxine Sodium [Synthroid] 75 mcg PO DAILY 08/14/17 10/09/17 Acetaminophen [Tylenol] 650 mg PO Q6HR PRN 10/09/17 10/09/17 Fluticasone Nasal [place] [Flonase 1 spray EA NOSTRIL DAILY 10/09/17 10/09/17 Nasal [place]] Insulin Glargine [Lantus] 30 unit SQ BID 10/09/17 10/09/17 Memantine [Namenda] 10 mg PO BID 10/09/17 10/09/17 Tolterodine Tartrate [Detrol LA] 4 mg PO HS 10/09/17 10/09/17 Previous Rx's Medication Instructions Recorded Apixaban [Eliquis] 2.5 mg PO BID #60 tablet 08/18/17 Atenolol [Tenormin] 50 mg PO BID #60 tab 08/18/17 INSULIN LISPRO (HumaLOG) [humaLOG] 5 unit SQ AC-TID #0 10/13/17 Oxybutynin Chloride [Ditropan] 5 mg PO BID tab 10/13/17 Allergies Allergy/AdvReac Type Severity Reaction Status Date / Time ciprofloxacin [From Cipro] Allergy Swelling Verified 06/11/18 10:28 ciprofloxacin HCl Allergy Swelling Verified 06/11/18 10:28 [From Cipro] latex Allergy Unknown Verified 06/11/18 10:28 NSAIDS (Non-Steroidal Allergy Unknown Verified 06/11/18 10:28 Anti-Inflamma Quinolones Allergy Unknown Verified 06/11/18 10:28 Review of Systems ROS Statement: Those systems with pertinent positive or pertinent negative responses have been documented in the HPI. ROS Other: All systems not noted in ROS Statement are negative. Constitutional: Denies: fever Eyes: Denies: eye pain ENT: Denies: ear pain Respiratory: Denies: cough Cardiovascular: Denies: chest pain Endocrine: Denies: fatigue Gastrointestinal: Reports: hematochezia. Denies: abdominal pain, nausea, vomiting Genitourinary: Denies: dysuria Musculoskeletal: Denies: back pain Skin: Denies: rash Past Medical History Past Medical History: Atrial Flutter, Coronary Artery Disease (CAD), Chest Pain / Angina, Heart Failure, COPD, Dementia, Diabetes Mellitus, Fibromyalgia, Hyperlipidemia, Hypertension, Myocardial Infarction (CA), Prostate Disorder, Renal Disease, Sleep Apnea/CPAP/BIPAP, Vascular Disorder Additional Past Medical History / Comment(s): IDDM, chronic renal failure, aflutter, sleep apnea with no cpap, PVD, DJD, chronic back pain, bulging and herniated discs, sciatica, dislocated knuckles, gout, arthiritis, prostate problem-pt unsure what problem is, tinnitis bilaterally, R eye stroke, umbilical hernia, diverticular disease, obesity. Last Myocardial Infarction Date:: 2004 History of Any Multi-Drug Resistant Organisms: MRSA Date of last positivie culture/infection: 10/17/2014 MDRO Source:: Sputum Past Surgical History: Coronary Bypass/CABG, Heart Catheterization, Tonsillectomy Additional Past Surgical History / Comment(s): 2004 triple vessel CABG, Ccath 2004, L carotid endartectomy, bilateral cataract removal with lens implants, colonoscopy, skin lesion removal. Past Anesthesia/Blood Transfusion Reactions: No Reported Reaction Past Psychological History: Anxiety, Depression Smoking Status: Former smoker Past Alcohol Use History: Occasional, Rare Past Drug Use History: None Reported - Past Family History Father Family Medical History: Coronary Artery Disease (CAD) Additional Family Medical History / Comment(s): Father had CABG Mother Family Medical History: No Reported History Additional Family Medical History / Comment(s): Pt states mother was a healthy person. General Exam Limitations: no limitations General appearance: alert, in no apparent distress Head exam: Present: atraumatic Eye exam: Present: normal appearance, PERRL ENT exam: Present: normal oropharynx Neck exam: Present: normal inspection Respiratory exam: Present: normal lung sounds bilaterally Cardiovascular Exam: Present: regular rate, irregular rhythm GI/Abdominal exam: Present: soft, hernia (Easily reducible umbilical hernia). Absent: distended, tenderness, guarding, rebound, rigid Rectal exam: Present: bloody stool Extremities exam: Present: pedal edema (+1 bilateral). Absent: calf tenderness Neurological exam: Present: alert Psychiatric exam: Present: normal affect, normal mood Skin exam: Present: normal color. Absent: rash Course Vital Signs 06/11/18 07:14 Temperature 98.1 F Pulse Rate 68 Respiratory 18 Rate Blood Pressure 161/96 O2 Sat by Pulse 97 Oximetry EKG Findings - EKG Comments: EKG Findings:: A. fib with rate of 61. QRS 110. QT 432. QTC 434. Normal axis. Incomplete right bundle-branch block. No acute ST change. Medical Decision Making - Medical Decision Making Patient reevaluated and unchanged. Patient updated. Dr. Ruvalcaba has been paged for admission for Dr. Elda Quesada. - Lab Data Result diagrams: 06/11/18 08:23 06/11/18 08:22 Lab Results 06/11/18 06/11/18 06/11/18 Range/Units 08:22 08:22 08:22 WBC (3.8-10.6) k/uL RBC (4.30-5.90) m/uL Hgb (13.0-17.5) gm/dL Hct (39.0-53.0) % MCV (80.0-100.0) fL MCH (25.0-35.0) pg MCHC (31.0-37.0) g/dL RDW (11.5-15.5) % Plt Count (150-450) k/uL Neutrophils % % Lymphocytes % % Monocytes % % Eosinophils % % Basophils % % Neutrophils # (1.3-7.7) k/uL Lymphocytes # (1.0-4.8) k/uL Monocytes # (0-1.0) k/uL Eosinophils # (0-0.7) k/uL Basophils # (0-0.2) k/uL PT 11.5 (9.0-12.0) sec INR 1.1 (<1.2) APTT 26.5 (22.0-30.0) sec Sodium 141 (137-145) mmol/L Potassium 4.4 (3.5-5.1) mmol/L Chloride 107 (98-107) mmol/L Carbon Dioxide 28 (22-30) mmol/L Anion Gap 6 mmol/L BUN 31 H (9-20) mg/dL Creatinine 1.44 H (0.66-1.25) mg/dL Est GFR (CKD-EPI)AfAm 53 (>60 ml/min/1.73 sqM) Est GFR (CKD-EPI)NonAf 46 (>60 ml/min/1.73 sqM) Glucose 118 H (74-99) mg/dL Calcium 9.0 (8.4-10.2) mg/dL Total Bilirubin 1.0 (0.2-1.3) mg/dL AST 23 (17-59) U/L ALT 18 L (21-72) U/L Alkaline Phosphatase 106 (38-126) U/L Total Creatine Kinase 34 L (55-170) U/L CK-MB (CK-2) 0.5 (0.0-2.4) ng/mL CK-MB (CK-2) Rel Index 1.5 Troponin I <0.012 (0.000-0.034) ng/mL Total Protein 6.5 (6.3-8.2) g/dL Albumin 3.5 (3.5-5.0) g/dL 06/11/18 Range/Units 08:23 WBC 9.6 (3.8-10.6) k/uL RBC 4.75 (4.30-5.90) m/uL Hgb 14.5 (13.0-17.5) gm/dL Hct 43.4 (39.0-53.0) % MCV 91.4 (80.0-100.0) fL MCH 30.6 (25.0-35.0) pg MCHC 33.5 (31.0-37.0) g/dL RDW 14.1 (11.5-15.5) % Plt Count 229 (150-450) k/uL Neutrophils % 69 % Lymphocytes % 17 % Monocytes % 7 % Eosinophils % 4 % Basophils % 0 % Neutrophils # 6.7 (1.3-7.7) k/uL Lymphocytes # 1.6 (1.0-4.8) k/uL Monocytes # 0.7 (0-1.0) k/uL Eosinophils # 0.4 (0-0.7) k/uL Basophils # 0.0 (0-0.2) k/uL PT (9.0-12.0) sec INR (<1.2) APTT (22.0-30.0) sec Sodium (137-145) mmol/L Potassium (3.5-5.1) mmol/L Chloride (98-107) mmol/L Carbon Dioxide (22-30) mmol/L Anion Gap mmol/L BUN (9-20) mg/dL Creatinine (0.66-1.25) mg/dL Est GFR (CKD-EPI)AfAm (>60 ml/min/1.73 sqM) Est GFR (CKD-EPI)NonAf (>60 ml/min/1.73 sqM) Glucose (74-99) mg/dL Calcium (8.4-10.2) mg/dL Total Bilirubin (0.2-1.3) mg/dL AST (17-59) U/L ALT (21-72) U/L Alkaline Phosphatase (38-126) U/L Total Creatine Kinase (55-170) U/L CK-MB (CK-2) (0.0-2.4) ng/mL CK-MB (CK-2) Rel Index Troponin I (0.000-0.034) ng/mL Total Protein (6.3-8.2) g/dL Albumin (3.5-5.0) g/dL Disposition Clinical Impression: Lower GI hemorrhage Disposition: ADMITTED IP TO THIS HOSP Is patient prescribed a controlled substance at d/c from ED?: No Referrals: Erick Escudero DO [Primary Care Provider] - 1-2 days Decision Time: 10:34
[2018-06-11 08:53] LABS: Basophils % (A) 0 %; Eosinophils # (A) 0.4 k/uL (0-0.7); Eosinophils % (A) 4 %; HCT 43.4 % (39.0-53.0); HGB 14.5 gm/dL (13.0-17.5); Lymphocytes # (A) 1.6 k/uL (1.0-4.8); Lymphocytes % (A) 17 %; MCH 30.6 pg (25.0-35.0); MCHC 33.5 g/dL (31.0-37.0); MCV 91.4 fL (80.0-100.0); Mean Platelet Volume 8.3; Monocytes # (A) 0.7 k/uL (0-1.0); Monocytes % (A) 7 %; Neutrophils # (A) 6.7 k/uL (1.3-7.7); Neutrophils % (A) 69 %; Platelet Count 229 k/uL (150-450); RBC 4.75 m/uL (4.30-5.90); RDW 14.1 % (11.5-15.5); WBC 9.6 k/uL (3.8-10.6)
[2018-06-11 09:23] LABS: Albumin 3.5 g/dL (3.5-5.0); Potassium 4.4 mmol/L (3.5-5.1); Total Protein 6.5 g/dL (6.3-8.2)
[2018-06-11 09:32] LABS: Creatine Kinase 34 U/L (55-170)
[2018-06-11 09:44] LABS: Creatine Kinase MB 0.5 ng/mL (0.0-2.4)
[2018-06-11 09:59] LABS: Troponin I <0.012 ng/mL (0.000-0.034)
[2018-06-11 10:06] LABS: INR 1.1 (<1.2); Partial Thromboplastin Time 26.5 sec (22.0-30.0); Prothrombin Time 11.5 sec (9.0-12.0)
[2018-06-11] MEDS ORDERED: NALOXONE 0.4 MG/ML 1 ML VIAL IV PRN (10:34)
[2018-06-11] MEDS: SODIUM CHLORIDE 0.9% 1,000 ML IV SCH (10:49)
[2018-06-11] MEDS ORDERED: ACETAMINOPHEN TAB 325 MG TAB PO PRN (14:47)
[2018-06-11 15:47] LABS: Basophils % (A) 0 %; Eosinophils # (A) 0.3 k/uL (0-0.7); Eosinophils % (A) 2 %; HCT 39.9 % (39.0-53.0); HGB 13.7 gm/dL (13.0-17.5); Lymphocytes # (A) 1.8 k/uL (1.0-4.8); Lymphocytes % (A) 15 %; MCHC 34.4 g/dL (31.0-37.0); MCV 89.9 fL (80.0-100.0); Mean Platelet Volume 8.9; Monocytes # (A) 0.8 k/uL (0-1.0); Monocytes % (A) 7 %; Neutrophils # (A) 8.3 k/uL (1.3-7.7); Neutrophils % (A) 72 %; Platelet Count 226 k/uL (150-450); RBC 4.44 m/uL (4.30-5.90); RDW 13.9 % (11.5-15.5); WBC 11.5 k/uL (3.8-10.6)
[2018-06-11 17:14] LABS: Glucose,Whole Blood 120 mg/dL (75-99)
[2018-06-11] MEDS: INSULIN ASPART 100 UNIT/ML 1 ML 10 ML VIAL SQ SCH ×2 (17:18→21:58)
--- NOTE | 2018-06-11 17:30 | P.HPIM ---
History of Present Illness 79-year-old was brought in the emergency department from subacute rehabilitation place because of the bright red blood per rectum which is usually consistency patient had another such bowel movement here on the floor patient will be transferred to stepdown unit for close monitoring. Patient is on anticoagulation with Eliquis for atrial fibrillation. Patient has a shoulder brace in place. Patient is also on aspirin. These medications will be held and gastroenterology was consulted. Patient is bit hyponatremic which appears to be hypovolemic hyponatremia Lasix will be held patient will be continue on IV fluids. Patient denied any significant abdominal pain. Denied any hematemesis . Review of Systems REVIEW OF SYSTEMS: CONSTITUTIONAL: No fever, no malaise, no fatigue. HEENT: No recent visual problems or hearing problems. Denied any sore throat. CARDIOVASCULAR: No chest pain, orthopnea, PND, no palpitations, no syncope. PULMONARY: No shortness of breath, no cough, no hemoptysis. GASTROINTESTINAL: As mentioned above NEUROLOGICAL: No headaches, no weakness, no numbness. HEMATOLOGICAL: Denies any bleeding or petechiae. GENITOURINARY: Denies any burning micturition, frequency, or urgency. MUSCULOSKELETAL/RHEUMATOLOGICAL: Denies any joint pain, swelling, or any muscle pain. ENDOCRINE: Denies any polyuria or polydipsia. The rest of the 14-point review of systems is negative. Past Medical History Past Medical History: Atrial Flutter, Coronary Artery Disease (CAD), Chest Pain / Angina, Heart Failure, COPD, Dementia, Diabetes Mellitus, Fibromyalgia, Hyperlipidemia, Hypertension, Myocardial Infarction ([place]), Prostate Disorder, Renal Disease, Sleep Apnea/CPAP/BIPAP, Vascular Disorder Additional Past Medical History / Comment(s): IDDM, chronic renal failure, aflutter, sleep apnea with no cpap, PVD, DJD, chronic back pain, bulging and herniated discs, sciatica, dislocated knuckles, gout, arthiritis, prostate problem-pt unsure what problem is, tinnitis bilaterally, R eye stroke, umbilical hernia, diverticular disease, obesity. Last Myocardial Infarction Date:: 2004 History of Any Multi-Drug Resistant Organisms: MRSA Date of last positivie culture/infection: 10/17/2014 MDRO Source:: Sputum Past Surgical History: Coronary Bypass/CABG, Heart Catheterization, Tonsillectomy Additional Past Surgical History / Comment(s): 2005 triple vessel CABG, Ccath 2005, L carotid endartectomy, bilateral cataract removal with lens implants, colonoscopy, skin lesion removal. Past Anesthesia/Blood Transfusion Reactions: No Reported Reaction Past Psychological History: Anxiety, Depression Additional Psychological History / Comment(s): Pt lives at home with his . has cane/walker, hx of falls. He denies any medical marijuana, marijuana, street drug use. He does drink 1 bottle of beer per month. He was in the [employer] for 14 years and stationed in the [place]. He denies any recent travel. There is a dog in the home. Smoking Status: Former smoker Past Alcohol Use History: Occasional, Rare Additional Past Alcohol Use History / Comment(s): Pt started smoking about 1966 and quit in 1996. He smoked up to 3 ppd. Past Drug Use History: None Reported - Past Family History Father Family Medical History: Coronary Artery Disease (CAD) Additional Family Medical History / Comment(s): Father had CABG Mother Family Medical History: No Reported History Additional Family Medical History / Comment(s): Pt states mother was a healthy person. Medications and Allergies Home Medications Medication Instructions Recorded Confirmed Type Aspirin 81 mg PO HS@209908/26/14 06/11/18 History Atorvastatin [Lipitor] 40 mg PO HS@209908/26/14 06/11/18 History Cholecalciferol [Vitamin D3] 1,000 unit PO DAILY@0900 08/26/14 06/11/18 History Cilostazol [Pletal] 100 mg PO DAILY@0900 08/26/14 06/11/18 History DULoxetine HCL [Cymbalta] 60 mg PO DAILY@0908/26/14 06/11/18 History Donepezil [Aricept] 10 mg PO BID@0900,209908/26/14 06/11/18 History [place]-3 Fatty Acids/Fish Oil [Fish 1 cap PO HS@209908/26/14 06/11/18 History Oil 1,000 mg Softgel] Nitroglycerin Sl Tabs [Nitrostat] 0.4 mg SUBLINGUAL Q5M PRN 10/16/14 06/11/18 History Tamsulosin HCl [Flomax] 0.4 mg PO DAILY@0900 05/24/15 06/11/18 History Isosorbide Mononitrate ER [Imdur] 30 mg PO DAILY@0900 06/01/16 01/27/19 History Melatonin 3 mg PO HS@209910/15/15 06/11/18 History amLODIPine [Norvasc] 5 mg PO DAILY@0900 06/11/16 06/11/18 History Furosemide [Lasix] 20 mg PO BID@0600,1300 08/14/17 06/11/18 History Levothyroxine Sodium [Synthroid] 75 mcg PO DAILY@0600 08/14/17 06/11/18 History Acetaminophen [Tylenol] 650 mg PO Q6HR PRN 10/09/17 06/11/18 History Memantine [Namenda] 10 mg PO BID@0900,2100 10/09/17 06/11/18 History Tolterodine Tartrate [Detrol LA] 4 mg PO HS@209910/09/17 06/11/18 History Apixaban [Eliquis] 2.5 mg PO BID@0900,2100 06/11/18 06/11/18 History Atenolol [Tenormin] 50 mg PO DAILY@0900 06/11/18 06/11/18 History DULoxetine HCL [Cymbalta] 30 mg PO DAILY@0900 06/11/18 06/11/18 History Dimethicone/Zinc Oxide [Inzo Zinc 1 applic TOPICAL Q12H 06/11/18 06/11/18 History Oxide Barrier Cream] HYDROcodone/APAP 5-325MG [[place] 1 tab PO Q8H PRN 06/11/18 06/11/18 History 5-325] Insulin Detemir [Levemir Flextouch] 32 units SQ BID@0900,209906/11/18 06/11/18 History Insulin Lispro [humaLOG Kwikpen] 6 unit SQ AC-TID 06/11/18 06/11/18 History Liraglutide [Victoza 2-Yayo] 1.2 mg SQ HS@209906/11/18 06/11/18 History Allergies Allergy/AdvReac Type Severity Reaction Status Date / Time ciprofloxacin [From Cipro] Allergy Swelling Verified 06/11/18 10:28 ciprofloxacin HCl Allergy Swelling Verified 06/11/18 10:28 [From Cipro] latex Allergy Unknown Verified 06/11/18 10:28 NSAIDS (Non-Steroidal Allergy Unknown Verified 06/11/18 10:28 Anti-Inflamma Quinolones Allergy Unknown Verified 06/11/18 10:28 Physical Exam Vitals: Vital Signs Temp Pulse Pulse Resp BP BP Pulse Ox 06/11/18 16:54 98.0 F 59 L 16 147/81 06/11/18 12:37 97.4 F L 83 16 160/85 92 L 06/11/18 11:30 67 18 132/93 06/11/18 11:00 73 17 137/89 06/11/18 10:30 69 18 150/93 06/11/18 10:00 71 19 144/99 06/11/18 09:30 84 16 141/90 06/11/18 09:00 71 18 148/105 06/11/18 08:30 67 18 171/95 06/11/18 08:00 74 18 155/88 95 06/11/18 07:30 64 16 161/96 96 06/11/18 07:14 98.1 F 68 18 161/96 97 Intake and Output 06/11/18 06/11/18 06/11/18 06:59 14:59 22:59 Other: # Voids 1 # Bowel Movements 1 Weight 110.223 kg PHYSICAL EXAMINATION: GENERAL: The patient is alert and oriented x3, not in any acute distress. Well developed, well nourished. HEENT: Pupils are round and equally reacting to light. EOMI. No scleral icterus. No conjunctival pallor. Normocephalic, atraumatic. No pharyngeal erythema. No thyromegaly. CARDIOVASCULAR: S1 and S2 present. No murmurs, rubs, or gallops. PULMONARY: Chest is clear to auscultation, no wheezing or crackles. ABDOMEN: Soft, nontender, nondistended, normoactive bowel sounds. No palpable organomegaly. MUSCULOSKELETAL: No joint swelling or deformity. Has a left shoulder brace place in place EXTREMITIES: No cyanosis, clubbing, or pedal edema. NEUROLOGICAL: Gross neurological examination did not reveal any focal deficits. SKIN: No rashes. Results CBC & Chem 7: 06/11/18 14:50 06/11/18 08:22 Labs: Abnormal Lab Results - Last 24 Hours (Table) 06/11/18 06/11/18 06/11/18 Range/Units 08:22 08:22 14:50 WBC 11.5 H (3.8-10.6) k/uL Neutrophils # 8.3 H (1.3-7.7) k/uL BUN 31 H (9-20) mg/dL Creatinine 1.44 H (0.66-1.25) mg/dL Glucose 118 H (74-99) mg/dL POC Glucose (mg/dL) (75-99) mg/dL ALT 18 L (21-72) U/L Total Creatine Kinase 34 L (55-170) U/L 06/11/18 Range/Units 17:10 WBC (3.8-10.6) k/uL Neutrophils # (1.3-7.7) k/uL BUN (9-20) mg/dL Creatinine (0.66-1.25) mg/dL Glucose (74-99) mg/dL POC Glucose (mg/dL) 120 H (75-99) mg/dL ALT (21-72) U/L Total Creatine Kinase (55-170) U/L Assessment and Plan Plan: -Acute lower GI bleed: Probably diverticular, ischemic the etiology need to be considered considering his atrial fibrillation. Gastroneurology was consulted hold off on Eliquis and aspirin. -Hyponatremia hypervolemic hyponatremia continuous IV fluids hold off on Lasix -Chronic kidney disease stage III secondary to hypertensive nephrosclerosis -Dementia moderate but patient is oriented times close to 3 -Type 2 diabetes mellitus -History of atrial flutter/fibrillation proximal: Can you to hold her anti- correlation because of above-mentioned reasons -History of CVA TIA in the past possible congestive heart failure chronic diastolic dysfunction presently not in acute exacerbation patient is presently hypovolemic
[2018-06-11 21:07] LABS: Glucose,Whole Blood 163 mg/dL (75-99)
[2018-06-11 21:49] LABS: Basophils % (A) 0 %; Eosinophils # (A) 0.3 k/uL (0-0.7); Eosinophils % (A) 2 %; HCT 38.5 % (39.0-53.0); HGB 12.3 gm/dL (13.0-17.5); Lymphocytes # (A) 1.8 k/uL (1.0-4.8); Lymphocytes % (A) 16 %; MCH 29.4 pg (25.0-35.0); MCHC 31.9 g/dL (31.0-37.0); MCV 92.3 fL (80.0-100.0); Mean Platelet Volume 8.6; Monocytes # (A) 0.6 k/uL (0-1.0); Monocytes % (A) 5 %; Neutrophils # (A) 8.4 k/uL (1.3-7.7); Neutrophils % (A) 74 %; Platelet Count 231 k/uL (150-450); RBC 4.17 m/uL (4.30-5.90); RDW 14.2 % (11.5-15.5); WBC 11.4 k/uL (3.8-10.6)
[2018-06-11] MEDS: DONEPEZIL 10 MG TAB PO SCH (21:58)
[2018-06-11] MEDS: ATORVASTATIN 40 MG TAB PO SCH (21:58)
[2018-06-11] MEDS: OXYBUTYNIN XL 5 MG TAB.ER.24 PO SCH (21:58)
[2018-06-12 00:30] LABS: HCT 34.9 % (39.0-53.0); HGB 12.2 gm/dL (13.0-17.5); MCH 31.8 pg (25.0-35.0); MCV 90.7 fL (80.0-100.0); Mean Platelet Volume 8.9; Platelet Count 204 k/uL (150-450); RBC 3.84 m/uL (4.30-5.90); WBC 10.2 k/uL (3.8-10.6)
--- NOTE | 2018-06-12 02:19 | P.CONS ---
History of Present Illness - Reason for Consult Consult date: 06/11/18 Rectal bleeding. - History of Present Illness The patient is a 77-year-old male who presented to the emergency room with history of bright red bleeding per rectum. The patient does history of atrial fibrillation and has been on anticoagulation with eliquis and aspirin which has been held. The patient complains of shoulder pain and has a brace in place there is no history of hematemesis. No dysphagia, odynophagia or any other upper GI complaints. No abdominal pains or other bowel issues. Review of Systems Constitutional: Denies fever, chills, sweats, weight gain, or loss. HEENT: Negative for migraines, blurred vision or loss, earaches, drainage, tinnitus, oral mucosal lesions, dysphagia, or odynophagia. CARDIAC: Negative for chest pain, arrhythmias, or palpitation. RESPIRATORY: Negative for shortness of breath, hemoptysis, cough, or sputum production. GI: See HPI for pertinent findings. : Negative for hematuria, urgency, frequency, polyuria, or dysuria. MUSCULOSKELETAL: Negative for muscle aches, swelling, arthritis, and arthralgias. NEUROLOGIC: Negative for stroke or TIA. ENDOCRINE: Negative for thyroid problems. SKIN: Negative for rash or itching. PSYCHIATRIC: Negative history for depression and anxiety Past Medical History Past Medical History: Atrial Flutter, Coronary Artery Disease (CAD), Chest Pain / Angina, Heart Failure, COPD, Dementia, Diabetes Mellitus, Fibromyalgia, Hyperlipidemia, Hypertension, Myocardial Infarction ([place]), Prostate Disorder, Renal Disease, Sleep Apnea/CPAP/BIPAP, Vascular Disorder Additional Past Medical History / Comment(s): IDDM, chronic renal failure, aflutter, sleep apnea with no cpap, PVD, DJD, chronic back pain, bulging and herniated discs, sciatica, dislocated knuckles, gout, arthiritis, prostate problem-pt unsure what problem is, tinnitis bilaterally, R eye stroke, umbilical hernia, diverticular disease, obesity. Last Myocardial Infarction Date:: 2004 History of Any Multi-Drug Resistant Organisms: MRSA Year Discovered:: 10/17/2014 MDRO Source:: Sputum Past Surgical History: Coronary Bypass/CABG, Heart Catheterization, Tonsillectomy Additional Past Surgical History / Comment(s): 2004 triple vessel CABG, Ccath 2004, L carotid endartectomy, bilateral cataract removal with lens implants, colonoscopy, skin lesion removal. Past Anesthesia/Blood Transfusion Reactions: No Reported Reaction Past Psychological History: Anxiety, Depression Additional Psychological History / Comment(s): Pt lives at home with his . has cane/walker, hx of falls. He denies any medical marijuana, marijuana, street drug use. He does drink 1 bottle of beer per month. He was in the [employer] for 14 years and stationed in [place]. He denies any recent travel. There is a dog in the home. Smoking Status: Former smoker Past Alcohol Use History: Occasional, Rare Additional Past Alcohol Use History / Comment(s): Pt started smoking about 1966 and quit in 1996. He smoked up to 3 ppd. Past Drug Use History: None Reported - Past Family History Father Family Medical History: Coronary Artery Disease (CAD) Additional Family Medical History / Comment(s): Father had CABG Mother Family Medical History: No Reported History Additional Family Medical History / Comment(s): Pt states mother was a healthy person. Medications and Allergies Home Medications Medication Instructions Recorded Confirmed Type Aspirin 81 mg PO HS@209908/26/14 06/11/18 History Atorvastatin [Lipitor] 40 mg PO HS@209908/26/14 06/11/18 History Cholecalciferol [Vitamin D3] 1,000 unit PO DAILY@89908/26/14 06/11/18 History Cilostazol [Pletal] 100 mg PO DAILY@89908/26/14 06/11/18 History DULoxetine HCL [Cymbalta] 60 mg PO DAILY@0908/26/14 06/11/18 History Donepezil [Aricept] 10 mg PO BID@0900,209908/26/14 06/11/18 History [place]-3 Fatty Acids/Fish Oil [Fish 1 cap PO HS@209908/26/14 06/11/18 History Oil 1,000 mg Softgel] Nitroglycerin Sl Tabs [Nitrostat] 0.4 mg SUBLINGUAL Q5M PRN 10/16/14 06/11/18 History Tamsulosin HCl [Flomax] 0.4 mg PO DAILY@0900 05/24/15 06/11/18 History Isosorbide Mononitrate ER [Imdur] 30 mg PO DAILY@0900 10/15/15 06/11/18 History Melatonin 3 mg PO HS@209910/15/15 06/11/18 History amLODIPine [Norvasc] 5 mg PO DAILY@0900 06/11/16 06/11/18 History Furosemide [Lasix] 20 mg PO BID@0600,1300 08/14/17 06/11/18 History Levothyroxine Sodium [Synthroid] 75 mcg PO DAILY@0600 08/14/17 06/11/18 History Acetaminophen [Tylenol] 650 mg PO Q6HR PRN 10/09/17 06/11/18 History Memantine [Namenda] 10 mg PO BID@0900,2100 10/09/17 06/11/18 History Tolterodine Tartrate [Detrol LA] 4 mg PO HS@209910/09/17 06/11/18 History Apixaban [Eliquis] 2.5 mg PO BID@0900,2100 06/11/18 06/11/18 History Atenolol [Tenormin] 50 mg PO DAILY@0900 06/11/18 06/11/18 History DULoxetine HCL [Cymbalta] 30 mg PO DAILY@0900 06/11/18 06/11/18 History Dimethicone/Zinc Oxide [Inzo Zinc 1 applic TOPICAL Q12H 06/11/18 06/11/18 History Oxide Barrier Cream] HYDROcodone/APAP 5-325MG [[place] 1 tab PO Q8H PRN 06/11/18 06/11/18 History 5-325] Insulin Detemir [Levemir Flextouch] 32 units SQ BID@0900,2100 06/11/18 06/11/18 History Insulin Lispro [humaLOG Kwikpen] 6 unit SQ AC-TID 06/11/18 06/11/18 History Liraglutide [Victoza 2-Yayo] 1.2 mg SQ HS@209906/11/18 06/11/18 History Allergies Allergy/AdvReac Type Severity Reaction Status Date / Time ciprofloxacin [From Cipro] Allergy Swelling Verified 06/11/18 10:28 ciprofloxacin HCl Allergy Swelling Verified 06/11/18 10:28 [From Cipro] latex Allergy Unknown Verified 06/11/18 10:28 NSAIDS (Non-Steroidal Allergy Unknown Verified 06/11/18 10:28 Anti-Inflamma Quinolones Allergy Unknown Verified 06/11/18 10:28 Physical Exam Vitals: Vital Signs Temp Pulse Pulse Resp BP BP Pulse Ox 06/11/18 16:54 98.0 F 59 L 16 147/81 06/11/18 12:37 97.4 F L 83 16 160/85 92 L 06/11/18 11:30 67 18 132/93 06/11/18 11:00 73 17 137/89 06/11/18 10:30 69 18 150/93 06/11/18 10:00 71 19 144/99 06/11/18 09:30 84 16 141/90 06/11/18 09:00 71 18 148/105 06/11/18 08:30 67 18 171/95 06/11/18 08:00 74 18 155/88 95 06/11/18 07:30 64 16 161/96 96 06/11/18 07:14 98.1 F 68 18 161/96 97 Intake and Output 06/11/18 06/11/18 06/11/18 06:59 14:59 22:59 Other: # Voids 1 # Bowel Movements 1 Weight 110.223 kg General appearance: The patient is stated age, pleasant in no apparent distress. HET: Head is normocephalic and atraumatic. Pupils are equal and reactive. Oropharynx is clear without lesions. Neck: Supple without lymphadenopathy. Trachea midline. Heart: S1 S2. Irregular rhythm. Lungs: No crackles or wheezes are heard. Abdomen: Soft, nontender, nondistended with bowel sounds. No peritoneal signs. No palpable organomegaly or masses. Extremities: Normal skin color and turgor. No cyanosis, rash, ulceration, clubbing, or edema. Radial and pedal pulses are 2/4 bilaterally. Neurological: Oriented X3. No focal deficits. Strength and sensation are grossly intact. Results CBC & Chem 7: 06/11/18 23:47 06/11/18 08:22 Labs: Abnormal Lab Results - Last 24 Hours (Table) 06/11/18 06/11/18 06/11/18 Range/Units 08:22 08:22 14:50 WBC 11.5 H (3.8-10.6) k/uL Neutrophils # 8.3 H (1.3-7.7) k/uL BUN 31 H (9-20) mg/dL Creatinine 1.44 H (0.66-1.25) mg/dL Glucose 118 H (74-99) mg/dL ALT 18 L (21-72) U/L Total Creatine Kinase 34 L (55-170) U/L Assessment and Plan Assessment: 77-year-old male with rectal bleeding that could be related to diverticular disease or hemorrhoids or other perianal pathology. Ischemic or self-limited colitis to be considered as well. The patient has been on anticoagulation because of atrial fibrillation which has been held. Plan: I agree with your current management. We will monitor his blood counts and clinical condition closely. Would consider colonoscopy in 24-48 hours based on his course.
[2018-06-12 04:36] LABS: HCT 34.6 % (39.0-53.0); HGB 11.6 gm/dL (13.0-17.5); MCHC 33.7 g/dL (31.0-37.0); MCV 92.2 fL (80.0-100.0); Mean Platelet Volume 8.4; Platelet Count 231 k/uL (150-450); RBC 3.75 m/uL (4.30-5.90); RDW 14.1 % (11.5-15.5); WBC 10.5 k/uL (3.8-10.6)
[2018-06-12 04:51] LABS: Calcium 8.7 mg/dL (8.4-10.2); Potassium 3.7 mmol/L (3.5-5.1)
[2018-06-12] MEDS: INSULIN ASPART 100 UNIT/ML 1 ML 10 ML VIAL SQ SCH ×4 (06:18→21:34)
[2018-06-12] MEDS: LEVOTHYROXINE 75 MCG TAB PO SCH (06:21)
[2018-06-12 06:34] LABS: Glucose,Whole Blood 137 mg/dL (75-99)
[2018-06-12 07:44] LABS: HCT 34.5 % (39.0-53.0); HGB 11.5 gm/dL (13.0-17.5); MCH 30.8 pg (25.0-35.0); MCHC 33.4 g/dL (31.0-37.0); MCV 92.2 fL (80.0-100.0); Mean Platelet Volume 8.1; Platelet Count 213 k/uL (150-450); RBC 3.74 m/uL (4.30-5.90); RDW 14.2 % (11.5-15.5); WBC 10.4 k/uL (3.8-10.6)
[2018-06-12] MEDS: PANTOPRAZOLE 40 MG/10 ML VIAL IV SCH (10:45)
[2018-06-12] MEDS: ATENOLOL 50 MG TAB PO SCH (10:48)
[2018-06-12] MEDS: CILOSTAZOL 100 MG TAB PO SCH (10:49)
[2018-06-12] MEDS: DONEPEZIL 10 MG TAB PO SCH ×2 (10:49→20:24)
[2018-06-12] MEDS: DULoxetine HCL 60 MG CAPSULE.DR PO SCH (10:50)
[2018-06-12] MEDS: SODIUM CHLORIDE 0.9% 1,000 ML IV SCH (10:50)
[2018-06-12] MEDS: DULoxetine HCL 30 MG CAPSULE.DR PO SCH (10:51)
[2018-06-12] MEDS: ISOSORBIDE MONONITRATE ER 30 MG TAB.ER.24H PO SCH (10:51)
[2018-06-12 11:50] LABS: Glucose,Whole Blood 205 mg/dL (75-99)
--- NOTE | 2018-06-12 12:32 | P.PN ---
Subjective Patient is admitted for lower GI bleed, gastroenterology evaluated the patient patient probably will undergo colonoscopy the today tomorrow. Patient is another cause which is being held patient does have paroxysmal atrial fibrillation patient did have coronary artery bypass grafting in the past and is on aspirin as well both of these are being held. Patient had 1 bloody bowel movement today. Constitutional: Denied any fatigue denied any fever. Cardio vascular: denied any chest pain, palpitations Gastrointestinal denied any nausea vomiting Pulmonary: Denied any shortness of breath cough Neurologic denied any new focal deficits All inpatient medications were reviewed and appropriate changes in these medications as dictated in the interval history and assessment and plan. Objective - Vital Signs Vital signs: Vital Signs Temp 97.6 F 06/12/18 04:45 Pulse 96 06/12/18 04:45 Resp 18 06/12/18 04:45 BP 124/75 06/12/18 04:45 Pulse Ox 95 06/12/18 04:45 Intake & Output 06/11/18 06/12/18 06/12/18 18:59 06:59 18:59 Intake Total 30 260 480 Balance 30 260 480 Weight 110.223 kg 102.5 kg Intake: IV 30 Invasive Line 1 10 Sodium Chloride 0.9% 1, 20 000 ml @ 20 mls/hr IV . Q24H [facility] Rx#:[id number] Oral 260 480 Other: Voiding Method Diaper Diaper # Voids 1 1 1 # Bowel Movements 1 1 - Exam PHYSICAL EXAMINATION: GENERAL: The patient is alert and oriented x3, not in any acute distress. Well developed, well nourished. HEENT: Pupils are round and equally reacting to light. EOMI. No scleral icterus. No conjunctival pallor. Normocephalic, atraumatic. No pharyngeal erythema. No thyromegaly. CARDIOVASCULAR: S1 and S2 present. No murmurs, rubs, or gallops. PULMONARY: Chest is clear to auscultation, no wheezing or crackles. ABDOMEN: Soft, nontender, nondistended, normoactive bowel sounds. No palpable organomegaly. MUSCULOSKELETAL: No joint swelling or deformity. Has a left shoulder brace place in place EXTREMITIES: No cyanosis, clubbing, or pedal edema. NEUROLOGICAL: Gross neurological examination did not reveal any focal deficits. SKIN: No rashes. - Labs CBC & Chem 7: 06/12/18 07:14 06/12/18 03:59 Labs: Abnormal Lab Results - Last 24 Hours (Table) 06/11/18 06/11/18 06/11/18 Range/Units 14:50 17:10 20:46 WBC 11.5 H 11.4 H (3.8-10.6) k/uL RBC 4.17 L (4.30-5.90) m/uL Hgb 12.3 L (13.0-17.5) gm/dL Hct 38.5 L (39.0-53.0) % Neutrophils # 8.3 H 8.4 H (1.3-7.7) k/uL BUN (9-20) mg/dL Creatinine (0.66-1.25) mg/dL Glucose (74-99) mg/dL POC Glucose (mg/dL) 120 H (75-99) mg/dL 06/11/18 06/11/18 06/12/18 Range/Units 20:50 23:47 03:59 WBC (3.8-10.6) k/uL RBC 3.84 L (4.30-5.90) m/uL Hgb 12.2 L (13.0-17.5) gm/dL Hct 34.9 L (39.0-53.0) % Neutrophils # (1.3-7.7) k/uL BUN 29 H (9-20) mg/dL Creatinine 1.27 H (0.66-1.25) mg/dL Glucose 130 H (74-99) mg/dL POC Glucose (mg/dL) 163 H (75-99) mg/dL 06/12/18 06/12/18 06/12/18 Range/Units 03:59 06:13 07:14 WBC (3.8-10.6) k/uL RBC 3.75 L 3.74 L (4.30-5.90) m/uL Hgb 11.6 L 11.5 L (13.0-17.5) gm/dL Hct 34.6 L 34.5 L (39.0-53.0) % Neutrophils # (1.3-7.7) k/uL BUN (9-20) mg/dL Creatinine (0.66-1.25) mg/dL Glucose (74-99) mg/dL POC Glucose (mg/dL) 137 H (75-99) mg/dL 06/12/18 Range/Units 11:48 WBC (3.8-10.6) k/uL RBC (4.30-5.90) m/uL Hgb (13.0-17.5) gm/dL Hct (39.0-53.0) % Neutrophils # (1.3-7.7) k/uL BUN (9-20) mg/dL Creatinine (0.66-1.25) mg/dL Glucose (74-99) mg/dL POC Glucose (mg/dL) 205 H (75-99) mg/dL Assessment and Plan Plan: -Acute lower GI bleed: Probably diverticular, ischemic the etiology need to be considered considering his atrial fibrillation. Gastroneurology evaluated by the patient hold off on Eliquis and aspirin. Patient can use to have lower GI bleed because of the continued effective for the course -Chronic kidney disease stage III secondary to hypertensive nephrosclerosis my creatinine improved will continue with the IV fluids for more day -Dementia moderate but patient is oriented times close to 3 -Type 2 diabetes mellitus -History of atrial flutter/fibrillation proximal: Can you to hold her anti- coagulation because of above-mentioned reasons -History of CVA TIA in the past possible congestive heart failure chronic diastolic dysfunction presently not in acute exacerbation patient is presently hypovolemic
[2018-06-12 12:47] LABS: Hemoglobin A1C 7.6 % (4.0-6.0)
[2018-06-12 12:55] LABS: HCT 34.3 % (39.0-53.0); HGB 11.4 gm/dL (13.0-17.5); MCH 30.6 pg (25.0-35.0); MCHC 33.2 g/dL (31.0-37.0); MCV 92.1 fL (80.0-100.0); Mean Platelet Volume 8.1; Platelet Count 243 k/uL (150-450); RBC 3.72 m/uL (4.30-5.90); RDW 14.2 % (11.5-15.5); WBC 10.6 k/uL (3.8-10.6)
[2018-06-12 16:20] LABS: HCT 31.6 % (39.0-53.0); HGB 10.6 gm/dL (13.0-17.5); MCH 30.4 pg (25.0-35.0); MCHC 33.4 g/dL (31.0-37.0); MCV 90.8 fL (80.0-100.0); Mean Platelet Volume 8.6; Platelet Count 209 k/uL (150-450); RBC 3.49 m/uL (4.30-5.90); RDW 14.1 % (11.5-15.5); WBC 10.3 k/uL (3.8-10.6)
[2018-06-12 17:01] LABS: Glucose,Whole Blood 134 mg/dL (75-99)
[2018-06-12] MEDS: HYDROcodone/APAP 5-325MG 1 EACH TAB PO PRN (17:15)
[2018-06-12 20:06] LABS: HCT 32.4 % (39.0-53.0); HGB 10.8 gm/dL (13.0-17.5); MCH 31.9 pg (25.0-35.0); MCHC 33.3 g/dL (31.0-37.0); Mean Platelet Volume 7.8; Platelet Count 214 k/uL (150-450); RBC 3.38 m/uL (4.30-5.90); RDW 14.4 % (11.5-15.5); WBC 9.4 k/uL (3.8-10.6)
[2018-06-12 20:08] LABS: MCV 95.9 fL (80.0-100.0)
[2018-06-12] MEDS: OXYBUTYNIN XL 5 MG TAB.ER.24 PO SCH (20:24)
[2018-06-12] MEDS: ATORVASTATIN 40 MG TAB PO SCH (20:24)
[2018-06-12 21:19] LABS: Glucose,Whole Blood 179 mg/dL (75-99)
[2018-06-13 01:14] LABS: HCT 32.1 % (39.0-53.0); HGB 10.6 gm/dL (13.0-17.5); MCH 30.8 pg (25.0-35.0); MCHC 33.1 g/dL (31.0-37.0); MCV 92.9 fL (80.0-100.0); Mean Platelet Volume 8.4; Platelet Count 210 k/uL (150-450); RBC 3.46 m/uL (4.30-5.90); RDW 14.3 % (11.5-15.5); WBC 8.5 k/uL (3.8-10.6)
[2018-06-13 04:30] LABS: HCT 30.9 % (39.0-53.0); HGB 10.7 gm/dL (13.0-17.5); MCH 31.5 pg (25.0-35.0); MCHC 34.6 g/dL (31.0-37.0); MCV 91.2 fL (80.0-100.0); Mean Platelet Volume 8.7; Platelet Count 194 k/uL (150-450); RBC 3.39 m/uL (4.30-5.90); RDW 14.2 % (11.5-15.5); WBC 9.4 k/uL (3.8-10.6)
[2018-06-13 04:34] LABS: Albumin 2.7 g/dL (3.5-5.0); Calcium 8.7 mg/dL (8.4-10.2); Potassium 3.6 mmol/L (3.5-5.1); Total Protein 5.2 g/dL (6.3-8.2)
[2018-06-13 06:27] LABS: Glucose,Whole Blood 164 mg/dL (75-99)
[2018-06-13 06:29] LABS: HCT 31.8 % (39.0-53.0); HGB 11.3 gm/dL (13.0-17.5); MCH 32.5 pg (25.0-35.0); MCHC 35.5 g/dL (31.0-37.0); MCV 91.5 fL (80.0-100.0); Platelet Count 211 k/uL (150-450); RBC 3.48 m/uL (4.30-5.90); RDW 14.2 % (11.5-15.5)
[2018-06-13] MEDS: INSULIN ASPART 100 UNIT/ML 1 ML 10 ML VIAL SQ SCH ×4 (06:40→23:46)
--- NOTE | 2018-06-13 07:15 | P.PN ---
Subjective Progress Note Date: 06/12/18 Principal diagnosis: Bright red blood per rectum Patient reports having some blood with bowel movement this morning. No abdominal pain reported no nausea or vomiting. Objective - Vital Signs Vital signs: Vital Signs Temp 98.4 F 06/12/18 20:26 Pulse 87 06/12/18 23:27 Resp 18 06/12/18 23:27 BP 122/81 06/12/18 23:27 Pulse Ox 97 06/12/18 23:27 Intake & Output 06/12/18 06/12/18 06/13/18 06:59 18:59 06:59 Intake Total 260 960 Balance 260 960 Weight 102.5 kg Intake: Oral 260 960 Other: Voiding Method Diaper Diaper # Voids 1 1 # Bowel Movements 1 - Exam On physical examination, patient appears comfortable in no apparent distress. HEAD: Normocephalic, atraumatic. EYES: No scleral icterus. No conjunctival injection. MOUTH: No lesions, tongue midline. NECK: Trachea midline, no gross abnormalities. CHEST: Clear to auscultation with no wheezing or rhonchi appreciated. HEART: Regular rate and rhythm. ABDOMEN: Soft, obese. Bowel sounds are positive. No organomegaly. No guarding or rigidity. EXTREMITIES: No pedal edema. SKIN: No rashes, no jaundice. NEUROLOGIC: Alert and oriented. - Labs CBC & Chem 7: 06/13/18 05:37 06/13/18 04:01 Labs: Abnormal Lab Results - Last 24 Hours (Table) 06/11/18 06/11/18 06/12/18 Range/Units 20:46 23:47 03:59 RBC 3.84 L (4.30-5.90) m/uL Hgb 12.2 L (13.0-17.5) gm/dL Hct 34.9 L (39.0-53.0) % BUN 29 H (9-20) mg/dL Creatinine 1.27 H (0.66-1.25) mg/dL Glucose 130 H (74-99) mg/dL POC Glucose (mg/dL) (75-99) mg/dL Hemoglobin A1c 7.6 H (4.0-6.0) % 06/12/18 06/12/18 06/12/18 Range/Units 03:59 06:13 07:14 RBC 3.75 L 3.74 L (4.30-5.90) m/uL Hgb 11.6 L 11.5 L (13.0-17.5) gm/dL Hct 34.6 L 34.5 L (39.0-53.0) % BUN (9-20) mg/dL Creatinine (0.66-1.25) mg/dL Glucose (74-99) mg/dL POC Glucose (mg/dL) 137 H (75-99) mg/dL Hemoglobin A1c (4.0-6.0) % 06/12/18 06/12/18 06/12/18 Range/Units 11:48 12:16 15:43 RBC 3.72 L 3.49 L (4.30-5.90) m/uL Hgb 11.4 L 10.6 L (13.0-17.5) gm/dL Hct 34.3 L 31.6 L (39.0-53.0) % BUN (9-20) mg/dL Creatinine (0.66-1.25) mg/dL Glucose (74-99) mg/dL POC Glucose (mg/dL) 205 H (75-99) mg/dL Hemoglobin A1c (4.0-6.0) % 06/12/18 06/12/18 06/12/18 Range/Units 16:58 19:41 21:13 RBC 3.38 L (4.30-5.90) m/uL Hgb 10.8 L (13.0-17.5) gm/dL Hct 32.4 L (39.0-53.0) % BUN (9-20) mg/dL Creatinine (0.66-1.25) mg/dL Glucose (74-99) mg/dL POC Glucose (mg/dL) 134 H 179 H (75-99) mg/dL Hemoglobin A1c (4.0-6.0) % Assessment and Plan (1) Lower GI hemorrhage Narrative/Plan: Patient presenting with painless bright red blood per rectum. Differential includes hemorrhoidal disease, diverticulosis, bleeding AVMs or other etiology. Hemoglobin has been stable at 10.7 from 10.6 previously. Given the stability of the patient's hemoglobin and his left shoulder pain we'll continue conservative management. Current Visit: Yes Status: Acute Code(s): K92.2 - GASTROINTESTINAL HEMORRHAGE, UNSPECIFIED SNOMED Code(s): 28555004 Plan: Supportive care Monitor hemoglobin and transfuse as needed Will order Anusol for local hemorrhoidal treatment Okay for diet No plans for endoscopic evaluation at this time, would recommend patient follow up in the outpatient setting after discharge for scheduling of colonoscopy in 4- 6 weeks and when shoulder injury is improved Thank you for allowing us to participate in the care of the patient, we will continue to follow
[2018-06-13] MEDS: PANTOPRAZOLE 40 MG/10 ML VIAL IV SCH (08:24)
[2018-06-13] MEDS: DULoxetine HCL 30 MG CAPSULE.DR PO SCH (08:25)
[2018-06-13] MEDS: DONEPEZIL 10 MG TAB PO SCH ×2 (08:25→23:57)
[2018-06-13] MEDS: ISOSORBIDE MONONITRATE ER 30 MG TAB.ER.24H PO SCH (08:25)
[2018-06-13] MEDS: CILOSTAZOL 100 MG TAB PO SCH (08:25)
[2018-06-13] MEDS: DULoxetine HCL 60 MG CAPSULE.DR PO SCH (08:25)
[2018-06-13] MEDS: ATENOLOL 50 MG TAB PO SCH (08:25)
[2018-06-13] MEDS: LEVOTHYROXINE 75 MCG TAB PO SCH (08:30)
[2018-06-13] MEDS: SODIUM CHLORIDE 0.9% 1,000 ML IV SCH (09:03)
[2018-06-13] MEDS: HYDROCORTISONE SUPPOSITORY 25 MG SUPP RECTAL SCH (11:01)
[2018-06-13 11:33] LABS: Glucose,Whole Blood 218 mg/dL (75-99)
[2018-06-13 16:45] LABS: Glucose,Whole Blood 216 mg/dL (75-99)
--- NOTE | 2018-06-13 18:36 | P.PN ---
Subjective Patient is admitted for lower GI bleed, gastroenterology evaluated the patient patient probably will undergo colonoscopy the today tomorrow. Patient is another cause which is being held patient does have paroxysmal atrial fibrillation patient did have coronary artery bypass grafting in the past and is on aspirin as well both of these are being held. Patient had 1 bloody bowel movement today. 06/13/2018 Patient has couple stools which were dark, patient will be monitor 1 more day before he can discharge him. Patient was diagnosed with the hemorrhoids and patient has anusol suppositories Constitutional: Denied any fatigue denied any fever. Cardio vascular: denied any chest pain, palpitations Gastrointestinal denied any nausea vomiting Pulmonary: Denied any shortness of breath cough Neurologic denied any new focal deficits All inpatient medications were reviewed and appropriate changes in these medications as dictated in the interval history and assessment and plan. Objective - Vital Signs Vital signs: Vital Signs Temp 98.3 F 06/13/18 15:38 Pulse 66 06/13/18 15:40 Resp 18 06/13/18 15:40 BP 128/92 06/13/18 15:38 Pulse Ox 98 06/13/18 15:38 Intake & Output 06/12/18 06/13/18 06/13/18 18:59 06:59 18:59 Intake Total 960 480 Balance 960 480 Weight 103 kg Intake: IV 240 Sodium Chloride 0.9% 1, 240 000 ml @ 20 mls/hr IV . Q24H [facility] Rx#:[id number] Oral 960 240 Other: Voiding Method Diaper Diaper # Voids 1 2 1 # Bowel Movements 1 1 - Exam PHYSICAL EXAMINATION: GENERAL: The patient is alert and oriented x3, not in any acute distress. Well developed, well nourished. HEENT: Pupils are round and equally reacting to light. EOMI. No scleral icterus. No conjunctival pallor. Normocephalic, atraumatic. No pharyngeal erythema. No thyromegaly. CARDIOVASCULAR: S1 and S2 present. No murmurs, rubs, or gallops. PULMONARY: Chest is clear to auscultation, no wheezing or crackles. ABDOMEN: Soft, nontender, nondistended, normoactive bowel sounds. No palpable organomegaly. MUSCULOSKELETAL: No joint swelling or deformity. Has a left shoulder brace place in place EXTREMITIES: No cyanosis, clubbing, or pedal edema. NEUROLOGICAL: Gross neurological examination did not reveal any focal deficits. SKIN: No rashes. - Labs CBC & Chem 7: 06/13/18 05:37 06/13/18 04:01 Labs: Abnormal Lab Results - Last 24 Hours (Table) 06/12/18 06/12/18 06/13/18 Range/Units 19:41 21:13 00:15 RBC 3.38 L 3.46 L (4.30-5.90) m/uL Hgb 10.8 L 10.6 L (13.0-17.5) gm/dL Hct 32.4 L 32.1 L (39.0-53.0) % Chloride (98-107) mmol/L BUN (9-20) mg/dL Creatinine (0.66-1.25) mg/dL Glucose (74-99) mg/dL POC Glucose (mg/dL) 179 H (75-99) mg/dL AST (17-59) U/L Total Protein (6.3-8.2) g/dL Albumin (3.5-5.0) g/dL 06/13/18 06/13/18 06/13/18 Range/Units 04:01 04:01 05:37 RBC 3.39 L 3.48 L (4.30-5.90) m/uL Hgb 10.7 L 11.3 L (13.0-17.5) gm/dL Hct 30.9 L 31.8 L (39.0-53.0) % Chloride 109 H (98-107) mmol/L BUN 32 H (9-20) mg/dL Creatinine 1.35 H (0.66-1.25) mg/dL Glucose 139 H (74-99) mg/dL POC Glucose (mg/dL) (75-99) mg/dL AST 15 L (17-59) U/L Total Protein 5.2 L (6.3-8.2) g/dL Albumin 2.7 L (3.5-5.0) g/dL 06/13/18 06/13/18 06/13/18 Range/Units 06:08 11:31 16:43 RBC (4.30-5.90) m/uL Hgb (13.0-17.5) gm/dL Hct (39.0-53.0) % Chloride (98-107) mmol/L BUN (9-20) mg/dL Creatinine (0.66-1.25) mg/dL Glucose (74-99) mg/dL POC Glucose (mg/dL) 164 H 218 H 216 H (75-99) mg/dL AST (17-59) U/L Total Protein (6.3-8.2) g/dL Albumin (3.5-5.0) g/dL Assessment and Plan Plan: -Acute lower GI bleed: Believed to be secondary to hemorrhoids, gastroenterology evaluated by the patient hold off on Eliquis and aspirin. Patient can use to have lower GI bleed because of the continued effective for the course -Chronic kidney disease stage III secondary to hypertensive nephrosclerosis my creatinine improved to IV fluids will be discontinued -Dementia moderate but patient is oriented times close to 3 -Type 2 diabetes mellitus -History of atrial flutter/fibrillation proximal: Can you to hold her anti- coagulation because of above-mentioned reasons -History of CVA TIA in the past possible congestive heart failure chronic diastolic dysfunction presently not in acute exacerbation patient is presently hypovolemic
[2018-06-13 21:18] LABS: Glucose,Whole Blood 166 mg/dL (75-99)
[2018-06-13] MEDS: OXYBUTYNIN XL 5 MG TAB.ER.24 PO SCH (23:45)
[2018-06-13] MEDS: ATORVASTATIN 40 MG TAB PO SCH (23:45)
[2018-06-14 05:45] LABS: Glucose,Whole Blood 136 mg/dL (75-99)
[2018-06-14 06:14] LABS: HCT 31.1 % (39.0-53.0); HGB 10.9 gm/dL (13.0-17.5); MCHC 35.1 g/dL (31.0-37.0); MCV 90.9 fL (80.0-100.0); Mean Platelet Volume 8.7; Platelet Count 245 k/uL (150-450); RBC 3.42 m/uL (4.30-5.90); RDW 14.4 % (11.5-15.5); WBC 9.4 k/uL (3.8-10.6)
[2018-06-14 06:34] LABS: Calcium 8.9 mg/dL (8.4-10.2); Potassium 3.5 mmol/L (3.5-5.1)
[2018-06-14] MEDS: LEVOTHYROXINE 75 MCG TAB PO SCH (06:56)
[2018-06-14] MEDS: INSULIN ASPART 100 UNIT/ML 1 ML 10 ML VIAL SQ SCH ×2 (06:57→12:26)
--- NOTE | 2018-06-14 07:26 | P.PN ---
Subjective Progress Note Date: 06/13/18 Principal diagnosis: Bright red blood per rectum Patient lying in bed. Tolerating liquid diets, with nursing reporting that the patient ate his old trade. He did have 3 bowel movements with some clots noted. Objective - Vital Signs Vital signs: Vital Signs Temp 98.0 F 06/14/18 00:00 Pulse 68 06/14/18 03:54 Resp 18 06/14/18 03:54 BP 131/77 06/14/18 00:00 Pulse Ox 93 L 06/14/18 00:00 Intake & Output 06/13/18 06/14/18 06/14/18 18:59 06:59 18:59 Intake Total 980 Balance 980 Weight 101.5 kg Intake: IV 240 Sodium Chloride 0.9% 1, 240 000 ml @ 20 mls/hr IV . Q24H [facility] Rx#:[id number] Oral 740 Other: Voiding Method Diaper Diaper # Voids 1 1 # Bowel Movements 1 - Exam On physical examination, patient appears comfortable in no apparent distress. HEAD: Normocephalic, atraumatic. EYES: No scleral icterus. No conjunctival injection. MOUTH: No lesions, tongue midline. NECK: Trachea midline, no gross abnormalities. CHEST: Clear to auscultation with no wheezing or rhonchi appreciated. HEART: Regular rate and rhythm. ABDOMEN: Soft, obese. Bowel sounds are positive. No organomegaly. No guarding or rigidity. EXTREMITIES: No pedal edema. SKIN: No rashes, no jaundice. NEUROLOGIC: Alert and oriented. - Labs CBC & Chem 7: 06/14/18 05:31 06/14/18 05:31 Labs: Abnormal Lab Results - Last 24 Hours (Table) 06/13/18 06/13/18 06/13/18 Range/Units 11:31 16:43 21:09 RBC (4.30-5.90) m/uL Hgb (13.0-17.5) gm/dL Hct (39.0-53.0) % Chloride (98-107) mmol/L BUN (9-20) mg/dL Creatinine (0.66-1.25) mg/dL Glucose (74-99) mg/dL POC Glucose (mg/dL) 218 H 216 H 166 H (75-99) mg/dL 06/14/18 06/14/18 06/14/18 Range/Units 05:23 05:31 05:31 RBC 3.42 L (4.30-5.90) m/uL Hgb 10.9 L (13.0-17.5) gm/dL Hct 31.1 L (39.0-53.0) % Chloride 110 H (98-107) mmol/L BUN 21 H (9-20) mg/dL Creatinine 1.35 H (0.66-1.25) mg/dL Glucose 146 H (74-99) mg/dL POC Glucose (mg/dL) 136 H (75-99) mg/dL Assessment and Plan (1) Lower GI hemorrhage Narrative/Plan: Patient presenting with painless bright red blood per rectum. Differential includes hemorrhoidal disease, diverticulosis, bleeding AVMs or other etiology. Hemoglobin has been stable at 11.3 from 10.7 previously. Given the stability of the patient's hemoglobin and his left shoulder pain we'll continue conservative management. Current Visit: Yes Status: Acute Code(s): K92.2 - GASTROINTESTINAL HEMORRHAGE, UNSPECIFIED SNOMED Code(s): 51080636 Plan: Supportive care Monitor hemoglobin and transfuse as needed Will order Anusol for local hemorrhoidal treatment Okay for diet, advanced to GI soft today No plans for endoscopic evaluation at this time, would recommend patient follow up in the outpatient setting after discharge for scheduling of colonoscopy in 4- 6 weeks and when shoulder injury is improved Thank you for allowing us to participate in the care of the patient, we will continue to follow
--- NOTE | 2018-06-14 07:45 | XR ---
EXAMINATION TYPE: XR chest 1V DATE OF EXAM: 06/14/2018 COMPARISON: Prior chest x-ray 10/09/2017 HISTORY: Congestive heart failure TECHNIQUE: Single frontal view of the chest is obtained. FINDINGS: Patient is post median sternotomy. No evident pneumothorax or sizable effusion. There are cardiac leads. Pulmonary vascularity and miguel are similar. Heart size is stable. Interstitium is incr eased. Some thickening along the right lateral pleural margin is stable and may be related to remote trauma. IMPRESSION: Correlate for volume overload, pulmonary venous hypertension and interstitial edema. Fol low-up recommended.
[2018-06-14] MEDS: PANTOPRAZOLE 40 MG/10 ML VIAL IV SCH (10:19)
[2018-06-14] MEDS: HYDROcodone/APAP 5-325MG 1 EACH TAB PO PRN (10:19)
[2018-06-14] MEDS: CILOSTAZOL 100 MG TAB PO SCH (10:20)
[2018-06-14] MEDS: HYDROCORTISONE SUPPOSITORY 25 MG SUPP RECTAL SCH (10:20)
[2018-06-14] MEDS: DULoxetine HCL 30 MG CAPSULE.DR PO SCH (10:20)
[2018-06-14] MEDS: ATENOLOL 50 MG TAB PO SCH (10:20)
[2018-06-14] MEDS: DONEPEZIL 10 MG TAB PO SCH (10:20)
[2018-06-14] MEDS: DULoxetine HCL 60 MG CAPSULE.DR PO SCH (10:20)
[2018-06-14] MEDS: ISOSORBIDE MONONITRATE ER 30 MG TAB.ER.24H PO SCH (10:21)
[2018-06-14] MEDS: SODIUM CHLORIDE 0.9% 1,000 ML IV SCH (10:22)
[2018-06-14 11:00] LABS: Glucose,Whole Blood 253 mg/dL (75-99)
[2018-06-14 11:55] VITALS: RESP 17; TEMP 98.2
[2018-06-14 11:57] VITALS: BP 111/69; PULSE 77
[2018-06-14] MEDS ORDERED: FUROSEMIDE 10 MG/ML 4 ML VIAL IV STA (12:24)
--- NOTE | 2018-06-14 12:32 | P.DS ---
Providers Date of admission: 06/12/18 07:50 Attending physician: Shelbi Ruvalcaba Primary care physician: E[facility]: [address] [facility] Course: Patient is admitted for lower GI bleed, gastroenterology evaluated the patient patient probably will undergo colonoscopy the today tomorrow. Patient is another cause which is being held patient does have paroxysmal atrial fibrillation patient did have coronary artery bypass grafting in the past and is on aspirin as well both of these are being held. Patient had 1 bloody bowel movement today. 06/13/2018 Patient has couple stools which were dark, patient will be monitor 1 more day before he can discharge him. Patient was diagnosed with the hemorrhoids and patient has anusol suppositories 06/14/2018 Patient GI bleed resolved patient is clinically doing well discussed with the gastroenterology, they recommended to resume aspirin and Eliquis patient has GI bleed again, he requested to be completely discontinued patient is using Eliquis for stroke prevention purposes for atrial fibrillation. And GI bleed is believed secondary to hemorrhoids. Patient was on 20 mg of Lasix as an outpatient twice a day which is being held and patient has mild pulmonary edema will give him a dose of IV Lasix before discharge patient will be resumed on oral Lasix along with the potassium supplementation as his potassium was only 3.5 today Constitutional: Denied any fatigue denied any fever. Cardio vascular: denied any chest pain, palpitations Gastrointestinal denied any nausea vomiting Pulmonary: Denied any shortness of breath cough Neurologic denied any new focal deficits All inpatient medications were reviewed and appropriate changes in these medications as dictated in the interval history and assessment and plan. Assessment and Plan Plan: -Acute lower GI bleed: Believed to be secondary to hemorrhoids, gastroenterology evaluated by the patient . -Chronic kidney disease stage III secondary to hypertensive nephrosclerosis . -Dementia moderate but patient is oriented times close to 3 -Type 2 diabetes mellitus -History of atrial flutter/fibrillation proximal: Being resumed on anticoagulation -History of CVA TIA in the past possible congestive heart failure chronic diastolic dysfunction Plan - Discharge Summary New Discharge Prescriptions: New Hydrocortisone Suppository [Anusol-Hc] 25 mg RECTAL DAILY supp Potassium Chloride ER [K-Dur 20] 20 meq PO DAILY #30 tab Continue Cilostazol [Pletal] 100 mg PO DAILY@0900 Cholecalciferol [Vitamin D3] 1,000 unit PO DAILY@0900 DULoxetine HCL [Cymbalta] 60 mg PO DAILY@0900 [employer] Fatty Acids/Fish Oil [Fish Oil 1,000 mg Softgel] 1 cap PO HS@2099 Atorvastatin [Lipitor] 40 mg PO HS@2100 Aspirin 81 mg PO HS@2100 Donepezil [Aricept] 10 mg PO BID@0900,2099 Nitroglycerin Sl Tabs [Nitrostat] 0.4 mg SUBLINGUAL Q5M PRN PRN Reason: Chest Pain Tamsulosin HCl [Flomax] 0.4 mg PO DAILY@0900 Melatonin 3 mg PO HS@2099 Isosorbide Mononitrate ER [Imdur] 30 mg PO DAILY@0900 Levothyroxine Sodium [Synthroid] 75 mcg PO DAILY@0600 Furosemide [Lasix] 20 mg PO BID@0600,1300 Tolterodine Tartrate [Detrol LA] 4 mg PO HS@2099 Memantine [Namenda] 10 mg PO BID@0900,2099 Acetaminophen [Tylenol] 650 mg PO Q6HR PRN PRN Reason: Pain Insulin Lispro [humaLOG Kwikpen] 6 unit SQ AC-TID Liraglutide [Victoza 2-Yayo] 1.2 mg SQ HS@2100 DULoxetine HCL [Cymbalta] 30 mg PO DAILY@0900 Dimethicone/Zinc Oxide [Inzo Zinc Oxide Barrier Cream] 1 applic TOPICAL Q12H Atenolol [Tenormin] 50 mg PO DAILY@0900 Apixaban [Eliquis] 2.5 mg PO BID@0900,2100 HYDROcodone/APAP 5-325MG [[place] 5-325] 1 tab PO Q8H PRN #10 tab PRN Reason: Pain Changed Insulin Detemir [Levemir Flextouch] 32 units SQ ACHS #0 Discontinued amLODIPine [Norvasc] 5 mg PO DAILY@0900 Discharge Medication List Aspirin 81 mg PO HS@209908/26/14 [History] Atorvastatin [Lipitor] 40 mg PO HS@209908/26/14 [History] Cholecalciferol [Vitamin D3] 1,000 unit PO DAILY@0900 08/26/14 [History] Cilostazol [Pletal] 100 mg PO DAILY@0900 08/26/14 [History] DULoxetine HCL [Cymbalta] 60 mg PO DAILY@0908/26/14 [History] Donepezil [Aricept] 10 mg PO BID@0900,209908/26/14 [History] [employer] Fatty Acids/Fish Oil [Fish Oil 1,000 mg Softgel] 1 cap PO HS@2099 [History] Nitroglycerin Sl Tabs [Nitrostat] 0.4 mg SUBLINGUAL Q5M PRN 10/16/14 [History] Tamsulosin HCl [Flomax] 0.4 mg PO DAILY@89905/24/15 [History] Isosorbide Mononitrate ER [Imdur] 30 mg PO DAILY@89910/15/15 [History] Melatonin 3 mg PO HS@209910/15/15 [History] Furosemide [Lasix] 20 mg PO BID@0600,1300 08/14/17 [History] Levothyroxine Sodium [Synthroid] 75 mcg PO DAILY@59908/14/17 [History] Acetaminophen [Tylenol] 650 mg PO Q6HR PRN 10/09/17 [History] Memantine [Namenda] 10 mg PO BID@0900,209910/09/17 [History] Tolterodine Tartrate [Detrol LA] 4 mg PO HS@209910/09/17 [History] Apixaban [Eliquis] 2.5 mg PO BID@0900,209906/11/18 [History] Atenolol [Tenormin] 50 mg PO DAILY@89906/11/18 [History] DULoxetine HCL [Cymbalta] 30 mg PO DAILY@89906/11/18 [History] Dimethicone/Zinc Oxide [Inzo Zinc Oxide Barrier Cream] 1 applic TOPICAL Q12H [History] Insulin Lispro [humaLOG Kwikpen] 6 unit SQ AC-TID 06/11/18 [History] Liraglutide [Victoza 2-Yayo] 1.2 mg SQ HS@209906/11/18 [History] HYDROcodone/APAP 5-325MG [[place] 5-325] 1 tab PO Q8H PRN #10 tab 06/14/18 [Rx] Hydrocortisone Suppository [Anusol-Hc] 25 mg RECTAL DAILY supp 06/14/18 [Rx] Insulin Detemir [Levemir Flextouch] 32 units SQ ACHS #0 06/14/18 [Rx] Potassium Chloride ER [K-Dur 20] 20 meq PO DAILY #30 tab 06/14/18 [Rx] Follow up Appointment(s)/Referral(s): Erick Escudero DO [Primary Care Provider] - 1-2 Days Luis Manuel Oliver MD [STAFF PHYSICIAN] - 3 Weeks Activity/Diet/Wound Care/Special Instructions: Bertin
[2018-06-15] MEDS ORDERED: PANTOPRAZOLE 40 MG TABLET PO SCH (09:00)
== END 2018-06-14 16:15 | DRG 394 ==
LOC: EC 07:10 → 4SSUR 11:36 → 3SCARD 17:34 → OBSVTOIN 06-12 07:50
PROVIDERS: ADMIT Hospitalist; ATTEND Hospitalist
DX: K64.9 Unspecified hemorrhoids (principal); E87.1 Hypo-osmolality and hyponatremia; I13.0 Hypertensive heart and chronic kidney disease with heart failure and stage 1 through stage 4 chronic kidney disease, or unspecified chronic kidney disease; I50.32 Chronic diastolic (congestive) heart failure; I48.92 Unspecified atrial flutter; E11.22 Type 2 diabetes mellitus with diabetic chronic kidney disease; E11.51 Type 2 diabetes mellitus with diabetic peripheral angiopathy without gangrene; I48.0 Paroxysmal atrial fibrillation; J44.9 Chronic obstructive pulmonary disease, unspecified; E86.1 Hypovolemia; F03.90 Unspecified dementia, unspecified severity, without behavioral disturbance, psychotic disturbance, mood disturbance, and anxiety; N18.3 Chronic kidney disease, stage 3 (moderate); I45.10 Unspecified right bundle-branch block; E78.5 Hyperlipidemia, unspecified; F32.9 Major depressive disorder, single episode, unspecified; F41.9 Anxiety disorder, unspecified; G47.30 Sleep apnea, unspecified; I25.10 Atherosclerotic heart disease of native coronary artery without angina pectoris; I25.2 Old myocardial infarction; M79.7 Fibromyalgia; K57.90 Diverticulosis of intestine, part unspecified, without perforation or abscess without bleeding; M25.512 Pain in left shoulder; M19.90 Unspecified osteoarthritis, unspecified site; G89.29 Other chronic pain; M54.9 Dorsalgia, unspecified; M54.30 Sciatica, unspecified side; M10.9 Gout, unspecified; N42.9 Disorder of prostate, unspecified; H93.13 Tinnitus, bilateral; Z79.01 Long term (current) use of anticoagulants; Z79.4 Long term (current) use of insulin; Z79.82 Long term (current) use of aspirin; Z79.890 Hormone replacement therapy; Z79.899 Other long term (current) drug therapy; Z86.73 Personal history of transient ischemic attack (TIA), and cerebral infarction without residual deficits; Z87.891 Personal history of nicotine dependence; Z91.81 History of falling; Z95.1 Presence of aortocoronary bypass graft; Z96.1 Presence of intraocular lens; Z98.41 Cataract extraction status, right eye; Z98.42 Cataract extraction status, left eye; Z88.8 Allergy status to other drugs, medicaments and biological substances; Z88.6 Allergy status to analgesic agent; Z88.1 Allergy status to other antibiotic agents; Z91.040 Latex allergy status; Z82.49 Family history of ischemic heart disease and other diseases of the circulatory system
CPT/HCPCS: 36415; 71045; 80048; 80053; 82272; 82550; 82553; 83036; 84484; 85025; 85027; 85610; 85730; 93005; 96374; 99285

== ENCOUNTER 2019-02-16 14:22 | Emergency (ER) | payer MEDICARE, OTHER ==
[2019-02-16 16:56] LABS: Basophils # (A) 0.2 k/uL (0-0.2); Basophils % (A) 3 %; Eosinophils # (A) 0.3 k/uL (0-0.7); Eosinophils % (A) 3 %; HCT 41.3 % (39.0-53.0); HGB 13.6 gm/dL (13.0-17.5); Lymphocytes # (A) 1.1 k/uL (1.0-4.8); Lymphocytes % (A) 12 %; MCH 30.5 pg (25.0-35.0); MCHC 32.9 g/dL (31.0-37.0); MCV 92.6 fL (80.0-100.0); Mean Platelet Volume 8.7; Monocytes # (A) 0.6 k/uL (0-1.0); Monocytes % (A) 7 %; Neutrophils # (A) 6.6 k/uL (1.3-7.7); Neutrophils % (A) 73 %; Platelet Count 218 k/uL (150-450); RBC 4.46 m/uL (4.30-5.90)
[2019-02-16 17:09] LABS: Albumin 3.4 g/dL (3.5-5.0); Calcium 9.3 mg/dL (8.4-10.2); Total Bilirubin 0.6 mg/dL (0.2-1.3); Total Protein 6.1 g/dL (6.3-8.2)
--- NOTE | 2019-02-16 17:42 | XR ---
EXAMINATION TYPE: XR chest 2V DATE OF EXAM: 02/16/2019 COMPARISON: 06/14/2018 HISTORY: Pain TECHNIQUE: Frontal and lateral views of the chest are obtained. FINDINGS: There is some linear density at the left lung base. There is no heart failure. There is po ssible hiatal hernia. There are sternal wires. IMPRESSION: There is new minimal atelectasis left lower lobe compared to last exam. No heart failure .
--- NOTE | 2019-02-16 17:44 | XR ---
EXAMINATION TYPE: XR thoracic spine 2V DATE OF EXAM: 02/16/2019 COMPARISON: 02/16/2019 HISTORY: Pain TECHNIQUE: 4 views FINDINGS: There is mild upper thoracic levoscoliosis. There is minor spurring in the thoracic spine. There is no paraspinal mass. There is 20% anterior wedging of T7 vertebra. IMPRESSION: Mild compression fracture of T7 unchanged. Mild scoliosis. Multilevel spondylotic changes .
--- NOTE | 2019-02-16 17:47 | ED ---
Back Pain HPI - General Chief Complaint: Back Pain/Injury Stated Complaint: Back Pain Time Seen by Provider: 02/16/19 15:22 Source: patient, EMS Limitations: no limitations - History of Present Illness Initial Comments: Patient is a 78-year-old male presenting to emergency Department from [facility] with complaints of upper/lower back pain. Patient has dementia. EMS performed an EKG which was within normal limits and was given 6 of morphine for pain. Patient is not a good historian. He denies any recent falls. No previous history of back surgeries. Patient's is here now. states he is unable to walk anymore secondary to lower extremity weakness. Patient spends most of his time in a wheelchair or in his bed. Patient states she is also having some buttocks pain from sitting too long. Patient denies any fever, chills, abdominal pain, chest pain, shortness of breath, nausea, vomiting, urinary complaints. Patient's did say he was recently treated for a UTI a few months prior. Upon arrival to ER, vital signs are stable. - Related Data Home Medications Medication Instructions Recorded Confirmed Aspirin 81 mg PO HS@209908/26/14 02/16/19 Atorvastatin [Lipitor] 40 mg PO HS@209908/26/14 02/16/19 Cholecalciferol [Vitamin D3 (25 1,000 unit PO DAILY@89908/26/14 02/16/19 Mcg = 1000 Iu)] Cilostazol [Pletal] 100 mg PO HS@209908/26/14 02/16/19 DULoxetine HCL [Cymbalta] 60 mg PO DAILY@89908/26/14 02/16/19 Donepezil [Aricept] 10 mg PO BID@09,209908/26/14 02/16/19 [place]-3 Fatty Acids/Fish Oil [Fish 1 cap PO HS@209908/26/14 02/16/19 Oil 1,000 mg Softgel] Nitroglycerin Sl Tabs [Nitrostat] 0.4 mg SUBLINGUAL Q5M PRN 10/16/14 02/16/19 Tamsulosin HCl [Flomax] 0.4 mg PO HS@209905/24/15 02/16/19 Isosorbide Mononitrate ER [Imdur] 30 mg PO DAILY@0910/15/15 02/16/19 Furosemide [Lasix] 20 mg PO BID@0600,1200 08/14/17 02/16/19 Levothyroxine Sodium [Synthroid] 75 mcg PO DAILY@0600 08/14/17 02/16/19 Acetaminophen [Tylenol] 650 mg PO Q6HR PRN 10/09/17 02/16/19 Memantine [Namenda] 10 mg PO BID@0900,2100 10/09/17 02/16/19 Apixaban [Eliquis] 2.5 mg PO BID@0900,209906/11/18 02/16/19 Atenolol [Tenormin] 50 mg PO DAILY@0900 06/11/18 02/16/19 DULoxetine HCL [Cymbalta] 30 mg PO DAILY@0906/11/18 02/16/19 Liraglutide [Victoza 2-Yayo] 1.2 mg SQ HS@209906/11/18 02/16/19 Ferrous Sulfate [Feosol] 325 mg PO DAILY@0900 02/16/19 02/16/19 HYDROcodone/APAP 5-325MG [[place] 1 tab PO TID@0600,1400,2200 02/16/19 02/16/19 5-325] Insulin Glargine,Hum.rec.anlog 44 unit SQ HS@209902/16/19 02/16/19 [Lantus Solostar] Insulin Lispro [humaLOG Kwikpen] 3 unit SQ BID@0800,1700 02/16/19 02/16/19 Insulin Lispro [humaLOG Kwikpen] 5 unit SQ DAILY@1200 02/16/19 02/16/19 Loperamide HCl [Imodium A-D] 2 - 4 mg PO QID PRN 02/16/19 02/16/19 Melatonin 5 mg PO HS@209902/16/19 02/16/19 Potassium Chloride ER [K-Dur 20] 30 meq PO DAILY@0900 02/16/19 02/16/19 Ranitidine HCl [Zantac] 150 mg PO HS@209902/16/19 02/16/19 Previous Rx's Medication Instructions Recorded Cephalexin [Keflex] 500 mg PO BID 7 Days #14 cap 02/16/19 Allergies Allergy/AdvReac Type Severity Reaction Status Date / Time ciprofloxacin [From Cipro] Allergy Swelling Verified 02/16/19 15:28 ciprofloxacin HCl Allergy Swelling Verified 02/16/19 15:28 [From Cipro] latex Allergy Unknown Verified 02/16/19 15:28 NSAIDS (Non-Steroidal Allergy Unknown Verified 02/16/19 15:28 Anti-Inflamma Quinolones Allergy Unknown Verified 02/16/19 15:28 Review of Systems ROS Statement: Those systems with pertinent positive or pertinent negative responses have been documented in the HPI. ROS Other: All systems not noted in ROS Statement are negative. Past Medical History Past Medical History: Atrial Flutter, Coronary Artery Disease (CAD), Chest Pain / Angina, Heart Failure, COPD, Dementia, Diabetes Mellitus, Fibromyalgia, Hyperlipidemia, Hypertension, Myocardial Infarction ([place]), Prostate Disorder, Renal Disease, Sleep Apnea/CPAP/BIPAP, Vascular Disorder Additional Past Medical History / Comment(s): IDDM, chronic renal failure, aflutter, sleep apnea with no cpap, PVD, DJD, chronic back pain, bulging and herniated discs, sciatica, dislocated knuckles, gout, arthiritis, prostate problem-pt unsure what problem is, tinnitis bilaterally, R eye stroke, umbilical hernia, diverticular disease, obesity. Last Myocardial Infarction Date:: 2004 History of Any Multi-Drug Resistant Organisms: MRSA Date of last positivie culture/infection: 10/17/2014 MDRO Source:: Sputum Past Surgical History: Coronary Bypass/CABG, Heart Catheterization, Tonsillectomy Additional Past Surgical History / Comment(s): 2004 triple vessel CABG, Ccath 20 05, L carotid endartectomy, bilateral cataract removal with lens implants, colonoscopy, skin lesion removal. Past Anesthesia/Blood Transfusion Reactions: No Reported Reaction Past Psychological History: Anxiety, Depression Smoking Status: Former smoker Past Alcohol Use History: Occasional, Rare Past Drug Use History: None Reported - Past Family History Father Family Medical History: Coronary Artery Disease (CAD) Additional Family Medical History / Comment(s): Father had CABG Mother Family Medical History: No Reported History Additional Family Medical History / Comment(s): Pt states mother was a healthy person. General Exam - General Exam Comments Initial Comments: GENERAL: Well-nourished and in no acute distress. HEAD: Atraumatic, normocephalic. EYES: Pupils equal round and reactive to light, extraocular movements intact, sclera anicteric, conjunctiva are normal. ENT: TMs normal, nares patent, oropharynx clear without exudates. Moist mucous membranes. NECK: Normal range of motion, supple without lymphadenopathy or JVD. LUNGS: Breath sounds clear to auscultation bilaterally and equal. No wheezes rales or rhonchi. HEART: Regular rate and rhythm without murmurs, rubs or gallops. ABDOMEN: Soft, nontender, normoactive bowel sounds. No guarding, no rebound. No masses appreciated. No tenderness to palpation of the upper, middle, lower spine or paraspinals. There is no sores noted to the buttocks region. There is a very small area of erythema on the left Glute. : Deferred EXTREMITIES: Decreased range of motion of the lower extremities secondary to chronic weakness. No pitting or edema. No clubbing or cyanosis. NEUROLOGICAL: Cranial nerves II through XII grossly intact. Normal speech. PSYCH: Normal mood, normal affect. SKIN: Warm, Dry, normal turgor, no rashes or lesions noted. Limitations: no limitations Course Vital Signs 02/16/19 02/16/19 02/16/19 14:38 15:40 18:03 Temperature 98 F Pulse Rate 66 78 68 Respiratory 18 18 18 Rate Blood Pressure 129/83 137/102 126/76 O2 Sat by Pulse 95 99 96 Oximetry 02/16/19 19:22 Temperature 98.5 F Pulse Rate 82 Respiratory 17 Rate Blood Pressure 116/84 O2 Sat by Pulse 97 Oximetry Medical Decision Making - Medical Decision Making Patient is a 78-year-old male presenting with back pain that started today. Patient denies any falls. Patient comes from [facility] and is therefore dementia. Patient's is here with him now. Vital signs are stable upon arrival. Patient describes the pain as a lower but then also sometimes upper back pain. Patient states his buttocks is also sore from sitting a lot. Patient no longer walks secondary to lower extremity weakness. On exam, there is no tenderness of the entire spine and buttocks area. Patient does have a very small area of erythema on the left glute. There are no sores at this time. CBC is normal. BUN/creatinine are slightly elevated but comparable to his last values, 28, 1.53. UA shows 1+ protein, 12 wbc's. Urine will be cultured and is pending at this time. X-rays of the thoracic spine and chest x-ray are normal. It was discussed that his pain may be from the sitting for too long or the beginning stages of a sore. Patient also has a start of a UTI and will be treated empirically. Patient given 1 g of Rocephin before discharge. Patient be started on Keflex. Patient's and patient in agreement with this plan of care. Patient will be discharged back to [facility]. Return parameters were discussed with the patient and the and they both verbalized understanding. Case discussed with Dr. Henning. - Lab Data Result diagrams: 02/16/19 16:47 02/16/19 16:47 Lab Results 02/16/19 02/16/19 02/16/19 Range/Units 16:47 16:47 18:10 WBC 9.0 (3.8-10.6) k/uL RBC 4.46 (4.30-5.90) m/uL Hgb 13.6 (13.0-17.5) gm/dL Hct 41.3 (39.0-53.0) % MCV 92.6 (80.0-100.0) fL MCH 30.5 (25.0-35.0) pg MCHC 32.9 (31.0-37.0) g/dL RDW 15.0 (11.5-15.5) % Plt Count 218 (150-450) k/uL Neutrophils % 73 % Lymphocytes % 12 % Monocytes % 7 % Eosinophils % 3 % Basophils % 3 % Neutrophils # 6.6 (1.3-7.7) k/uL Lymphocytes # 1.1 (1.0-4.8) k/uL Monocytes # 0.6 (0-1.0) k/uL Eosinophils # 0.3 (0-0.7) k/uL Basophils # 0.2 (0-0.2) k/uL Sodium 140 (137-145) mmol/L Potassium 4.0 (3.5-5.1) mmol/L Chloride 103 (98-107) mmol/L Carbon Dioxide 30 (22-30) mmol/L Anion Gap 7 mmol/L BUN 28 H (9-20) mg/dL Creatinine 1.53 H (0.66-1.25) mg/dL Est GFR (CKD-EPI)AfAm 49 (>60 ml/min/1.73 sqM) Est GFR (CKD-EPI)NonAf 43 (>60 ml/min/1.73 sqM) Glucose 130 H (74-99) mg/dL Calcium 9.3 (8.4-10.2) mg/dL Total Bilirubin 0.6 (0.2-1.3) mg/dL AST 14 L (17-59) U/L ALT 21 (21-72) U/L Alkaline Phosphatase 104 (38-126) U/L Total Protein 6.1 L (6.3-8.2) g/dL Albumin 3.4 L (3.5-5.0) g/dL Urine Color Yellow Urine Appearance Clear (Clear) Urine pH 5.5 (5.0-8.0) Ur Specific [place] 1.019 (1.001-1.035) Urine Protein 1+ H (Negative) Urine Glucose (UA) Negative (Negative) Urine Ketones Negative (Negative) Urine Blood Negative (Negative) Urine Nitrite Negative (Negative) Urine Bilirubin Negative (Negative) Urine Urobilinogen <2.0 (<2.0) mg/dL Ur Leukocyte Esterase Moderate H (Negative) Urine RBC 2 (0-5) /hpf Urine WBC 12 H (0-5) /hpf Disposition Clinical Impression: Mechanical back pain, UTI (urinary tract infection) Disposition: HOME SELF-CARE Condition: Stable Instructions (If sedation given, give patient instructions): Acute Low Back Pain (ED) Additional Instructions: Please return to the Emergency Department if symptoms worsen or any other concerns. Prescriptions: Cephalexin [Keflex] 500 mg PO BID 7 Days #14 cap Is patient prescribed a controlled substance at d/c from ED?: No Referrals: Gautam Gale MD [Primary Care Provider] - 1-2 days
[2019-02-16 18:52] LABS: Appearance,Urine Clear (Clear); Bilirubin,Urine Negative (Negative); Blood,Urine Negative (Negative); Color,Urine Yellow; Glucose,Urine (UA) Negative (Negative); Ketones,Urine Negative (Negative); Leukocyte Esterase,Urine Moderate (Negative); Nitrite,Urine Negative (Negative); PH, Urine 5.5 (5.0-8.0); Protein,Urine 1+ (Negative); RBC,Urine 2 /hpf (0-5); Specific Gravity,Urine 1.019 (1.001-1.035); Urobilinogen,Urine <2.0 mg/dL (<2.0)
[2019-02-16] MEDS ORDERED: cefTRIAXone IN SWFI 1,000 MG/10 ML SYRINGE IVP STA (19:17)
[2019-02-16 19:24] VITALS: BP 116/84; PULSE 82; RESP 17; TEMP 98.5
== END 2019-02-16 19:57 | disposition home or self-care (01) ==
LOC: EC 14:22
DX: N39.0 Urinary tract infection, site not specified (principal); F03.90 Unspecified dementia, unspecified severity, without behavioral disturbance, psychotic disturbance, mood disturbance, and anxiety; L98.419 Non-pressure chronic ulcer of buttock with unspecified severity; R53.1 Weakness; R79.89 Other specified abnormal findings of blood chemistry; E78.5 Hyperlipidemia, unspecified; I13.0 Hypertensive heart and chronic kidney disease with heart failure and stage 1 through stage 4 chronic kidney disease, or unspecified chronic kidney disease; I25.10 Atherosclerotic heart disease of native coronary artery without angina pectoris; I50.9 Heart failure, unspecified; N18.9 Chronic kidney disease, unspecified; E11.22 Type 2 diabetes mellitus with diabetic chronic kidney disease; I48.92 Unspecified atrial flutter; I25.2 Old myocardial infarction; M79.7 Fibromyalgia; F41.9 Anxiety disorder, unspecified; F32.9 Major depressive disorder, single episode, unspecified; N42.9 Disorder of prostate, unspecified; G89.29 Other chronic pain; M54.9 Dorsalgia, unspecified; M10.9 Gout, unspecified; M19.90 Unspecified osteoarthritis, unspecified site; Z79.891 Long term (current) use of opiate analgesic; Z79.890 Hormone replacement therapy; Z79.4 Long term (current) use of insulin; Z79.899 Other long term (current) drug therapy; Z79.82 Long term (current) use of aspirin; Z79.01 Long term (current) use of anticoagulants; Z87.891 Personal history of nicotine dependence; Z86.14 Personal history of Methicillin resistant Staphylococcus aureus infection; Z88.1 Allergy status to other antibiotic agents; Z88.6 Allergy status to analgesic agent; Z91.040 Latex allergy status; Z95.1 Presence of aortocoronary bypass graft; Z95.5 Presence of coronary angioplasty implant and graft; Z98.41 Cataract extraction status, right eye; Z98.42 Cataract extraction status, left eye; Z96.1 Presence of intraocular lens
CPT/HCPCS: 36415; 80053; 85025; 81001; 87086; 87077; 87186; 72070; 71046; 99284; 96374; 51701; J0696

== ENCOUNTER 2019-04-15 15:27 | Inpatient (IN) | payer MEDICARE, OTHER ==
--- NOTE | 2019-04-15 15:39 | ED ---
General Adult HPI - General Stated complaint: GI BLEED Source: patient, EMS, RN notes reviewed, old records reviewed - History of Present Illness Initial comments: This is a 78-year-old male who [facility]. Patient was sent in because he was having bright red blood per rectum. Patient is also on eliquis. Initial report was that he is a no code however confirmed on the phone that he is a code as long as the patient is not current and up on a ventilator permanently. Patient was okay with giving blood. There was no other history available at this time. Patient denied any pain - Related Data Home Medications Medication Instructions Recorded Confirmed Aspirin 81 mg PO HS@209908/26/14 02/16/19 Atorvastatin [Lipitor] 40 mg PO HS@209908/26/14 02/16/19 Cholecalciferol [Vitamin D3 (25 1,000 unit PO DAILY@89908/26/14 02/16/19 Mcg = 1000 Iu)] Cilostazol [Pletal] 100 mg PO HS@209908/26/14 02/16/19 DULoxetine HCL [Cymbalta] 60 mg PO DAILY@89908/26/14 02/16/19 Donepezil [Aricept] 10 mg PO BID@0900,209908/26/14 02/16/19 [place]-3 Fatty Acids/Fish Oil [Fish 1 cap PO HS@209908/26/14 02/16/19 Oil 1,000 mg Softgel] Nitroglycerin Sl Tabs [Nitrostat] 0.4 mg SUBLINGUAL Q5M PRN 10/16/14 02/16/19 Tamsulosin HCl [Flomax] 0.4 mg PO HS@209905/24/15 02/16/19 Isosorbide Mononitrate ER [Imdur] 30 mg PO DAILY@89910/15/15 02/16/19 Furosemide [Lasix] 20 mg PO BID@0600,1200 08/14/17 02/16/19 Levothyroxine Sodium [Synthroid] 75 mcg PO DAILY@0600 08/14/17 02/16/19 Acetaminophen [Tylenol] 650 mg PO Q6HR PRN 10/09/17 02/16/19 Memantine [Namenda] 10 mg PO BID@0900,209910/09/17 02/16/19 Apixaban [Eliquis] 2.5 mg PO BID@0900,2100 06/11/18 02/16/19 Atenolol [Tenormin] 50 mg PO DAILY@0900 06/11/18 02/16/19 DULoxetine HCL [Cymbalta] 30 mg PO DAILY@0900 06/11/18 02/16/19 Liraglutide [Victoza 2-Yayo] 1.2 mg SQ HS@209906/11/18 02/16/19 Ferrous Sulfate [Feosol] 325 mg PO DAILY@0900 02/16/19 02/16/19 HYDROcodone/APAP 5-325MG [[place] 1 tab PO TID@0600,1400,2200 02/16/19 02/16/19 5-325] Insulin Glargine,Hum.rec.anlog 44 unit SQ HS@209902/16/19 02/16/19 [Lantus Solostar] Insulin Lispro [humaLOG Kwikpen] 3 unit SQ BID@0800,1700 02/16/19 02/16/19 Insulin Lispro [humaLOG Kwikpen] 5 unit SQ DAILY@1200 02/16/19 02/16/19 Loperamide HCl [Imodium A-D] 2 - 4 mg PO QID PRN 02/16/19 02/16/19 Melatonin 5 mg PO HS@209902/16/19 02/16/19 Potassium Chloride ER [K-Dur 20] 30 meq PO DAILY@0900 02/16/19 02/16/19 Ranitidine HCl [Zantac] 150 mg PO HS@209902/16/19 02/16/19 Previous Rx's Medication Instructions Recorded Cephalexin [Keflex] 500 mg PO BID 7 Days #14 cap 02/16/19 Allergies Allergy/AdvReac Type Severity Reaction Status Date / Time ciprofloxacin [From Cipro] Allergy Swelling Verified 02/16/19 15:28 ciprofloxacin HCl Allergy Swelling Verified 02/16/19 15:28 [From Cipro] latex Allergy Unknown Verified 02/16/19 15:28 NSAIDS (Non-Steroidal Allergy Unknown Verified 02/16/19 15:28 Anti-Inflamma Quinolones Allergy Unknown Verified 02/16/19 15:28 Review of Systems ROS Statement: Those systems with pertinent positive or pertinent negative responses have been documented in the HPI. ROS Other: All systems not noted in ROS Statement are negative. Past Medical History Past Medical History: Atrial Flutter, Coronary Artery Disease (CAD), Chest Pain / Angina, Heart Failure, COPD, Dementia, Diabetes Mellitus, Fibromyalgia, Hyperlipidemia, Hypertension, Myocardial Infarction ([place]), Prostate Disorder, Renal Disease, Sleep Apnea/CPAP/BIPAP, Vascular Disorder Additional Past Medical History / Comment(s): IDDM, chronic renal failure, aflutter, sleep apnea with no cpap, PVD, DJD, chronic back pain, bulging and herniated discs, sciatica, dislocated knuckles, gout, arthiritis, prostate problem-pt unsure what problem is, tinnitis bilaterally, R eye stroke, umbilical hernia, diverticular disease, obesity. Last Myocardial Infarction Date:: 2004 History of Any Multi-Drug Resistant Organisms: MRSA Date of last positivie culture/infection: 10/17/2014 MDRO Source:: Sputum Past Surgical History: Coronary Bypass/CABG, Heart Catheterization, Tonsillectomy Additional Past Surgical History / Comment(s): 2004 triple vessel CABG, Ccath 2004, L carotid endartectomy, bilateral cataract removal with lens implants, colonoscopy, skin lesion removal. Past Anesthesia/Blood Transfusion Reactions: No Reported Reaction Past Psychological History: Anxiety, Depression Smoking Status: Former smoker Past Alcohol Use History: Occasional, Rare Past Drug Use History: None Reported - Past Family History Father Family Medical History: Coronary Artery Disease (CAD) Additional Family Medical History / Comment(s): Father had CABG Mother Family Medical History: No Reported History Additional Family Medical History / Comment(s): Pt states mother was a healthy person. General Exam - General Exam Comments Initial Comments: GENERAL: Patient is well-developed and well-nourished. Patient is nontoxic and well-hydrated and is in mild distress. ENT: Neck is soft and supple. No significant lymphadenopathy is noted. Oropharynx is clear. Moist mucous membranes. Neck has full range of motion without eliciting any pain. EYES: Conjunctiva are pale. Extraocular movements were intact and pupils were equal round and reactive to light. Eyelids were unremarkable. PULMONARY: Unlabored respirations. Good breath sounds bilaterally. No audible rales rhonchi or wheezing was noted. CARDIOVASCULAR: There is a regular rate and rhythm without any murmurs gallops or rubs. ABDOMEN: Soft and nontender with normal bowel sounds. No palpable organomegaly was noted. There is no palpable pulsatile mass. SKIN: Skin is clear with no lesions or rashes and otherwise unremarkable. RECTAL: Patient has bright red blood per rectum. NEUROLOGIC: Patient is alert and oriented x3. Cranial nerves II through XII are grossly intact. Motor and sensory are also intact. Normal speech, volume and content. Symmetrical smile. MUSCULOSKELETAL: Normal extremities with adequate strength and full range of motion. LYMPHATICS: No significant lymphadenopathy is noted PSYCHIATRIC: Normal psychiatric evaluation. Course Vital Signs 04/15/19 04/15/19 04/15/19 15:37 15:51 16:01 Temperature 97.3 F L 97.1 F L Pulse Rate 89 72 93 Respiratory 12 12 16 Rate Blood Pressure 96/66 102/85 98/87 O2 Sat by Pulse 96 96 94 L Oximetry 04/15/19 04/15/19 04/15/19 16:10 16:11 16:34 Temperature 97.0 F L 97.3 F L 97.2 F L Pulse Rate 86 90 89 Respiratory 12 12 14 Rate Blood Pressure 116/85 119/81 118/81 O2 Sat by Pulse 95 92 L 95 Oximetry Procedures - Central Line Placement Right IJ Consent Obtained: verbal consent Patient Placed on Monitor/Pulse Ox: Yes MD Prep: mask, gown, gloves Central Line Prep: Chlorhexidine scrub Local Anesthesia Used: Lidocaine 1% Ultrasound Used for Placement: Yes Central Line Lumen Inserted: triple Bloods Obtained for Lab: Yes Central Line Position: good blood return, all ports aspirated, flushed, capped, sutured in place with nylon Post Procedure X-Ray: tip of catheter in good position Patient Tolerated Procedure: well Complications: none Medical Decision Making - Medical Decision Making EKG shows atrial fibrillation at 82 bpm QRS is 90 QT interval 390 QTC is 464. Patient's EKG shows no ST segment elevation or depression or T wave abnormalities are noted. Patient was given 1 unit of unmatched blood because at the time the patient was actively bleeding bright red blood and clots. Spoke with Dr. Carreno he agreed to accept the patient in the ICU. I spoke with the depression agreed to admit the patient admitted the patient I consult to Dr. Carreno as well as GI. I repeated CBCs every 6 hours. - Lab Data Result diagrams: 04/15/19 16:00 04/15/19 16:00 Lab Results 04/15/19 04/15/19 04/15/19 Range/Units 15:41 16:00 16:00 WBC 16.7 H (3.8-10.6) k/uL RBC 3.72 L (4.30-5.90) m/uL Hgb 11.7 L (13.0-17.5) gm/dL Hct 34.5 L (39.0-53.0) % MCV 92.6 (80.0-100.0) fL MCH 31.3 (25.0-35.0) pg MCHC 33.8 (31.0-37.0) g/dL RDW 14.1 (11.5-15.5) % Plt Count 285 (150-450) k/uL Neutrophils % 87 % Lymphocytes % 7 % Monocytes % 4 % Eosinophils % 1 % Basophils % 0 % Neutrophils # 14.5 H (1.3-7.7) k/uL Lymphocytes # 1.2 (1.0-4.8) k/uL Monocytes # 0.6 (0-1.0) k/uL Eosinophils # 0.2 (0-0.7) k/uL Basophils # 0.0 (0-0.2) k/uL PT (9.0-12.0) sec INR (<1.2) APTT (22.0-30.0) sec Sodium (137-145) mmol/L Potassium (3.5-5.1) mmol/L Chloride (98-107) mmol/L Carbon Dioxide (22-30) mmol/L Anion Gap mmol/L BUN (9-20) mg/dL Creatinine (0.66-1.25) mg/dL Est GFR (CKD-EPI)AfAm (>60 ml/min/1.73 sqM) Est GFR (CKD-EPI)NonAf (>60 ml/min/1.73 sqM) Glucose (74-99) mg/dL POC Glucose (mg/dL) 161 H (75-99) mg/dL POC Glu Health And Safety Coordinator ID Kate Galvez Calcium (8.4-10.2) mg/dL Total Bilirubin (0.2-1.3) mg/dL AST (17-59) U/L ALT (21-72) U/L Alkaline Phosphatase (38-126) U/L Total Protein (6.3-8.2) g/dL Albumin (3.5-5.0) g/dL Blood Type Recheck No Previous Record Bld Type Recheck Status CABO Indicated Spec Expiration Date 04/18/2019 - 229904/15/19 04/15/19 Range/Units 16:00 16:00 WBC (3.8-10.6) k/uL RBC (4.30-5.90) m/uL Hgb (13.0-17.5) gm/dL Hct (39.0-53.0) % MCV (80.0-100.0) fL MCH (25.0-35.0) pg MCHC (31.0-37.0) g/dL RDW (11.5-15.5) % Plt Count (150-450) k/uL Neutrophils % % Lymphocytes % % Monocytes % % Eosinophils % % Basophils % % Neutrophils # (1.3-7.7) k/uL Lymphocytes # (1.0-4.8) k/uL Monocytes # (0-1.0) k/uL Eosinophils # (0-0.7) k/uL Basophils # (0-0.2) k/uL PT 11.3 (9.0-12.0) sec INR 1.1 (<1.2) APTT 35.8 H (22.0-30.0) sec Sodium 139 (137-145) mmol/L Potassium 4.9 (3.5-5.1) mmol/L Chloride 107 (98-107) mmol/L Carbon Dioxide 24 (22-30) mmol/L Anion Gap 8 mmol/L BUN 35 H (9-20) mg/dL Creatinine 1.66 H (0.66-1.25) mg/dL Est GFR (CKD-EPI)AfAm 45 (>60 ml/min/1.73 sqM) Est GFR (CKD-EPI)NonAf 39 (>60 ml/min/1.73 sqM) Glucose 208 H (74-99) mg/dL POC Glucose (mg/dL) (75-99) mg/dL POC Glu Health And Safety Coordinator ID Calcium 8.2 L (8.4-10.2) mg/dL Total Bilirubin 0.7 (0.2-1.3) mg/dL AST 12 L (17-59) U/L ALT 20 L (21-72) U/L Alkaline Phosphatase 93 (38-126) U/L Total Protein 5.3 L (6.3-8.2) g/dL Albumin 2.8 L (3.5-5.0) g/dL Blood Type Recheck Bld Type Recheck Status Spec Expiration Date Critical Care Time Critical Care Time: Yes Total Critical Care Time: 35 Disposition Clinical Impression: GI bleed Disposition: ADMITTED IP TO THIS HOSP Referrals: Gautam Gale MD [Primary Care Provider] - 1-2 days Time of Disposition: 16:35
[2019-04-15 15:43] LABS: Glucose,Whole Blood 161 mg/dL (75-99)
[2019-04-15] MEDS ORDERED: TRANEXAMIC ACID 1,000 MG in SODIUM CHLORIDE 0.9% 100 ML IV STA (15:44)
[2019-04-15 16:17] LABS: Basophils % (A) 0 %; Eosinophils # (A) 0.2 k/uL (0-0.7); Eosinophils % (A) 1 %; HCT 34.5 % (39.0-53.0); HGB 11.7 gm/dL (13.0-17.5); Lymphocytes # (A) 1.2 k/uL (1.0-4.8); Lymphocytes % (A) 7 %; MCH 31.3 pg (25.0-35.0); MCHC 33.8 g/dL (31.0-37.0); MCV 92.6 fL (80.0-100.0); Mean Platelet Volume 8.1; Monocytes # (A) 0.6 k/uL (0-1.0); Monocytes % (A) 4 %; Neutrophils # (A) 14.5 k/uL (1.3-7.7); Neutrophils % (A) 87 %; Platelet Count 285 k/uL (150-450); RBC 3.72 m/uL (4.30-5.90); RDW 14.1 % (11.5-15.5); WBC 16.7 k/uL (3.8-10.6)
[2019-04-15 16:28] LABS: Albumin 2.8 g/dL (3.5-5.0); Calcium 8.2 mg/dL (8.4-10.2); INR 1.1 (<1.2); Partial Thromboplastin Time 35.8 sec (22.0-30.0); Potassium 4.9 mmol/L (3.5-5.1); Prothrombin Time 11.3 sec (9.0-12.0); Total Bilirubin 0.7 mg/dL (0.2-1.3); Total Protein 5.3 g/dL (6.3-8.2)
--- NOTE | 2019-04-15 16:33 | XR ---
EXAMINATION TYPE: XR chest 1V portable DATE OF EXAM: 04/15/2019 COMPARISON: EXAMINATION TYPE: XR chest 1V portable DATE OF EXAM: 04/15/2019 COMPARISON: February 16, 2019 HISTORY: Check line placement TECHNIQUE: Single view FINDINGS: There is right jugular catheter with the tip in the right atrium. There is no heart failure nor confluent pneumonic infiltrate. There is old right healed rib fracture. There are chest leads. T here is some mild linear density left lower lobe. IMPRESSION: There is minimal scarring or subsegmental atelectasis at the left lung base improved comp ared to last exam.
[2019-04-15] MEDS ORDERED: NALOXONE 0.4 MG/ML 1 ML VIAL IV PRN (16:35)
[2019-04-15 16:46] LABS: Amorphous Sediment,Urine Rare /hpf; Appearance,Urine Clear (Clear); Bacteria,Urine Rare /hpf; Bilirubin,Urine Negative (Negative); Blood,Urine Moderate (Negative); Color,Urine Yellow; Glucose,Urine (UA) Negative (Negative); Hyaline Casts,Urine 15 /lpf (0-2); Ketones,Urine Negative (Negative); Leukocyte Esterase,Urine Negative (Negative); Mucus,Urine Rare /hpf; Nitrite,Urine Negative (Negative); Protein,Urine Trace (Negative); RBC,Urine 3 /hpf (0-5); Specific Gravity,Urine 1.016 (1.001-1.035); Squamous Epithelial Cell,Urine <1 /hpf (0-4); Urobilinogen,Urine <2.0 mg/dL (<2.0); WBC,Urine 1 /hpf (0-5)
[2019-04-15 17:25] LABS: Glucose,Whole Blood 90 mg/dL (75-99)
[2019-04-15 17:55] LABS: Basophils % (A) 0 %; Eosinophils % (A) 0 %; HCT 34.7 % (39.0-53.0); HGB 11.6 gm/dL (13.0-17.5); Lymphocytes % (A) 7 %; MCHC 33.6 g/dL (31.0-37.0); MCV 92.4 fL (80.0-100.0); Mean Platelet Volume 7.9; Monocytes # (A) 0.4 k/uL (0-1.0); Monocytes % (A) 3 %; Neutrophils # (A) 13.7 k/uL (1.3-7.7); Neutrophils % (A) 89 %; Platelet Count 266 k/uL (150-450); RBC 3.75 m/uL (4.30-5.90); RDW 14.5 % (11.5-15.5); WBC 15.4 k/uL (3.8-10.6)
[2019-04-15] MEDS ORDERED: SODIUM CHLORIDE 0.9% 1,000 ML IV ONE (18:41)
[2019-04-15] MEDS: SODIUM CHLORIDE 0.9% 1,000 ML IV SCH (18:50)
[2019-04-16 04:30] LABS: Glucose,Whole Blood 199 mg/dL (75-99)
[2019-04-16 04:39] LABS: Basophils % (A) 0 %; Eosinophils % (A) 0 %; HCT 29.4 % (39.0-53.0); Lymphocytes # (A) 1.6 k/uL (1.0-4.8); Lymphocytes % (A) 5 %; MCH 31.5 pg (25.0-35.0); MCHC 33.4 g/dL (31.0-37.0); MCV 94.3 fL (80.0-100.0); Mean Platelet Volume 9.1; Monocytes # (A) 1.7 k/uL (0-1.0); Monocytes % (A) 5 %; Neutrophils # (A) 31.4 k/uL (1.3-7.7); Neutrophils % (A) 89 %; Platelet Count 228 k/uL (150-450); RBC 3.12 m/uL (4.30-5.90); WBC 35.1 k/uL (3.8-10.6)
[2019-04-16 04:41] LABS: HGB 9.8 gm/dL (13.0-17.5)
[2019-04-16 04:48] LABS: Albumin 2.6 g/dL (3.5-5.0); Calcium 8.1 mg/dL (8.4-10.2); Potassium 5.9 mmol/L (3.5-5.1); Total Bilirubin 0.8 mg/dL (0.2-1.3); Total Protein 4.8 g/dL (6.3-8.2)
[2019-04-16 04:59] LABS: ABG Base Excess -15.3 mmol/L; ABG HCO3 11 mmol/L (21-25); ABG Oxygen Saturation 98.7 % (94-97); ABG PCO2 20 mmHg (35-45); ABG PH 7.34 (7.35-7.45); ABG PO2 130 mmHg (83-108); ABG TCO2 11 mmol/L (19-24); Allen Test Performed? Yes
[2019-04-16 05:12] LABS: INR 1.3 (<1.2); Partial Thromboplastin Time 25.9 sec (22.0-30.0); Prothrombin Time 13.3 sec (9.0-12.0)
--- NOTE | 2019-04-16 05:43 | CT ---
EXAMINATION TYPE: CT brain wo con for TPA DATE OF EXAM: 04/16/2019 COMPARISON: 10/09/2017 HISTORY: Code stroke/AMS CT DLP: 1670.4 mGycm Automated exposure control for dose reduction was used. FINDINGS: There is diffuse cerebral cortical atrophy. There is no mass effect nor midline shift. There is no si gn of intracranial hemorrhage. Calvarium is intact. There is enlargement of the ventricles. There is some hypodensity in the cortex right right lobe unchanged. IMPRESSION: MODERATE DIFFUSE ATROPHY. HYDROCEPHALUS. NO CHANGE COMPARED TO OLD EXAM. OLD 3 X 1.5 CM RIGHT PARIETA L CORTICAL INFARCT. UNCHANGED.
--- NOTE | 2019-04-16 05:49 | CT ---
EXAMINATION TYPE: CT angio head neck DATE OF EXAM: 04/16/2019 HISTORY: Code stroke/AMS COMPARISON: 07/08/2010 CT DLP: 1670.4 mGycm. Automated Exposure Control for Dose Reduction was Utilized. TECHNIQUE: CTA scan of the neck is performed with IV Contrast, patient injected with 65 mL of Isovue 370, axial images are obtained, coronal and sagittal reformatted images are reviewed. Three-D recons tructed images are created on an independent workstation and reviewed. FINDINGS: There is normal branching pattern of the great vessels on the aortic arch. There is arterial flow in both subclavian arteries. There is arterial flow in the common internal and external carotid arteries bilaterally. There is arterial flow in both vertebral arteries. Right vertebral artery is larger renee n the left. There is arterial flow in the vertebrobasilar artery system. Basilar artery fills mostly from the right side. There is mild ectasia of the distal common carotid arteries. There are diminutiv e proximal internal carotid arteries bilaterally. I see no evidence of carotid or vertebral artery an eurysm or dissection. There is arterial flow in both intracranial internal carotid arteries. There is arterial flow in the anterior middle and posterior cerebral arteries. There is arterial flow in the anterior communicating artery. There is bilateral contrast opacification of the posterior communicating arteries. I see no evidence of intracranial aneurysm or neovascularity. There is no mass effect. IMPRESSION: There is small left proximal internal carotid artery that appears smaller than last exam. Lumen is na rrowed approximately 30%. No aneurysm or dissection. No evidence of intracranial arterial stenosis.
[2019-04-16] MEDS ORDERED: SODIUM BICARB 8.4% 50 ML SYR (1 MEQ/ML) IV STA (05:56)
[2019-04-16] MEDS: SODIUM CHLORIDE 0.9% 1,000 ML IV SCH ×3 (06:03→19:05)
[2019-04-16] MEDS ORDERED: INSULIN REGULAR 100 UNIT/ML VIAL IV ONE (07:28)
[2019-04-16] MEDS ORDERED: SODIUM CHLORIDE 0.9% 2,000 ML IV ONE (07:30)
[2019-04-16] MEDS: PIPERACILLIN-TAZOBACTAM 3.375 GM in SODIUM CHLORIDE 0.9% 100 ML IVPB SCH ×2 (07:44→14:58)
[2019-04-16 08:02] LABS: Glucose,Whole Blood 159 mg/dL (75-99)
[2019-04-16] MEDS: DEXTROSE 10 % IN WATER 250 ML IV STA (08:04)
[2019-04-16] MEDS ORDERED: PANTOPRAZOLE 40 MG/10 ML VIAL IV SCH (09:00)
[2019-04-16 09:11] LABS: ABG Base Excess -13.3 mmol/L; ABG HCO3 12 mmol/L (21-25); ABG Oxygen Saturation 97.6 % (94-97); ABG PCO2 23 mmHg (35-45); ABG PH 7.35 (7.35-7.45); ABG PO2 93 mmHg (83-108); ABG TCO2 13 mmol/L (19-24); Allen Test Performed? Yes
[2019-04-16] MEDS: DEXTROSE 5% IN WATER 1,000 ML with SODIUM BICARB (1 MEQ/ML) 150 ML IV SCH (10:01)
--- NOTE | 2019-04-16 10:26 | XR ---
EXAMINATION TYPE: XR chest 1V portable DATE OF EXAM: 04/16/2019 COMPARISON: 04/15/2019 HISTORY: SOB TECHNIQUE: Single frontal view of the chest is obtained. FINDINGS: There is right jugular catheter with the tip in the right atrium. Heart is enlarged and is postoperative change. Left basilar infiltrate and small effusion stable. No overt failure. Chronic r ib deformity seen. IMPRESSION: 1. Stable left lower lobe infiltrate and small effusion.
[2019-04-16] MEDS ORDERED: SODIUM CHLORIDE 0.9% 1,000 ML IV ONE (10:53)
--- NOTE | 2019-04-16 11:29 | ECHOF ---
Referral Reason:chf/hypoperfusion MEASUREMENTS -------- HEIGHT: 182.9 cm WEIGHT: 89.8 kg BP: 86/73 RVIDd: 2.8 cm (< 3.3) IVSd: 1.6 cm (0.6 - 1.1) LVIDd: 3.3 cm (3.9 - 5.3) LVPWd: 2.3 cm (0.6 - 1.1) IVSs: 2.3 cm LVIDs: 2.0 cm LVPWs: 2.0 cm LAESV Index (A-L): 37.51 ml/m Ao Diam: 2.7 cm (2.0 - 3.7) AV Cusp: 1.9 cm (1.5 - 2.6) LA Diam: 4.6 cm (2.7 - 3.8) FINDINGS -------- Atrial fibrillation. This was a technically difficult study with suboptimal apical views. The left ventricular size is normal. There is moderate concentric left ventricular hypertrophy. O verall left ventricular systolic function is normal with, an EF between 60 - 65 %. Left ventricular fillimg pressure cannot be estimated due to Atrial fibrillation. The right ventricle is normal in size. LA is moderately dilated 34-39 ml/m2 The right atrium was not well visualized. 1.5mg of Definity was utilized for enhancement of images Interatrial and interventricular septum intact. The aortic valve was not well visualized. There is no evidence of aortic regurgitation. There is no evidence of aortic stenosis. Mild mitral regurgitation is present. The tricuspid valve was not well visualized. Unable to estimate RVSP due to inadequate TR jet spect ral doppler profile. There is no pulmonic regurgitation present. The aortic root size is normal. IVC Not well visulized. There is no pericardial effusion. CONCLUSIONS -------- 1. Atrial fibrillation. 2. This was a technically difficult study with suboptimal apical views. 3. The left ventricular size is normal. 4. There is moderate concentric left ventricular hypertrophy. 5. Overall left ventricular systolic function is normal with, an EF between 60 - 65 %. 6. Left ventricular fillimg pressure cannot be estimated due to Atrial fibrillation. 7. The right ventricle is normal in size. 8. LA is moderately dilated 34-39 ml/m2 9. The right atrium was not well visualized. 10. 1.5mg of Definity was utilized for enhancement of images 11. Interatrial and interventricular septum intact. 12. The aortic valve was not well visualized. 13. There is no evidence of aortic regurgitation. 14. There is no evidence of aortic stenosis. 15. Mild mitral regurgitation is present. 16. The tricuspid valve was not well visualized. 17. Unable to estimate RVSP due to inadequate TR jet spectral doppler profile. 18. There is no pulmonic regurgitation present. 19. The aortic root size is normal. 20. IVC Not well visulized. 21. There is no pericardial effusion. [employer] SUPERVISOR: Abbey Sevilla RDCS
--- NOTE | 2019-04-16 11:43 | P.CNPUL ---
History of Present Illness Consult date: 04/16/19 Requesting physician: Shelbi Ruvalcaba Reason for consult: other (GI bleeding) Chief complaint: bright red blood per rectum History of present illness: this is a 78-year-old white male with history of multiple medical problems including chronic atrial fibrillation,maintained on Eliquis, patient lives at a [facility], and he was found to have bright red blood per rectum yesterday. Patient was sent to the ER,and upon presentation the patient was noted to have significant amount of bloody stools, patient did receive a unit of packed RBCs although his initial hemoglobin was 11.6.his initial labs were basically unremarkable except for a BUN of 35 creatinine 1.66, and his pro time was normal INR was normal. Platelets were normal.his WBC count was 15.4, and the patient was not complaining of any pain. He does have underlying dementia, and not much history could be obtained from the patient. However as the patient was transferred to the ICU, there was a significant concern about his ABG showing a low bicarb of 12 his WBC count was 35.1, and his hemoglobin was 9.8.his electrolytes showed significant acidosis with bicarb of 15 there was evidence of significant worsening in his renal profile, and his lactic acid came back to be 7.5.patient received more IV fluid boluses about 2 L of 0.9 normal saline. He received 2 A of bicarb. 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.CT angiogram of the head and neck was also unremarkable.chest x-ray this morning showed a left lower lobe atelectasis and small left pleural effusion.after evaluating the patient, I did recommend placing the patient on a sodium bicarb drip, also recommended a neurological consultation, kept him on antibiotics/Zosyn, and we'll likely recommend a GI consultation as well as general surgery consultation, as I am a bit concerned about the possibility of ischemic bowel Although his physical examination is unremarkable, and there is no evidence of abdominal tenderness.in the meantime, the patient is now on IV fluids, antibiotics empirically, and is also on Protonix. Review of Systems ROS unobtainable: due to mental status Past Medical History Past Medical History: Atrial Flutter, Coronary Artery Disease (CAD), Chest Pain / Angina, Heart Failure, COPD, CVA/TIA, Dementia, Diabetes Mellitus, Fibromyalgia, Hyperlipidemia, Hypertension, Myocardial Infarction ([place]), Prostate Disorder, Renal Disease, Sleep Apnea/CPAP/BIPAP, Vascular Disorder Additional Past Medical History / Comment(s): IDDM, chronic renal failure, aflutter, sleep apnea with no cpap, PVD, DJD, chronic back pain, bulging and herniated discs, sciatica, dislocated knuckles, gout, arthiritis, prostate problem-pt unsure what problem is, tinnitis bilaterally, R eye stroke, umbilical hernia, diverticular disease, obesity, 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 Past Anesthesia/Blood Transfusion Reactions: No Reported Reaction Smoking Status: Former smoker - Past Family History Father Family Medical History: Coronary Artery Disease (CAD) Additional Family Medical History / Comment(s): Father had CABG Mother Family Medical History: No Reported History Additional Family Medical History / Comment(s): Pt states mother was a healthy person. Medications and Allergies Home Medications Medication Instructions Recorded Confirmed Type Aspirin 81 mg PO HS@209908/26/14 04/16/19 History Atorvastatin [Lipitor] 40 mg PO HS@209908/26/14 04/16/19 History Cholecalciferol [Vitamin D3 (25 1,000 unit PO DAILY@0900 08/26/14 04/16/19 History Mcg = 1000 Iu)] Cilostazol [Pletal] 100 mg PO HS@209908/26/14 04/16/19 History DULoxetine HCL [Cymbalta] 60 mg PO DAILY@0900 08/26/14 04/16/19 History Donepezil [Aricept] 10 mg PO BID@0900,209908/26/14 04/16/19 History [place]-3 Fatty Acids/Fish Oil [Fish 1 cap PO HS@209908/26/14 04/16/19 History Oil 1,000 mg Softgel] Nitroglycerin Sl Tabs [Nitrostat] 0.4 mg SUBLINGUAL Q5M PRN 10/16/14 04/16/19 History Tamsulosin HCl [Flomax] 0.4 mg PO HS@209905/24/15 04/16/19 History Isosorbide Mononitrate ER [Imdur] 30 mg PO DAILY@0900 10/15/15 04/16/19 History Furosemide [Lasix] 20 mg PO BID@0600,1200 08/14/17 04/16/19 History Levothyroxine Sodium [Synthroid] 75 mcg PO DAILY@0600 08/14/17 04/16/19 History Acetaminophen [Tylenol] 650 mg PO Q6HR PRN 10/09/17 04/16/19 History Memantine [Namenda] 10 mg PO BID@0900,209910/09/17 04/16/19 History Apixaban [Eliquis] 2.5 mg PO BID@0900,209906/11/18 04/16/19 History Atenolol [Tenormin] 50 mg PO DAILY@0906/11/18 04/16/19 History DULoxetine HCL [Cymbalta] 30 mg PO DAILY@0906/11/18 04/16/19 History Liraglutide [Victoza 2-Yayo] 1.2 mg SQ HS@209906/11/18 04/16/19 History Ferrous Sulfate [Feosol] 325 mg PO DAILY@0900 02/16/19 04/16/19 History HYDROcodone/APAP 5-325MG [[place] 1 tab PO TID@0600,1400,2200 02/16/19 04/16/19 History 5-325] Insulin Glargine,Hum.rec.anlog 44 unit SQ HS@209902/16/19 04/16/19 History [Lantus Solostar] Insulin Lispro [humaLOG Kwikpen] See Protocol SQ 02/16/19 04/16/19 History DAILY@0800,1200,1700 Loperamide HCl [Imodium A-D] 2 - 4 mg PO QID PRN 02/16/19 04/16/19 History Melatonin 5 mg PO HS@209902/16/19 04/16/19 History Potassium Chloride ER [K-Dur 20] 30 meq PO DAILY@0900 02/16/19 04/16/19 History Ranitidine HCl [Zantac] 150 mg PO HS@2100 02/16/19 04/16/19 History Allergies Allergy/AdvReac Type Severity Reaction Status Date / Time ciprofloxacin [From Cipro] Allergy Swelling Verified 04/15/19 17:55 ciprofloxacin HCl Allergy Swelling Verified 04/15/19 17:55 [From Cipro] latex Allergy Unknown Verified 04/15/19 17:55 NSAIDS (Non-Steroidal Allergy Unknown Verified 04/15/19 17:55 Anti-Inflamma Quinolones Allergy Unknown Verified 04/15/19 17:55 Physical Exam Vitals: Vital Signs Temp Pulse Resp BP Pulse Ox 04/16/19 11:00 89 13 102/55 96 04/16/19 10:30 92 15 92/65 100 04/16/19 10:00 89 25 H 78/62 94 L 04/16/19 09:30 94 27 H 95/20 94 L 04/16/19 09:00 102 H 23 95/51 04/16/19 08:30 87 22 108/80 95 04/16/19 08:00 97.5 F L 93 25 H 86/73 04/16/19 07:00 107 H 30 H 90/61 96 04/16/19 06:00 97 12 92/55 98 04/16/19 05:00 107 H 29 H 103/63 99 04/16/19 04:00 97.7 F 105 H 31 H 111/57 97 04/16/19 03:00 110 H 31 H 91/57 96 04/16/19 02:00 115 H 32 H 110/68 96 04/16/19 01:00 105 H 31 H 110/72 97 04/16/19 00:00 98.0 F 109 H 32 H 103/80 96 04/15/19 23:00 89 32 H 94/55 98 04/15/19 22:00 98 30 H 121/86 97 04/15/19 21:00 100 23 88/52 79 L 04/15/19 20:00 97 28 H 118/93 100 04/15/19 19:16 116 H 22 113/55 100 04/15/19 19:00 92 23 91/54 100 04/15/19 18:30 98 26 H 97/70 100 04/15/19 18:00 96 26 H 86/54 100 04/15/19 17:38 96.6 F L 89 16 108/78 04/15/19 17:00 75 16 119/83 95 04/15/19 16:45 96 12 117/89 95 04/15/19 16:34 97.2 F L 89 14 118/81 95 04/15/19 16:30 85 16 04/15/19 16:11 97.3 F L 90 12 119/81 92 L 04/15/19 16:10 97.0 F L 86 12 116/85 95 04/15/19 16:01 97.1 F L 93 16 98/87 94 L 04/15/19 15:51 72 12 102/85 96 04/15/19 15:37 97.3 F L 89 12 96/66 96 Intake and Output 04/15/19 04/16/19 04/16/19 22:59 06:59 14:59 Intake Total 935 1000 4075 Output Total 168 80 47 Balance 894 246 1116 Intake: IV 375 1000 625 0.9 375 1000 625 Intake, IV Titration 250 3450 Amount Dextrose 10 % in Water 250 250 ml @ 999 mls/hr IV ONCE STA Rx#:[id number] Dextrose 5% in Water 1, 150 000 ml @ 75 mls/hr IV . [id number] JOEL with Sodium Bicarb (1 Meq/ml) 150 ml Rx#:[id number] Piperacillin-Tazobactam 3 50 .375 gm In Sodium Chloride 0.9% 100 ml @ 25 mls/hr IVPB Q8H JOEL Rx#: [id number] Sodium Chloride 0.9% 1, 250 000 ml @ 125 mls/hr IV . Q8H JOEL Rx#:[id number] Sodium Chloride 0.9% 2, 3000 000 ml @ 999 mls/hr IV . Q2H1M ONE Rx#:[id number] Blood Product 310 Rc As-3 Unit 310 [id number] Output: Urine 165 80 47 Uretheral (Youssef) 120 Stool 3 Other: Voiding Method Indwelling Catheter Indwelling Catheter Weight 91 kg 89.9 kg GENERAL: Patient is well-developed and well-nourished. in no distress, patient is not responding to any stimuli. ENT: Neck is soft and supple. No significant lymphadenopathy is noted. Oropharynx is clear. Moist mucous membranes. Neck has full range of motion without eliciting any pain. EYES: PERRLA, EOMI, no icterus. PULMONARY: Symmetrical chest expansion, diminished breath sounds at the bases, no crackles or rhonchi or wheezes. CARDIOVASCULAR: normal S1 and S2, no S3 gallop. ABDOMEN: Soft, nontender, no megaly, no rebound, diminished bowel sounds. SKIN: Skin is clear with no lesions or rashes and otherwise unremarkable. RECTAL: Not performed, it was done by the ER physician and there was evidence of bright red blood per rectum NEUROLOGIC: Patient is extremely lethargic, does not respond to any deep painful stimuli except possibly opening his eyes slightly.Not following any instructions, and does not respond to any verbal stimuli per MUSCULOSKELETAL: no evidence of deformities, could not fully assess muscular strength. LYMPHATICS: No significant lymphadenopathy is noted PSYCHIATRIC: Cannot be assessed. Mostly because of his present neurological status. Results - Laboratory Findings CBC and BMP: 04/16/19 04:10 04/16/19 04:10 ABG ABG pH 7.35 (7.35-7.45) 04/16/19 09:01 ABG pCO2 23 mmHg (35-45) L 04/16/19 09:01 ABG pO2 93 mmHg (83-108) 04/16/19 09:01 ABG O2 Saturation 97.6 % (94-97) H 04/16/19 09:01 PT/INR, D-dimer PT 13.3 sec (9.0-12.0) H 04/16/19 04:10 INR 1.3 (<1.2) H 04/16/19 04:10 Abnormal lab findings: Abnormal Labs 04/15/19 04/15/19 04/15/19 15:41 16:00 16:00 WBC 16.7 H RBC 3.72 L Hgb 11.7 L Hct 34.5 L Neutrophils # 14.5 H Monocytes # PT INR APTT ABG pH ABG pCO2 ABG pO2 ABG HCO3 ABG Total CO2 ABG O2 Saturation Potassium Chloride Carbon Dioxide BUN Creatinine Glucose POC Glucose (mg/dL) 161 H Plasma Lactic Acid Constantin Calcium AST ALT Ammonia Total Protein Albumin Urine Protein Urine Blood Amorphous Sediment Urine Bacteria Hyaline Casts Urine Mucus Crossmatch See Detail 04/15/19 04/15/19 04/15/19 16:00 16:00 16:17 WBC RBC Hgb Hct Neutrophils # Monocytes # PT INR APTT 35.8 H ABG pH ABG pCO2 ABG pO2 ABG HCO3 ABG Total CO2 ABG O2 Saturation Potassium Chloride Carbon Dioxide BUN 35 H Creatinine 1.66 H Glucose 208 H POC Glucose (mg/dL) Plasma Lactic Acid Constantin Calcium 8.2 L AST 12 L ALT 20 L Ammonia Total Protein 5.3 L Albumin 2.8 L Urine Protein Trace H Urine Blood Moderate H Amorphous Sediment Rare H Urine Bacteria Rare H Hyaline Casts 15 H Urine Mucus Rare H Crossmatch 04/15/19 04/16/19 04/16/19 17:45 04:10 04:10 WBC 15.4 H 35.1 H RBC 3.75 L 3.12 L Hgb 11.6 L 9.8 L D Hct 34.7 L 29.4 L Neutrophils # 13.7 H 31.4 H Monocytes # 1.7 H PT 13.3 H INR 1.3 H APTT ABG pH ABG pCO2 ABG pO2 ABG HCO3 ABG Total CO2 ABG O2 Saturation Potassium Chloride Carbon Dioxide BUN Creatinine Glucose POC Glucose (mg/dL) Plasma Lactic Acid Constantin Calcium AST ALT Ammonia Total Protein Albumin Urine Protein Urine Blood Amorphous Sediment Urine Bacteria Hyaline Casts Urine Mucus Crossmatch 04/16/19 04/16/19 04/16/19 04:10 04:29 04:58 WBC RBC Hgb Hct Neutrophils # Monocytes # PT INR APTT ABG pH 7.34 L ABG pCO2 20 L ABG pO2 130 H ABG HCO3 11 L ABG Total CO2 11 L ABG O2 Saturation 98.7 H Potassium 5.9 H Chloride 111 H Carbon Dioxide 15 L BUN 45 H Creatinine 2.40 H Glucose 228 H POC Glucose (mg/dL) 199 H Plasma Lactic Acid Constantin Calcium 8.1 L AST ALT 18 L Ammonia Total Protein 4.8 L Albumin 2.6 L Urine Protein Urine Blood Amorphous Sediment Urine Bacteria Hyaline Casts Urine Mucus Crossmatch 04/16/19 04/16/19 04/16/19 05:00 05:00 08:01 WBC RBC Hgb Hct Neutrophils # Monocytes # PT INR APTT ABG pH ABG pCO2 ABG pO2 ABG HCO3 ABG Total CO2 ABG O2 Saturation Potassium Chloride Carbon Dioxide BUN Creatinine Glucose POC Glucose (mg/dL) 159 H Plasma Lactic Acid Constantin 7.8 H* Calcium AST ALT Ammonia 41 H Total Protein Albumin Urine Protein Urine Blood Amorphous Sediment Urine Bacteria Hyaline Casts Urine Mucus Crossmatch 04/16/19 04/16/19 09:01 09:24 WBC RBC Hgb Hct Neutrophils # Monocytes # PT INR APTT ABG pH ABG pCO2 23 L ABG pO2 ABG HCO3 12 L ABG Total CO2 13 L ABG O2 Saturation 97.6 H Potassium Chloride Carbon Dioxide BUN Creatinine Glucose POC Glucose (mg/dL) Plasma Lactic Acid Constantin 7.5 H* Calcium AST ALT Ammonia Total Protein Albumin Urine Protein Urine Blood Amorphous Sediment Urine Bacteria Hyaline Casts Urine Mucus Crossmatch - Diagnostic Findings Chest x-ray: image reviewed (as noted in HPI.) Assessment and Plan Assessment: impression: 1acute GI bleeding most likely lower GI in nature, workup is pending, GI consultation and general surgery consultations are pending. 2 acute lactic acidosis and hypotension, possible sepsis, and the only 2 sources I could think of is possibly abdominal sepsis or possibly a left lower lobe questionable infiltrate. I am a bit concerned of the possibility of ischemic bowel, especially with the sudden drop in his bicarb, and significant worsening of his renal status as well as significantly elevated lactic acid noted shortly after he was admitted. 3 acute metabolic encephalopathy, could be related to sepsis, or could be related to elevated ammonia level which is pending. 4chronic atrial fibrillation, patient was on Eliquis until admission. 5 coronary artery disease 6 chronic obstructive pulmonary disease 7 history of underlying dementia 8 history of underlying diabetes type 2 9 history of chronic renal disease stage III, however patient has presently acute on chronic kidney injury. 10 history of previous myocardial infarction 11 left lower lobe atelectasis, strongly doubt pneumonia, there may be a small tiny left pleural effusion not large enough to consider thoracentesis at this point. 12 history of obstructive sleep apnea, 13 history of chronic low back pain. 14 history of gouty arthritis. 15 history of diverticular disease. Recommendation: Continue present supportive care measures. Continue to monitor closely in the ICU. Continue Protonix. Continue IV fluids and sodium bicarb drip for his profound metabolic acidosis. Consult gastroenterology, general surgery, and in urology. Continue empirically/Zosyn. check ammonia level. continue insulin as per protocol. continue to monitor CVP and lactic acid. Continue to monitor daily electrolytes and renal profile. Confirmed CODE STATUS with family later today. Prognosis is extremely poor and guarded. We'll continue to follow. Time with Patient: Greater than 30
[2019-04-16 12:54] LABS: Glucose,Whole Blood 261 mg/dL (75-99)
[2019-04-16 13:05] LABS: Basophils % (A) 0 %; Eosinophils % (A) 0 %; HCT 22.4 % (39.0-53.0); Lymphocytes # (A) 1.1 k/uL (1.0-4.8); Lymphocytes % (A) 5 %; MCH 30.6 pg (25.0-35.0); MCHC 32.3 g/dL (31.0-37.0); MCV 94.8 fL (80.0-100.0); Mean Platelet Volume 9.9; Monocytes # (A) 0.9 k/uL (0-1.0); Monocytes % (A) 4 %; Neutrophils # (A) 19.1 k/uL (1.3-7.7); Neutrophils % (A) 89 %; Platelet Count 176 k/uL (150-450); RBC 2.36 m/uL (4.30-5.90); RDW 15.2 % (11.5-15.5); WBC 21.4 k/uL (3.8-10.6)
[2019-04-16 13:09] LABS: HGB 7.2 gm/dL (13.0-17.5)
[2019-04-16] MEDS ORDERED: INSULIN ASPART (NovoLOG) 100 UNIT/ML VIAL SQ SCH (14:00)
--- NOTE | 2019-04-16 15:54 | P.CNNES ---
History of Present Illness Consult date: 04/16/19 Reason for Consult: AMS Chief complaint: Found down in a pool of blood History of Present Illness: HISTORY OF PRESENT ILLNESS: Thank you for allowing me to evaluate Mr. Jaguar Farnsworth. Mr. Farnsworth is a 78 year-old man with mutiple PMhx listed below, significant for being on Eliquis for atrial flutter, who was found down in a pool of blood likely from his lower GI, consulting Neurology for AMS. RN states that patient had been lethargic, but this morning, the overnight RN could not wake up the patient and so stroke code was called. CT Head and CTA Head and Neck unremarkable. Patient's labs show multiple metabolic deranagements such as elevated ammonia level, renal failure, PAST MEDICAL HISTORY: Atrial flutter, coronary artery disease, heart failure, COPD, dementia, diabetes, fibromyalgia, hyperlipidemia, hypertension, [place], sleep apnea, chronic renal failure, peripheral vascular disease, degenerative joint disease. Chronic back pain, sciatica, gout, arthritis, tinnitus bilaterally, right eye stroke, umbilical hernia, obesity, anxiety, depression PAST SURGICAL HISTORY: CABG, tonsillectomy, left carotid endarterectomy, bilateral cataract removal with lens implants HOME MEDICATIONS: Aspirin, atorvastatin, cilostazol, vitamin D, duloxetine, donepezil, omega-3, tamsulosin, Imdur, furosemide, levothyroxine, memantine, Eliquis, atenolol, LIraglutide, ferrous sulfate, insulin, melatonin, potassium chloride, ranitidine ALLERGIES: Ciprofloxacin, latex, NSAIDs, quinolones SOCIAL HISTORY: Former smoker. Occasional alcohol use FAMILY HISTORY: Father with coronary artery disease. He had a CABG REVIEW OF SYSTEMS: The 14 systems are reviewed and no additional points are identified compared to the review of systems documented history and physical PHYSICAL EXAMINATION: VITAL SIGNS: T 97.5 HR 93 RR 25 BP 96/73 O2 sat 96% on 4L O2 via NC GEN.: grimaces to pain, does not open eyes HEENT: NCAT, sclera without icterus NECK: Supple SKIN AND EXTREMITIES: His finger tips are purple and cold. b/l feet slightly colder than the legs but warmer than his fingertips. NEURO: MENTAL STATUS: grimaces to pain, does not open eyes, not on any sedation CRANIAL NERVES II THROUGH XII: II: Pupils are minimally reactive bilaterally. III, IV, : Eyes were at one point preferring L gaze but came to midline. VII. No clear facial asymmetry. MOTOR/SENSORY: Normal bulk and tone. Withdraws to pain in all 4 extremities. REFLEXES: 1+ throughout. Toes are downgoing. COORDINATION/GAIT: deferred due to patient's altered mental status DIAGNOSTIC TESTING: LABORATORY: WBC 35.1 hemoglobin 9.8 platelet 228 INR 1.3 sodium 140 potassium 5.9 chloride 111 bicarb 15 BUN 45 creatinine 2.40 glucose 228 AST 21 ALT 18 alk phos 83 ammonia 42 IMAGING: CT head without contrast 04/16/2020: Moderate diffuse atrophy. Hydrocephalus. No change compared to old exam. 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 Unchanged CTA head and neck with contrast 04/16/2015: There is small left proximal ICA that appears smaller than last exam. The movement is narrowed approximately 30%. No aneurysm or dissection. No evidence of intracranial arterial stenosis. ASSESSMENT/RECOMMENDATIONS: 78 year-old man with mutiple PMhx listed below, significant for being on Eliquis for atrial flutter, who was found down in a pool of blood likely from his lower GI, consulting Neurology for AMS. Patient likely having metabolic encephalopathy from all metabolic derangements. Patient also with elevated lactic acid, being treated for sepsis at this time. Will obtain routine EEG as seizure cannot be ruled out. Neurology will sign off unless EEG shows any seizure or epileptiform activity. Please contact with additional questions or concerns. Past Medical History Past Medical History: Atrial Flutter, Coronary Artery Disease (CAD), Chest Pain / Angina, Heart Failure, COPD, CVA/TIA, Dementia, Diabetes Mellitus, Fibromyalgia, Hyperlipidemia, Hypertension, Myocardial Infarction ([place]), Prostate Disorder, Renal Disease, Sleep Apnea/CPAP/BIPAP, Vascular Disorder Additional Past Medical History / Comment(s): IDDM, chronic renal failure, aflutter, sleep apnea with no cpap, PVD, DJD, chronic back pain, bulging and herniated discs, sciatica, dislocated knuckles, gout, arthiritis, prostate problem-pt unsure what problem is, tinnitis bilaterally, R eye stroke, umbilical hernia, diverticular disease, obesity, 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 Past Anesthesia/Blood Transfusion Reactions: No Reported Reaction Smoking Status: Former smoker - Past Family History Father Family Medical History: Coronary Artery Disease (CAD) Additional Family Medical History / Comment(s): Father had CABG Mother Family Medical History: No Reported History Additional Family Medical History / Comment(s): Pt states mother was a healthy person. Medications and Allergies Home Medications Medication Instructions Recorded Confirmed Type Aspirin 81 mg PO HS@209908/26/14 04/16/19 History Atorvastatin [Lipitor] 40 mg PO HS@209908/26/14 04/16/19 History Cholecalciferol [Vitamin D3 (25 1,000 unit PO DAILY@0900 08/26/14 04/16/19 Hi story Mcg = 1000 Iu)] Cilostazol [Pletal] 100 mg PO HS@209908/26/14 04/16/19 History DULoxetine HCL [Cymbalta] 60 mg PO DAILY@0900 08/26/14 04/16/19 History Donepezil [Aricept] 10 mg PO BID@0900,209908/26/14 04/16/19 History [place]-3 Fatty Acids/Fish Oil [Fish 1 cap PO HS@209908/26/14 04/16/19 History Oil 1,000 mg Softgel] Nitroglycerin Sl Tabs [Nitrostat] 0.4 mg SUBLINGUAL Q5M PRN 10/16/14 04/16/19 History Tamsulosin HCl [Flomax] 0.4 mg PO HS@209905/24/15 04/16/19 History Isosorbide Mononitrate ER [Imdur] 30 mg PO DAILY@0900 10/15/15 04/16/19 History Furosemide [Lasix] 20 mg PO BID@0600,1200 08/14/17 04/16/19 History Levothyroxine Sodium [Synthroid] 75 mcg PO DAILY@0600 08/14/17 04/16/19 History Acetaminophen [Tylenol] 650 mg PO Q6HR PRN 10/09/17 04/16/19 History Memantine [Namenda] 10 mg PO BID@0900,209910/09/17 04/16/19 History Apixaban [Eliquis] 2.5 mg PO BID@0900,209906/11/18 04/16/19 History Atenolol [Tenormin] 50 mg PO DAILY@0900 06/11/18 04/16/19 History DULoxetine HCL [Cymbalta] 30 mg PO DAILY@0906/11/18 04/16/19 History Liraglutide [Victoza 2-Yayo] 1.2 mg SQ HS@209906/11/18 04/16/19 History Ferrous Sulfate [Feosol] 325 mg PO DAILY@0900 02/16/19 04/16/19 History HYDROcodone/APAP 5-325MG [[place] 1 tab PO TID@0600,1400,2200 02/16/19 04/16/19 History 5-325] Insulin Glargine,Hum.rec.anlog 44 unit SQ HS@209902/16/19 04/16/19 History [Lantus Solostar] Insulin Lispro [humaLOG Kwikpen] See Protocol SQ 02/16/19 04/16/19 History DAILY@0800,1200,1700 Loperamide HCl [Imodium A-D] 2 - 4 mg PO QID PRN 02/16/19 04/16/19 History Melatonin 5 mg PO HS@209902/16/19 04/16/19 History Potassium Chloride ER [K-Dur 20] 30 meq PO DAILY@0900 02/16/19 04/16/19 History Ranitidine HCl [Zantac] 150 mg PO HS@209902/16/19 04/16/19 History Allergies Allergy/AdvReac Type Severity Reaction Status Date / Time ciprofloxacin [From Cipro] Allergy Swelling Verified 04/15/19 17:55 ciprofloxacin HCl Allergy Swelling Verified 04/15/19 17:55 [From Cipro] latex Allergy Unknown Verified 04/15/19 17:55 NSAIDS (Non-Steroidal Allergy Unknown Verified 04/15/19 17:55 Anti-Inflamma Quinolones Allergy Unknown Verified 04/15/19 17:55 Physical Examination - Vital Signs Vital Signs: Vital Signs Temp Pulse Resp BP Pulse Ox 04/16/19 08:00 97.5 F L 93 25 H 86/73 04/16/19 07:00 107 H 30 H 90/61 96 04/16/19 06:00 97 12 92/55 98 04/16/19 05:00 107 H 29 H 103/63 99 04/16/19 04:00 97.7 F 105 H 31 H 111/57 97 04/16/19 03:00 110 H 31 H 91/57 96 04/16/19 02:00 115 H 32 H 110/68 96 04/16/19 01:00 105 H 31 H 110/72 97 04/16/19 00:00 98.0 F 109 H 32 H 103/80 96 04/15/19 23:00 89 32 H 94/55 98 04/15/19 22:00 98 30 H 121/86 97 04/15/19 21:00 100 23 88/52 79 L 04/15/19 20:00 97 28 H 118/93 100 04/15/19 19:16 116 H 22 113/55 100 04/15/19 19:00 92 23 91/54 100 04/15/19 18:30 98 26 H 97/70 100 04/15/19 18:00 96 26 H 86/54 100 04/15/19 17:38 96.6 F L 89 16 108/78 04/15/19 17:00 75 16 119/83 95 04/15/19 16:45 96 12 117/89 95 04/15/19 16:34 97.2 F L 89 14 118/81 95 04/15/19 16:30 85 16 04/15/19 16:11 97.3 F L 90 12 119/81 92 L 04/15/19 16:10 97.0 F L 86 12 116/85 95 04/15/19 16:01 97.1 F L 93 16 98/87 94 L 04/15/19 15:51 72 12 102/85 96 04/15/19 15:37 97.3 F L 89 12 96/66 96 Intake and Output 04/15/19 04/16/19 04/16/19 22:59 06:59 14:59 Intake Total 935 1000 1525 Output Total 168 80 30 Balance 525 346 0753 Intake: IV 375 1000 250 0.9 375 1000 250 Intake, IV Titration 250 1275 Amount Dextrose 10 % in Water 250 250 ml @ 999 mls/hr IV ONCE STA Rx#:[id number] Piperacillin-Tazobactam 3 25 .375 gm In Sodium Chloride 0.9% 100 ml @ 25 mls/hr IVPB Q8H [facility] Rx#: [id number] Sodium Chloride 0.9% 1, 250 000 ml @ 125 mls/hr IV . Q8H [facility] Rx#:[id number] Sodium Chloride 0.9% 2, 1000 000 ml @ 999 mls/hr IV . Q2H1M [facility] Rx#:[id number] Blood Product 310 Rc As-3 Unit 310 [id number] Output: Urine 165 80 30 Uretheral (Youssef) 120 Stool 3 Other: Voiding Method Indwelling Catheter Indwelling Catheter Weight 91 kg 89.9 kg Results - Laboratory Findings CBC and BMP: 04/16/19 12:40 04/16/19 04:10 Abnormal Lab Findings: Abnormal Labs 04/15/19 04/15/19 04/15/19 15:41 16:00 16:00 WBC 16.7 H RBC 3.72 L Hgb 11.7 L Hct 34.5 L Neutrophils # 14.5 H Monocytes # PT INR APTT ABG pH ABG pCO2 ABG pO2 ABG HCO3 ABG Total CO2 ABG O2 Saturation Potassium Chloride Carbon Dioxide BUN Creatinine Glucose POC Glucose (mg/dL) 161 H Plasma Lactic Acid Constantin Calcium AST ALT Ammonia Total Protein Albumin Urine Protein Urine Blood Amorphous Sediment Urine Bacteria Hyaline Casts Urine Mucus Crossmatch See Detail 04/15/19 04/15/19 04/15/19 16:00 16:00 16:17 WBC RBC Hgb Hct Neutrophils # Monocytes # PT INR APTT 35.8 H ABG pH ABG pCO2 ABG pO2 ABG HCO3 ABG Total CO2 ABG O2 Saturation Potassium Chloride Carbon Dioxide BUN 35 H Creatinine 1.66 H Glucose 208 H POC Glucose (mg/dL) Plasma Lactic Acid Constantin Calcium 8.2 L AST 12 L ALT 20 L Ammonia Total Protein 5.3 L Albumin 2.8 L Urine Protein Trace H Urine Blood Moderate H Amorphous Sediment Rare H Urine Bacteria Rare H Hyaline Casts 15 H Urine Mucus Rare H Crossmatch 04/15/19 04/16/19 04/16/19 17:45 04:10 04:10 WBC 15.4 H 35.1 H RBC 3.75 L 3.12 L Hgb 11.6 L 9.8 L D Hct 34.7 L 29.4 L Neutrophils # 13.7 H 31.4 H Monocytes # 1.7 H PT 13.3 H INR 1.3 H APTT ABG pH ABG pCO2 ABG pO2 ABG HCO3 ABG Total CO2 ABG O2 Saturation Potassium Chloride Carbon Dioxide BUN Creatinine Glucose POC Glucose (mg/dL) Plasma Lactic Acid Constantin Calcium AST ALT Ammonia Total Protein Albumin Urine Protein Urine Blood Amorphous Sediment Urine Bacteria Hyaline Casts Urine Mucus Crossmatch 04/16/19 04/16/19 04/16/19 04:10 04:29 04:58 WBC RBC Hgb Hct Neutrophils # Monocytes # PT INR APTT ABG pH 7.34 L ABG pCO2 20 L ABG pO2 130 H ABG HCO3 11 L ABG Total CO2 11 L ABG O2 Saturation 98.7 H Potassium 5.9 H Chloride 111 H Carbon Dioxide 15 L BUN 45 H Creatinine 2.40 H Glucose 228 H POC Glucose (mg/dL) 199 H Plasma Lactic Acid Constantin Calcium 8.1 L AST ALT 18 L Ammonia Total Protein 4.8 L Albumin 2.6 L Urine Protein Urine Blood Amorphous Sediment Urine Bacteria Hyaline Casts Urine Mucus Crossmatch 04/16/19 04/16/19 04/16/19 05:00 05:00 08:01 WBC RBC Hgb Hct Neutrophils # Monocytes # PT INR APTT ABG pH ABG pCO2 ABG pO2 ABG HCO3 ABG Total CO2 ABG O2 Saturation Potassium Chloride Carbon Dioxide BUN Creatinine Glucose POC Glucose (mg/dL) 159 H Plasma Lactic Acid Constantin 7.8 H* Calcium AST ALT Ammonia 41 H Total Protein Albumin Urine Protein Urine Blood Amorphous Sediment Urine Bacteria Hyaline Casts Urine Mucus Crossmatch 04/16/19 09:01 WBC RBC Hgb Hct Neutrophils # Monocytes # PT INR APTT ABG pH ABG pCO2 23 L ABG pO2 ABG HCO3 12 L ABG Total CO2 13 L ABG O2 Saturation 97.6 H Potassium Chloride Carbon Dioxide BUN Creatinine Glucose POC Glucose (mg/dL) Plasma Lactic Acid Constantin Calcium AST ALT Ammonia Total Protein Albumin Urine Protein Urine Blood Amorphous Sediment Urine Bacteria Hyaline Casts Urine Mucus Crossmatch
--- NOTE | 2019-04-16 16:47 | CONS ---
CONSULTATION DATE OF DICTATION: 04/16/2019 REASON FOR CONSULTATION: Acute GI bleed. The patient is a 78-year-old pleasant white male who was transferred from [facility] with acute GI bleed. Apparently he was having multiple episodes of maroon/bright red blood per rectum. He had about 10 or 15 of these episodes all through the night. He came into the emergency room and was subsequently admitted to the intensive care unit for close monitoring. He has history of atrial fibrillation. He has been on Eliquis, which has been on hold. He has not had any further episodes of bleeding since 5 a.m. this morning. He dropped his hemoglobin from 11 to 7.2 g/dL, requiring one unit of blood transfusion. The patient never had these symptoms in the past. Patient is very lethargic, and most of the history was obtained from the patient's family who was at the bedside. The patient has been at [facility] for the last 6 months' duration. He has been lethargic on and off since admission to the hospital. Prior to that, as per the family, he could answer simple questions. However, he has some ongoing dementia. At the time of admission to the hospital, hemoglobin was 11.5 g/dL. He did have a CT of the head and CT angiogram of the brain done which showed a small parietal infarct that is old. Neurology is following the patient closely. At the time of admission to the hospital he was also noted to have lactic acidosis with lactic acid level of 7.8. PAST MEDICAL HISTORY: Past medical history is significant for coronary artery disease, status post CABG, history of hypertension, diabetes mellitus, dementia, hyperlipidemia. PAST SURGICAL HISTORY: 1. CABG. 2. Cardiac catheterization. 3. Tonsillectomy. 4. Left carotid endarterectomy. 5. Bilateral cataract surgery. MEDICATIONS AT HOME: 1. Lipitor. 2. Aspirin. 3. Vitamin D3. 4. Pletal. 5. Cymbalta. 6. Aricept. 7. Flomax. 8. Lasix. 9. Synthroid. 10.Tylenol. 11.Namenda. 12.Eliquis. 13.Tenormin. 14.Cymbalta. 15.Feosol. 16.Victoza. 17.[place]. 18.Lantus. 19.Imodium. 20.Potassium chloride. 21.Zantac. ALLERGIES: 1. CIPRO. 2. NSAIDS. 3. QUINOLONES. Social history could not be obtained. Family history could not be obtained. Review of systems could not be obtained because of mental status changes. PHYSICAL EXAMINATION: He appears comfortable. No apparent distress. Vital signs are stable. Blood pressure is 106/66, pulse rate 75, temperature 98. HEENT EXAMINATION: Unremarkable. Conjunctivae pink. Sclerae anicteric. Oral cavity no lesions. NECK: No JVD or lymph node enlargement. CHEST: Clear to auscultation. HEART: Regular rate and rhythm. ABDOMEN: Soft. Non-tender. Non-distended. Liver and spleen were not palpable. Bowel sounds are positive. No organomegaly. EXTREMITIES: No pedal edema. SKIN: No rashes. NEUROLOGIC: Very lethargic. LABS: Labs done at the time of admission to the hospital showed WBC 15.4. Today it is 35.1. Hemoglobin 11.6 and dropped to 7.2 g/dL. Platelets are normal. INR is 1.3. BUN is 45, creatinine 2.4, plasma lactic acid 5.4. AST and ALT normal. T-bilirubin, alkaline phosphatase normal. IMPRESSION: 1. Acute gastrointestinal bleed. Patient presented to the hospital with multiple episodes of maroon/bright red blood per rectum for the last 12 hours' duration. He has been on Eliquis for atrial fibrillation. That has been on hold. No further bleeding for the last 6 hours. He did drop hemoglobin from 11.2 to 7.2 g/dL requiring one unit of blood transfusion. He did have a prior history of colonoscopy as per the family, but they do not recall how long ago it was. No records available at the time of this dictation. No prior history of peptic ulcer disease. He never had these symptoms in the past. Possibly we are dealing with a diverticular bleed, but upper source of GI bleeding cannot be entirely excluded. 2. Altered mental status. Neurology is following the patient closely. CT of the head showed an old infarct. CT angiogram was unremarkable. 3. History of diabetes mellitus and hypertension. 4. Atrial fibrillation, on Eliquis, but currently on hold. 5. History of dementia. RECOMMENDATIONS: 1. Continue with Protonix 40 mg q.12 hours. 2. CBC every 6 hours and transfuse if hemoglobin is less than 7. 3. I had a length discussion with the patient's family regarding further workup for GI bleed. At this time, we will consider EGD and colonoscopy during this hospitalization once his overall mental status improves; probably in the next 48-72 hours. 4. Continue on broad-spectrum antibiotics for lactic acidosis and rule out any intraabdominal infection. 5. Thank you for this consultation. Will follow with you closely. SAHARA / LUIS: [id number] /
[2019-04-16 16:48] LABS: Glucose,Whole Blood 184 mg/dL (75-99)
[2019-04-16] MEDS: INSULIN ASPART (NovoLOG) 100 UNIT/ML VIAL SQ SCH ×2 (16:50→21:24)
--- NOTE | 2019-04-16 18:09 | P.HPIM ---
History of Present Illness H&P Date: 04/16/19 Chief Complaint: Bright red blood per rectum Mr. Farnsworth is a 78-year-old male with a past medical history of Atrial Flutter, Coronary Artery Disease, Heart Failure, COPD, CVA/TIA, Dementia, Diabetes Mellitus, Fibromyalgia, Hyperlipidemia, Hypertension, Myocardial Infarction , Prostate Disorder, Renal Disease, Sleep Apnea, Vascular Disorder brought in from the long-term for the chief complaint of bright red blood per rectum. Patient is on anticoagulation with Eliquis for atrial fibrillation. Patient is a poor historian. So most of the history is taken from nursing staff report and chart review. In the emergency department patient was having signifi cant amount of bloody stools and she received 1 unit of packed red blood cells. At the time of presentation to the ED patient was mumbling but later on his mentation worsened so he got up CT of the brain and also CT angiogram of the head and neck that was unremarkable. Patient was started on IV fluids and as his chest x-ray which showed small left-sided pleural effusion he was started on antibiotics and admitted to the ICU. Initial labs in the ER showed a hemoglobin of 11.6 and a creatinine of 1.66 and repeat labs from this morning showed a drop in hemoglobin to 7.2 along with elevated creatinine to 2.4. ABGs were done showing severe acidosis so the patient was started on a bicarb drip. Review of Systems REVIEW OF SYSTEMS: Could not be done due to pt's poor mentation. Past Medical History Past Medical History: Atrial Flutter, Coronary Artery Disease (CAD), Chest Pain / Angina, Heart Failure, COPD, CVA/TIA, Dementia, Diabetes Mellitus, Fibromyalgia, Hyperlipidemia, Hypertension, Myocardial Infarction ([place]), Prostate Disorder, Renal Disease, Sleep Apnea/CPAP/BIPAP, Vascular Disorder Additional Past Medical History / Comment(s): IDDM, chronic renal failure, aflutter, sleep apnea with no cpap, PVD, DJD, chronic back pain, bulging and herniated discs, sciatica, dislocated knuckles, gout, arthiritis, prostate problem-pt unsure what problem is, tinnitis bilaterally, R eye stroke, umbilical hernia, diverticular disease, obesity, 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 Past Anesthesia/Blood Transfusion Reactions: No Reported Reaction Smoking Status: Former smoker - Past Family History Father Family Medical History: Coronary Artery Disease (CAD) Additional Family Medical History / Comment(s): Father had CABG Mother Family Medical History: No Reported History Additional Family Medical History / Comment(s): Pt states mother was a healthy person. Medications and Allergies Home Medications Medication Instructions Recorded Confirmed Type Aspirin 81 mg PO HS@209908/26/14 04/16/19 History Atorvastatin [Lipitor] 40 mg PO HS@209908/26/14 04/16/19 History Cholecalciferol [Vitamin D3 (25 1,000 unit PO DAILY@0900 08/26/14 04/16/19 History Mcg = 1000 Iu)] Cilostazol [Pletal] 100 mg PO HS@209908/26/14 04/16/19 History DULoxetine HCL [Cymbalta] 60 mg PO DAILY@0900 08/26/14 04/16/19 History Donepezil [Aricept] 10 mg PO BID@0900,209908/26/14 04/16/19 History Hi Hat-3 Fatty Acids/Fish Oil [Fish 1 cap PO HS@209908/26/14 04/16/19 History Oil 1,000 mg Softgel] Nitroglycerin Sl Tabs [Nitrostat] 0.4 mg SUBLINGUAL Q5M PRN 10/16/14 04/16/19 History Tamsulosin HCl [Flomax] 0.4 mg PO HS@209905/24/15 04/16/19 History Isosorbide Mononitrate ER [Imdur] 30 mg PO DAILY@0900 10/15/15 04/16/19 History Furosemide [Lasix] 20 mg PO BID@0600,1200 08/14/17 04/16/19 History Levothyroxine Sodium [Synthroid] 75 mcg PO DAILY@0600 08/14/17 04/16/19 History Acetaminophen [Tylenol] 650 mg PO Q6HR PRN 10/09/17 04/16/19 History Memantine [Namenda] 10 mg PO BID@0900,209910/09/17 04/16/19 History Apixaban [Eliquis] 2.5 mg PO BID@0900,209906/11/18 04/16/19 History Atenolol [Tenormin] 50 mg PO DAILY@0900 06/11/18 04/16/19 History DULoxetine HCL [Cymbalta] 30 mg PO DAILY@0900 06/11/18 04/16/19 History Liraglutide [Victoza 2-Yayo] 1.2 mg SQ HS@209906/11/18 04/16/19 History Ferrous Sulfate [Feosol] 325 mg PO DAILY@0900 02/16/19 04/16/19 History HYDROcodone/APAP 5-325MG [[place] 1 tab PO TID@0600,1400,2200 02/16/19 04/16/19 History 5-325] Insulin Glargine,Hum.rec.anlog 44 unit SQ HS@209902/16/19 04/16/19 History [Lantus Solostar] Insulin Lispro [humaLOG Kwikpen] See Protocol SQ 02/16/19 04/16/19 History DAILY@0800,1200,1700 Loperamide HCl [Imodium A-D] 2 - 4 mg PO QID PRN 02/16/19 04/16/19 History Melatonin 5 mg PO HS@209902/16/19 04/16/19 History Potassium Chloride ER [K-Dur 20] 30 meq PO DAILY@0900 02/16/19 04/16/19 History Ranitidine HCl [Zantac] 150 mg PO HS@209902/16/19 04/16/19 History Allergies Allergy/AdvReac Type Severity Reaction Status Date / Time ciprofloxacin [From Cipro] Allergy Swelling Verified 04/15/19 17:55 ciprofloxacin HCl Allergy Swelling Verified 04/15/19 17:55 [From Cipro] latex Allergy Unknown Verified 04/15/19 17:55 NSAIDS (Non-Steroidal Allergy Unknown Verified 04/15/19 17:55 Anti-Inflamma Quinolones Allergy Unknown Verified 04/15/19 17:55 Physical Exam Vitals: Vital Signs Temp Pulse Resp BP Pulse Ox 04/16/19 14:00 75 13 106/66 98 04/16/19 13:00 89 32 H 91/54 89 L 04/16/19 12:00 76 14 90/60 97 04/16/19 11:00 89 13 102/55 96 04/16/19 10:30 92 15 92/65 100 04/16/19 10:00 89 25 H 78/62 94 L 04/16/19 09:30 94 27 H 95/20 94 L 04/16/19 09:00 102 H 23 95/51 04/16/19 08:30 87 22 108/80 95 04/16/19 08:00 97.5 F L 93 25 H 86/73 04/16/19 07:00 107 H 30 H 90/61 96 04/16/19 06:00 97 12 92/55 98 04/16/19 05:00 107 H 29 H 103/63 99 04/16/19 04:00 97.7 F 105 H 31 H 111/57 97 04/16/19 03:00 110 H 31 H 91/57 96 04/16/19 02:00 115 H 32 H 110/68 96 04/16/19 01:00 105 H 31 H 110/72 97 04/16/19 00:00 98.0 F 109 H 32 H 103/80 96 04/15/19 23:00 89 32 H 94/55 98 04/15/19 22:00 98 30 H 121/86 97 04/15/19 21:00 100 23 88/52 79 L 04/15/19 20:00 97 28 H 118/93 100 04/15/19 19:16 116 H 22 113/55 100 04/15/19 19:00 92 23 91/54 100 04/15/19 18:30 98 26 H 97/70 100 04/15/19 18:00 96 26 H 86/54 100 04/15/19 17:38 96.6 F L 89 16 108/78 04/15/19 17:00 75 16 119/83 95 04/15/19 16:45 96 12 117/89 95 04/15/19 16:34 97.2 F L 89 14 118/81 95 04/15/19 16:30 85 16 04/15/19 16:11 97.3 F L 90 12 119/81 92 L 04/15/19 16:10 97.0 F L 86 12 116/85 95 04/15/19 16:01 97.1 F L 93 16 98/87 94 L 04/15/19 15:51 72 12 102/85 96 04/15/19 15:37 97.3 F L 89 12 96/66 96 Intake and Output 04/15/19 04/16/19 04/16/19 22:59 06:59 14:59 Intake Total 935 1000 4475 Output Total 168 80 54 Balance 398 977 4230 Intake: IV 375 1000 875 0.9 375 1000 875 Intake, IV Titration 250 3600 Amount Dextrose 10 % in Water 250 250 ml @ 999 mls/hr IV ONCE STA Rx#:[id number] Dextrose 5% in Water 1, 300 000 ml @ 75 mls/hr IV . [id number] JOEL with Sodium Bicarb (1 Meq/ml) 150 ml Rx#:[id number] Piperacillin-Tazobactam 3 50 .375 gm In Sodium Chloride 0.9% 100 ml @ 25 mls/hr IVPB Q8H JOEL Rx#: [id number] Sodium Chloride 0.9% 1, 250 000 ml @ 125 mls/hr IV . Q8H JOEL Rx#:[id number] Sodium Chloride 0.9% 2, 3000 000 ml @ 999 mls/hr IV . Q2H1M ONE Rx#:[id number] Blood Product 310 Rc As-3 Unit 310 [id number] Output: Urine 165 80 54 Uretheral (Youssef) 120 Stool 3 Other: Voiding Method Indwelling Catheter Indwelling Catheter Weight 91 kg 89.9 kg GEN. APPEARANCE: chronically ill appearing HEAD EXAM: atraumatic, normocephalic, normal inspection EYE EXAM: Pallor +ve, No icterus NECK EXAM: normal inspection. No JVD RESPIRATORY EXAM: normal lung sounds bilaterally. Absent: respiratory distress, wheezes, rales, rhonchi, stridor CARDIOVASCULAR EXAM: Tachycardia and Grade 1 systolic murmur GI/ABDOMINAL EXAM: soft, normal bowel sounds. No tenderness or guarding EXTREMITIES EXAM: Mild edema BACK EXAM: normal inspection NEUROLOGICAL EXAM: lethargic and moving all 4 extremities to painful stimulus only PSYCHIATRIC EXAM: could not assessed SKIN EXAM: frail Results CBC & Chem 7: 04/16/19 12:40 04/16/19 04:10 Labs: Abnormal Lab Results - Last 24 Hours (Table) 04/15/19 04/15/19 04/15/19 Range/Units 15:41 16:00 16:00 WBC 16.7 H (3.8-10.6) k/uL RBC 3.72 L (4.30-5.90) m/uL Hgb 11.7 L (13.0-17.5) gm/dL Hct 34.5 L (39.0-53.0) % Neutrophils # 14.5 H (1.3-7.7) k/uL Monocytes # (0-1.0) k/uL PT (9.0-12.0) sec INR (<1.2) APTT (22.0-30.0) sec ABG pH (7.35-7.45) ABG pCO2 (35-45) mmHg ABG pO2 (83-108) mmHg ABG HCO3 (21-25) mmol/L ABG Total CO2 (19-24) mmol/L ABG O2 Saturation (94-97) % Potassium (3.5-5.1) mmol/L Chloride (98-107) mmol/L Carbon Dioxide (22-30) mmol/L BUN (9-20) mg/dL Creatinine (0.66-1.25) mg/dL Glucose (74-99) mg/dL POC Glucose (mg/dL) 161 H (75-99) mg/dL Plasma Lactic Acid Constantin (0.7-2.0) mmol/L Calcium (8.4-10.2) mg/dL AST (17-59) U/L ALT (21-72) U/L Ammonia (<30) umol/L Total Protein (6.3-8.2) g/dL Albumin (3.5-5.0) g/dL Urine Protein (Negative) Urine Blood (Negative) Amorphous Sediment (None) /hpf Urine Bacteria (None) /hpf Hyaline Casts (0-2) /lpf Urine Mucus (None) /hpf Crossmatch See Detail 04/15/19 04/15/19 04/15/19 Range/Units 16:00 16:00 16:17 WBC (3.8-10.6) k/uL RBC (4.30-5.90) m/uL Hgb (13.0-17.5) gm/dL Hct (39.0-53.0) % Neutrophils # (1.3-7.7) k/uL Monocytes # (0-1.0) k/uL PT (9.0-12.0) sec INR (<1.2) APTT 35.8 H (22.0-30.0) sec ABG pH (7.35-7.45) ABG pCO2 (35-45) mmHg ABG pO2 (83-108) mmHg ABG HCO3 (21-25) mmol/L ABG Total CO2 (19-24) mmol/L ABG O2 Saturation (94-97) % Potassium (3.5-5.1) mmol/L Chloride (98-107) mmol/L Carbon Dioxide (22-30) mmol/L BUN 35 H (9-20) mg/dL Creatinine 1.66 H (0.66-1.25) mg/dL Glucose 208 H (74-99) mg/dL POC Glucose (mg/dL) (75-99) mg/dL Plasma Lactic Acid Constantin (0.7-2.0) mmol/L Calcium 8.2 L (8.4-10.2) mg/dL AST 12 L (17-59) U/L ALT 20 L (21-72) U/L Ammonia (<30) umol/L Total Protein 5.3 L (6.3-8.2) g/dL Albumin 2.8 L (3.5-5.0) g/dL Urine Protein Trace H (Negative) Urine Blood Moderate H (Negative) Amorphous Sediment Rare H (None) /hpf Urine Bacteria Rare H (None) /hpf Hyaline Casts 15 H (0-2) /lpf Urine Mucus Rare H (None) /hpf Crossmatch 04/15/19 04/16/19 04/16/19 Range/Units 17:45 04:10 04:10 WBC 15.4 H 35.1 H (3.8-10.6) k/uL RBC 3.75 L 3.12 L (4.30-5.90) m/uL Hgb 11.6 L 9.8 L D (13.0-17.5) gm/dL Hct 34.7 L 29.4 L (39.0-53.0) % Neutrophils # 13.7 H 31.4 H (1.3-7.7) k/uL Monocytes # 1.7 H (0-1.0) k/uL PT 13.3 H (9.0-12.0) sec INR 1.3 H (<1.2) APTT (22.0-30.0) sec ABG pH (7.35-7.45) ABG pCO2 (35-45) mmHg ABG pO2 (83-108) mmHg ABG HCO3 (21-25) mmol/L ABG Total CO2 (19-24) mmol/L ABG O2 Saturation (94-97) % Potassium (3.5-5.1) mmol/L Chloride (98-107) mmol/L Carbon Dioxide (22-30) mmol/L BUN (9-20) mg/dL Creatinine (0.66-1.25) mg/dL Glucose (74-99) mg/dL POC Glucose (mg/dL) (75-99) mg/dL Plasma Lactic Acid Constantin (0.7-2.0) mmol/L Calcium (8.4-10.2) mg/dL AST (17-59) U/L ALT (21-72) U/L Ammonia (<30) umol/L Total Protein (6.3-8.2) g/dL Albumin (3.5-5.0) g/dL Urine Protein (Negative) Urine Blood (Negative) Amorphous Sediment (None) /hpf Urine Bacteria (None) /hpf Hyaline Casts (0-2) /lpf Urine Mucus (None) /hpf Crossmatch 04/16/19 04/16/19 04/16/19 Range/Units 04:10 04:29 04:58 WBC (3.8-10.6) k/uL RBC (4.30-5.90) m/uL Hgb (13.0-17.5) gm/dL Hct (39.0-53.0) % Neutrophils # (1.3-7.7) k/uL Monocytes # (0-1.0) k/uL PT (9.0-12.0) sec INR (<1.2) APTT (22.0-30.0) sec ABG pH 7.34 L (7.35-7.45) ABG pCO2 20 L (35-45) mmHg ABG pO2 130 H (83-108) mmHg ABG HCO3 11 L (21-25) mmol/L ABG Total CO2 11 L (19-24) mmol/L ABG O2 Saturation 98.7 H (94-97) % Potassium 5.9 H (3.5-5.1) mmol/L Chloride 111 H (98-107) mmol/L Carbon Dioxide 15 L (22-30) mmol/L BUN 45 H (9-20) mg/dL Creatinine 2.40 H (0.66-1.25) mg/dL Glucose 228 H (74-99) mg/dL POC Glucose (mg/dL) 199 H (75-99) mg/dL Plasma Lactic Acid Constantin (0.7-2.0) mmol/L Calcium 8.1 L (8.4-10.2) mg/dL AST (17-59) U/L ALT 18 L (21-72) U/L Ammonia (<30) umol/L Total Protein 4.8 L (6.3-8.2) g/dL Albumin 2.6 L (3.5-5.0) g/dL Urine Protein (Negative) Urine Blood (Negative) Amorphous Sediment (None) /hpf Urine Bacteria (None) /hpf Hyaline Casts (0-2) /lpf Urine Mucus (None) /hpf Crossmatch 04/16/19 04/16/19 04/16/19 Range/Units 05:00 05:00 08:01 WBC (3.8-10.6) k/uL RBC (4.30-5.90) m/uL Hgb (13.0-17.5) gm/dL Hct (39.0-53.0) % Neutrophils # (1.3-7.7) k/uL Monocytes # (0-1.0) k/uL PT (9.0-12.0) sec INR (<1.2) APTT (22.0-30.0) sec ABG pH (7.35-7.45) ABG pCO2 (35-45) mmHg ABG pO2 (83-108) mmHg ABG HCO3 (21-25) mmol/L ABG Total CO2 (19-24) mmol/L ABG O2 Saturation (94-97) % Potassium (3.5-5.1) mmol/L Chloride (98-107) mmol/L Carbon Dioxide (22-30) mmol/L BUN (9-20) mg/dL Creatinine (0.66-1.25) mg/dL Glucose (74-99) mg/dL POC Glucose (mg/dL) 159 H (75-99) mg/dL Plasma Lactic Acid Constantin 7.8 H* (0.7-2.0) mmol/L Calcium (8.4-10.2) mg/dL AST (17-59) U/L ALT (21-72) U/L Ammonia 41 H (<30) umol/L Total Protein (6.3-8.2) g/dL Albumin (3.5-5.0) g/dL Urine Protein (Negative) Urine Blood (Negative) Amorphous Sediment (None) /hpf Urine Bacteria (None) /hpf Hyaline Casts (0-2) /lpf Urine Mucus (None) /hpf Crossmatch 04/16/19 04/16/19 04/16/19 Range/Units 09:01 09:24 12:40 WBC 21.4 H (3.8-10.6) k/uL RBC 2.36 L (4.30-5.90) m/uL Hgb 7.2 L D (13.0-17.5) gm/dL Hct 22.4 L (39.0-53.0) % Neutrophils # 19.1 H (1.3-7.7) k/uL Monocytes # (0-1.0) k/uL PT (9.0-12.0) sec INR (<1.2) APTT (22.0-30.0) sec ABG pH (7.35-7.45) ABG pCO2 23 L (35-45) mmHg ABG pO2 (83-108) mmHg ABG HCO3 12 L (21-25) mmol/L ABG Total CO2 13 L (19-24) mmol/L ABG O2 Saturation 97.6 H (94-97) % Potassium (3.5-5.1) mmol/L Chloride (98-107) mmol/L Carbon Dioxide (22-30) mmol/L BUN (9-20) mg/dL Creatinine (0.66-1.25) mg/dL Glucose (74-99) mg/dL POC Glucose (mg/dL) (75-99) mg/dL Plasma Lactic Acid Constantin 7.5 H* (0.7-2.0) mmol/L Calcium (8.4-10.2) mg/dL AST (17-59) U/L ALT (21-72) U/L Ammonia (<30) umol/L Total Protein (6.3-8.2) g/dL Albumin (3.5-5.0) g/dL Urine Protein (Negative) Urine Blood (Negative) Amorphous Sediment (None) /hpf Urine Bacteria (None) /hpf Hyaline Casts (0-2) /lpf Urine Mucus (None) /hpf Crossmatch 04/16/19 Range/Units 12:52 WBC (3.8-10.6) k/uL RBC (4.30-5.90) m/uL Hgb (13.0-17.5) gm/dL Hct (39.0-53.0) % Neutrophils # (1.3-7.7) k/uL Monocytes # (0-1.0) k/uL PT (9.0-12.0) sec INR (<1.2) APTT (22.0-30.0) sec ABG pH (7.35-7.45) ABG pCO2 (35-45) mmHg ABG pO2 (83-108) mmHg ABG HCO3 (21-25) mmol/L ABG Total CO2 (19-24) mmol/L ABG O2 Saturation (94-97) % Potassium (3.5-5.1) mmol/L Chloride (98-107) mmol/L Carbon Dioxide (22-30) mmol/L BUN (9-20) mg/dL Creatinine (0.66-1.25) mg/dL Glucose (74-99) mg/dL POC Glucose (mg/dL) 261 H (75-99) mg/dL Plasma Lactic Acid Constantin (0.7-2.0) mmol/L Calcium (8.4-10.2) mg/dL AST (17-59) U/L ALT (21-72) U/L Ammonia (<30) umol/L Total Protein (6.3-8.2) g/dL Albumin (3.5-5.0) g/dL Urine Protein (Negative) Urine Blood (Negative) Amorphous Sediment (None) /hpf Urine Bacteria (None) /hpf Hyaline Casts (0-2) /lpf Urine Mucus (None) /hpf Crossmatch Assessment and Plan Assessment: ASSESSMENT Acute GI bleed -most likely lower GI bleed Acute metabolic encephalopathy Lactic acidosis Acute kidney injury Possible sepsis -source being abdomen/left lower lobe infiltrate Atrial flutter on anticoagulation Coronary artery disease status post CABG COPD CVA with left-sided hemiparesis Type 2 diabetes mellitus Hypertension Hyperlipidemia Prostate disorder Obstructive sleep apnea Peripheral vascular disease Fibromyalgia Left carotid endarterectomy Former smoker PLAN: Patient has severe acidosis and has been started on bicarb drip. He is empirically started on antibiotics for possible abdominal pathology and also the chest x-ray showing left lower lobe infiltrate. He received only 1 unit of PRBCs and his hemoglobin repeat is at 7.2. Will repeat H&H every 8 hours and transfuse if less than 7. He is mean arterial blood pressure is around 60s. Continue with Protonix IV. Multiple consultants including copper flotation operator, GI, general surgery and urology consulted. Overall prognosis is poor due to multiple chronic medical conditions. Dr. Ashby to discuss the CODE STATUS of the patient with the family members. Further recommendations to follow depending on the progress of the patient.
[2019-04-16 18:35] LABS: Basophils % (A) 0 %; Eosinophils # (A) 0.1 k/uL (0-0.7); Eosinophils % (A) 1 %; HCT 25.8 % (39.0-53.0); HGB 8.6 gm/dL (13.0-17.5); Lymphocytes # (A) 1.2 k/uL (1.0-4.8); Lymphocytes % (A) 5 %; MCH 31.1 pg (25.0-35.0); MCHC 33.3 g/dL (31.0-37.0); MCV 93.6 fL (80.0-100.0); Mean Platelet Volume 9.1; Monocytes # (A) 0.9 k/uL (0-1.0); Monocytes % (A) 4 %; Neutrophils # (A) 19.8 k/uL (1.3-7.7); Neutrophils % (A) 89 %; Platelet Count 175 k/uL (150-450); RBC 2.76 m/uL (4.30-5.90); RDW 14.8 % (11.5-15.5); WBC 22.2 k/uL (3.8-10.6)
--- NOTE | 2019-04-16 18:53 | EEG ---
ELECTROENCEPHALOGRAM REPORT DATE OF PROCEDURE: 04/16/2019 ELECTROENCEPHALOGRAM (EEG) REPORT: TECHNIQUE: A routine 18-channel EEG was performed with video using the 10/20 international electrode placement system. HISTORY: Rectal bleeding. Other medical history includes coronary artery disease, dementia. CURRENT MEDICATIONS: Protonix. STUDY DURATION: 26 minutes. FINDINGS: Please note that this study was of low amplitude. Interpretation was performed at 5- microvolt sensitivity. Also note that portions of the recording were limited in their interpretation by the presence of muscle artifact. BACKGROUND: A sustained posterior-dominant rhythm was not seen. Frequencies of the posterior quadrants consisted of poorly modulated 2 to 3 Hz waveforms. ACTIVATION: Hyperventilation: Not performed. Photic stimulation: No driving seen. Sleep: Drowsy. ABNORMALITIES: Diffuse synchronous and asynchronous 2 to 4 Hz slow wave activity was seen. IMPRESSION: Limited study, abnormal EEG. No clinical or electrographic seizures were recorded. No epileptiform activity was present. The diffuse synchronous and asynchronous theta delta range slowing mentioned above is not epileptiform in nature. In combination with the slow background, these findings indicate severe diffuse cerebral dysfunction as may be seen in a toxometabolic encephalopathy. MMODL / IJN: [id number] / [id number]
[2019-04-16 20:07] LABS: Glucose,Whole Blood 166 mg/dL (75-99)
[2019-04-16] MEDS: PANTOPRAZOLE 40 MG/10 ML VIAL IV SCH (21:23)
[2019-04-17] MEDS: PIPERACILLIN-TAZOBACTAM 3.375 GM in SODIUM CHLORIDE 0.9% 100 ML IVPB SCH ×4 (00:22→21:18)
[2019-04-17] MEDS: INSULIN ASPART (NovoLOG) 100 UNIT/ML VIAL SQ SCH ×7 (00:25→23:56)
[2019-04-17 00:26] LABS: Basophils % (A) 0 %; Eosinophils % (A) 0 %; HCT 24.2 % (39.0-53.0); Lymphocytes # (A) 1.1 k/uL (1.0-4.8); Lymphocytes % (A) 6 %; MCH 30.5 pg (25.0-35.0); MCHC 32.9 g/dL (31.0-37.0); MCV 92.6 fL (80.0-100.0); Mean Platelet Volume 10.3; Monocytes # (A) 0.8 k/uL (0-1.0); Monocytes % (A) 4 %; Neutrophils % (A) 88 %; Platelet Count 157 k/uL (150-450); RBC 2.61 m/uL (4.30-5.90); WBC 18.2 k/uL (3.8-10.6)
[2019-04-17 00:29] LABS: Glucose,Whole Blood 173 mg/dL (75-99)
[2019-04-17 04:12] LABS: Glucose,Whole Blood 189 mg/dL (75-99)
[2019-04-17] MEDS: DEXTROSE 5% IN WATER 1,000 ML with SODIUM BICARB (1 MEQ/ML) 150 ML IV SCH ×2 (04:34→17:10)
[2019-04-17] MEDS: SODIUM CHLORIDE 0.9% 1,000 ML IV SCH ×3 (04:34→18:34)
[2019-04-17 08:02] LABS: Glucose,Whole Blood 206 mg/dL (75-99)
[2019-04-17] MEDS: PANTOPRAZOLE 40 MG/10 ML VIAL IV SCH ×2 (08:13→21:18)
[2019-04-17 09:37] LABS: Basophils % (A) 0 %; Eosinophils % (A) 0 %; HCT 22.2 % (39.0-53.0); HGB 7.6 gm/dL (13.0-17.5); Lymphocytes # (A) 1.1 k/uL (1.0-4.8); Lymphocytes % (A) 6 %; MCH 31.7 pg (25.0-35.0); MCHC 34.3 g/dL (31.0-37.0); MCV 92.6 fL (80.0-100.0); Monocytes # (A) 0.9 k/uL (0-1.0); Monocytes % (A) 5 %; Neutrophils # (A) 15.1 k/uL (1.3-7.7); Neutrophils % (A) 87 %; Platelet Count 156 k/uL (150-450); RDW 15.6 % (11.5-15.5); WBC 17.3 k/uL (3.8-10.6)
[2019-04-17 09:42] LABS: Calcium 7.2 mg/dL (8.4-10.2); Potassium 3.9 mmol/L (3.5-5.1)
[2019-04-17] MEDS ORDERED: ACETAMINOPHEN TAB 325 MG TAB PO PRN (10:06)
[2019-04-17] MEDS ORDERED: NITROGLYCERIN SL TABS 0.4 MG TAB SUBLINGUAL PRN (10:06)
--- NOTE | 2019-04-17 10:43 | XR ---
EXAMINATION TYPE: XR chest 1V DATE OF EXAM: 04/17/2019 COMPARISON: 04/16/2019 HISTORY: Shortness of breath TECHNIQUE: Single frontal view of the chest is obtained. FINDINGS: There is right jugular catheter with the tip in the right atrium. Heart is enlarged and is postoperative change. Left basilar infiltrate and small effusion stable. No overt failure. Chronic r ib deformity seen. IMPRESSION: 1. Stable left lower lobe infiltrate and small effusion.
[2019-04-17] MEDS: METOPROLOL TARTRATE 25 MG TAB PO SCH ×2 (10:44→21:08)
--- NOTE | 2019-04-17 10:57 | P.PN ---
Subjective Progress Note Date: 04/17/19 Principal diagnosis: Acute GI bleeding this is a 78-year-old white male with history of multiple medical problems including chronic atrial fibrillation,maintained on Eliquis, patient lives at a half-way, and he was found to have bright red blood per rectum yesterday. Patient was sent to the ER,and upon presentation the patient was noted to have significant amount of bloody stools, patient did receive a unit of packed RBCs although his initial hemoglobin was 11.6.his initial labs were basically unremarkable except for a BUN of 35 creatinine 1.66, and his pro time was normal INR was normal. Platelets were normal.his WBC count was 15.4, and the patient was not complaining of any pain. He does have underlying dementia, and not much history could be obtained from the patient. However as the patient was transferred to the ICU, there was a significant concern about his ABG showing a low bicarb of 12 his WBC count was 35.1, and his hemoglobin was 9.8.his electrolytes showed significant acidosis with bicarb of 15 there was evidence of significant worsening in his renal profile, and his lactic acid came back to be 7.5.patient received more IV fluid boluses about 2 L of 0.9 normal saline. He received 2 A of bicarb. 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.CT angiogram of the head and neck was also unremarkable.chest x-ray this morning showed a left lower lobe atelectasis and small left pleural effusion.after evaluating the patient, I did recommend placing the patient on a sodium bicarb drip, also recommended a neurological consultation, kept him on antibiotics/Zosyn, and we'll likely recommend a GI consultation as well as general surgery consultation, as I am a bit concerned about the possibility of ischemic bowel Although his physical examination is unremarkable, and there is no evidence of abdominal tenderness.in the meantime, the patient is now on IV fluids, antibiotics empirically, and is also on Protonix. Reevaluated today on 04/17/2019, patient remains in the ICU, remains unresponsive in spite of deep painful stimuli, seen by neurology, and felt that the patient has metabolic encephalopathy. Patient remains on IV fluids, sodium bicarb drip, antibiotics empirically, seen by gastroenterology, and the only recommendation is to continue Protonix, and continue to monitor hemoglobin and transfuse if less than 7. Being considered for EGD and colonoscopy if his mental status improves within the next 48-72 hours. His labs are showing improvement, bicarb is up to 23. Creatinine is about the same, 2.39, and it was 2.40 yesterday. Repeat lactic acid this morning is 1.6. So metabolically the patient is showing definite improvement, but his overall metabolic derangements are not completely resolved. I will cut down his sodium bicarb drip, and I will continue present supportive care measures and medications as listed. Chest x-ray showed minimal left lower lobe atelectasis, doubt infiltrate. And there is a small tiny pleural effusion. EEG showed no evidence of seizure focus, however it showed severe diffuse cerebral dysfunction consistent with toxic metabolic encephalopathy. Objective - Vital Signs Vital signs: Vital Signs Temp 100.2 F H 04/17/19 08:00 Pulse 113 H 04/17/19 08:00 Resp 29 H 04/17/19 08:00 BP 122/73 04/17/19 08:00 Pulse Ox 94 L 04/17/19 08:00 Intake & Output 04/16/19 04/17/19 04/17/19 18:59 06:59 18:59 Intake Total 5885 1575 125 Output Total 56 628 70 Balance 5829 947 55 Weight 88.7 kg Intake: IV 1500 1500 125 0.9 1500 1500 125 Intake, IV Titration 4075 75 Amount Dextrose 10 % in Water 250 250 ml @ 999 mls/hr IV ONCE STA Rx#:[id number] Dextrose 5% in Water 1, 675 75 000 ml @ 75 mls/hr IV . [id number] JOEL with Sodium Bicarb (1 Meq/ml) 150 ml Rx#:[id number] Piperacillin-Tazobactam 3 150 .375 gm In Sodium Chloride 0.9% 100 ml @ 25 mls/hr IVPB Q8H JOEL Rx#: [id number] Sodium Chloride 0.9% 2, 3000 000 ml @ 999 mls/hr IV . Q2H1M ONE Rx#:[id number] Blood Product 310 Rc As-1 Unit 310 [id number] Output: Urine 56 625 70 Stool 3 Other: Voiding Method Indwelling Catheter Indwelling Catheter Indwelling Catheter - Exam GENERAL: Patient is well-developed and well-nourished. in no distress, no difference compared to yesterday, patient remains unresponsive to any stimuli including painful stimuli ENT: Neck is soft and supple. No significant lymphadenopathy is noted. Oropharynx is clear. Moist mucous membranes. Neck has full range of motion without eliciting any pain. EYES: PERRLA, EOMI, no icterus. PULMONARY: Symmetrical chest expansion, diminished breath sounds at the bases, no crackles or rhonchi or wheezes. CARDIOVASCULAR: normal S1 and S2, no S3 gallop. ABDOMEN: Soft, nontender, no megaly, no rebound, diminished bowel sounds. SKIN: Skin is clear with no lesions or rashes and otherwise unremarkable. RECTAL: Not performed, it was done by the ER physician and there was evidence of bright red blood per rectum NEUROLOGIC: Patient is extremely lethargic, does not respond to any deep painful stimuli except possibly opening his eyes slightly.Not following any instructions, and does not respond to any verbal stimuli per MUSCULOSKELETAL: no evidence of deformities, could not fully assess muscular strength. LYMPHATICS: No significant lymphadenopathy is noted PSYCHIATRIC: Cannot be assessed. Mostly because of his present neurological status. - Labs CBC & Chem 7: 04/17/19 06:20 04/17/19 06:20 Labs: Abnormal Lab Results - Last 24 Hours (Table) 04/15/19 04/16/19 04/16/19 Range/Units 16:00 12:40 12:52 WBC 21.4 H (3.8-10.6) k/uL RBC 2.36 L (4.30-5.90) m/uL Hgb 7.2 L D (13.0-17.5) gm/dL Hct 22.4 L (39.0-53.0) % RDW (11.5-15.5) % Neutrophils # 19.1 H (1.3-7.7) k/uL Chloride (98-107) mmol/L BUN (9-20) mg/dL Creatinine (0.66-1.25) mg/dL Glucose (74-99) mg/dL POC Glucose (mg/dL) 261 H (75-99) mg/dL Plasma Lactic Acid Constantin (0.7-2.0) mmol/L Calcium (8.4-10.2) mg/dL Crossmatch See Detail 12/07/0404/16/19 04/16/19 Range/Units 13:50 16:46 18:20 WBC (3.8-10.6) k/uL RBC (4.30-5.90) m/uL Hgb (13.0-17.5) gm/dL Hct (39.0-53.0) % RDW (11.5-15.5) % Neutrophils # (1.3-7.7) k/uL Chloride (98-107) mmol/L BUN (9-20) mg/dL Creatinine (0.66-1.25) mg/dL Glucose (74-99) mg/dL POC Glucose (mg/dL) 184 H (75-99) mg/dL Plasma Lactic Acid Constantin 5.4 H* 4.1 H* (0.7-2.0) mmol/L Calcium (8.4-10.2) mg/dL Crossmatch 04/16/19 04/16/19 04/17/19 Range/Units 18:20 20:05 00:01 WBC 22.2 H (3.8-10.6) k/uL RBC 2.76 L (4.30-5.90) m/uL Hgb 8.6 L (13.0-17.5) gm/dL Hct 25.8 L (39.0-53.0) % RDW (11.5-15.5) % Neutrophils # 19.8 H (1.3-7.7) k/uL Chloride (98-107) mmol/L BUN (9-20) mg/dL Creatinine (0.66-1.25) mg/dL Glucose (74-99) mg/dL POC Glucose (mg/dL) 166 H (75-99) mg/dL Plasma Lactic Acid Constantin 2.3 H* (0.7-2.0) mmol/L Calcium (8.4-10.2) mg/dL Crossmatch 04/17/19 04/17/19 04/17/19 Range/Units 00:01 00:27 04:11 WBC 18.2 H (3.8-10.6) k/uL RBC 2.61 L (4.30-5.90) m/uL Hgb 8.0 L (13.0-17.5) gm/dL Hct 24.2 L (39.0-53.0) % RDW (11.5-15.5) % Neutrophils # 16.0 H (1.3-7.7) k/uL Chloride (98-107) mmol/L BUN (9-20) mg/dL Creatinine (0.66-1.25) mg/dL Glucose (74-99) mg/dL POC Glucose (mg/dL) 173 H 189 H (75-99) mg/dL Plasma Lactic Acid Constantin (0.7-2.0) mmol/L Calcium (8.4-10.2) mg/dL Crossmatch 04/17/19 04/17/19 04/17/19 Range/Units 06:20 06:20 08:01 WBC 17.3 H (3.8-10.6) k/uL RBC 2.40 L (4.30-5.90) m/uL Hgb 7.6 L (13.0-17.5) gm/dL Hct 22.2 L (39.0-53.0) % RDW 15.6 H (11.5-15.5) % Neutrophils # 15.1 H (1.3-7.7) k/uL Chloride 114 H (98-107) mmol/L BUN 51 H (9-20) mg/dL Creatinine 2.39 H (0.66-1.25) mg/dL Glucose 193 H (74-99) mg/dL POC Glucose (mg/dL) 206 H (75-99) mg/dL Plasma Lactic Acid Constantin (0.7-2.0) mmol/L Calcium 7.2 L (8.4-10.2) mg/dL Crossmatch Microbiology - Last 24 Hours (Table) 04/16/19 06:17 Blood Culture - Preliminary Blood No Growth after 24 hours 04/16/19 10:12 Urine Culture - Preliminary Urine,Catheterized Assessment and Plan Assessment: impression: 1acute GI bleeding most likely lower GI in nature, seen by gastroenterology, may consider EGD and colonoscopy if his mental status improves. 2 acute lactic acidosis and hypotension, possible sepsis, improved today, hence will cut down the sodium bicarb drip to 25 mL per hour. Lactic acid is 1.6 today 3 acute metabolic encephalopathy, basically unchanged today. 4chronic atrial fibrillation, patient was on Eliquis until admission. 5 coronary artery disease 6 chronic obstructive pulmonary disease 7 history of underlying dementia 8 history of underlying diabetes type 2 9 history of chronic renal disease stage III, however patient has presently a cute on chronic kidney injury. 10 history of previous myocardial infarction 11 left lower lobe atelectasis, strongly doubt pneumonia, 12 history of obstructive sleep apnea, 13 history of chronic low back pain. 14 history of gouty arthritis. 15 history of diverticular disease. Recommendation: Continue present supportive care measures. Continue to monitor closely in the ICU. Continue Protonix. Twice a day. Continue IV fluids and sodium bicarb drip however cut down the rate from 75 an hour to 25 mL per hour.. Continue empirically/Zosyn. continue insulin as per protocol. continue to monitor CVP Continue to monitor daily electrolytes and renal profile. I had a long discussion with his family members at bedside yesterday, and they all are agreeable to DO NOT RESUSCITATE CODE STATUS. Prognosis is definitely guarded, we'll continue to follow. Time with Patient: Less than 30
--- NOTE | 2019-04-17 11:49 | P.PN ---
Subjective 78-year-old male was admitted secondary to GI bleed. There was a concern for ischemic colitis consisting his symptoms of abdominal pain and abdominal tenderness patient cannot give me any history as patient is barely arousable at this time. Patient is not eating anything control. Patient had multiple episodes of bright red per rectum and patient was on Eliquis for atrial fibrillation. Patient had leukocytosis no fever concern for ischemic colitis and patient is on empiric antibiotics with Zosyn improved white blood cell count but patient is still barely responsive. Patient is receiving IV fluids and sodium bicarbonate drip nephrology is following the patient. Patient's baseline creatinine appears to be around 1.2-1.4 now around 2.5 renal failure secondary to intravascular volume depletion. Review of systems: Unable to obtain due to his clinical condition All inpatient medications were reviewed and appropriate changes in these m edications as dictated in the interval history and assessment and plan. Objective - Vital Signs Vital signs: Vital Signs Temp 100.2 F H 04/17/19 08:00 Pulse 112 H 04/17/19 11:00 Resp 26 H 04/17/19 11:00 BP 113/63 04/17/19 11:00 Pulse Ox 99 04/17/19 11:00 Intake & Output 04/16/19 04/17/19 04/17/19 18:59 06:59 18:59 Intake Total 5885 1575 425 Output Total 56 628 270 Balance 5829 947 155 Weight 88.7 kg Intake: IV 1500 1500 125 0.9 1500 1500 125 Intake, IV Titration 4075 75 300 Amount Dextrose 10 % in Water 250 250 ml @ 999 mls/hr IV ONCE STA Rx#:[id number] Dextrose 5% in Water 1, 675 75 300 000 ml @ 25 mls/hr IV . Q24H JOEL with Sodium Bicarb (1 Meq/ml) 150 ml Rx#:[id number] Piperacillin-Tazobactam 3 150 .375 gm In Sodium Chloride 0.9% 100 ml @ 25 mls/hr IVPB Q8H JOEL Rx#: [id number] Sodium Chloride 0.9% 2, 3000 000 ml @ 999 mls/hr IV . Q2H1M ONE Rx#:[id number] Blood Product 310 Rc As-1 Unit 310 [id number] Output: Urine 56 625 270 Stool 3 Other: Voiding Method Indwelling Catheter Indwelling Catheter Indwelling Catheter - Exam PHYSICAL EXAMINATION: GENERAL: Barely responsive to painful stimuli Although does have gag Reflux HEENT: Pupils are round and equally reacting to light. EOMI. No scleral icterus. No conjunctival pallor. Normocephalic, atraumatic. No pharyngeal erythema. No thyromegaly. CARDIOVASCULAR: S1 and S2 present. No murmurs, rubs, or gallops. PULMONARY: Chest is clear to auscultation, no wheezing or crackles. ABDOMEN: Soft, nontender, nondistended, normoactive bowel sounds. No palpable organomegaly. MUSCULOSKELETAL: No joint swelling or deformity. EXTREMITIES: No cyanosis, clubbing, and does have pedal edema NEUROLOGICAL: Unable to assess SKIN: No rashes. - Labs CBC & Chem 7: 04/17/19 06:20 04/17/19 06:20 Labs: Abnormal Lab Results - Last 24 Hours (Table) 04/15/19 04/16/19 04/16/19 Range/Units 16:00 12:40 12:52 WBC 21.4 H (3.8-10.6) k/uL RBC 2.36 L (4.30-5.90) m/uL Hgb 7.2 L D (13.0-17.5) gm/dL Hct 22.4 L (39.0-53.0) % RDW (11.5-15.5) % Neutrophils # 19.1 H (1.3-7.7) k/uL Chloride (98-107) mmol/L BUN (9-20) mg/dL Creatinine (0.66-1.25) mg/dL Glucose (74-99) mg/dL POC Glucose (mg/dL) 261 H (75-99) mg/dL Plasma Lactic Acid Constantin (0.7-2.0) mmol/L Calcium (8.4-10.2) mg/dL Crossmatch See Detail 04/16/19 04/16/19 04/16/19 Range/Units 13:50 16:46 18:20 WBC (3.8-10.6) k/uL RBC (4.30-5.90) m/uL Hgb (13.0-17.5) gm/dL Hct (39.0-53.0) % RDW (11.5-15.5) % Neutrophils # (1.3-7.7) k/uL Chloride (98-107) mmol/L BUN (9-20) mg/dL Creatinine (0.66-1.25) mg/dL Glucose (74-99) mg/dL POC Glucose (mg/dL) 184 H (75-99) mg/dL Plasma Lactic Acid Constantin 5.4 H* 4.1 H* (0.7-2.0) mmol/L Calcium (8.4-10.2) mg/dL Crossmatch 04/16/19 04/16/19 04/17/19 Range/Units 18:20 20:05 00:01 WBC 22.2 H (3.8-10.6) k/uL RBC 2.76 L (4.30-5.90) m/uL Hgb 8.6 L (13.0-17.5) gm/dL Hct 25.8 L (39.0-53.0) % RDW (11.5-15.5) % Neutrophils # 19.8 H (1.3-7.7) k/uL Chloride (98-107) mmol/L BUN (9-20) mg/dL Creatinine (0.66-1.25) mg/dL Glucose (74-99) mg/dL POC Glucose (mg/dL) 166 H (75-99) mg/dL Plasma Lactic Acid Constantin 2.3 H* (0.7-2.0) mmol/L Calcium (8.4-10.2) mg/dL Crossmatch 04/17/19 04/17/19 04/17/19 Range/Units 00:01 00:27 04:11 WBC 18.2 H (3.8-10.6) k/uL RBC 2.61 L (4.30-5.90) m/uL Hgb 8.0 L (13.0-17.5) gm/dL Hct 24.2 L (39.0-53.0) % RDW (11.5-15.5) % Neutrophils # 16.0 H (1.3-7.7) k/uL Chloride (98-107) mmol/L BUN (9-20) mg/dL Creatinine (0.66-1.25) mg/dL Glucose (74-99) mg/dL POC Glucose (mg/dL) 173 H 189 H (75-99) mg/dL Plasma Lactic Acid Constantin (0.7-2.0) mmol/L Calcium (8.4-10.2) mg/dL Crossmatch 04/17/19 04/17/19 04/17/19 Range/Units 06:20 06:20 08:01 WBC 17.3 H (3.8-10.6) k/uL RBC 2.40 L (4.30-5.90) m/uL Hgb 7.6 L (13.0-17.5) gm/dL Hct 22.2 L (39.0-53.0) % RDW 15.6 H (11.5-15.5) % Neutrophils # 15.1 H (1.3-7.7) k/uL Chloride 114 H (98-107) mmol/L BUN 51 H (9-20) mg/dL Creatinine 2.39 H (0.66-1.25) mg/dL Glucose 193 H (74-99) mg/dL POC Glucose (mg/dL) 206 H (75-99) mg/dL Plasma Lactic Acid Constantin (0.7-2.0) mmol/L Calcium 7.2 L (8.4-10.2) mg/dL Crossmatch Microbiology - Last 24 Hours (Table) 04/16/19 06:17 Blood Culture - Preliminary Blood No Growth after 24 hours 04/16/19 10:12 Urine Culture - Preliminary Urine,Catheterized Assessment and Plan Plan: -Acute lower GI bleed possibility of ischemic colitis: Continue with empiric Z osyn and to hold on Eliquis and aspirin. -Acute metabolic encephalopathy secondary to acute renal failure and GI bleed. -Lactic acidosis probably secondary to ischemic colitis continue with empiric Zo syn. Continue with IV fluids -acute renal failure prerenal azotemia from sepsis and GI bleed, continue with IV fluids and bicarbonate -Anion gap and non-anion gap metabolic acidosis secondary to lactic acidosis and renal failure -Possible sepsis from ischemic colitis -Coronary artery disease his previous CABG COPD without any acute exacerbation -CVA with left-sided hemiparesis chronic cannot use aspirin or liquids because of the GI bleed -Type 2 diabetes mellitus -Hypertension -Hyperlipidemia -Benign prostatic hypertrophy - obstructive sleep apnea -Peripheral vascular disease -Fibromyalgia His clinical condition is guarded overall prognosis is poor
[2019-04-17 11:54] LABS: Glucose,Whole Blood 101 mg/dL (75-99)
[2019-04-17 15:57] LABS: Glucose,Whole Blood 67 mg/dL (75-99)
[2019-04-17] MEDS: DEXTROSE 10 % IN WATER 250 ML IV STA ×3 (15:57→17:53)
[2019-04-17 16:14] LABS: Glucose,Whole Blood 71 mg/dL (75-99)
[2019-04-17 16:30] LABS: Glucose,Whole Blood 63 mg/dL (75-99)
[2019-04-17 16:44] LABS: Glucose,Whole Blood 70 mg/dL (75-99)
[2019-04-17 16:57] LABS: Glucose,Whole Blood 63 mg/dL (75-99)
[2019-04-17] MEDS ORDERED: DEXTROSE 5% IN WATER 1,000 ML IV ONE (17:01)
[2019-04-17 17:18] LABS: Glucose,Whole Blood 107 mg/dL (75-99)
[2019-04-17 17:51] LABS: Glucose,Whole Blood 64 mg/dL (75-99)
[2019-04-17 17:51] LABS: Glucose,Whole Blood 68 mg/dL (75-99)
--- NOTE | 2019-04-17 18:29 | PN ---
PROGRESS NOTE DATE OF DICTATION: 04/17/2019 The patient is a 78-year-old pleasant white male admitted to the hospital with acute GI bleed. He had multiple episodes of bright red blood per rectum associated with cramping lower abdominal pain. He was also noted to have some altered mental status, for which Neurology has been consulted. He underwent an EEG this morning and apparently was noted to have changes consistent with metabolic encephalopathy. The patient has atrial fibrillation and was on Eliquis, which has been on hold. Since being in the hospital he has not had any further episodes of bleeding. In fact, all day he did not have any episodes of bleeding. He dropped his hemoglobin from 11 to 7.2 yesterday. He got one unit of blood transfusion and today hemoglobin is 7.6 g/dL. PHYSICAL EXAMINATION: VITAL SIGNS: Blood pressure 121/63, pulse rate 106, temperature 97.9. HEENT examination unremarkable. Conjunctivae pink. Sclerae anicteric. Oral cavity no lesions. NECK: No JVD or lymph node enlargement. CHEST: Clear to auscultation. HEART: Regular rate and rhythm. ABDOMEN: Soft. Non-distended, non-tender. Bowel sounds are positive. No organomegaly. EXTREMITIES: One plus pedal edema. SKIN: No rashes. NEUROLOGIC: He is drowsy and lethargic, not easily arousable. EXTREMITIES: No pedal edema. LABS: Labs done today show WBC is 17.3, hemoglobin 7.6, platelets 156 1000. BUN is 51, creatinine 2.39. Rest of the basic metabolic panel is within normal limits. Plasma lactic acid level is down to 1.6. IMPRESSION: 1. Acute gastrointestinal bleed, possibly diverticular bleed versus ischemic colitis. Patient presently on empiric antibiotics, Eliquis on hold. Bleeding has completely subsided. Hemoglobin stable at 7.6 g/dL, status post one unit of blood transfusion yesterday. 2. Altered mental status, possible metabolic encephalopathy. Neurology following the patient. 3. Lactic acidosis, gradually improving; in fact, it normalized today. 4. Acute kidney injury, probably from prerenal azotemia. 5. Exacerbation of chronic obstructive pulmonary disease. 6. History of cerebrovascular accident with left-sided hemiparesis. RECOMMENDATIONS: 1. Continue to hold Eliquis. 2. Monitor CBC daily. 3. Continue with broad-spectrum antibiotics. 4. Will consider endoscopic intervention once his overall mental status improves. For now, continue with symptomatic and supportive care. We will follow with you closely during his hospital stay. MMASAEL / IJN: [id number] /
[2019-04-17 18:33] LABS: Glucose,Whole Blood 91 mg/dL (75-99)
[2019-04-17 20:05] LABS: Glucose,Whole Blood 145 mg/dL (75-99)
[2019-04-17] MEDS: CILOSTAZOL 100 MG TAB PO SCH (21:08)
[2019-04-17] MEDS: ATORVASTATIN 40 MG TAB PO SCH (21:08)
[2019-04-17] MEDS: TAMSULOSIN 0.4 MG CAP.ER.24H PO SCH (21:08)
[2019-04-17] MEDS: INSULIN DETEMIR (LEVEMIR) 100 UNIT/ML SYR SQ SCH (21:19)
[2019-04-17 21:22] LABS: Glucose,Whole Blood 144 mg/dL (75-99)
[2019-04-17 23:54] LABS: Glucose,Whole Blood 174 mg/dL (75-99)
[2019-04-18 03:54] LABS: Basophils % (A) 0 %; Eosinophils # (A) 0.1 k/uL (0-0.7); Eosinophils % (A) 1 %; HCT 20.9 % (39.0-53.0); HGB 7.1 gm/dL (13.0-17.5); Lymphocytes % (A) 9 %; MCH 31.4 pg (25.0-35.0); MCHC 34.1 g/dL (31.0-37.0); MCV 92.3 fL (80.0-100.0); Mean Platelet Volume 9.7; Monocytes # (A) 0.8 k/uL (0-1.0); Monocytes % (A) 6 %; Neutrophils # (A) 10.2 k/uL (1.3-7.7); Neutrophils % (A) 83 %; Platelet Count 123 k/uL (150-450); RBC 2.27 m/uL (4.30-5.90); RDW 15.6 % (11.5-15.5); WBC 12.3 k/uL (3.8-10.6)
[2019-04-18] MEDS: SODIUM CHLORIDE 0.9% 1,000 ML IV SCH ×3 (04:01→20:16)
[2019-04-18 04:02] LABS: Calcium 7.4 mg/dL (8.4-10.2); Potassium 3.4 mmol/L (3.5-5.1)
[2019-04-18] MEDS: INSULIN ASPART (NovoLOG) 100 UNIT/ML VIAL SQ SCH ×6 (04:02→23:41)
[2019-04-18] MEDS ORDERED: Potassium Replacement Protocol 1 EACH MISC MISCELLANE PRN (04:10)
[2019-04-18 04:11] LABS: Glucose,Whole Blood 165 mg/dL (75-99)
[2019-04-18] MEDS: POTASSIUM CHLORIDE 20 MEQ in WATER FOR INJECTION 1 100ML.BAG IVPB SCH ×2 (04:14→06:12)
[2019-04-18] MEDS ORDERED: ALTEPLASE 2 MG VIAL (CATHFLO) IV STA (04:48)
[2019-04-18] MEDS: LEVOTHYROXINE 75 MCG TAB PO SCH (05:05)
[2019-04-18] MEDS: PIPERACILLIN-TAZOBACTAM 3.375 GM in SODIUM CHLORIDE 0.9% 100 ML IVPB SCH ×3 (05:16→21:18)
--- NOTE | 2019-04-18 08:04 | P.GSCN ---
History of Present Illness Consult date: 04/17/19 Reason for Consult: Possible ischemic bowel Requesting physician: Kiki Bryant History of present illness: CHIEF COMPLAINT: Possible ischemic bowel HISTORY OF PRESENT ILLNESS: 78-year-old male was admitted to hospital secondary to bright red blood per rectum yesterday. Patient is currently admitted to the intensive care unit. Patient was found to have acidosis and elevated lactic acid. General surgery was consulted for possible ischemic bowel. Patient currently obtunded in the ICU. PAST MEDICAL HISTORY: See list. PAST SURGICAL HISTORY: See list. SOCIAL HISTORY: No illicit drug use. REVIEW OF SYSTEMS: Unable to obtain secondary to altered mental status PHYSICAL EXAM: VITAL SIGNS: Reviewed. GENERAL: Well-developed in no acute distress. HEENT: No sclera icterus. Extraocular movements grossly intact. Moist buccal mucosa. Head is atraumatic, normocephalic. ABDOMEN: Soft. Nondistended. Nontender. Positive bowel sounds. NEUROLOGIC: Obtunded LABORATORY DATA: WBC 17.3. Hemoglobin 7.6. Platelet count 156. Lactic acid 1.6. ASSESSMENT: 1. Acute GI bleed, bright red blood per rectum 2. Suspected ischemic bowel PLAN: Continue with conservative management at this time. Maintain hemoglobin greater than 7.0. Patient currently not a surgical candidate. We will continue to follow. Nurse practitioner note has been reviewed by physician. Signing provider agrees with the documented findings, assessment, and plan of care. Past Medical History Past Medical History: Atrial Flutter, Coronary Artery Disease (CAD), Chest Pain / Angina, Heart Failure, COPD, CVA/TIA, Dementia, Diabetes Mellitus, Fibromyalgia, Hyperlipidemia, Hypertension, Myocardial Infarction (LA), Prostate Disorder, Renal Disease, Sleep Apnea/CPAP/BIPAP, Vascular Disorder Additional Past Medical History / Comment(s): IDDM, chronic renal failure, aflutter, sleep apnea with no cpap, PVD, DJD, chronic back pain, bulging and herniated discs, sciatica, dislocated knuckles, gout, arthiritis, prostate problem-pt unsure what problem is, tinnitis bilaterally, R eye stroke, umbilical hernia, diverticular disease, obesity, 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 Past Anesthesia/Blood Transfusion Reactions: No Reported Reaction Smoking Status: Former smoker - Past Family History Father Family Medical History: Coronary Artery Disease (CAD) Additional Family Medical History / Comment(s): Father had CABG Mother Family Medical History: No Reported History Additional Family Medical History / Comment(s): Pt states mother was a healthy person. Medications and Allergies Home Medications Medication Instructions Recorded Confirmed Type Aspirin 81 mg PO HS@209908/26/14 04/16/19 History Atorvastatin [Lipitor] 40 mg PO HS@209908/26/14 04/16/19 History Cholecalciferol [Vitamin D3 (25 1,000 unit PO DAILY@0900 08/26/14 04/16/19 History Mcg = 1000 Iu)] Cilostazol [Pletal] 100 mg PO HS@209908/26/14 04/16/19 History DULoxetine HCL [Cymbalta] 60 mg PO DAILY@89908/26/14 04/16/19 History Donepezil [Aricept] 10 mg PO BID@0900,209908/26/14 04/16/19 History Donnellson-3 Fatty Acids/Fish Oil [Fish 1 cap PO HS@209908/26/14 04/16/19 History Oil 1,000 mg Softgel] Nitroglycerin Sl Tabs [Nitrostat] 0.4 mg SUBLINGUAL Q5M PRN 10/16/14 04/16/19 History Tamsulosin HCl [Flomax] 0.4 mg PO HS@209905/24/15 04/16/19 History Isosorbide Mononitrate ER [Imdur] 30 mg PO DAILY@0900 10/15/15 04/16/19 History Furosemide [Lasix] 20 mg PO BID@0600,1200 08/14/17 04/16/19 History Levothyroxine Sodium [Synthroid] 75 mcg PO DAILY@0600 08/14/17 04/16/19 History Acetaminophen [Tylenol] 650 mg PO Q6HR PRN 10/09/17 04/16/19 History Memantine [Namenda] 10 mg PO BID@0900,209910/09/17 04/16/19 History Apixaban [Eliquis] 2.5 mg PO BID@0900,209906/11/18 04/16/19 History Atenolol [Tenormin] 50 mg PO DAILY@0900 06/11/18 04/16/19 History DULoxetine HCL [Cymbalta] 30 mg PO DAILY@0900 06/11/18 04/16/19 History Liraglutide [Victoza 2-Yayo] 1.2 mg SQ HS@209906/11/18 04/16/19 History Ferrous Sulfate [Feosol] 325 mg PO DAILY@0900 02/16/19 04/16/19 History HYDROcodone/APAP 5-325MG [Delphia 1 tab PO TID@0600,1400,2200 02/16/19 04/16/19 History 5-325] Insulin Glargine,Hum.rec.anlog 44 unit SQ HS@209902/16/19 04/16/19 History [Lantus Solostar] Insulin Lispro [humaLOG Kwikpen] See Protocol SQ 02/16/19 04/16/19 History DAILY@0800,1200,1700 Loperamide HCl [Imodium A-D] 2 - 4 mg PO QID PRN 02/16/19 04/16/19 History Melatonin 5 mg PO HS@209902/16/19 04/16/19 History Potassium Chloride ER [K-Dur 20] 30 meq PO DAILY@0900 02/16/19 04/16/19 History Ranitidine HCl [Zantac] 150 mg PO HS@209902/16/19 04/16/19 History Allergies Allergy/AdvReac Type Severity Reaction Status Date / Time ciprofloxacin [From Cipro] Allergy Swelling Verified 04/15/19 17:55 ciprofloxacin HCl Allergy Swelling Verified 04/15/19 17:55 [From Cipro] latex Allergy Unknown Verified 04/15/19 17:55 NSAIDS (Non-Steroidal Allergy Unknown Verified 04/15/19 17:55 Anti-Inflamma Quinolones Allergy Unknown Verified 04/15/19 17:55 Surgical - Exam Vital Signs Temp Pulse Resp BP Pulse Ox 97.3 F L 89 12 96/66 96 04/15/19 15:37 04/15/19 15:37 04/15/19 15:37 04/15/19 15:37 04/15/19 15:37 Results - Labs 04/18/19 03:45 04/18/19 03:45 Abnormal Lab Results - Last 24 Hours (Table) 04/15/19 04/16/19 04/16/19 Range/Units 16:00 16:46 18:20 WBC (3.8-10.6) k/uL RBC (4.30-5.90) m/uL Hgb (13.0-17.5) gm/dL Hct (39.0-53.0) % RDW (11.5-15.5) % Neutrophils # (1.3-7.7) k/uL Chloride (98-107) mmol/L BUN (9-20) mg/dL Creatinine (0.66-1.25) mg/dL Glucose (74-99) mg/dL POC Glucose (mg/dL) 184 H (75-99) mg/dL Plasma Lactic Acid Constantin 4.1 H* (0.7-2.0) mmol/L Calcium (8.4-10.2) mg/dL Crossmatch See Detail 04/16/19 04/16/19 04/17/19 Range/Units 18:20 20:05 00:01 WBC 22.2 H (3.8-10.6) k/uL RBC 2.76 L (4.30-5.90) m/uL Hgb 8.6 L (13.0-17.5) gm/dL Hct 25.8 L (39.0-53.0) % RDW (11.5-15.5) % Neutrophils # 19.8 H (1.3-7.7) k/uL Chloride (98-107) mmol/L BUN (9-20) mg/dL Creatinine (0.66-1.25) mg/dL Glucose (74-99) mg/dL POC Glucose (mg/dL) 166 H (75-99) mg/dL Plasma Lactic Acid Constantin 2.3 H* (0.7-2.0) mmol/L Calcium (8.4-10.2) mg/dL Crossmatch 04/17/19 04/17/19 04/17/19 Range/Units 00:01 00:27 04:11 WBC 18.2 H (3.8-10.6) k/uL RBC 2.61 L (4.30-5.90) m/uL Hgb 8.0 L (13.0-17.5) gm/dL Hct 24.2 L (39.0-53.0) % RDW (11.5-15.5) % Neutrophils # 16.0 H (1.3-7.7) k/uL Chloride (98-107) mmol/L BUN (9-20) mg/dL Creatinine (0.66-1.25) mg/dL Glucose (74-99) mg/dL POC Glucose (mg/dL) 173 H 189 H (75-99) mg/dL Plasma Lactic Acid Constantin (0.7-2.0) mmol/L Calcium (8.4-10.2) mg/dL Crossmatch 04/17/19 04/17/19 04/17/19 Range/Units 06:20 06:20 08:01 WBC 17.3 H (3.8-10.6) k/uL RBC 2.40 L (4.30-5.90) m/uL Hgb 7.6 L (13.0-17.5) gm/dL Hct 22.2 L (39.0-53.0) % RDW 15.6 H (11.5-15.5) % Neutrophils # 15.1 H (1.3-7.7) k/uL Chloride 114 H (98-107) mmol/L BUN 51 H (9-20) mg/dL Creatinine 2.39 H (0.66-1.25) mg/dL Glucose 193 H (74-99) mg/dL POC Glucose (mg/dL) 206 H (75-99) mg/dL Plasma Lactic Acid Constantin (0.7-2.0) mmol/L Calcium 7.2 L (8.4-10.2) mg/dL Crossmatch 04/17/19 04/17/19 Range/Units 11:52 15:55 WBC (3.8-10.6) k/uL RBC (4.30-5.90) m/uL Hgb (13.0-17.5) gm/dL Hct (39.0-53.0) % RDW (11.5-15.5) % Neutrophils # (1.3-7.7) k/uL Chloride (98-107) mmol/L BUN (9-20) mg/dL Creatinine (0.66-1.25) mg/dL Glucose (74-99) mg/dL POC Glucose (mg/dL) 101 H 67 L (75-99) mg/dL Plasma Lactic Acid Constantin (0.7-2.0) mmol/L Calcium (8.4-10.2) mg/dL Crossmatch Microbiology - Last 24 Hours (Table) 04/16/19 06:17 Blood Culture Gram Stain - Preliminary Blood 04/16/19 06:17 Blood Culture - Final Blood 04/16/19 10:12 Urine Culture - Final Urine,Catheterized Diabetes panel 04/16/19 04/17/19 Range/Units 18:20 06:20 Sodium 144 (137-145) mmol/L Potassium 4.5 3.9 (3.5-5.1) mmol/L Chloride 114 H (98-107) mmol/L Carbon Dioxide 23 (22-30) mmol/L BUN 51 H (9-20) mg/dL Creatinine 2.39 H (0.66-1.25) mg/dL Glucose 193 H (74-99) mg/dL Calcium 7.2 L (8.4-10.2) mg/dL Calcium panel 04/17/19 Range/Units 06:20 Calcium 7.2 L (8.4-10.2) mg/dL Pituitary panel 04/16/19 04/17/19 Range/Units 18:20 06:20 Sodium 144 (137-145) mmol/L Potassium 4.5 3.9 (3.5-5.1) mmol/L Chloride 114 H (98-107) mmol/L Carbon Dioxide 23 (22-30) mmol/L BUN 51 H (9-20) mg/dL Creatinine 2.39 H (0.66-1.25) mg/dL Glucose 193 H (74-99) mg/dL Calcium 7.2 L (8.4-10.2) mg/dL Adrenal panel 04/16/19 04/17/19 Range/Units 18:20 06:20 Sodium 144 (137-145) mmol/L Potassium 4.5 3.9 (3.5-5.1) mmol/L Chloride 114 H (98-107) mmol/L Carbon Dioxide 23 (22-30) mmol/L BUN 51 H (9-20) mg/dL Creatinine 2.39 H (0.66-1.25) mg/dL Glucose 193 H (74-99) mg/dL Calcium 7.2 L (8.4-10.2) mg/dL
[2019-04-18] MEDS: PANTOPRAZOLE 40 MG/10 ML VIAL IV SCH ×2 (08:17→20:05)
[2019-04-18] MEDS: ISOSORBIDE MONONITRATE ER 30 MG TAB.ER.24H PO SCH (08:18)
[2019-04-18] MEDS: DULoxetine HCL 60 MG CAPSULE.DR PO SCH (08:18)
[2019-04-18] MEDS: DULoxetine HCL 30 MG CAPSULE.DR PO SCH (08:18)
[2019-04-18] MEDS: METOPROLOL TARTRATE 25 MG TAB PO SCH ×2 (08:18→20:05)
[2019-04-18 08:24] LABS: Glucose,Whole Blood 111 mg/dL (75-99)
--- NOTE | 2019-04-18 08:50 | XR ---
EXAMINATION TYPE: XR chest 1V DATE OF EXAM: 04/18/2019 HISTORY: Shortness of breath. COMPARISON: 04/17/2019 TECHNIQUE: Single view of the chest is submitted. FINDINGS: Continued cardiomegaly with perihilar infiltrates and basilar effusions. Suspect left lower lobe atel ectasis or infiltrate. Overall there appears to be interval progression. Hilar and mediastinal structures are within normal limits. Degenerative changes are seen of the dorsal spine. IMPRESSION: 1. Continued cardiomegaly with perihilar infiltrates and basilar effusions. Suspect left lower lobe atelectasis or infiltrate. Overall there appears to be interval progression.
--- NOTE | 2019-04-18 10:38 | XR ---
EXAMINATION TYPE: XR chest 1V DATE OF EXAM: 04/18/2019 COMPARISON: 04/18/2019 HISTORY: NG tube placement TECHNIQUE: Single frontal view of the chest is obtained. FINDINGS: Postoperative change noted. NG tube is seen with the tip at the level the GE junction and could be advanced. Diffuse interstitial pattern with bilateral infiltrate and pleural effusion. Under lying COPD and cardiomegaly noted. Right-sided central line stable. Chronic rib deformities noted wit h no pneumothorax. IMPRESSION: NG tube is seen with the tip at the GE junction and could be advanced. Stable pleural-pa renchymal changes correlate for CHF versus pneumonia.
--- NOTE | 2019-04-18 10:56 | P.PN ---
Subjective Progress Note Date: 04/18/19 CHIEF COMPLAINT: Possible ischemic bowel HISTORY OF PRESENT ILLNESS: Patient examined in the ICU. He remains obtunded. No further bloody stools per nursing. Hemoglobin 7.1. WBC 12.3. PHYSICAL EXAM: VITAL SIGNS: Reviewed. GENERAL: Well-developed in no acute distress. HEENT: No sclera icterus. Extraocular movements grossly intact. Moist buccal mucosa. Head is atraumatic, normocephalic. ABDOMEN: Soft. Nondistended. Nontender. Positive bowel sounds. NEUROLOGIC: Obtunded ASSESSMENT: 1. Acute GI bleed, bright red blood per rectum 2. Possible ischemic bowel PLAN: Continue with conservative management at this time. Maintain hemoglobin greater than 7.0. Patient currently not a surgical candidate. We will continue to follow. Nurse practitioner note has been reviewed by physician. Signing provider agrees with the documented findings, assessment, and plan of care. Objective - Vital Signs Vital signs: Vital Signs Temp 98.9 F 04/18/19 08:00 Pulse 94 04/18/19 10:00 Resp 27 H 04/18/19 10:00 BP 138/79 04/18/19 10:00 Pulse Ox 99 04/18/19 10:00 Intake & Output 04/17/19 04/18/19 04/18/19 18:59 06:59 18:59 Intake Total 1650 475 200 Output Total 720 575 275 Balance 930 -100 -75 Weight 103 kg Intake: IV 125 475 200 0.9 125 125 Dextrose 5% in Water 1, 275 75 000 ml @ 25 mls/hr IV . Q24H JOEL with Sodium Bicarb (1 Meq/ml) 150 ml Rx#:[id number] Piperacillin-Tazobactam 3 200 .375 gm In Sodium Chloride 0.9% 100 ml @ 25 mls/hr IVPB Q8H JOEL Rx#: [id number] Intake, IV Titration 1525 Amount Dextrose 10 % in Water 750 250 ml @ 999 mls/hr IV ONCE STA Rx#:[id number] Dextrose 5% in Water 1, 550 000 ml @ 25 mls/hr IV . Q24H JOEL with Sodium Bicarb (1 Meq/ml) 150 ml Rx#:[id number] Dextrose 5% in Water 1, 225 000 ml @ 75 mls/hr IV . [id number] ONE Rx#:[id number] Output: Urine 720 035 275 Other: Voiding Method Indwelling Catheter Indwelling Catheter Indwelling Catheter - Labs CBC & Chem 7: 04/18/19 03:45 04/18/19 03:45 Labs: Abnormal Lab Results - Last 24 Hours (Table) 04/17/19 04/17/19 04/17/19 Range/Units 11:52 15:55 16:14 WBC (3.8-10.6) k/uL RBC (4.30-5.90) m/uL Hgb (13.0-17.5) gm/dL Hct (39.0-53.0) % RDW (11.5-15.5) % Plt Count (150-450) k/uL Neutrophils # (1.3-7.7) k/uL Potassium (3.5-5.1) mmol/L Chloride (98-107) mmol/L BUN (9-20) mg/dL Creatinine (0.66-1.25) mg/dL Glucose (74-99) mg/dL POC Glucose (mg/dL) 101 H 67 L 71 L (75-99) mg/dL Calcium (8.4-10.2) mg/dL 04/17/19 04/17/19 04/17/19 Range/Units 16:28 16:42 16:57 WBC (3.8-10.6) k/uL RBC (4.30-5.90) m/uL Hgb (13.0-17.5) gm/dL Hct (39.0-53.0) % RDW (11.5-15.5) % Plt Count (150-450) k/uL Neutrophils # (1.3-7.7) k/uL Potassium (3.5-5.1) mmol/L Chloride (98-107) mmol/L BUN (9-20) mg/dL Creatinine (0.66-1.25) mg/dL Glucose (74-99) mg/dL POC Glucose (mg/dL) 63 L 70 L 63 L (75-99) mg/dL Calcium (8.4-10.2) mg/dL 04/17/19 04/17/19 04/17/19 Range/Units 17:17 17:48 17:50 WBC (3.8-10.6) k/uL RBC (4.30-5.90) m/uL Hgb (13.0-17.5) gm/dL Hct (39.0-53.0) % RDW (11.5-15.5) % Plt Count (150-450) k/uL Neutrophils # (1.3-7.7) k/uL Potassium (3.5-5.1) mmol/L Chloride (98-107) mmol/L BUN (9-20) mg/dL Creatinine (0.66-1.25) mg/dL Glucose (74-99) mg/dL POC Glucose (mg/dL) 107 H 64 L 68 L (75-99) mg/dL Calcium (8.4-10.2) mg/dL 04/17/19 04/17/19 04/17/19 Range/Units 19:53 21:10 23:52 WBC (3.8-10.6) k/uL RBC (4.30-5.90) m/uL Hgb (13.0-17.5) gm/dL Hct (39.0-53.0) % RDW (11.5-15.5) % Plt Count (150-450) k/uL Neutrophils # (1.3-7.7) k/uL Potassium (3.5-5.1) mmol/L Chloride (98-107) mmol/L BUN (9-20) mg/dL Creatinine (0.66-1.25) mg/dL Glucose (74-99) mg/dL POC Glucose (mg/dL) 145 H 144 H 174 H (75-99) mg/dL Calcium (8.4-10.2) mg/dL 04/18/19 04/18/19 04/18/19 Range/Units 03:45 03:45 03:59 WBC 12.3 H (3.8-10.6) k/uL RBC 2.27 L (4.30-5.90) m/uL Hgb 7.1 L (13.0-17.5) gm/dL Hct 20.9 L (39.0-53.0) % RDW 15.6 H (11.5-15.5) % Plt Count 123 L (150-450) k/uL Neutrophils # 10.2 H (1.3-7.7) k/uL Potassium 3.4 L (3.5-5.1) mmol/L Chloride 114 H (98-107) mmol/L BUN 44 H (9-20) mg/dL Creatinine 2.08 H (0.66-1.25) mg/dL Glucose 165 H (74-99) mg/dL POC Glucose (mg/dL) 165 H (75-99) mg/dL Calcium 7.4 L (8.4-10.2) mg/dL 04/18/19 Range/Units 08:23 WBC (3.8-10.6) k/uL RBC (4.30-5.90) m/uL Hgb (13.0-17.5) gm/dL Hct (39.0-53.0) % RDW (11.5-15.5) % Plt Count (150-450) k/uL Neutrophils # (1.3-7.7) k/uL Potassium (3.5-5.1) mmol/L Chloride (98-107) mmol/L BUN (9-20) mg/dL Creatinine (0.66-1.25) mg/dL Glucose (74-99) mg/dL POC Glucose (mg/dL) 111 H (75-99) mg/dL Calcium (8.4-10.2) mg/dL Microbiology - Last 24 Hours (Table) 04/16/19 06:17 Blood Culture Gram Stain - Preliminary Blood 04/16/19 06:17 Blood Culture - Final Blood 04/16/19 10:12 Urine Culture - Final Urine,Catheterized
--- NOTE | 2019-04-18 11:21 | P.PN ---
Subjective Progress Note Date: 04/18/19 Principal diagnosis: Acute GI bleeding this is a 78-year-old white male with history of multiple medical problems including chronic atrial fibrillation,maintained on Eliquis, patient lives at a senior living, and he was found to have bright red blood per rectum yesterday. Patient was sent to the ER,and upon presentation the patient was noted to have significant amount of bloody stools, patient did receive a unit of packed RBCs although his initial hemoglobin was 11.6.his initial labs were basically unremarkable except for a BUN of 35 creatinine 1.66, and his pro time was normal INR was normal. Platelets were normal.his WBC count was 15.4, and the patient was not complaining of any pain. He does have underlying dementia, and not much history could be obtained from the patient. However as the patient was transferred to the ICU, there was a significant concern about his ABG showing a low bicarb of 12 his WBC count was 35.1, and his hemoglobin was 9.8.his electrolytes showed significant acidosis with bicarb of 15 there was evidence of significant worsening in his renal profile, and his lactic acid came back to be 7.5.patient received more IV fluid boluses about 2 L of 0.9 normal saline. He received 2 A of bicarb. 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.CT angiogram of the head and neck was also unremarkable.chest x-ray this morning showed a left lower lobe atelectasis and small left pleural effusion.after evaluating the patient, I did recommend placing the patient on a sodium bicarb drip, also recommended a neurological consultation, kept him on antibiotics/Zosyn, and we'll likely recommend a GI consultation as well as general surgery consultation, as I am a bit concerned about the possibility of ischemic bowel Although his physical examination is unremarkable, and there is no evidence of abdominal tenderness.in the meantime, the patient is now on IV fluids, antibiotics empirically, and is also on Protonix. Reevaluated today on 04/17/2019, patient remains in the ICU, remains unresponsive in spite of deep painful stimuli, seen by neurology, and felt that the patient has metabolic encephalopathy. Patient remains on IV fluids, sodium bicarb drip, antibiotics empirically, seen by gastroenterology, and the only recommendation is to continue Protonix, and continue to monitor hemoglobin and transfuse if less than 7. Being considered for EGD and colonoscopy if his mental status improves within the next 48-72 hours. His labs are showing improvement, bicarb is up to 23. Creatinine is about the same, 2.39, and it was 2.40 yesterday. Repeat lactic acid this morning is 1.6. So metabolically the patient is showing definite improvement, but his overall metabolic derangements are not completely resolved. I will cut down his sodium bicarb drip, and I will continue present supportive care measures and medications as listed. Chest x-ray showed minimal left lower lobe atelectasis, doubt infiltrate. And there is a small tiny pleural effusion. EEG showed no evidence of seizure focus, however it showed severe diffuse cerebral dysfunction consistent with toxic metabolic encephalopathy. Patient was reevaluated today on 04/18/2019, remains up on that, however for the first time in the last few days patient is able to open his eyes with deep painful stimuli, and not following any simple instructions. His blood cultures yesterday came back positive for gram-negative bacilli, patient remains on Zosyn. He remains hemodynamically stable. No further episodes of GI bleeding. Patient may have had ischemic bowel. However his labs are improving. Hemoglobin is holding at 7.1. Electrolytes are normal bicarb is 27 hence I will discontinue sodium bicarb drip. Renal functioning is improving creatinine is down to 2.08. Chest x-ray after nasogastric tube placement showed adequate plac ement of the nasogastric tube, and chronic parenchymal changes with mild interstitial edema. Objective - Vital Signs Vital signs: Vital Signs Temp 98.9 F 04/18/19 08:00 Pulse 94 04/18/19 10:00 Resp 27 H 04/18/19 10:00 BP 138/79 04/18/19 10:00 Pulse Ox 99 04/18/19 10:00 Intake & Output 04/17/19 04/18/19 04/18/19 18:59 06:59 18:59 Intake Total 1650 475 200 Output Total 720 575 275 Balance 930 -100 -75 Weight 103 kg Intake: IV 125 475 200 0.9 125 125 Dextrose 5% in Water 1, 275 75 000 ml @ 25 mls/hr IV . Q24H JOEL with Sodium Bicarb (1 Meq/ml) 150 ml Rx#:[id number] Piperacillin-Tazobactam 3 200 .375 gm In Sodium Chloride 0.9% 100 ml @ 25 mls/hr IVPB Q8H JOEL Rx#: [id number] Intake, IV Titration 1525 Amount Dextrose 10 % in Water 750 250 ml @ 999 mls/hr IV ONCE STA Rx#:[id number] Dextrose 5% in Water 1, 550 000 ml @ 25 mls/hr IV . Q24H JOEL with Sodium Bicarb (1 Meq/ml) 150 ml Rx#:[id number] Dextrose 5% in Water 1, 225 000 ml @ 75 mls/hr IV . [id number] ONE Rx#:[id number] Output: Urine 720 575 275 Other: Voiding Method Indwelling Catheter Indwelling Catheter Indwelling Catheter - Exam GENERAL: Patient is well-developed and well-nourished. in no distress, opens eyes to deep painful stimuli today. ENT: Neck is soft and supple. No significant lymphadenopathy is noted. Oropharynx is clear. Moist mucous membranes. Neck has full range of motion without eliciting any pain. EYES: PERRLA, EOMI, no icterus. PULMONARY: Symmetrical chest expansion, diminished breath sounds at the bases, no crackles or rhonchi or wheezes. CARDIOVASCULAR: normal S1 and S2, no S3 gallop. ABDOMEN: Soft, nontender, no megaly, no rebound, diminished bowel sounds. SKIN: Skin is clear with no lesions or rashes and otherwise unremarkable. NEUROLOGIC: Patient is obtunted opens eyes to deep painful stimuli. Otherwise no change. MUSCULOSKELETAL: no evidence of deformities, could not fully assess muscular strength. LYMPHATICS: No significant lymphadenopathy is noted PSYCHIATRIC: Cannot be assessed. Mostly because of his present neurological status. - Labs CBC & Chem 7: 04/18/19 03:45 04/18/19 03:45 Labs: Abnormal Lab Results - Last 24 Hours (Table) 04/17/19 04/17/19 04/17/19 Range/Units 11:52 15:55 16:14 WBC (3.8-10.6) k/uL RBC (4.30-5.90) m/uL Hgb (13.0-17.5) gm/dL Hct (39.0-53.0) % RDW (11.5-15.5) % Plt Count (150-450) k/uL Neutrophils # (1.3-7.7) k/uL Potassium (3.5-5.1) mmol/L Chloride (98-107) mmol/L BUN (9-20) mg/dL Creatinine (0.66-1.25) mg/dL Glucose (74-99) mg/dL POC Glucose (mg/dL) 101 H 67 L 71 L (75-99) mg/dL Calcium (8.4-10.2) mg/dL 04/17/19 04/17/19 04/17/19 Range/Units 16:28 16:42 16:57 WBC (3.8-10.6) k/uL RBC (4.30-5.90) m/uL Hgb (13.0-17.5) gm/dL Hct (39.0-53.0) % RDW (11.5-15.5) % Plt Count (150-450) k/uL Neutrophils # (1.3-7.7) k/uL Potassium (3.5-5.1) mmol/L Chloride (98-107) mmol/L BUN (9-20) mg/dL Creatinine (0.66-1.25) mg/dL Glucose (74-99) mg/dL POC Glucose (mg/dL) 63 L 70 L 63 L (75-99) mg/dL Calcium (8.4-10.2) mg/dL 04/17/19 04/17/19 04/17/19 Range/Units 17:17 17:48 17:50 WBC (3.8-10.6) k/uL RBC (4.30-5.90) m/uL Hgb (13.0-17.5) gm/dL Hct (39.0-53.0) % RDW (11.5-15.5) % Plt Count (150-450) k/uL Neutrophils # (1.3-7.7) k/uL Potassium (3.5-5.1) mmol/L Chloride (98-107) mmol/L BUN (9-20) mg/dL Creatinine (0.66-1.25) mg/dL Glucose (74-99) mg/dL POC Glucose (mg/dL) 107 H 64 L 68 L (75-99) mg/dL Calcium (8.4-10.2) mg/dL 04/17/19 04/17/19 04/17/19 Range/Units 19:53 21:10 23:52 WBC (3.8-10.6) k/uL RBC (4.30-5.90) m/uL Hgb (13.0-17.5) gm/dL Hct (39.0-53.0) % RDW (11.5-15.5) % Plt Count (150-450) k/uL Neutrophils # (1.3-7.7) k/uL Potassium (3.5-5.1) mmol/L Chloride (98-107) mmol/L BUN (9-20) mg/dL Creatinine (0.66-1.25) mg/dL Glucose (74-99) mg/dL POC Glucose (mg/dL) 145 H 144 H 174 H (75-99) mg/dL Calcium (8.4-10.2) mg/dL 04/18/19 04/18/19 04/18/19 Range/Units 03:45 03:45 03:59 WBC 12.3 H (3.8-10.6) k/uL RBC 2.27 L (4.30-5.90) m/uL Hgb 7.1 L (13.0-17.5) gm/dL Hct 20.9 L (39.0-53.0) % RDW 15.6 H (11.5-15.5) % Plt Count 123 L (150-450) k/uL Neutrophils # 10.2 H (1.3-7.7) k/uL Potassium 3.4 L (3.5-5.1) mmol/L Chloride 114 H (98-107) mmol/L BUN 44 H (9-20) mg/dL Creatinine 2.08 H (0.66-1.25) mg/dL Glucose 165 H (74-99) mg/dL POC Glucose (mg/dL) 165 H (75-99) mg/dL Calcium 7.4 L (8.4-10.2) mg/dL 04/18/19 Range/Units 08:23 WBC (3.8-10.6) k/uL RBC (4.30-5.90) m/uL Hgb (13.0-17.5) gm/dL Hct (39.0-53.0) % RDW (11.5-15.5) % Plt Count (150-450) k/uL Neutrophils # (1.3-7.7) k/uL Potassium (3.5-5.1) mmol/L Chloride (98-107) mmol/L BUN (9-20) mg/dL Creatinine (0.66-1.25) mg/dL Glucose (74-99) mg/dL POC Glucose (mg/dL) 111 H (75-99) mg/dL Calcium (8.4-10.2) mg/dL Microbiology - Last 24 Hours (Table) 04/16/19 06:17 Blood Culture Gram Stain - Preliminary Blood 04/16/19 06:17 Blood Culture - Final Blood 04/16/19 10:12 Urine Culture - Final Urine,Catheterized Assessment and Plan Assessment: impression: 1acute GI bleeding most likely lower GI in nature, possible ischemic bowel. 2 acute lactic acidosis and hypotension, possible sepsis, secondary to gram- negative bacteremia felt to be GI source unless for otherwise. Remains on Zosyn. 3 acute metabolic encephalopathy, secondary to sepsis and gram-negative ba cteremia. 4chronic atrial fibrillation, patient was on Eliquis until admission. 5 coronary artery disease 6 chronic obstructive pulmonary disease 7 history of underlying dementia 8 history of underlying diabetes type 2 9 history of chronic renal disease stage III, however patient has presently acute on chronic kidney injury. 10 history of previous myocardial infarction 11 left lower lobe atelectasis, strongly doubt pneumonia, 12 history of obstructive sleep apnea, 13 history of chronic low back pain. 14 history of gouty arthritis. 15 history of diverticular disease. 16 gram-negative bacteremia final identification and sensitivity is pending, in the meantime continue Zosyn. Recommendation: Continue present supportive care measures. Continue to monitor closely in the ICU. Continue Protonix. Twice a day. Continue IV fluids, discontinue sodium bicarb drip. Continue /Zosyn. Adjust antibiotics based on the final report and the sensitivity on the gram-negative bacilli in the blood. continue insulin as per protocol. continue to monitor CVP Continue to monitor daily electrolytes and renal profile. Place a nasogastric tube, and start enteral feeding. We'll continue to follow in the ICU. Time with Patient: Less than 30
[2019-04-18 11:31] LABS: Glucose,Whole Blood 131 mg/dL (75-99)
--- NOTE | 2019-04-18 15:12 | P.PN ---
Subjective 78-year-old male was admitted secondary to GI bleed. There was a concern for ischemic colitis consisting his symptoms of abdominal pain and abdominal tenderness patient cannot give me any history as patient is barely arousable at this time. Patient is not eating anything control. Patient had multiple episodes of bright red per rectum and patient was on Eliquis for atrial fibrillation. Patient had leukocytosis no fever concern for ischemic colitis and patient is on empiric antibiotics with Zosyn improved white blood cell count but patient is still barely responsive. Patient is receiving IV fluids and sodium bicarbonate drip nephrology is following the patient. Patient's baseline creatinine appears to be around 1.2-1.4 now around 2.5 renal failure secondary to intravascular volume depletion. 04/18/2019 I'm unable to arouse the patient but patient was apparently bitten awake when block chopper hand evaluated the patient. Her serum creatinine did improve bicarbonate drip was discontinued. Leukocytosis improved no more GI bleed at this time. Hemoglobin is at 7.1 compared to 7.6 yesterday Review of systems: Unable to obtain due to his clinical condition All inpatient medications were reviewed and appropriate changes in these med ications as dictated in the interval history and assessment and plan. Objective - Vital Signs Vital signs: Vital Signs Temp 98.9 F 04/18/19 12:00 Pulse 100 04/18/19 14:00 Resp 23 04/18/19 14:00 BP 139/74 04/18/19 14:00 Pulse Ox 100 04/18/19 14:00 Intake & Output 04/17/19 04/18/19 04/18/19 18:59 06:59 18:59 Intake Total 1650 475 760 Output Total 720 575 500 Balance 930 -100 260 Weight 103 kg 103 kg Intake: IV 125 475 700 0.9 125 625 Dextrose 5% in Water 1, 275 75 000 ml @ 25 mls/hr IV . Q24H JOEL with Sodium Bicarb (1 Meq/ml) 150 ml Rx#:[id number] Piperacillin-Tazobactam 3 200 .375 gm In Sodium Chloride 0.9% 100 ml @ 25 mls/hr IVPB Q8H JOEL Rx#: [id number] Intake, IV Titration 1525 Amount Dextrose 10 % in Water 750 250 ml @ 999 mls/hr IV ONCE STA Rx#:[id number] Dextrose 5% in Water 1, 550 000 ml @ 25 mls/hr IV . Q24H JOEL with Sodium Bicarb (1 Meq/ml) 150 ml Rx#:[id number] Dextrose 5% in Water 1, 225 000 ml @ 75 mls/hr IV . [id number] ONE Rx#:[id number] Tube Feeding 30 Other 30 Output: Urine 720 575 500 Other: Voiding Method Indwelling Catheter Indwelling Catheter Indwelling Catheter - Exam PHYSICAL EXAMINATION: GENERAL: Barely responsive to painful stimuli Although does have gag Reflux HEENT: Pupils are round and equally reacting to light. EOMI. No scleral icterus. No conjunctival pallor. Normocephalic, atraumatic. No pharyngeal erythema. No thyromegaly. CARDIOVASCULAR: S1 and S2 present. No murmurs, rubs, or gallops. PULMONARY: Chest is clear to auscultation, no wheezing or crackles. ABDOMEN: Soft, nontender, nondistended, normoactive bowel sounds. No palpable organomegaly. MUSCULOSKELETAL: No joint swelling or deformity. EXTREMITIES: No cyanosis, clubbing, and does have pedal edema NEUROLOGICAL: Unable to assess SKIN: No rashes. - Labs CBC & Chem 7: 04/18/19 03:45 04/18/19 03:45 Labs: Abnormal Lab Results - Last 24 Hours (Table) 04/17/19 04/17/19 04/17/19 Range/Units 15:55 16:14 16:28 WBC (3.8-10.6) k/uL RBC (4.30-5.90) m/uL Hgb (13.0-17.5) gm/dL Hct (39.0-53.0) % RDW (11.5-15.5) % Plt Count (150-450) k/uL Neutrophils # (1.3-7.7) k/uL Potassium (3.5-5.1) mmol/L Chloride (98-107) mmol/L BUN (9-20) mg/dL Creatinine (0.66-1.25) mg/dL Glucose (74-99) mg/dL POC Glucose (mg/dL) 67 L 71 L 63 L (75-99) mg/dL Calcium (8.4-10.2) mg/dL 04/17/19 04/17/19 04/17/19 Range/Units 16:42 16:57 17:17 WBC (3.8-10.6) k/uL RBC (4.30-5.90) m/uL Hgb (13.0-17.5) gm/dL Hct (39.0-53.0) % RDW (11.5-15.5) % Plt Count (150-450) k/uL Neutrophils # (1.3-7.7) k/uL Potassium (3.5-5.1) mmol/L Chloride (98-107) mmol/L BUN (9-20) mg/dL Creatinine (0.66-1.25) mg/dL Glucose (74-99) mg/dL POC Glucose (mg/dL) 70 L 63 L 107 H (75-99) mg/dL Calcium (8.4-10.2) mg/dL 04/17/19 04/17/19 04/17/19 Range/Units 17:48 17:50 19:53 WBC (3.8-10.6) k/uL RBC (4.30-5.90) m/uL Hgb (13.0-17.5) gm/dL Hct (39.0-53.0) % RDW (11.5-15.5) % Plt Count (150-450) k/uL Neutrophils # (1.3-7.7) k/uL Potassium (3.5-5.1) mmol/L Chloride (98-107) mmol/L BUN (9-20) mg/dL Creatinine (0.66-1.25) mg/dL Glucose (74-99) mg/dL POC Glucose (mg/dL) 64 L 68 L 145 H (75-99) mg/dL Calcium (8.4-10.2) mg/dL 04/17/19 04/17/19 04/18/19 Range/Units 21:10 23:52 03:45 WBC 12.3 H (3.8-10.6) k/uL RBC 2.27 L (4.30-5.90) m/uL Hgb 7.1 L (13.0-17.5) gm/dL Hct 20.9 L (39.0-53.0) % RDW 15.6 H (11.5-15.5) % Plt Count 123 L (150-450) k/uL Neutrophils # 10.2 H (1.3-7.7) k/uL Potassium (3.5-5.1) mmol/L Chloride (98-107) mmol/L BUN (9-20) mg/dL Creatinine (0.66-1.25) mg/dL Glucose (74-99) mg/dL POC Glucose (mg/dL) 144 H 174 H (75-99) mg/dL Calcium (8.4-10.2) mg/dL 04/18/19 04/18/19 04/18/19 Range/Units 03:45 03:59 08:23 WBC (3.8-10.6) k/uL RBC (4.30-5.90) m/uL Hgb (13.0-17.5) gm/dL Hct (39.0-53.0) % RDW (11.5-15.5) % Plt Count (150-450) k/uL Neutrophils # (1.3-7.7) k/uL Potassium 3.4 L (3.5-5.1) mmol/L Chloride 114 H (98-107) mmol/L BUN 44 H (9-20) mg/dL Creatinine 2.08 H (0.66-1.25) mg/dL Glucose 165 H (74-99) mg/dL POC Glucose (mg/dL) 165 H 111 H (75-99) mg/dL Calcium 7.4 L (8.4-10.2) mg/dL 04/18/19 Range/Units 11:30 WBC (3.8-10.6) k/uL RBC (4.30-5.90) m/uL Hgb (13.0-17.5) gm/dL Hct (39.0-53.0) % RDW (11.5-15.5) % Plt Count (150-450) k/uL Neutrophils # (1.3-7.7) k/uL Potassium (3.5-5.1) mmol/L Chloride (98-107) mmol/L BUN (9-20) mg/dL Creatinine (0.66-1.25) mg/dL Glucose (74-99) mg/dL POC Glucose (mg/dL) 131 H (75-99) mg/dL Calcium (8.4-10.2) mg/dL Microbiology - Last 24 Hours (Table) 04/16/19 06:17 Blood Culture Gram Stain - Preliminary Blood 04/16/19 06:17 Blood Culture - Final Blood 04/16/19 10:12 Urine Culture - Final Urine,Catheterized Assessment and Plan Plan: -Acute lower GI bleed possibility of ischemic colitis: Continue with empiric Zosyn and to hold on Eliquis and aspirin. -Acute metabolic encephalopathy secondary to acute renal failure and GI bleed. -Lactic acidosis probably secondary to ischemic colitis continue with empiric Zosyn. Continue with IV fluids -acute renal failure prerenal azotemia from sepsis and GI bleed, continue with IV fluids, bicarbonate is being discontinued -Anion gap and non-anion gap metabolic acidosis secondary to lactic acidosis and renal failure, acidosis improved -Possible sepsis from ischemic colitis -Coronary artery disease his previous CABG COPD without any acute exacerbation -CVA with left-sided hemiparesis chronic cannot use aspirin or liquids because of the GI bleed -Type 2 diabetes mellitus -Hypertension -Hyperlipidemia -Benign prostatic hypertrophy - obstructive sleep apnea -Peripheral vascular disease -Fibromyalgia His clinical condition is guarded overall prognosis is poor
[2019-04-18 15:56] LABS: Glucose,Whole Blood 146 mg/dL (75-99)
--- NOTE | 2019-04-18 17:39 | PN ---
PROGRESS NOTE DATE OF DICTATION: 04/18/2019 Patient is a 78-year-old pleasant white male admitted to the hospital with altered mental status and abdominal pain/lower GI bleed. Eliquis has been on hold and patient is doing much better. In regards to the bleeding, he did not have any further episodes of rectal bleeding. However, he continues to have altered mental status and remains quite lethargic. He is on empiric antibiotics with Zosyn for possible ischemic colitis. Neurology is following the patient closely. PHYSICAL EXAMINATION: He appears comfortable, very lethargic. Unable to arouse but opens his eyes with painful stimuli. VITAL SIGNS: Stable. Blood pressure is 133/74, pulse rate 82 and afebrile. HEENT examination unremarkable. Conjunctivae pink. Sclerae anicteric. Oral cavity no lesions. NECK: No JVD or lymph node enlargement. CHEST: Clear to auscultation. HEART: Regular rate and rhythm. ABDOMEN: Soft. It was non-tender, non-distended. Bowel sounds are positive. No organomegaly. EXTREMITIES: No pedal edema. SKIN: No rashes. NEUROLOGIC: Lethargic. Able to arouse with deep painful stimuli. LABS: Labs from today show WBC 12.3, hemoglobin 7.1, platelets 123. IMPRESSION: 1. Acute lower gastrointestinal bleed, possible ischemic colitis. Bleeding has completely resolved. Eliquis continues to remain on hold. He is on empiric antibiotics with Zosyn and leukocytosis has significantly improved. 2. Leukocytosis with lactic acidosis related to possible ischemic colitis, improving. 3. Acute metabolic encephalopathy with altered mental status. Patient continues to remain the same. Neurology following the patient closely. 4. Acute renal failure, gradually improving. RECOMMENDATIONS: 1. Continue with symptomatic and supportive care. 2. Continue with broad-spectrum antibiotics. 3. Monitor CBC on a daily basis. 4. Given his overall medical condition and altered mental status, I do not plan on any endoscopic intervention at the present time. 5. Continue to hold off on aspirin and Eliquis. Will follow with you closely during his hospital stay. Thank you for this consultation. MMODL / IJN: [id number] /
[2019-04-18 20:02] LABS: Glucose,Whole Blood 147 mg/dL (75-99)
[2019-04-18] MEDS: CILOSTAZOL 100 MG TAB PO SCH (20:05)
[2019-04-18] MEDS: ATORVASTATIN 40 MG TAB PO SCH (20:05)
[2019-04-18] MEDS: TAMSULOSIN 0.4 MG CAP.ER.24H PO SCH (20:06)
[2019-04-18] MEDS: INSULIN DETEMIR (LEVEMIR) 100 UNIT/ML SYR SQ SCH (21:21)
[2019-04-18 21:23] LABS: Glucose,Whole Blood 156 mg/dL (75-99)
[2019-04-18 23:39] LABS: Glucose,Whole Blood 162 mg/dL (75-99)
[2019-04-19] MEDS: SODIUM CHLORIDE 0.9% 1,000 ML IV SCH ×2 (02:35→08:19)
[2019-04-19 04:09] LABS: Glucose,Whole Blood 92 mg/dL (75-99)
[2019-04-19] MEDS: INSULIN ASPART (NovoLOG) 100 UNIT/ML VIAL SQ SCH ×5 (04:09→20:13)
[2019-04-19 04:38] LABS: Calcium 7.3 mg/dL (8.4-10.2); Potassium 3.4 mmol/L (3.5-5.1)
[2019-04-19 04:43] LABS: Anisocytosis Slight; Basophils % (A) 0 %; Eosinophils # (A) 0.2 k/uL (0-0.7); Eosinophils % (A) 2 %; HCT 20.8 % (39.0-53.0); Lymphocytes % (A) 9 %; MCH 31.6 pg (25.0-35.0); MCHC 33.5 g/dL (31.0-37.0); MCV 94.1 fL (80.0-100.0); Mean Platelet Volume 10.1; Monocytes # (A) 0.7 k/uL (0-1.0); Monocytes % (A) 6 %; Neutrophils % (A) 80 %; Platelet Count 105 k/uL (150-450); Poikilocytosis Slight; RDW 16.2 % (11.5-15.5); WBC 11.2 k/uL (3.8-10.6)
[2019-04-19] MEDS: PIPERACILLIN-TAZOBACTAM 3.375 GM in SODIUM CHLORIDE 0.9% 100 ML IVPB SCH ×3 (05:15→21:17)
[2019-04-19] MEDS: LEVOTHYROXINE 75 MCG TAB PO SCH (05:21)
[2019-04-19] MEDS: POTASSIUM CHLORIDE 20 MEQ in WATER FOR INJECTION 1 100ML.BAG IVPB SCH ×2 (05:21→08:06)
[2019-04-19] MEDS: PANTOPRAZOLE 40 MG/10 ML VIAL IV SCH ×2 (08:04→20:18)
[2019-04-19 08:05] LABS: Glucose,Whole Blood 72 mg/dL (75-99)
[2019-04-19] MEDS: METOPROLOL TARTRATE 25 MG TAB PO SCH ×2 (08:06→20:19)
[2019-04-19] MEDS: DULoxetine HCL 30 MG CAPSULE.DR PO SCH (08:06)
[2019-04-19] MEDS: DULoxetine HCL 60 MG CAPSULE.DR PO SCH (08:06)
[2019-04-19] MEDS: ISOSORBIDE MONONITRATE ER 30 MG TAB.ER.24H PO SCH (08:06)
[2019-04-19] MEDS ORDERED: FUROSEMIDE 10 MG/ML 4 ML VIAL IV STA (09:40)
--- NOTE | 2019-04-19 09:49 | XR ---
EXAMINATION TYPE: XR chest 1V portable DATE OF EXAM: 04/19/2019 COMPARISON: 04/18/2019 HISTORY: Shortness of breath TECHNIQUE: Single frontal view of the chest is obtained. FINDINGS: Postoperative change noted. NG tube is seen with the tip at the level the GE junction and could be advanced. Diffuse interstitial pattern with bilateral infiltrate and pleural effusion. Under lying COPD and cardiomegaly noted. Right-sided central line stable. Chronic rib deformities noted wit h no pneumothorax. IMPRESSION: NG tube is seen with the tip at the GE junction and could be advanced. Stable pleural-par enchymal changes correlate for CHF versus pneumonia.
--- NOTE | 2019-04-19 11:00 | P.PN ---
Subjective Progress Note Date: 04/19/19 Principal diagnosis: Acute GI bleeding this is a 78-year-old white male with history of multiple medical problems including chronic atrial fibrillation,maintained on Eliquis, [facility], and he was found to have bright red blood per rectum yesterday. Patient was sent to the ER,and upon presentation the patient was noted to have significant amount of bloody stools, patient did receive a unit of packed RBCs although his initial hemoglobin was 11.6.his initial labs were basically unremarkable except for a BUN of 35 creatinine 1.66, and his pro time was normal INR was normal. Platelets were normal.his WBC count was 15.4, and the patient was not complaining of any pain. He does have underlying dementia, and not much history could be obtained from the patient. However as the patient was transferred to the ICU, there was a significant concern about his ABG showing a low bicarb of 12 his WBC count was 35.1, and his hemoglobin was 9.8.his electrolytes showed significant acidosis with bicarb of 15 there was evidence of significant worsening in his renal profile, and his lactic acid came back to be 7.5.patient received more IV fluid boluses about 2 L of 0.9 normal saline. He received 2 A of bicarb. 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.CT angiogram of the head and neck was also unremarkable.chest x-ray this morning showed a left lower lobe atelectasis and small left pleural effusion.after evaluating the patient, I did recommend placing the patient on a sodium bicarb drip, also recommended a neurological consultation, kept him on antibiotics/Zosyn, and we'll likely recommend a GI consultation as well as general surgery consultation, as I am a bit concerned about the possibility of ischemic bowel Although his physical examination is unremarkable, and there is no evidence of abdominal tenderness.in the meantime, the patient is now on IV fluids, antibiotics empirically, and is also on Protonix. Reevaluated today on 04/17/2019, patient remains in the ICU, remains unresponsive in spite of deep painful stimuli, seen by neurology, and felt that the patient has metabolic encephalopathy. Patient remains on IV fluids, sodium bicarb drip, antibiotics empirically, seen by gastroenterology, and the only recommendation is to continue Protonix, and continue to monitor hemoglobin and transfuse if less than 7. Being considered for EGD and colonoscopy if his mental status improves within the next 48-72 hours. His labs are showing improvement, bicarb is up to 23. Creatinine is about the same, 2.39, and it was 2.40 yesterday. Repeat lactic acid this morning is 1.6. So metabolically the patient is showing definite improvement, but his overall metabolic derangements are not completely resolved. I will cut down his sodium bicarb drip, and I will continue present supportive care measures and medications as listed. Chest x-ray showed minimal left lower lobe atelectasis, doubt infiltrate. And there is a small tiny pleural effusion. EEG showed no evidence of seizure focus, however it showed severe diffuse cerebral dysfunction consistent with toxic metabolic encephalopathy. Patient was reevaluated today on 04/18/2019, remains up on that, however for the first time in the last few days patient is able to open his eyes with deep painful stimuli, and not following any simple instructions. His blood cultures yesterday came back positive for gram-negative bacilli, patient remains on Zosyn. He remains hemodynamically stable. No further episodes of GI bleeding. Patient may have had ischemic bowel. However his labs are improving. Hemoglobin is holding at 7.1. Electrolytes are normal bicarb is 27 hence I will discontinue sodium bicarb drip. Renal functioning is improving creatinine is down to 2.08. Chest x-ray after nasogastric tube placement showed adequate plac ement of the nasogastric tube, and chronic parenchymal changes with mild interstitial edema. Patient was reevaluated today on 04/19/2019, basically unchanged compared to yesterday. Opens eyes only and moans with deep painful stimuli. Does not follow any instructions. Patient is hemodynamically stable. Blood cultures were positive for gram-negative rods, however no further report on identificat ion and sensitivity. Urine has shown no growth. Patient remains on Zosyn. CBC today showed improvement in his WBC count is 11.2, hemoglobin is 7, it was 8.02 days ago, may consider transfusing the patient if hemoglobin drops any further. Basic metabolic profile is relatively normal. BUN is down to 35 creatinine is down to 1.75, from 2.403 days ago. His urine output seems to be adequate, gomes sanchez his chest x-ray showed evidence of mild congestive changes, hence I will give him a trial of Lasix. The findings on the chest x-ray are basically nonspecific. Objective - Vital Signs Vital signs: Vital Signs Temp 98.5 F 04/19/19 08:00 Pulse 105 H 04/19/19 10:00 Resp 24 04/19/19 10:00 BP 132/80 04/19/19 10:00 Pulse Ox 98 04/19/19 10:00 Intake & Output 04/18/19 04/19/19 04/19/19 18:59 06:59 18:59 Intake Total 1330 2000 620 Output Total 800 925 156 Balance 530 1075 464 Weight 103 kg 100.8 kg Intake: IV 1200 1700 560 0.9 1125 1500 460 Dextrose 5% in Water 1, 75 000 ml @ 25 mls/hr IV . Q24H [facility] with Sodium Bicarb (1 Meq/ml) 150 ml Rx#:[id number] Piperacillin-Tazobactam 3 200 .375 gm In Sodium Chloride 0.9% 100 ml @ 25 mls/hr IVPB Q8H [facility] Rx#: [id number] Potassium Chloride 20 meq 100 In Water For Injection 1 100ml.bag @ 50 mls/hr IVPB Q2H [facility] Rx#: [id number] Tube Feeding 70 210 60 Other 60 90 Output: Urine 800 925 155 Stool 1 Other: Voiding Method Indwelling Catheter Indwelling Catheter Indwelling Catheter - Exam GENERAL: Patient is well-developed and well-nourished. in no distress, opens eyes to deep painful stimuli today. ENT: Neck is soft and supple. No significant lymphadenopathy is noted. Oropharynx is clear. Moist mucous membranes. Neck has full range of motion without eliciting any pain. EYES: PERRLA, EOMI, no icterus. PULMONARY: Symmetrical chest expansion, diminished breath sounds at the bases, minimal fine crackles at the bases, no wheezes. CARDIOVASCULAR: Irregular irregular rhythm. normal S1 and S2, no S3 gallop. ABDOMEN: Soft, nontender, no megaly, no rebound, diminished bowel sounds. SKIN: Skin is clear with no lesions or rashes and otherwise unremarkable. NEUROLOGIC: Patient is obtunted opens eyes to deep painful stimuli. Otherwise no change. MUSCULOSKELETAL: no evidence of deformities, could not fully assess muscular strength. LYMPHATICS: No significant lymphadenopathy is noted PSYCHIATRIC: Cannot be assessed. Mostly because of his present neurological status. - Labs CBC & Chem 7: 04/19/19 04:15 04/19/19 04:15 Labs: Abnormal Lab Results - Last 24 Hours (Table) 04/18/19 04/18/19 04/18/19 Range/Units 11:30 15:55 20:01 WBC (3.8-10.6) k/uL RBC (4.30-5.90) m/uL Hgb (13.0-17.5) gm/dL Hct (39.0-53.0) % RDW (11.5-15.5) % Plt Count (150-450) k/uL Neutrophils # (1.3-7.7) k/uL Sodium (137-145) mmol/L Potassium (3.5-5.1) mmol/L Chloride (98-107) mmol/L BUN (9-20) mg/dL Creatinine (0.66-1.25) mg/dL Glucose (74-99) mg/dL POC Glucose (mg/dL) 131 H 146 H 147 H (75-99) mg/dL Calcium (8.4-10.2) mg/dL 04/18/19 04/18/19 04/19/19 Range/Units 21:21 23:37 04:15 WBC 11.2 H (3.8-10.6) k/uL RBC 2.20 L (4.30-5.90) m/uL Hgb 7.0 L (13.0-17.5) gm/dL Hct 20.8 L (39.0-53.0) % RDW 16.2 H (11.5-15.5) % Plt Count 105 L (150-450) k/uL Neutrophils # 9.0 H (1.3-7.7) k/uL Sodium (137-145) mmol/L Potassium (3.5-5.1) mmol/L Chloride (98-107) mmol/L BUN (9-20) mg/dL Creatinine (0.66-1.25) mg/dL Glucose (74-99) mg/dL POC Glucose (mg/dL) 156 H 162 H (75-99) mg/dL Calcium (8.4-10.2) mg/dL 04/19/19 04/19/19 Range/Units 04:15 08:04 WBC (3.8-10.6) k/uL RBC (4.30-5.90) m/uL Hgb (13.0-17.5) gm/dL Hct (39.0-53.0) % RDW (11.5-15.5) % Plt Count (150-450) k/uL Neutrophils # (1.3-7.7) k/uL Sodium 146 H (137-145) mmol/L Potassium 3.4 L (3.5-5.1) mmol/L Chloride 118 H (98-107) mmol/L BUN 35 H (9-20) mg/dL Creatinine 1.75 H (0.66-1.25) mg/dL Glucose 105 H (74-99) mg/dL POC Glucose (mg/dL) 72 L (75-99) mg/dL Calcium 7.3 L (8.4-10.2) mg/dL Assessment and Plan Assessment: impression: 1acute GI bleeding most likely lower GI in nature, possible ischemic bowel. 2 acute lactic acidosis and hypotension, possible sepsis, secondary to gram- negative bacteremia felt to be GI source unless for otherwise. Remains on Zosyn. 3 acute metabolic encephalopathy, secondary to sepsis and gram-negative bacteremia. 4chronic atrial fibrillation, patient was on Eliquis until admission. 5 coronary artery disease 6 chronic obstructive pulmonary disease 7 history of underlying dementia 8 history of underlying diabetes type 2 9 history of chronic renal disease stage III, however patient has presently acute on chronic kidney injury. 10 history of previous myocardial infarction 11 left lower lobe atelectasis, strongly doubt pneumonia, 12 history of obstructive sleep apnea, 13 history of chronic low back pain. 14 history of gouty arthritis. 15 history of diverticular disease. 16 gram-negative bacteremia final identification and sensitivity is pending, in the meantime continue Zosyn. Repeat blood cultures were ordered. Recommendation: Continue present supportive care measures. Continue to monitor closely in the ICU. Continue Protonix. Twice a day. Continue IV fluids. Patient has a good urine output, however considering his chest x-ray he will be given a trial of Lasix and repeat chest x-ray in a.m. No clear-cut evidence of congestive heart failure at this point. Continue /Zosyn. Adjust antibiotics based on the final report and the sensitivity on the gram-negative bacilli in the blood. continue insulin as per protocol. continue to monitor CVP Continue to monitor daily electrolytes and renal profile. Continue enteral feeding via nasogastric tube. We'll continue to follow in the ICU. Time with Patient: Less than 30
[2019-04-19 11:20] LABS: Glucose,Whole Blood 71 mg/dL (75-99)
--- NOTE | 2019-04-19 13:16 | P.PN ---
Subjective 78-year-old male was admitted secondary to GI bleed. There was a concern for ischemic colitis consisting his symptoms of abdominal pain and abdominal tenderness patient cannot give me any history as patient is barely arousable at this time. Patient is not eating anything control. Patient had multiple episodes of bright red per rectum and patient was on Eliquis for atrial fibrillation. Patient had leukocytosis no fever concern for ischemic colitis and patient is on empiric antibiotics with Zosyn improved white blood cell count but patient is still barely responsive. Patient is receiving IV fluids and sodium bicarbonate drip nephrology is following the patient. Patient's baseline creatinine appears to be around 1.2-1.4 now around 2.5 renal failure secondary to intravascular volume depletion. 04/18/2019 I'm unable to arouse the patient but patient was apparently bitten awake when print shop helper evaluated the patient. Her serum creatinine did improve bicarbonate drip was discontinued. Leukocytosis improved no more GI bleed at this time. Hemoglobin is at 7.1 compared to 7.6 yesterday 04/19/2019 Patient looks little bit better today but still not responsive. Serum creatinine is around 1.6 which is his baseline. No more GI bleed. Patient does have pulmonary edema because of his obstructive and IV fluids presently received Lasix ordered by pulmonology. Patient's pulmonary edema secondary to IV fluid hydration his ejection fraction is within normal limits no evidence of diastolic dysfunction either Review of systems: Unable to obtain due to his clinical condition All inpatient medications were reviewed and appropriate changes in these medications as dictated in the interval history and assessment and plan. Objective - Vital Signs Vital signs: Vital Signs Temp 98.5 F 04/19/19 08:00 Pulse 98 04/19/19 11:00 Resp 23 04/19/19 11:14 BP 132/84 04/19/19 11:00 Pulse Ox 99 04/19/19 11:00 Intake & Output 04/18/19 04/19/19 04/19/19 18:59 06:59 18:59 Intake Total 1330 2000 770 Output Total 800 925 908 Balance 530 1075 -138 Weight 103 kg 100.8 kg Intake: IV 1200 1700 620 0.9 1125 1500 520 Dextrose 5% in Water 1, 75 000 ml @ 25 mls/hr IV . Q24H [facility] with Sodium Bicarb (1 Meq/ml) 150 ml Rx#:[id number] Piperacillin-Tazobactam 3 200 .375 gm In Sodium Chloride 0.9% 100 ml @ 25 mls/hr IVPB Q8H [facility] Rx#: [id number] Potassium Chloride 20 meq 100 In Water For Injection 1 100ml.bag @ 50 mls/hr IVPB Q2H [facility] Rx#: [id number] Tube Feeding 70 210 120 Other 60 90 30 Output: Urine 800 925 905 Stool 3 Other: Voiding Method Indwelling Catheter Indwelling Catheter Indwelling Catheter - Exam PHYSICAL EXAMINATION: GENERAL: Barely responsive to painful stimuli Although does have gag Reflux HEENT: Pupils are round and equally reacting to light. EOMI. No scleral icterus. No conjunctival pallor. Normocephalic, atraumatic. No pharyngeal erythema. No thyromegaly. CARDIOVASCULAR: S1 and S2 present. No murmurs, rubs, or gallops. PULMONARY: Chest is clear to auscultation, no wheezing or crackles. ABDOMEN: Soft, nontender, nondistended, normoactive bowel sounds. No palpable organomegaly. MUSCULOSKELETAL: No joint swelling or deformity. EXTREMITIES: No cyanosis, clubbing, and does have pedal edema NEUROLOGICAL: Unable to assess SKIN: No rashes. - Labs CBC & Chem 7: 04/19/19 04:15 04/19/19 04:15 Labs: Abnormal Lab Results - Last 24 Hours (Table) 04/18/19 04/18/19 04/18/19 Range/Units 15:55 20:01 21:21 WBC (3.8-10.6) k/uL RBC (4.30-5.90) m/uL Hgb (13.0-17.5) gm/dL Hct (39.0-53.0) % RDW (11.5-15.5) % Plt Count (150-450) k/uL Neutrophils # (1.3-7.7) k/uL Sodium (137-145) mmol/L Potassium (3.5-5.1) mmol/L Chloride (98-107) mmol/L BUN (9-20) mg/dL Creatinine (0.66-1.25) mg/dL Glucose (74-99) mg/dL POC Glucose (mg/dL) 146 H 147 H 156 H (75-99) mg/dL Calcium (8.4-10.2) mg/dL 12/04/19 12/05/19 12/05/19 Range/Units 23:37 04:15 04:15 WBC 11.2 H (3.8-10.6) k/uL RBC 2.20 L (4.30-5.90) m/uL Hgb 7.0 L (13.0-17.5) gm/dL Hct 20.8 L (39.0-53.0) % RDW 16.2 H (11.5-15.5) % Plt Count 105 L (150-450) k/uL Neutrophils # 9.0 H (1.3-7.7) k/uL Sodium 146 H (137-145) mmol/L Potassium 3.4 L (3.5-5.1) mmol/L Chloride 118 H (98-107) mmol/L BUN 35 H (9-20) mg/dL Creatinine 1.75 H (0.66-1.25) mg/dL Glucose 105 H (74-99) mg/dL POC Glucose (mg/dL) 162 H (75-99) mg/dL Calcium 7.3 L (8.4-10.2) mg/dL 04/19/19 04/19/19 Range/Units 08:04 11:19 WBC (3.8-10.6) k/uL RBC (4.30-5.90) m/uL Hgb (13.0-17.5) gm/dL Hct (39.0-53.0) % RDW (11.5-15.5) % Plt Count (150-450) k/uL Neutrophils # (1.3-7.7) k/uL Sodium (137-145) mmol/L Potassium (3.5-5.1) mmol/L Chloride (98-107) mmol/L BUN (9-20) mg/dL Creatinine (0.66-1.25) mg/dL Glucose (74-99) mg/dL POC Glucose (mg/dL) 72 L 71 L (75-99) mg/dL Calcium (8.4-10.2) mg/dL Assessment and Plan Plan: -Acute lower GI bleed possibility of ischemic colitis: Continue with empiric Zosyn and to hold on Eliquis and aspirin. -Acute metabolic encephalopathy secondary to acute renal failure and GI bleed. -Lactic acidosis probably secondary to ischemic colitis continue with empiric Zosyn. Improved with IV fluids are being discontinued for above mentioned reasons -acute renal failure prerenal azotemia from sepsis and GI bleed, continue with IV fluids, bicarbonate is being discontinued -Anion gap and non-anion gap metabolic acidosis secondary to lactic acidosis and renal failure, acidosis improved -Possible sepsis from ischemic colitis -Coronary artery disease his previous CABG COPD without any acute exacerbation -CVA with left-sided hemiparesis chronic cannot use aspirin or liquids because of the GI bleed -Type 2 diabetes mellitus -Hypertension -Hyperlipidemia -Benign prostatic hypertrophy - obstructive sleep apnea -Peripheral vascular disease -Fibromyalgia His clinical condition is guarded overall prognosis is poor
--- NOTE | 2019-04-19 14:40 | P.PN ---
Subjective Progress Note Date: 04/19/19 CHIEF COMPLAINT: Possible ischemic bowel HISTORY OF PRESENT ILLNESS: Patient examined in the ICU. He remains obtunded. No further bloody stools. WBC 11.2. Hemoglobin 7.0. Tube feedings infusing via NG tube. PHYSICAL EXAM: VITAL SIGNS: Reviewed. GENERAL: Well-developed in no acute distress. HEENT: No sclera icterus. Extraocular movements grossly intact. Moist buccal mucosa. Head is atraumatic, normocephalic. ABDOMEN: Soft. Nondistended. Nontender. Positive bowel sounds. NEUROLOGIC: Obtunded ASSESSMENT: 1. Acute GI bleed, bright red blood per rectum 2. Possible ischemic bowel PLAN: Continue with conservative management at this time. Maintain hemoglobin greater than 7.0. Continue tube feedings via NG Patient currently not a surgical candidate. We will continue to follow. Nurse practitioner note has been reviewed by physician. Signing provider agrees with the documented findings, assessment, and plan of care. Objective - Vital Signs Vital signs: Vital Signs Temp 98 F 04/19/19 12:00 Pulse 94 04/19/19 14:00 Resp 23 04/19/19 14:00 BP 135/82 04/19/19 14:00 Pulse Ox 100 04/19/19 14:00 Intake & Output 04/18/19 04/19/19 04/19/19 18:59 06:59 18:59 Intake Total 1330 2000 920 Output Total 490 771 6327 Balance 530 1075 -338 Weight 103 kg 100.8 kg Intake: IV 1200 1700 740 0.9 1125 1500 540 Dextrose 5% in Water 1, 75 000 ml @ 25 mls/hr IV . Q24H [facility] with Sodium Bicarb (1 Meq/ml) 150 ml Rx#:[id number] Piperacillin-Tazobactam 3 200 100 .375 gm In Sodium Chloride 0.9% 100 ml @ 25 mls/hr IVPB Q8H [facility] Rx#: [id number] Potassium Chloride 20 meq 100 In Water For Injection 1 100ml.bag @ 50 mls/hr IVPB Q2H [facility] Rx#: [id number] Tube Feeding 70 210 150 Other 60 90 30 Output: Urine 847 908 7863 Stool 3 Other: Voiding Method Indwelling Catheter Indwelling Catheter Indwelling Catheter - Labs CBC & Chem 7: 04/19/19 04:15 04/19/19 04:15 Labs: Abnormal Lab Results - Last 24 Hours (Table) 04/18/19 04/18/19 04/18/19 Range/Units 15:55 20:01 21:21 WBC (3.8-10.6) k/uL RBC (4.30-5.90) m/uL Hgb (13.0-17.5) gm/dL Hct (39.0-53.0) % RDW (11.5-15.5) % Plt Count (150-450) k/uL Neutrophils # (1.3-7.7) k/uL Sodium (137-145) mmol/L Potassium (3.5-5.1) mmol/L Chloride (98-107) mmol/L BUN (9-20) mg/dL Creatinine (0.66-1.25) mg/dL Glucose (74-99) mg/dL POC Glucose (mg/dL) 146 H 147 H 156 H (75-99) mg/dL Calcium (8.4-10.2) mg/dL 04/18/19 04/19/19 04/19/19 Range/Units 23:37 04:15 04:15 WBC 11.2 H (3.8-10.6) k/uL RBC 2.20 L (4.30-5.90) m/uL Hgb 7.0 L (13.0-17.5) gm/dL Hct 20.8 L (39.0-53.0) % RDW 16.2 H (11.5-15.5) % Plt Count 105 L (150-450) k/uL Neutrophils # 9.0 H (1.3-7.7) k/uL Sodium 146 H (137-145) mmol/L Potassium 3.4 L (3.5-5.1) mmol/L Chloride 118 H (98-107) mmol/L BUN 35 H (9-20) mg/dL Creatinine 1.75 H (0.66-1.25) mg/dL Glucose 105 H (74-99) mg/dL POC Glucose (mg/dL) 162 H (75-99) mg/dL Calcium 7.3 L (8.4-10.2) mg/dL 04/19/19 04/19/19 Range/Units 08:04 11:19 WBC (3.8-10.6) k/uL RBC (4.30-5.90) m/uL Hgb (13.0-17.5) gm/dL Hct (39.0-53.0) % RDW (11.5-15.5) % Plt Count (150-450) k/uL Neutrophils # (1.3-7.7) k/uL Sodium (137-145) mmol/L Potassium (3.5-5.1) mmol/L Chloride (98-107) mmol/L BUN (9-20) mg/dL Creatinine (0.66-1.25) mg/dL Glucose (74-99) mg/dL POC Glucose (mg/dL) 72 L 71 L (75-99) mg/dL Calcium (8.4-10.2) mg/dL
[2019-04-19 15:28] LABS: Glucose,Whole Blood 98 mg/dL (75-99)
[2019-04-19 20:10] LABS: Glucose,Whole Blood 110 mg/dL (75-99)
[2019-04-19] MEDS: INSULIN DETEMIR (LEVEMIR) 100 UNIT/ML SYR SQ SCH (20:18)
[2019-04-19] MEDS: TAMSULOSIN 0.4 MG CAP.ER.24H PO SCH (20:18)
[2019-04-19] MEDS: ATORVASTATIN 40 MG TAB PO SCH (20:18)
[2019-04-19] MEDS: CILOSTAZOL 100 MG TAB PO SCH (20:19)
--- NOTE | 2019-04-19 22:06 | PN ---
PROGRESS NOTE DATE OF DICTATION: 04/19/2019 This patient is a 78-year-old pleasant white male admitted to the hospital with acute lower GI bleed and abdominal pain. Eliquis was discontinued at the time of hospitalization and the bleeding has completely resolved. Patient continues to have altered mental status secondary to metabolic encephalopathy. At present he is arousable to painful stimuli. No new events noted overnight. PHYSICAL EXAMINATION: Appears comfortable. No apparent distress. VITAL SIGNS: Stable. Blood pressure is 142/84, pulse rate 124 and afebrile. HEENT examination unremarkable. Conjunctivae pink. Sclerae anicteric. Oral cavity no lesions. NECK: No JVD or lymph node enlargement. CHEST: Clear to auscultation. HEART: Regular rate and rhythm. ABDOMEN: Soft. Bowel sounds are positive. No organomegaly. EXTREMITIES: No pedal edema. SKIN: Soft. No lesions. NEUROLOGIC: Arousable to painful stimuli. LABS: Labs from today show WBC 11.2, hemoglobin 7, platelets 105. BUN is , creatinine 1.75. IMPRESSION: 1. Acute lower gastrointestinal bleed, possibly diverticular in etiology. Bleeding has subsided. Eliquis on hold. Hemoglobin stable at 7 g/dL. 2. Altered mental status/metabolic encephalopathy. Patient being followed closely. 3. History of atrial fibrillation. Eliquis at present on hold. 4. Gram-negative bacteremia, for which patient at present is on Zosyn. Leukocytosis is gradually improving. RECOMMENDATIONS: 1. Continue with broad-spectrum antibiotics. 2. Monitor him closely. 3. CBC on a daily basis. 4. Will continue to follow with you closely. Thank you for this consultation. MMODL / IJN: [id number] /
[2019-04-19 23:53] LABS: Glucose,Whole Blood 133 mg/dL (75-99)
[2019-04-20] MEDS: INSULIN ASPART (NovoLOG) 100 UNIT/ML VIAL SQ SCH ×7 (01:14→23:54)
[2019-04-20] MEDS: LEVOTHYROXINE 75 MCG TAB PO SCH (07:11)
[2019-04-20] MEDS: PIPERACILLIN-TAZOBACTAM 3.375 GM in SODIUM CHLORIDE 0.9% 100 ML IVPB SCH ×3 (07:11→21:45)
[2019-04-20 07:24] LABS: Anisocytosis Slight; Basophils % (A) 0 %; Eosinophils # (A) 0.3 k/uL (0-0.7); Eosinophils % (A) 3 %; HCT 22.3 % (39.0-53.0); HGB 7.5 gm/dL (13.0-17.5); Hypochromasia Slight; Lymphocytes # (A) 0.7 k/uL (1.0-4.8); Lymphocytes % (A) 7 %; MCH 32.2 pg (25.0-35.0); MCHC 33.7 g/dL (31.0-37.0); MCV 95.6 fL (80.0-100.0); Mean Platelet Volume 11.5; Monocytes # (A) 0.7 k/uL (0-1.0); Monocytes % (A) 7 %; Neutrophils # (A) 8.6 k/uL (1.3-7.7); Neutrophils % (A) 81 %; Platelet Count 146 k/uL (150-450); Poikilocytosis Slight; RBC 2.33 m/uL (4.30-5.90); RDW 16.1 % (11.5-15.5); WBC 10.6 k/uL (3.8-10.6)
[2019-04-20 07:25] LABS: Albumin 2.4 g/dL (3.5-5.0); Calcium 7.7 mg/dL (8.4-10.2); Potassium 3.6 mmol/L (3.5-5.1); Total Bilirubin 0.6 mg/dL (0.2-1.3); Total Protein 4.7 g/dL (6.3-8.2)
[2019-04-20 08:19] LABS: Glucose,Whole Blood 175 mg/dL (75-99)
[2019-04-20] MEDS: DULoxetine HCL 60 MG CAPSULE.DR PO SCH (08:19)
[2019-04-20] MEDS: ISOSORBIDE MONONITRATE ER 30 MG TAB.ER.24H PO SCH (08:19)
[2019-04-20] MEDS: METOPROLOL TARTRATE 25 MG TAB PO SCH ×2 (08:19→21:38)
[2019-04-20] MEDS: DULoxetine HCL 30 MG CAPSULE.DR PO SCH (08:19)
[2019-04-20] MEDS: PANTOPRAZOLE 40 MG/10 ML VIAL IV SCH ×2 (08:20→21:32)
[2019-04-20] MEDS ORDERED: DEXTROSE 5% IN WATER 1,000 ML IV ONE (09:37)
--- NOTE | 2019-04-20 09:58 | P.PN ---
Subjective Progress Note Date: 04/20/19 CHIEF COMPLAINT: Possible ischemic bowel HISTORY OF PRESENT ILLNESS: Patient examined in the ICU. He remains obtunded. No further bloody stools. WBC 10.6. Hemoglobin 7.5. Tube feedings infusing via NG tube. PHYSICAL EXAM: VITAL SIGNS: Reviewed. GENERAL: Well-developed in no acute distress. HEENT: No sclera icterus. Extraocular movements grossly intact. Moist buccal mucosa. Head is atraumatic, normocephalic. ABDOMEN: Soft. Nondistended. Nontender. NEUROLOGIC: Obtunded. Withdraws to painful stimuli. ASSESSMENT: 1. Acute GI bleed, bright red blood per rectum 2. Possible ischemic bowel PLAN: Continue with conservative management at this time. Maintain hemoglobin greater than 7.0. Continue tube feedings via NG Patient currently not a surgical candidate. We will continue to follow. Nurse practitioner note has been reviewed by physician. Signing provider agrees with the documented findings, assessment, and plan of care. Objective - Vital Signs Vital signs: Vital Signs Temp 97.9 F 04/20/19 08:00 Pulse 125 H 04/20/19 09:00 Resp 26 H 04/20/19 09:00 BP 135/91 04/20/19 09:00 Pulse Ox 100 04/20/19 09:00 Intake & Output 04/19/19 04/20/19 04/20/19 18:59 06:59 18:59 Intake Total 1000 420 180 Output Total 1909 875 330 Balance -909 -455 -150 Weight 101 kg 101 kg Intake: IV 820 170 50 0.9 620 170 50 Piperacillin-Tazobactam 3 100 .375 gm In Sodium Chloride 0.9% 100 ml @ 25 mls/hr IVPB Q8H [facility] Rx#: [id number] Potassium Chloride 20 meq 100 In Water For Injection 1 100ml.bag @ 50 mls/hr IVPB Q2H [facility] Rx#: [id number] Tube Feeding 150 220 100 Other 30 30 30 Output: Urine 1905 875 330 Stool 4 Other: Voiding Method Indwelling Catheter Indwelling Catheter - Labs CBC & Chem 7: 04/20/19 06:00 04/20/19 06:00 Labs: Abnormal Lab Results - Last 24 Hours (Table) 04/19/19 04/19/19 04/19/19 Range/Units 11:19 20:08 23:51 RBC (4.30-5.90) m/uL Hgb (13.0-17.5) gm/dL Hct (39.0-53.0) % RDW (11.5-15.5) % Plt Count (150-450) k/uL Neutrophils # (1.3-7.7) k/uL Lymphocytes # (1.0-4.8) k/uL Sodium (137-145) mmol/L Chloride (98-107) mmol/L BUN (9-20) mg/dL Creatinine (0.66-1.25) mg/dL Glucose (74-99) mg/dL POC Glucose (mg/dL) 71 L 110 H 133 H (75-99) mg/dL Calcium (8.4-10.2) mg/dL Total Protein (6.3-8.2) g/dL Albumin (3.5-5.0) g/dL 04/20/19 04/20/19 04/20/19 Range/Units 06:00 06:00 08:17 RBC 2.33 L (4.30-5.90) m/uL Hgb 7.5 L (13.0-17.5) gm/dL Hct 22.3 L (39.0-53.0) % RDW 16.1 H (11.5-15.5) % Plt Count 146 L (150-450) k/uL Neutrophils # 8.6 H (1.3-7.7) k/uL Lymphocytes # 0.7 L (1.0-4.8) k/uL Sodium 151 H (137-145) mmol/L Chloride 118 H (98-107) mmol/L BUN 34 H (9-20) mg/dL Creatinine 2.04 H (0.66-1.25) mg/dL Glucose 197 H (74-99) mg/dL POC Glucose (mg/dL) 175 H (75-99) mg/dL Calcium 7.7 L (8.4-10.2) mg/dL Total Protein 4.7 L (6.3-8.2) g/dL Albumin 2.4 L (3.5-5.0) g/dL Microbiology - Last 24 Hours (Table) 04/16/19 06:17 Blood Culture Gram Stain - Final Blood Blood Culture - Final Fusobacterium species
--- NOTE | 2019-04-20 11:37 | P.PN ---
Subjective Progress Note Date: 04/20/19 Principal diagnosis: Acute GI bleeding this is a 78-year-old white male with history of multiple medical problems including chronic atrial fibrillation,maintained on Eliquis, patient lives at a assisted, and he was found to have bright red blood per rectum yesterday. Patient was sent to the ER,and upon presentation the patient was noted to have significant amount of bloody stools, patient did receive a unit of packed RBCs although his initial hemoglobin was 11.6.his initial labs were basically unremarkable except for a BUN of 35 creatinine 1.66, and his pro time was normal INR was normal. Platelets were normal.his WBC count was 15.4, and the patient was not complaining of any pain. He does have underlying dementia, and not much history could be obtained from the patient. However as the patient was transferred to the ICU, there was a significant concern about his ABG showing a low bicarb of 12 his WBC count was 35.1, and his hemoglobin was 9.8.his electrolytes showed significant acidosis with bicarb of 15 there was evidence of significant worsening in his renal profile, and his lactic acid came back to be 7.5.patient received more IV fluid boluses about 2 L of 0.9 normal saline. He received 2 A of bicarb. 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.CT angiogram of the head and neck was also unremarkable.chest x-ray this morning showed a left lower lobe atelectasis and small left pleural effusion.after evaluating the patient, I did recommend placing the patient on a sodium bicarb drip, also recommended a neurological consultation, kept him on antibiotics/Zosyn, and we'll likely recommend a GI consultation as well as general surgery consultation, as I am a bit concerned about the possibility of ischemic bowel Although his physical examination is unremarkable, and there is no evidence of abdominal tenderness.in the meantime, the patient is now on IV fluids, antibiotics empirically, and is also on Protonix. Reevaluated today on 04/17/2019, patient remains in the ICU, remains unresponsive in spite of deep painful stimuli, seen by neurology, and felt that the patient has metabolic encephalopathy. Patient remains on IV fluids, sodium bicarb drip, antibiotics empirically, seen by gastroenterology, and the only recommendation is to continue Protonix, and continue to monitor hemoglobin and transfuse if less than 7. Being considered for EGD and colonoscopy if his mental status improves within the next 48-72 hours. His labs are showing improvement, bicarb is up to 23. Creatinine is about the same, 2.39, and it was 2.40 yesterday. Repeat lactic acid this morning is 1.6. So metabolically the patient is showing definite improvement, but his overall metabolic derangements are not completely resolved. I will cut down his sodium bicarb drip, and I will continue present supportive care measures and medications as listed. Chest x-ray showed minimal left lower lobe atelectasis, doubt infiltrate. And there is a small tiny pleural effusion. EEG showed no evidence of seizure focus, however it showed severe diffuse cerebral dysfunction consistent with toxic metabolic encephalopathy. Patient was reevaluated today on 04/18/2019, remains up on that, however for the first time in the last few days patient is able to open his eyes with deep painful stimuli, and not following any simple instructions. His blood cultures yesterday came back positive for gram-negative bacilli, patient remains on Zosyn. He remains hemodynamically stable. No further episodes of GI bleeding. Patient may have had ischemic bowel. However his labs are improving. Hemoglobin is holding at 7.1. Electrolytes are normal bicarb is 27 hence I will discontinue sodium bicarb drip. Renal functioning is improving creatinine is down to 2.08. Chest x-ray after nasogastric tube placement showed adequate plac ement of the nasogastric tube, and chronic parenchymal changes with mild interstitial edema. Patient was reevaluated today on 04/19/2019, basically unchanged compared to yesterday. Opens eyes only and moans with deep painful stimuli. Does not follow any instructions. Patient is hemodynamically stable. Blood cultures were positive for gram-negative rods, however no further report on identificat ion and sensitivity. Urine has shown no growth. Patient remains on Zosyn. CBC today showed improvement in his WBC count is 11.2, hemoglobin is 7, it was 8.02 days ago, may consider transfusing the patient if hemoglobin drops any further. Basic metabolic profile is relatively normal. BUN is down to 35 creatinine is down to 1.75, from 2.403 days ago. His urine output seems to be adequate, gomes sanchez his chest x-ray showed evidence of mild congestive changes, hence I will give him a trial of Lasix. The findings on the chest x-ray are basically nonspecific. Patient was reevaluated today on 04/20/2019, basically about the same compared to yesterday, only opens eyes to deep painful stimuli, otherwise he does not follow any instructions. Remains hemodynamically stable. 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 Patient has been on Zosyn all along, and I will go ahead and add Flagyl. Further cultures are pending. Sodium today remains elevated at 151, hence I have changed his main IV fluid to D5W I have also increased the free water flushes via the nasogastric tube. CBC is noted hemoglobin is 7.5. BUN is 34 creatinine 2.04, slightly worse compared to yesterday. But similar to the day before. Urine output is marginal. Chest x-ray from yesterday showed mild congestive changes, patient was given Lasix. No follow-up chest x-ray was done today, I will order one to be done tomorrow morning. Objective - Vital Signs Vital signs: Vital Signs Temp 97.9 F 04/20/19 08:00 Pulse 106 H 04/20/19 10:00 Resp 24 04/20/19 10:00 BP 114/82 04/20/19 10:00 Pulse Ox 100 04/20/19 10:00 Intake & Output 04/19/19 04/20/19 04/20/19 18:59 06:59 18:59 Intake Total 1000 420 355 Output Total 1909 875 370 Balance -909 -455 -15 Weight 101 kg 101 kg Intake: IV 820 170 125 0.9 620 170 50 Dextrose 5% in Water 1, 75 000 ml @ 75 mls/hr IV . [id number] ONE Rx#:[id number] Piperacillin-Tazobactam 3 100 .375 gm In Sodium Chloride 0.9% 100 ml @ 25 mls/hr IVPB Q8H [facility] Rx#: [id number] Potassium Chloride 20 meq 100 In Water For Injection 1 100ml.bag @ 50 mls/hr IVPB Q2H [facility] Rx#: [id number] Tube Feeding 150 220 200 Other 30 30 30 Output: Urine 1905 875 370 Stool 4 Other: Voiding Method Indwelling Catheter Indwelling Catheter Indwelling Catheter - Exam GENERAL: Patient is well-developed and well-nourished. in no distress, opens eyes to deep painful stimuli today. ENT: Neck is soft and supple. No significant lymphadenopathy is noted. Oropharynx is clear. Moist mucous membranes. Neck has full range of motion without eliciting any pain. EYES: PERRLA, EOMI, no icterus. PULMONARY: Symmetrical chest expansion, diminished breath sounds at the bases, minimal fine crackles at the bases, no wheezes. CARDIOVASCULAR: Irregular irregular rhythm. normal S1 and S2, no S3 gallop. ABDOMEN: Soft, nontender, no megaly, no rebound, diminished bowel sounds. SKIN: Skin is clear with no lesions or rashes and otherwise unremarkable. NEUROLOGIC: Patient is obtunted opens eyes to deep painful stimuli. Otherwise no change. MUSCULOSKELETAL: no evidence of deformities, could not fully assess muscular strength. LYMPHATICS: No significant lymphadenopathy is noted PSYCHIATRIC: Cannot be assessed. Mostly because of his present neurological status. - Labs CBC & Chem 7: 04/20/19 06:00 04/20/19 06:00 Labs: Abnormal Lab Results - Last 24 Hours (Table) 04/19/19 04/19/19 04/20/19 Range/Units 20:08 23:51 06:00 RBC 2.33 L (4.30-5.90) m/uL Hgb 7.5 L (13.0-17.5) gm/dL Hct 22.3 L (39.0-53.0) % RDW 16.1 H (11.5-15.5) % Plt Count 146 L (150-450) k/uL Neutrophils # 8.6 H (1.3-7.7) k/uL Lymphocytes # 0.7 L (1.0-4.8) k/uL Sodium (137-145) mmol/L Chloride (98-107) mmol/L BUN (9-20) mg/dL Creatinine (0.66-1.25) mg/dL Glucose (74-99) mg/dL POC Glucose (mg/dL) 110 H 133 H (75-99) mg/dL Calcium (8.4-10.2) mg/dL Total Protein (6.3-8.2) g/dL Albumin (3.5-5.0) g/dL 04/20/19 04/20/19 Range/Units 06:00 08:17 RBC (4.30-5.90) m/uL Hgb (13.0-17.5) gm/dL Hct (39.0-53.0) % RDW (11.5-15.5) % Plt Count (150-450) k/uL Neutrophils # (1.3-7.7) k/uL Lymphocytes # (1.0-4.8) k/uL Sodium 151 H (137-145) mmol/L Chloride 118 H (98-107) mmol/L BUN 34 H (9-20) mg/dL Creatinine 2.04 H (0.66-1.25) mg/dL Glucose 197 H (74-99) mg/dL POC Glucose (mg/dL) 175 H (75-99) mg/dL Calcium 7.7 L (8.4-10.2) mg/dL Total Protein 4.7 L (6.3-8.2) g/dL Albumin 2.4 L (3.5-5.0) g/dL Microbiology - Last 24 Hours (Table) 04/16/19 06:17 Blood Culture Gram Stain - Final Blood Blood Culture - Final Fusobacterium species Assessment and Plan Assessment: impression: 1acute GI bleeding most likely lower GI in nature, possible ischemic bowel. 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 3 acute metabolic encephalopathy, secondary to sepsis bacteremia. 4chronic atrial fibrillation, patient was on Eliquis until admission. 5 coronary artery disease 6 chronic obstructive pulmonary disease 7 history of underlying dementia 8 history of underlying diabetes type 2 9 history of chronic renal disease stage III, however patient has presently acute on chronic kidney injury. 10 history of previous myocardial infarction 11 left lower lobe atelectasis, strongly doubt pneumonia, 12 history of obstructive sleep apnea, 13 history of chronic low back pain. 14 history of gouty arthritis. 15 history of diverticular disease. Recommendation: Continue present supportive care measures. Continue to monitor closely in the ICU. Continue Protonix. Twice a day. Continue IV fluids. Changed to D5W and will increase free water flushes via nasogastric tube. Mostly to deal with hypernatremia Continue /Zosyn. Added Flagyl today. continue insulin as per protocol. Continue to monitor daily electrolytes and renal profile. Continue enteral feeding via nasogastric tube. Increase free water flushes via We'll continue to follow in the ICU. Time with Patient: Greater than 30
[2019-04-20 11:43] LABS: Glucose,Whole Blood 179 mg/dL (75-99)
[2019-04-20] MEDS: metroNIDAZOLE-NS PMX 500 MG in SALINE 1 100ML.BAG IVPB SCH ×2 (11:59→21:30)
[2019-04-20 15:58] LABS: Glucose,Whole Blood 191 mg/dL (75-99)
--- NOTE | 2019-04-20 16:56 | PN ---
PROGRESS NOTE DATE OF DICTATION: 04/20/2019 Patient is a 78-year-old pleasant white male admitted to the hospital with acute GI bleed. The bleeding has resolved. He continues to have altered mental status. Remains the same. No significant change in his overall mental status; responding to painful stimuli. PHYSICAL EXAMINATION: Appears comfortable. No apparent distress. VITAL SIGNS: Stable. Blood pressure 114/82, pulse rate 106, temperature 97.9. HEENT examination unremarkable. Conjunctivae pink. Sclerae anicteric. Oral cavity no lesions. NECK: No JVD or lymph node enlargement. CHEST: Clear to auscultation. HEART: Regular rate and rhythm. ABDOMEN: Soft. It was non-tender, non-distended. Bowel sounds are positive. No organomegaly. EXTREMITIES: No pedal edema. SKIN: No rashes. NEUROLOGIC: Very lethargic. Opens eyes to painful stimuli. LABS: Labs from today show hemoglobin 7.5, WBC 10.6, platelets 146. BUN 34, creatinine 2.0. Sodium is 151. IMPRESSION: 1. Acute gastrointestinal bleed, possibly lower in etiology, diverticular versus ischemic colitis; has resolved. Hemoglobin stable at 7.5 g/dL. 2. Altered mental status/acute metabolic encephalopathy, being monitored closely. 3. History of atrial fibrillation, on Eliquis, which is currently on hold. 4. Sepsis. Blood cultures grew fusobacterium species, on broad-spectrum antibiotics. RECOMMENDATIONS: 1. Continue to monitor hemoglobin daily. 2. Continue to hold Eliquis. 3. Continue broad-spectrum antibiotics. At this time we will sign off. Please call us if he has any active bleeding. Thank you for this consultation. MMODL / IJN: [id number] /
[2019-04-20 20:07] LABS: Glucose,Whole Blood 219 mg/dL (75-99)
[2019-04-20] MEDS: INSULIN DETEMIR (LEVEMIR) 100 UNIT/ML SYR SQ SCH (20:21)
[2019-04-20] MEDS: TAMSULOSIN 0.4 MG CAP.ER.24H PO SCH (21:27)
[2019-04-20] MEDS: CILOSTAZOL 100 MG TAB PO SCH (21:38)
[2019-04-20] MEDS: ATORVASTATIN 40 MG TAB PO SCH (21:38)
[2019-04-20 23:47] LABS: Glucose,Whole Blood 264 mg/dL (75-99)
--- NOTE | 2019-04-21 01:01 | P.CONS ---
History of Present Illness - Reason for Consult Consult date: 04/20/19 Bacteremia Requesting physician: Kiki Bryant - Chief Complaint mental status changes and bleeding per rectum x 1 day - History of Present Illness Patient is a 78-year old male who is a resident of a long term and a past medical history of atrial fibrillation currently on Eliquis the patient has been sent to the ER at [facility] on April 16, 2019 after the patient was noticed to have bright red blood per rectum patient on presentation to hospital also noticed to have mental status changes weak and lethargic with concern for possible stroke patient has been evaluated by neurology services also seen by GI and surgical services for his lower GI bleed however no endoscopic procedure has been done this patient on positive hospital was afebrile however he did have low-grade fever 100.2 on 04/17/2019 and the patient is afebrile since then he did have some tachycardia but no hypotension patient did have elevated white count 22,000 on admission for the patient did have blood cultures drawn which are now coming positive with Fusobacterium species patient UA was negative on admission the patient white count has normalized as of this morning with a blood culture positive Flagyl was added and I was asked to see the patient for further recommendation about antibiotic therapy during this admission patient did have multiple chest x-ray but no CT of abdominal pelvis has been done follow the form patient has been obtained from chart review of his chart and talking to the daughter at the patient himself is unable to provide any history, patient is currently afebrile and is hemodynamically stable not requiring any pressor support. Review of Systems Positive point has been mentioned in HPI complete review could not be obtained because of underlying mental status Past Medical History Past Medical History: Atrial Flutter, Coronary Artery Disease (CAD), Chest Pain / Angina, Heart Failure, COPD, CVA/TIA, Dementia, Diabetes Mellitus, Fibromyalgia, Hyperlipidemia, Hypertension, Myocardial Infarction ([place]), Prostate Disorder, Renal Disease, Sleep Apnea/CPAP/BIPAP, Vascular Disorder Additional Past Medical History / Comment(s): IDDM, chronic renal failure, aflutter, sleep apnea with no cpap, PVD, DJD, chronic back pain, bulging and herniated discs, sciatica, dislocated knuckles, gout, arthiritis, prostate problem-pt unsure what problem is, tinnitis bilaterally, R eye stroke, umbilical hernia, diverticular disease, obesity, 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 Past Anesthesia/Blood Transfusion Reactions: No Reported Reaction Smoking Status: Former smoker - Past Family History Father Family Medical History: Coronary Artery Disease (CAD) Additional Family Medical History / Comment(s): Father had CABG Mother Family Medical History: No Reported History Additional Family Medical History / Comment(s): Pt states mother was a healthy person. Medications and Allergies Home Medications Medication Instructions Recorded Confirmed Type Aspirin 81 mg PO HS@209908/26/14 04/16/19 History Atorvastatin [Lipitor] 40 mg PO HS@209908/26/14 04/16/19 History Cholecalciferol [Vitamin D3 (25 1,000 unit PO DAILY@0900 08/26/14 04/16/19 History Mcg = 1000 Iu)] Cilostazol [Pletal] 100 mg PO HS@209908/26/14 04/16/19 History DULoxetine HCL [Cymbalta] 60 mg PO DAILY@0900 08/26/14 04/16/19 History Donepezil [Aricept] 10 mg PO BID@0900,2100 08/26/14 04/16/19 History [place]-3 Fatty Acids/Fish Oil [Fish 1 cap PO HS@209908/26/14 04/16/19 History Oil 1,000 mg Softgel] Nitroglycerin Sl Tabs [Nitrostat] 0.4 mg SUBLINGUAL Q5M PRN 10/16/14 04/16/19 History Tamsulosin HCl [Flomax] 0.4 mg PO HS@209905/24/15 04/16/19 History Isosorbide Mononitrate ER [Imdur] 30 mg PO DAILY@0900 10/15/15 04/16/19 History Furosemide [Lasix] 20 mg PO BID@0600,1200 08/14/17 04/16/19 History Levothyroxine Sodium [Synthroid] 75 mcg PO DAILY@0600 08/14/17 04/16/19 History Acetaminophen [Tylenol] 650 mg PO Q6HR PRN 10/09/17 04/16/19 History Memantine [Namenda] 10 mg PO BID@0900,209910/09/17 04/16/19 History Apixaban [Eliquis] 2.5 mg PO BID@0900,209906/11/18 04/16/19 History Atenolol [Tenormin] 50 mg PO DAILY@0900 06/11/18 04/16/19 History DULoxetine HCL [Cymbalta] 30 mg PO DAILY@0900 06/11/18 04/16/19 History Liraglutide [Victoza 2-Yayo] 1.2 mg SQ HS@209906/11/18 04/16/19 History Ferrous Sulfate [Feosol] 325 mg PO DAILY@0900 02/16/19 04/16/19 History HYDROcodone/APAP 5-325MG [[place] 1 tab PO TID@0600,1400,2200 02/16/19 04/16/19 History 5-325] Insulin Glargine,Hum.rec.anlog 44 unit SQ HS@209902/16/19 04/16/19 History [Lantus Solostar] Insulin Lispro [humaLOG Kwikpen] See Protocol SQ 02/16/19 04/16/19 History DAILY@0800,1200,1700 Loperamide HCl [Imodium A-D] 2 - 4 mg PO QID PRN 02/16/19 04/16/19 History Melatonin 5 mg PO HS@209902/16/19 04/16/19 History Potassium Chloride ER [K-Dur 20] 30 meq PO DAILY@0900 02/16/19 04/16/19 History Ranitidine HCl [Zantac] 150 mg PO HS@209902/16/19 04/16/19 History Allergies Allergy/AdvReac Type Severity Reaction Status Date / Time ciprofloxacin [From Cipro] Allergy Swelling Verified 04/15/19 17:55 ciprofloxacin HCl Allergy Swelling Verified 04/15/19 17:55 [From Cipro] latex Allergy Unknown Verified 04/15/19 17:55 NSAIDS (Non-Steroidal Allergy Unknown Verified 04/15/19 17:55 Anti-Inflamma Quinolones Allergy Unknown Verified 04/15/19 17:55 Physical Exam Vitals: Vital Signs Temp Pulse Resp BP Pulse Ox 04/20/19 10:00 106 H 24 114/82 100 04/20/19 09:00 125 H 26 H 135/91 100 04/20/19 08:00 97.9 F 120 H 24 125/88 95 04/20/19 07:00 115 H 24 114/66 99 04/20/19 06:00 120 H 25 H 144/87 97 04/20/19 05:00 115 H 26 H 132/74 90 L 04/20/19 04:02 98.6 F 112 H 26 H 131/65 90 L 04/20/19 03:00 104 H 24 130/70 90 L 04/20/19 02:00 115 H 25 H 131/77 91 L 04/20/19 01:00 113 H 24 110/75 91 L 04/20/19 00:00 98.0 F 95 25 H 127/77 92 L 04/19/19 23:00 103 H 24 114/72 92 L 04/19/19 22:00 92 25 H 126/78 94 L 04/19/19 21:00 114 H 23 125/86 94 L 04/19/19 20:00 97.9 F 113 H 23 123/71 95 04/19/19 19:47 20 04/19/19 19:00 112 H 20 129/79 95 04/19/19 18:00 121 H 22 128/83 100 04/19/19 17:00 117 H 22 132/88 99 04/19/19 16:00 98.3 F 115 H 23 134/75 99 04/19/19 15:55 22 04/19/19 15:00 124 H 22 142/84 99 04/19/19 14:00 94 23 135/82 100 04/19/19 13:00 112 H 23 122/86 100 Intake and Output 04/19/19 04/20/19 04/20/19 22:59 06:59 14:59 Intake Total 330 170 480 Output Total 1176 350 430 Balance -846 -180 50 Intake: IV 180 70 200 0.9 180 70 50 Dextrose 5% in Water 1, 150 000 ml @ 75 mls/hr IV . [id number] ONE Rx#:[id number] Tube Feeding 120 100 250 Other 30 30 Output: Urine 1175 350 430 Stool 1 Other: Voiding Method Indwelling Catheter Indwelling Catheter Indwelling Catheter Weight 101 kg 101 kg GENERAL DESCRIPTION: Elderly male lying in bed, no distress. No tachypnea or accessory muscle of respiration use. HEENT: Shows Pallor , no scleral icterus. Oral mucous membrane is dry. NECK: Trachea central, no thyromegaly. LUNGS: Unlabored breathing. Decreased breath sound at the base No wheeze or crackle. HEART: S1, S2, regular rate and rhythm. ABDOMEN: Soft, no tenderness , guarding or rigidity EXTREMITIES: No edema of feet. SKIN: No rash, no masses palpable. NEUROLOGICAL: The patient is unresponsive lethargic orientation could not be determined. Results CBC & Chem 7: 04/20/19 06:00 04/20/19 06:00 Labs: Abnormal Lab Results - Last 24 Hours (Table) 04/19/19 04/19/19 04/20/19 Range/Units 20:08 23:51 06:00 RBC 2.33 L (4.30-5.90) m/uL Hgb 7.5 L (13.0-17.5) gm/dL Hct 22.3 L (39.0-53.0) % RDW 16.1 H (11.5-15.5) % Plt Count 146 L (150-450) k/uL Neutrophils # 8.6 H (1.3-7.7) k/uL Lymphocytes # 0.7 L (1.0-4.8) k/uL Sodium (137-145) mmol/L Chloride (98-107) mmol/L BUN (9-20) mg/dL Creatinine (0.66-1.25) mg/dL Glucose (74-99) mg/dL POC Glucose (mg/dL) 110 H 133 H (75-99) mg/dL Calcium (8.4-10.2) mg/dL Total Protein (6.3-8.2) g/dL Albumin (3.5-5.0) g/dL 04/20/19 04/20/19 04/20/19 Range/Units 06:00 08:17 11:42 RBC (4.30-5.90) m/uL Hgb (13.0-17.5) gm/dL Hct (39.0-53.0) % RDW (11.5-15.5) % Plt Count (150-450) k/uL Neutrophils # (1.3-7.7) k/uL Lymphocytes # (1.0-4.8) k/uL Sodium 151 H (137-145) mmol/L Chloride 118 H (98-107) mmol/L BUN 34 H (9-20) mg/dL Creatinine 2.04 H (0.66-1.25) mg/dL Glucose 197 H (74-99) mg/dL POC Glucose (mg/dL) 175 H 179 H (75-99) mg/dL Calcium 7.7 L (8.4-10.2) mg/dL Total Protein 4.7 L (6.3-8.2) g/dL Albumin 2.4 L (3.5-5.0) g/dL Microbiology - Last 24 Hours (Table) 04/16/19 06:17 Blood Culture Gram Stain - Final Blood Blood Culture - Final Fusobacterium species Assessment and Plan Assessment: 1-patient with Fusobacterium bacteremia source likely GI in this patient has been to the hospital with bright red blood per rectum with concern for possible ischemic colitis or diverticular bleed unfortunately no CT abdominal pelvis has been done during this admission and as per discussion with the daughter is leaning more towards hospice oriented care hence we will hold off on adding further investigation at this point (1) Fusobacterium infection Current Visit: Yes Status: Acute Code(s): A49.8 - OTHER BACTERIAL INFECTIONS OF UNSPECIFIED SITE SNOMED Code(s): 466065934 (2) Bacteremia Current Visit: Yes Status: Acute Code(s): R78.81 - BACTEREMIA SNOMED Code( s): 1609754 Plan: 1-patient is appropriately covered with Zosyn 3.375 g every 8 hour in addition to Flagyl added today at 500 mg every 8 hour 2-with the patient is switched to hospice antibiotic can be safely discontinued if not we will request a CT of abdominal pelvis 3-IV fluid We will follow on clinical condition and cultures to further adjust medication if needed Thank you for this consultation we will follow the patient along with you Time with Patient: Greater than 30
[2019-04-21 03:52] LABS: Glucose,Whole Blood 226 mg/dL (75-99)
[2019-04-21] MEDS: INSULIN ASPART (NovoLOG) 100 UNIT/ML VIAL SQ SCH ×6 (03:54→23:41)
[2019-04-21] MEDS: metroNIDAZOLE-NS PMX 500 MG in SALINE 1 100ML.BAG IVPB SCH ×3 (03:56→20:04)
[2019-04-21] MEDS: LEVOTHYROXINE 75 MCG TAB PO SCH (05:52)
[2019-04-21] MEDS: PIPERACILLIN-TAZOBACTAM 3.375 GM in SODIUM CHLORIDE 0.9% 100 ML IVPB SCH ×3 (05:56→22:01)
[2019-04-21 06:05] LABS: Calcium 7.7 mg/dL (8.4-10.2); Potassium 3.4 mmol/L (3.5-5.1)
--- NOTE | 2019-04-21 06:37 | XR ---
EXAMINATION TYPE: XR chest 1V portable DATE OF EXAM: 04/21/2019 HISTORY: ?chf. REFERENCE: Previous study dated 04/19/2019. FINDINGS: There has been a midline sternotomy. NG tube is present with its tip in the stomach. The heart is mildly enlarged. There is bibasilar airspace disease. This is improved slightly. There i s blunting of both CP angles and I could not exclude small effusions IMPRESSION: IMPROVED AERATION, BOTH LUNG BASES.
[2019-04-21 08:04] LABS: Anisocytosis Slight; Basophils % (A) 0 %; Eosinophils # (A) 0.6 k/uL (0-0.7); Eosinophils % (A) 5 %; Hypochromasia Slight; Lymphocytes % (A) 9 %; MCH 31.5 pg (25.0-35.0); MCV 95.5 fL (80.0-100.0); Mean Platelet Volume 12.2; Monocytes # (A) 0.8 k/uL (0-1.0); Monocytes % (A) 7 %; Neutrophils % (A) 78 %; Platelet Count 137 k/uL (150-450); Poikilocytosis Slight; WBC 11.6 k/uL (3.8-10.6)
[2019-04-21 08:27] LABS: Large Platelets Present; Poikilocytosis (M) Present; Polychromasia Present
[2019-04-21 08:55] LABS: Glucose,Whole Blood 259 mg/dL (75-99)
[2019-04-21] MEDS: ISOSORBIDE MONONITRATE ER 30 MG TAB.ER.24H PO SCH (09:06)
[2019-04-21] MEDS: DULoxetine HCL 30 MG CAPSULE.DR PO SCH (09:06)
[2019-04-21] MEDS: DULoxetine HCL 60 MG CAPSULE.DR PO SCH (09:06)
[2019-04-21] MEDS: PANTOPRAZOLE 40 MG/10 ML VIAL IV SCH ×2 (09:07→20:07)
[2019-04-21] MEDS: METOPROLOL TARTRATE 25 MG TAB PO SCH ×2 (09:11→20:18)
[2019-04-21 11:29] LABS: Glucose,Whole Blood 253 mg/dL (75-99)
--- NOTE | 2019-04-21 11:49 | P.PN ---
Subjective Progress Note Date: 04/21/19 Principal diagnosis: Acute GI bleeding this is a 78-year-old white male with history of multiple medical problems including chronic atrial fibrillation,maintained on Eliquis, patient lives at a residential, and he was found to have bright red blood per rectum yesterday. Patient was sent to the ER,and upon presentation the patient was noted to have significant amount of bloody stools, patient did receive a unit of packed RBCs although his initial hemoglobin was 11.6.his initial labs were basically unremarkable except for a BUN of 35 creatinine 1.66, and his pro time was normal INR was normal. Platelets were normal.his WBC count was 15.4, and the patient was not complaining of any pain. He does have underlying dementia, and not much history could be obtained from the patient. However as the patient was transferred to the ICU, there was a significant concern about his ABG showing a low bicarb of 12 his WBC count was 35.1, and his hemoglobin was 9.8.his electrolytes showed significant acidosis with bicarb of 15 there was evidence of significant worsening in his renal profile, and his lactic acid came back to be 7.5.patient received more IV fluid boluses about 2 L of 0.9 normal saline. He received 2 A of bicarb. 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.CT angiogram of the head and neck was also unremarkable.chest x-ray this morning showed a left lower lobe atelectasis and small left pleural effusion.after evaluating the patient, I did recommend placing the patient on a sodium bicarb drip, also recommended a neurological consultation, kept him on antibiotics/Zosyn, and we'll likely recommend a GI consultation as well as general surgery consultation, as I am a bit concerned about the possibility of ischemic bowel Although his physical examination is unremarkable, and there is no evidence of abdominal tenderness.in the meantime, the patient is now on IV fluids, antibiotics empirically, and is also on Protonix. Reevaluated today on 04/17/2019, patient remains in the ICU, remains unresponsive in spite of deep painful stimuli, seen by neurology, and felt that the patient has metabolic encephalopathy. Patient remains on IV fluids, sodium bicarb drip, antibiotics empirically, seen by gastroenterology, and the only recommendation is to continue Protonix, and continue to monitor hemoglobin and transfuse if less than 7. Being considered for EGD and colonoscopy if his mental status improves within the next 48-72 hours. His labs are showing improvement, bicarb is up to 23. Creatinine is about the same, 2.39, and it was 2.40 yesterday. Repeat lactic acid this morning is 1.6. So metabolically the patient is showing definite improvement, but his overall metabolic derangements are not completely resolved. I will cut down his sodium bicarb drip, and I will continue present supportive care measures and medications as listed. Chest x-ray showed minimal left lower lobe atelectasis, doubt infiltrate. And there is a small tiny pleural effusion. EEG showed no evidence of seizure focus, however it showed severe diffuse cerebral dysfunction consistent with toxic metabolic encephalopathy. Patient was reevaluated today on 04/18/2019, remains up on that, however for the first time in the last few days patient is able to open his eyes with deep painful stimuli, and not following any simple instructions. His blood cultures yesterday came back positive for gram-negative bacilli, patient remains on Zosyn. He remains hemodynamically stable. No further episodes of GI bleeding. Patient may have had ischemic bowel. However his labs are improving. Hemoglobin is holding at 7.1. Electrolytes are normal bicarb is 27 hence I will discontinue sodium bicarb drip. Renal functioning is improving creatinine is down to 2.08. Chest x-ray after nasogastric tube placement showed adequate plac ement of the nasogastric tube, and chronic parenchymal changes with mild interstitial edema. Patient was reevaluated today on 04/19/2019, basically unchanged compared to yesterday. Opens eyes only and moans with deep painful stimuli. Does not follow any instructions. Patient is hemodynamically stable. Blood cultures were positive for gram-negative rods, however no further report on identificat ion and sensitivity. Urine has shown no growth. Patient remains on Zosyn. CBC today showed improvement in his WBC count is 11.2, hemoglobin is 7, it was 8.02 days ago, may consider transfusing the patient if hemoglobin drops any further. Basic metabolic profile is relatively normal. BUN is down to 35 creatinine is down to 1.75, from 2.403 days ago. His urine output seems to be adequate, gomes sanchez his chest x-ray showed evidence of mild congestive changes, hence I will give him a trial of Lasix. The findings on the chest x-ray are basically nonspecific. Patient was reevaluated today on 04/20/2019, basically about the same compared to yesterday, only opens eyes to deep painful stimuli, otherwise he does not follow any instructions. Remains hemodynamically stable. 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 Patient has been on Zosyn all along, and I will go ahead and add Flagyl. Further cultures are pending. Sodium today remains elevated at 151, hence I have changed his main IV fluid to D5W I have also increased the free water flushes via the nasogastric tube. CBC is noted hemoglobin is 7.5. BUN is 34 creatinine 2.04, slightly worse compared to yesterday. But similar to the day before. Urine output is marginal. Chest x-ray from yesterday showed mild congestive changes, patient was given Lasix. No follow-up chest x-ray was done today, I will order one to be done tomorrow morning. Reevaluated today on 04/21/2019, patient remains in the ICU, no major foreign exchange services manager the last few days. Patient is basically about the same. Chest x-ray is showing some worsening interstitial edema. Patient has not shown any significant neurological improvement. Remains encephalopathic, opens eyes only to deep painful stimuli. He was seen by infectious disease, The patient on Zosyn and Flagyl. CBC showed WBC count of 11.6 hemoglobin is 7 sodium is down to 148 renal profile showed a BUN of 35 creatinine 2.38. Repeat blood cultures from 04 19 until now remain negative. Urine cultures have been negative. Patient had initially 1 positive blood culture positive for fusobacterium species. Objective - Vital Signs Vital signs: Vital Signs Temp 99.1 F 04/21/19 08:00 Pulse 114 H 04/21/19 11:00 Resp 20 04/21/19 11:00 BP 127/74 04/21/19 11:00 Pulse Ox 99 04/21/19 11:00 Intake & Output 04/20/19 04/21/19 04/21/19 18:59 06:59 18:59 Intake Total 1675 2980 675 Output Total 836 360 130 Balance 839 2620 545 Weight 101 kg 106.4 kg Intake: IV 925 1390 100 0.9 50 165 25 Dextrose 5% in Water 1, 675 825 75 000 ml @ 75 mls/hr IV . [id number] [facility] Rx#:[id number] Piperacillin-Tazobactam 3 100 200 .375 gm In Sodium Chloride 0.9% 100 ml @ 25 mls/hr IVPB Q8H [facility] Rx#: [id number] metroNIDAZOLE-NS PMX 500 100 200 mg In Saline 1 100ml.bag @ 100 mls/hr IVPB Q8H [facility] Rx#:[id number] Tube Feeding 520 990 375 Other 230 600 200 Output: Urine 835 360 130 Stool 1 Other: Voiding Method Indwelling Catheter Indwelling Catheter Indwelling Catheter - Exam Physical Exam: Revealed a 78-year-old white male, encephalopathic, opens eyes to deep painful stimuli otherwise no other responses. HEENT:[Neck is supple.] [No neck masses.] [No thyromegaly.] [No JVD.] Throat was noted to be clear. PERRLA, EOMI, no icterus. Chest: [Symmetrical chest expansion, crackles at the bases, no rhonchi no wheezes.] Cardiac Exam: [Normal S1 and S2, no S3 gallop, no murmur.] Abdomen: [Soft, nontender, no megaly, no rebound, no guarding, normal bowel sounds.] Extremities: [No clubbing, 1+ bipedal cody, no cyanosis.] Neurological Exam: obtunded, opens eyes to deep painful stimuli only does not follow any instructions. Psychiatric could not be assessed, Skin: No rashes. Lymphatics: No lymphadenopathy. - Labs CBC & Chem 7: 04/21/19 07:00 04/21/19 05:29 Labs: Abnormal Lab Results - Last 24 Hours (Table) 04/20/19 04/20/19 04/20/19 Range/Units 15:57 20:05 23:45 WBC (3.8-10.6) k/uL RBC (4.30-5.90) m/uL Hgb (13.0-17.5) gm/dL Hct (39.0-53.0) % RDW (11.5-15.5) % Plt Count (150-450) k/uL Neutrophils # (1.3-7.7) k/uL Sodium (137-145) mmol/L Potassium (3.5-5.1) mmol/L Chloride (98-107) mmol/L BUN (9-20) mg/dL Creatinine (0.66-1.25) mg/dL Glucose (74-99) mg/dL POC Glucose (mg/dL) 191 H 219 H 264 H (75-99) mg/dL Calcium (8.4-10.2) mg/dL 04/21/19 04/21/19 04/21/19 Range/Units 03:51 05:29 07:00 WBC 11.6 H (3.8-10.6) k/uL RBC 2.20 L (4.30-5.90) m/uL Hgb 7.0 L (13.0-17.5) gm/dL Hct 21.0 L (39.0-53.0) % RDW 16.0 H (11.5-15.5) % Plt Count 137 L (150-450) k/uL Neutrophils # 9.0 H (1.3-7.7) k/uL Sodium 148 H (137-145) mmol/L Potassium 3.4 L (3.5-5.1) mmol/L Chloride 117 H (98-107) mmol/L BUN 35 H (9-20) mg/dL Creatinine 2.38 H (0.66-1.25) mg/dL Glucose 217 H (74-99) mg/dL POC Glucose (mg/dL) 226 H (75-99) mg/dL Calcium 7.7 L (8.4-10.2) mg/dL 04/21/19 04/21/19 Range/Units 08:53 11:28 WBC (3.8-10.6) k/uL RBC (4.30-5.90) m/uL Hgb (13.0-17.5) gm/dL Hct (39.0-53.0) % RDW (11.5-15.5) % Plt Count (150-450) k/uL Neutrophils # (1.3-7.7) k/uL Sodium (137-145) mmol/L Potassium (3.5-5.1) mmol/L Chloride (98-107) mmol/L BUN (9-20) mg/dL Creatinine (0.66-1.25) mg/dL Glucose (74-99) mg/dL POC Glucose (mg/dL) 259 H 253 H (75-99) mg/dL Calcium (8.4-10.2) mg/dL Microbiology - Last 24 Hours (Table) 04/19/19 12:45 Blood Culture - Preliminary Blood No Growth after 24 hours Assessment and Plan Assessment: impression: 1acute GI bleeding most likely lower GI in nature, possible ischemic bowel. 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 3 acute metabolic encephalopathy, secondary to sepsis bacteremia. 4chronic atrial fibrillation, patient was on Eliquis until admission. 5 coronary artery disease 6 chronic obstructive pulmonary disease 7 history of underlying dementia 8 history of underlying diabetes type 2 9 history of chronic renal disease stage III, however patient has presently acute on chronic kidney injury. 10 history of previous myocardial infarction 11 left lower lobe atelectasis, strongly doubt pneumonia, 12 history of obstructive sleep apnea, 13 history of chronic low back pain. 14 history of gouty arthritis. 15 history of diverticular disease. Recommendation: Continue present supportive care measures. Consider transferring the patient out of the ICU to a regular medical floor, and I have learned today that the family is about to consider hospice. Apparently the family is considering hospice, and I think that's appropriate. Continue Protonix. Twice a day. Continue IV fluids. Continue free water flushes. Continue Zosyn and Flagyl. continue insulin as per protocol. Continue to monitor daily electrolytes and renal profile. Continue enteral feeding via nasogastric tube. Increase free water flushes via Prognosis is extremely poor and guarded, I agree with hospice plans if pursued by family. Transfer patient to a regular medical floor. Time with Patient: Less than 30
[2019-04-21 17:03] LABS: Glucose,Whole Blood 228 mg/dL (75-99)
--- NOTE | 2019-04-21 19:32 | PN ---
PROGRESS NOTE DATE OF SERVICE: 04/21/2019. REASON FOR FOLLOW UP: Fusobacterium bacteremia. INTERVAL HISTORY: The patient is currently afebrile. Patient is hemodynamically stable. Patient remains to be lethargic, sleepy. No vomiting, diarrhea reported by the nursing staff. No change in clinical condition. The daughter is at the bedside. PHYSICAL EXAMINATION: Blood pressure 127/74 with a pulse of 140, temperature of 98, 99% on 2 L nasal cannula. GENERAL DESCRIPTION is an elderly male lying in bed in no distress. RESPIRATORY SYSTEM: Unlabored breathing. Decreased breath sounds at the bases. No wheeze. HEART S1, S2. Regular rate and rhythm. ABDOMEN: Soft, no tenderness. LABS: Creatinine slightly elevated at 2.38 with a white count of 11.6. Blood culture repeat has been negative so far. 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 The patient admitted to the hospital with gastrointestinal bleed. Family leaning more towards Hospice. Hence no further workup was ordered. Currently on Flagyl and Zosyn to continue once decision to hospice to be discontinued. Questions and concerns were answered. MMODL / IJN: [id number] /
[2019-04-21] MEDS ORDERED: POTASSIUM BICARBONATE/CIT AC 20 MEQ TABLET.EFF PO ONE (20:00)
[2019-04-21] MEDS: TAMSULOSIN 0.4 MG CAP.ER.24H PO SCH (20:07)
[2019-04-21 20:14] LABS: Glucose,Whole Blood 251 mg/dL (75-99)
[2019-04-21] MEDS: INSULIN DETEMIR (LEVEMIR) 100 UNIT/ML SYR SQ SCH (20:16)
[2019-04-21] MEDS: ATORVASTATIN 40 MG TAB PO SCH (20:18)
[2019-04-21] MEDS: CILOSTAZOL 100 MG TAB PO SCH (20:30)
--- NOTE | 2019-04-21 22:18 | P.PN ---
Subjective Progress Note Date: 04/20/19 Principal diagnosis: Acute GI bleed possible ischemic colitis Acute metabolic encephalopathy 78-year-old male was admitted secondary to GI bleed. There was a concern for ischemic colitis consisting his symptoms of abdominal pain and abdominal tenderness patient cannot give me any history as patient is barely arousable at this time. Patient is not eating anything control. Patient had multiple episodes of bright red per rectum and patient was on Eliquis for atrial fibrillation. Patient had leukocytosis no fever concern for ischemic colitis and patient is on empiric antibiotics with Zosyn improved white blood cell count but patient is still barely responsive. Patient is receiving IV fluids and sodium bicarbonate drip nephrology is following the patient. Patient's baseline creatinine appears to be around 1.2-1.4 now around 2.5 renal failure secondary to intravascular volume depletion. 04/18/2019 I'm unable to arouse the patient but patient was apparently bitten awake when secretary evaluated the patient. Her serum creatinine did improve bicarbonate drip was discontinued. Leukocytosis improved no more GI bleed at this time. Hemoglobin is at 7.1 compared to 7.6 yesterday 04/19/2019 Patient looks little bit better today but still not responsive. Serum creatinine is around 1.6 which is his baseline. No more GI bleed. Patient does have pulmonary edema because of his obstructive and IV fluids presently received Lasix ordered by pulmonology. Patient's pulmonary edema secondary to IV fluid hydration his ejection fraction is within normal limits no evidence of diastolic dysfunction either 04/20/2019 Patient is currently in the MICU. Unable to open with verbal stimuli. Barely responds to painful stimuli. Sodium level is 151 and IV fluids changed to D5 water. Currently on NG tube feeding free water. Hemoglobin is 7.5. Creatinine level increased to 2.04 Chest x-ray showed basilar congestion yesterday and was given IV Lasix. Discussed with family regarding his medical condition and overall poor prognosis. Patient remained on antibiotics in the form of Zosyn and Flagyl was added. 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 Repeat cultures have been negative so far. Patient is afebrile. Pressure is maintained. Review of systems: Unable to obtain due to his clinical condition Current medications reviewed. Objective - Vital Signs Vital signs: Vital Signs Temp 98 F 04/20/19 12:00 Pulse 115 H 04/20/19 13:00 Resp 24 04/20/19 13:00 BP 117/79 04/20/19 13:00 Pulse Ox 98 04/20/19 13:00 Intake & Output 04/19/19 04/20/19 04/20/19 18:59 06:59 18:59 Intake Total 1000 420 955 Output Total 1909 875 551 Balance -909 -358 404 Weight 101 kg 101 kg Intake: IV 820 170 375 0.9 620 170 50 Dextrose 5% in Water 1, 225 000 ml @ 75 mls/hr IV . [id number] [facility] Rx#:[id number] Piperacillin-Tazobactam 3 100 .375 gm In Sodium Chloride 0.9% 100 ml @ 25 mls/hr IVPB Q8H [facility] Rx#: [id number] Potassium Chloride 20 meq 100 In Water For Injection 1 100ml.bag @ 50 mls/hr IVPB Q2H [facility] Rx#: [id number] metroNIDAZOLE-NS PMX 500 100 mg In Saline 1 100ml.bag @ 100 mls/hr IVPB Q8H [facility] Rx#:[id number] Tube Feeding 150 220 350 Other 30 30 230 Output: Urine 1905 875 550 Stool 4 1 Other: Voiding Method Indwelling Catheter Indwelling Catheter Indwelling Catheter - Exam GENERAL: Barely responsive to painful stimuli Although does have gag Reflux HEENT: Pupils are round and equally reacting to light. EOMI. No scleral icterus. No conjunctival pallor. Normocephalic, atraumatic. No pharyngeal erythema. No thyromegaly. CARDIOVASCULAR: S1 and S2 present. No murmurs, rubs, or gallops. PULMONARY: Chest is clear to auscultation, no wheezing or crackles. ABDOMEN: Soft, nontender, nondistended, normoactive bowel sounds. No palpable organomegaly. MUSCULOSKELETAL: No joint swelling or deformity. EXTREMITIES: No cyanosis, clubbing, and does have pedal edema NEUROLOGICAL: Unable to assess SKIN: No rashes. - Labs CBC & Chem 7: 04/21/19 07:00 04/21/19 05:29 Labs: Abnormal Lab Results - Last 24 Hours (Table) 04/19/19 04/19/19 04/20/19 Range/Units 20:08 23:51 06:00 RBC 2.33 L (4.30-5.90) m/uL Hgb 7.5 L (13.0-17.5) gm/dL Hct 22.3 L (39.0-53.0) % RDW 16.1 H (11.5-15.5) % Plt Count 146 L (150-450) k/uL Neutrophils # 8.6 H (1.3-7.7) k/uL Lymphocytes # 0.7 L (1.0-4.8) k/uL Sodium (137-145) mmol/L Chloride (98-107) mmol/L BUN (9-20) mg/dL Creatinine (0.66-1.25) mg/dL Glucose (74-99) mg/dL POC Glucose (mg/dL) 110 H 133 H (75-99) mg/dL Calcium (8.4-10.2) mg/dL Total Protein (6.3-8.2) g/dL Albumin (3.5-5.0) g/dL 04/20/19 04/20/19 04/20/19 Range/Units 06:00 08:17 11:42 RBC (4.30-5.90) m/uL Hgb (13.0-17.5) gm/dL Hct (39.0-53.0) % RDW (11.5-15.5) % Plt Count (150-450) k/uL Neutrophils # (1.3-7.7) k/uL Lymphocytes # (1.0-4.8) k/uL Sodium 151 H (137-145) mmol/L Chloride 118 H (98-107) mmol/L BUN 34 H (9-20) mg/dL Creatinine 2.04 H (0.66-1.25) mg/dL Glucose 197 H (74-99) mg/dL POC Glucose (mg/dL) 175 H 179 H (75-99) mg/dL Calcium 7.7 L (8.4-10.2) mg/dL Total Protein 4.7 L (6.3-8.2) g/dL Albumin 2.4 L (3.5-5.0) g/dL Microbiology - Last 24 Hours (Table) 04/16/19 06:17 Blood Culture Gram Stain - Final Blood Blood Culture - Final Fusobacterium species Assessment and Plan Assessment: -Acute lower GI bleed possibility of ischemic colitis: Continue with empiric Zosyn and to hold on Eliquis and aspirin. -Acute metabolic encephalopathy secondary to acute renal failure and GI bleed. -Lactic acidosis probably secondary to ischemic colitis continue with empiric Zosyn. Improved with IV fluids are being discontinued for above mentioned re asons -acute renal failure prerenal azotemia from sepsis and GI bleed, continue with IV fluids, bicarbonate is being discontinued -Anion gap and non-anion gap metabolic acidosis secondary to lactic acidosis and renal failure, acidosis improved -Possible sepsis from ischemic colitis -Coronary artery disease his previous CABG -Hypernatremia -COPD without any acute exacerbation -CVA with left-sided hemiparesis chronic cannot use aspirin or liquids because of the GI bleed -Type 2 diabetes mellitus -Hypertension -Hyperlipidemia -Benign prostatic hypertrophy - obstructive sleep apnea -Peripheral vascular disease -Fibromyalgia His clinical condition is guarded overall prognosis is poor Time with Patient: Greater than 30
--- NOTE | 2019-04-21 22:21 | P.PN ---
Subjective Progress Note Date: 04/21/19 Principal diagnosis: Acute GI bleed possible ischemic colitis Acute metabolic encephalopathy 78-year-old male was admitted secondary to GI bleed. There was a concern for ischemic colitis consisting his symptoms of abdominal pain and abdominal tenderness patient cannot give me any history as patient is barely arousable at this time. Patient is not eating anything control. Patient had multiple episodes of bright red per rectum and patient was on Eliquis for atrial fibrillation. Patient had leukocytosis no fever concern for ischemic colitis and patient is on empiric antibiotics with Zosyn improved white blood cell count but patient is still barely responsive. Patient is receiving IV fluids and sodium bicarbonate drip nephrology is following the patient. Patient's baseline creatinine appears to be around 1.2-1.4 now around 2.5 renal failure secondary to intravascular volume depletion. 04/18/2019 I'm unable to arouse the patient but patient was apparently bitten awake when ski patrol director evaluated the patient. Her serum creatinine did improve bicarbonate drip was discontinued. Leukocytosis improved no more GI bleed at this time. Hemoglobin is at 7.1 compared to 7.6 yesterday 04/19/2019 Patient looks little bit better today but still not responsive. Serum creatinine is around 1.6 which is his baseline. No more GI bleed. Patient does have pulmonary edema because of his obstructive and IV fluids presently received Lasix ordered by pulmonology. Patient's pulmonary edema secondary to IV fluid hydration his ejection fraction is within normal limits no evidence of diastolic dysfunction either 04/20/2019 Patient is currently in the MICU. Unable to open with verbal stimuli. Barely responds to painful stimuli. Sodium level is 151 and IV fluids changed to D5 water. Currently on NG tube feeding free water. Hemoglobin is 7.5. Creatinine level increased to 2.04 Chest x-ray showed basilar congestion yesterday and was given IV Lasix. Discussed with family regarding his medical condition and overall poor prognosis. Patient remained on antibiotics in the form of Zosyn and Flagyl was added. 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 Repeat cultures have been negative so far. Patient is afebrile. Pressure is maintained. 04 21 2019 Patient remained in the MICU. Barely responds to painful stimuli. Does open his eyes sometimes. Not following any commands. Sodium level improved to 148. Otherwise creatinine level increased to 2.38. Currently on antibiotics no cough Zosyn and Flagyl. Pulmonary and ID is following. Repeat blood cultures have been negative. Patient has been afebrile. Currently on NG tube. Review of systems: Unable to obtain due to his clinical condition Active Medications Acetaminophen (Tylenol Tab) 650 mg PO Q6HR PRN PRN Reason: Pain Atorvastatin Calcium (Lipitor) 40 mg PO HS@2100 [facility] Last Admin: 04/21/19 20:18 Dose: 40 mg Documented by: Cilostazol (Pletal) 100 mg PO HS@2100 [facility] Last Admin: 04/21/19 20:30 Dose: 100 mg Documented by: Duloxetine HCl (Cymbalta) 30 mg PO DAILY@0900 [facility] Last Admin: 04/21/19 09:06 Dose: 30 mg Documented by: Duloxetine HCl (Cymbalta) 60 mg PO DAILY@0900 [facility] Last Admin: 04/21/19 09:06 Dose: 60 mg Documented by: Piperacillin Sod/Tazobactam (Sod 3.375 gm/ Sodium Chloride) 100 mls @ 25 mls/hr IVPB Q8H [facility] Last Admin: 04/21/19 22:01 Dose: 25 mls/hr Documented by: Metronidazole 500 mg/ IV (Solution) 100 mls @ 100 mls/hr IVPB Q8H [facility] Last Admin: 04/21/19 20:04 Dose: 100 mls/hr Documented by: Insulin Aspart (Novolog) 0 unit SQ Q4H [facility]; Protocol Last Admin: 04/21/19 20:16 Dose: 4 unit Documented by: Insulin Detemir (Levemir) 25 unit SQ HS@2100 [facility] Last Admin: 04/21/19 20:16 Dose: 25 unit Documented by: Isosorbide Mononitrate (Imdur) 30 mg PO DAILY@0900 [facility] Last Admin: 04/21/19 09:06 Dose: 30 mg Documented by: Levothyroxine Sodium (Synthroid) 75 mcg PO DAILY@0600 [facility] Last Admin: 04/21/19 05:52 Dose: 75 mcg Documented by: Metoprolol Tartrate (Lopressor) 25 mg PO BID [facility] Last Admin: 04/21/19 20:18 Dose: 25 mg Documented by: Miscellaneous Information (Potassium Per Protocol) 1 each MISCELLANE DAILY PRN; Protocol PRN Reason: Per Protocol Naloxone HCl (Narcan) 0.2 mg IV Q2M PRN PRN Reason: Opioid Reversal Nitroglycerin (Nitrostat) 0.4 mg SUBLINGUAL Q5M PRN PRN Reason: Chest Pain Pantoprazole Sodium (Protonix) 40 mg IV BID [facility] Last Admin: 04/21/19 20:07 Dose: 40 mg Documented by: Tamsulosin HCl (Flomax) 0.4 mg PO HS@2100 [facility] Last Admin: 04/21/19 20:07 Dose: Not Given Documented by: Objective - Vital Signs Vital signs: Vital Signs Temp 99.1 F 04/21/19 15:00 Pulse 126 H 04/21/19 15:00 Resp 20 04/21/19 15:43 BP 133/76 04/21/19 15:00 Pulse Ox 99 04/21/19 15:00 Intake & Output 04/21/19 04/21/19 04/22/19 06:59 18:59 06:59 Intake Total 2980 1175 735 Output Total 360 631 300 Balance 2620 544 435 Weight 106.4 kg Intake: IV 1390 300 160 0.9 165 25 60 Dextrose 5% in Water 1, 825 75 000 ml @ 75 mls/hr IV . [id number] ONE Rx#:[id number] Piperacillin-Tazobactam 3 200 100 .375 gm In Sodium Chloride 0.9% 100 ml @ 25 mls/hr IVPB Q8H [facility] Rx#: [id number] metroNIDAZOLE-NS PMX 500 200 100 100 mg In Saline 1 100ml.bag @ 100 mls/hr IVPB Q8H [facility] Rx#:[id number] Tube Feeding 990 675 375 Other 600 200 200 Output: Urine 360 630 300 Stool 1 Other: Voiding Method Indwelling Catheter Indwelling Catheter - Exam GENERAL: Barely responsive to painful stimuli Although does have gag Reflux HEENT: Pupils are round and equally reacting to light. EOMI. No scleral icterus. No conjunctival pallor. Normocephalic, atraumatic. No pharyngeal erythema. No thyromegaly. CARDIOVASCULAR: S1 and S2 present. No murmurs, rubs, or gallops. PULMONARY: Chest is clear to auscultation, no wheezing or crackles. ABDOMEN: Soft, nontender, nondistended, normoactive bowel sounds. No palpable organomegaly. MUSCULOSKELETAL: No joint swelling or deformity. EXTREMITIES: No cyanosis, clubbing, and does have pedal edema NEUROLOGICAL: Unable to assess SKIN: No rashes. - Labs CBC & Chem 7: 04/21/19 07:00 04/21/19 05:29 Labs: Abnormal Lab Results - Last 24 Hours (Table) 04/20/19 04/21/19 04/21/19 Range/Units 23:45 03:51 05:29 WBC (3.8-10.6) k/uL RBC (4.30-5.90) m/uL Hgb (13.0-17.5) gm/dL Hct (39.0-53.0) % RDW (11.5-15.5) % Plt Count (150-450) k/uL Neutrophils # (1.3-7.7) k/uL Sodium 148 H (137-145) mmol/L Potassium 3.4 L (3.5-5.1) mmol/L Chloride 117 H (98-107) mmol/L BUN 35 H (9-20) mg/dL Creatinine 2.38 H (0.66-1.25) mg/dL Glucose 217 H (74-99) mg/dL POC Glucose (mg/dL) 264 H 226 H (75-99) mg/dL Calcium 7.7 L (8.4-10.2) mg/dL 04/21/19 04/21/19 04/21/19 Range/Units 07:00 08:53 11:28 WBC 11.6 H (3.8-10.6) k/uL RBC 2.20 L (4.30-5.90) m/uL Hgb 7.0 L (13.0-17.5) gm/dL Hct 21.0 L (39.0-53.0) % RDW 16.0 H (11.5-15.5) % Plt Count 137 L (150-450) k/uL Neutrophils # 9.0 H (1.3-7.7) k/uL Sodium (137-145) mmol/L Potassium (3.5-5.1) mmol/L Chloride (98-107) mmol/L BUN (9-20) mg/dL Creatinine (0.66-1.25) mg/dL Glucose (74-99) mg/dL POC Glucose (mg/dL) 259 H 253 H (75-99) mg/dL Calcium (8.4-10.2) mg/dL 04/21/19 04/21/19 Range/Units 17:02 20:12 WBC (3.8-10.6) k/uL RBC (4.30-5.90) m/uL Hgb (13.0-17.5) gm/dL Hct (39.0-53.0) % RDW (11.5-15.5) % Plt Count (150-450) k/uL Neutrophils # (1.3-7.7) k/uL Sodium (137-145) mmol/L Potassium (3.5-5.1) mmol/L Chloride (98-107) mmol/L BUN (9-20) mg/dL Creatinine (0.66-1.25) mg/dL Glucose (74-99) mg/dL POC Glucose (mg/dL) 228 H 251 H (75-99) mg/dL Calcium (8.4-10.2) mg/dL Microbiology - Last 24 Hours (Table) 04/19/19 12:45 Blood Culture - Preliminary Blood No Growth after 48 hours Assessment and Plan Assessment: -Acute lower GI bleed possibility of ischemic colitis: Continue with empiric Zosyn and to hold on Eliquis and aspirin. -Acute metabolic encephalopathy secondary to acute renal failure and GI bleed. -Lactic acidosis probably secondary to ischemic colitis continue with empiric Zosyn. Improved with IV fluids are being discontinued for above mentioned reasons -acute renal failure prerenal azotemia from sepsis and GI bleed, continue with IV fluids, bicarbonate is being discontinued -Anion gap and non-anion gap metabolic acidosis secondary to lactic acidosis and renal failure, acidosis improved -Possible sepsis from ischemic colitis -Coronary artery disease his previous CABG -Hypernatremia -COPD without any acute exacerbation -CVA with left-sided hemiparesis chronic cannot use aspirin or liquids because of the GI bleed -Type 2 diabetes mellitus -Hypertension -Hyperlipidemia -Benign prostatic hypertrophy. Currently on Flomax. - obstructive sleep apnea -Peripheral vascular disease -Fibromyalgia -Hypothyroidism -DVT prophylaxis with SCDs His clinical condition is guarded overall prognosis is poor Time with Patient: Greater than 30
--- NOTE | 2019-04-21 22:29 | P.PN ---
Subjective Progress Note Date: 04/21/19 CHIEF COMPLAINT: Ischemic colitis HISTORY OF PRESENT ILLNESS: The patient is a 78-year-old male with ischemic colitis, sedated and vent dependent. He is on tube feeds. He has one bowel movement documented yesterday. ROS: No reports of nausea and vomiting. No fevers or chills. No new chest pain. PHYSICAL EXAM: VITAL SIGNS: Reviewed CONSTITUTIONAL: Well developed and in no acute distress. EYES: Conjuctivae without sclera icterus. Extraocular movements grossly intact. HEAD, EARS, NOSE, THROAT: Moist buccal mucosa. Head is atraumatic, normocephalic. Hears conversational speech. No nasal drainage. RESPIRATORY: Non-labored respirations and equal bilateral excursions. CARDIOVASCULAR: Palpable 2+ radial pulses. Tachycardia ABDOMEN: Soft. No peritonitis. MUSCULOSKELETAL: No gross deformity of the lower extremities noted. No clubbing. No cyanosis. SKIN: Good skin turgor. Well perfused. NEUROLOGIC: Cranial nerves I through XII grossly intact. No focal or lateralizing signs. PSYCH: Appropriate affect. Alert and oriented to person, place and time. CLINICAL LABS: White blood cell count elevated over 11,000+ ASSESSMENT: 1. Ischemic colitis PLAN: 1. Conservative management only 2. Fluid hydration 3. IV antibiotics advised Objective - Vital Signs Vital signs: Vital Signs Temp 99.1 F 04/21/19 15:00 Pulse 126 H 04/21/19 15:00 Resp 20 04/21/19 15:43 BP 133/76 04/21/19 15:00 Pulse Ox 99 04/21/19 15:00 Intake & Output 04/21/19 04/21/19 04/22/19 06:59 18:59 06:59 Intake Total 2980 1175 735 Output Total 360 631 300 Balance 2620 544 435 Weight 106.4 kg Intake: IV 1390 300 160 0.9 165 25 60 Dextrose 5% in Water 1, 825 75 000 ml @ 75 mls/hr IV . [id number] ONE Rx#:[id number] Piperacillin-Tazobactam 3 200 100 .375 gm In Sodium Chloride 0.9% 100 ml @ 25 mls/hr IVPB Q8H [facility] Rx#: [id number] metroNIDAZOLE-NS PMX 500 200 100 100 mg In Saline 1 100ml.bag @ 100 mls/hr IVPB Q8H [facility] Rx#:[id number] Tube Feeding 990 675 375 Other 600 200 200 Output: Urine 360 630 300 Stool 1 Other: Voiding Method Indwelling Catheter Indwelling Catheter - Labs CBC & Chem 7: 04/21/19 07:00 04/21/19 05:29 Labs: Abnormal Lab Results - Last 24 Hours (Table) 04/20/19 04/21/19 04/21/19 Range/Units 23:45 03:51 05:29 WBC (3.8-10.6) k/uL RBC (4.30-5.90) m/uL Hgb (13.0-17.5) gm/dL Hct (39.0-53.0) % RDW (11.5-15.5) % Plt Count (150-450) k/uL Neutrophils # (1.3-7.7) k/uL Sodium 148 H (137-145) mmol/L Potassium 3.4 L (3.5-5.1) mmol/L Chloride 117 H (98-107) mmol/L BUN 35 H (9-20) mg/dL Creatinine 2.38 H (0.66-1.25) mg/dL Glucose 217 H (74-99) mg/dL POC Glucose (mg/dL) 264 H 226 H (75-99) mg/dL Calcium 7.7 L (8.4-10.2) mg/dL 04/21/19 04/21/19 04/21/19 Range/Units 07:00 08:53 11:28 WBC 11.6 H (3.8-10.6) k/uL RBC 2.20 L (4.30-5.90) m/uL Hgb 7.0 L (13.0-17.5) gm/dL Hct 21.0 L (39.0-53.0) % RDW 16.0 H (11.5-15.5) % Plt Count 137 L (150-450) k/uL Neutrophils # 9.0 H (1.3-7.7) k/uL Sodium (137-145) mmol/L Potassium (3.5-5.1) mmol/L Chloride (98-107) mmol/L BUN (9-20) mg/dL Creatinine (0.66-1.25) mg/dL Glucose (74-99) mg/dL POC Glucose (mg/dL) 259 H 253 H (75-99) mg/dL Calcium (8.4-10.2) mg/dL 04/21/19 04/21/19 Range/Units 17:02 20:12 WBC (3.8-10.6) k/uL RBC (4.30-5.90) m/uL Hgb (13.0-17.5) gm/dL Hct (39.0-53.0) % RDW (11.5-15.5) % Plt Count (150-450) k/uL Neutrophils # (1.3-7.7) k/uL Sodium (137-145) mmol/L Potassium (3.5-5.1) mmol/L Chloride (98-107) mmol/L BUN (9-20) mg/dL Creatinine (0.66-1.25) mg/dL Glucose (74-99) mg/dL POC Glucose (mg/dL) 228 H 251 H (75-99) mg/dL Calcium (8.4-10.2) mg/dL Microbiology - Last 24 Hours (Table) 04/19/19 12:45 Blood Culture - Preliminary Blood No Growth after 48 hours Assessment and Plan (1) Ischemic bowel disease Current Visit: Yes Status: Acute Code(s): K55.9 - VASCULAR DISORDER OF INTESTINE, UNSPECIFIED SNOMED Code(s): 01101105 (2) Lower GI hemorrhage Current Visit: No Status: Acute Code(s): K92.2 - GASTROINTESTINAL HEMORRHAGE, UNSPECIFIED SNOMED Code(s): 31214781 (3) Sleep apnea Current Visit: No Status: Acute Code(s): G47.30 - SLEEP APNEA, UNSPECIFIED SNOMED Code(s): 45974638
[2019-04-21 23:40] LABS: Glucose,Whole Blood 247 mg/dL (75-99)
[2019-04-22 03:58] LABS: Glucose,Whole Blood 236 mg/dL (75-99)
[2019-04-22] MEDS: INSULIN ASPART (NovoLOG) 100 UNIT/ML VIAL SQ SCH ×5 (04:20→20:22)
[2019-04-22] MEDS: metroNIDAZOLE-NS PMX 500 MG in SALINE 1 100ML.BAG IVPB SCH ×3 (04:22→20:23)
[2019-04-22 04:42] LABS: Basophils % (A) 0 %; Eosinophils # (A) 0.6 k/uL (0-0.7); Eosinophils % (A) 5 %; HGB 7.6 gm/dL (13.0-17.5); Hypochromasia Slight; Lymphocytes # (A) 1.1 k/uL (1.0-4.8); Lymphocytes % (A) 9 %; MCH 30.5 pg (25.0-35.0); MCHC 31.6 g/dL (31.0-37.0); MCV 96.4 fL (80.0-100.0); Mean Platelet Volume 10.9; Monocytes # (A) 0.7 k/uL (0-1.0); Monocytes % (A) 6 %; Neutrophils # (A) 9.1 k/uL (1.3-7.7); Neutrophils % (A) 77 %; Platelet Count 168 k/uL (150-450); Poikilocytosis Moderate; RBC 2.49 m/uL (4.30-5.90); RDW 15.8 % (11.5-15.5); WBC 11.8 k/uL (3.8-10.6)
[2019-04-22] MEDS: PIPERACILLIN-TAZOBACTAM 3.375 GM in SODIUM CHLORIDE 0.9% 100 ML IVPB SCH ×3 (05:33→21:41)
[2019-04-22] MEDS: LEVOTHYROXINE 75 MCG TAB PO SCH (05:33)
[2019-04-22] MEDS ORDERED: FUROSEMIDE 10 MG/ML 4 ML VIAL IV SCH (09:00)
[2019-04-22 10:00] LABS: Glucose,Whole Blood 197 mg/dL (75-99)
[2019-04-22] MEDS: METOPROLOL TARTRATE 25 MG TAB PO SCH ×2 (10:07→21:35)
[2019-04-22] MEDS: DULoxetine HCL 60 MG CAPSULE.DR PO SCH (10:07)
[2019-04-22] MEDS: DULoxetine HCL 30 MG CAPSULE.DR PO SCH (10:07)
[2019-04-22] MEDS: ISOSORBIDE MONONITRATE ER 30 MG TAB.ER.24H PO SCH (10:08)
[2019-04-22] MEDS: PANTOPRAZOLE 40 MG/10 ML VIAL IV SCH ×2 (10:09→20:24)
--- NOTE | 2019-04-22 10:51 | P.PN ---
Subjective Progress Note Date: 04/22/19 Principal diagnosis: Acute GI bleeding this is a 78-year-old white male with history of multiple medical problems including chronic atrial fibrillation,maintained on Eliquis, patient [facility] [place], and he was found to have bright red blood per rectum yesterday. Patient was sent to the ER,and upon presentation the patient was noted to have significant amount of bloody stools, patient did receive a unit of packed RBCs although his initial hemoglobin was 11.6.his initial labs were basically unremarkable except for a BUN of 35 creatinine 1.66, and his pro time was normal INR was normal. Platelets were normal.his WBC count was 15.4, and the patient was not complaining of any pain. He does have underlying dementia, and not much history could be obtained from the patient. However as the patient was transferred to the ICU, there was a significant concern about his ABG showing a low bicarb of 12 his WBC count was 35.1, and his hemoglobin was 9.8.his electrolytes showed significant acidosis with bicarb of 15 there was evidence of significant worsening in his renal profile, and his lactic acid came back to be 7.5.patient received more IV fluid boluses about 2 L of 0.9 normal saline. He received 2 A of bicarb. 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.CT angiogram of the head and neck was also unremarkable.chest x-ray this morning showed a left lower lobe atelectasis and small left pleural effusion.after evaluating the patient, I did recommend placing the patient on a sodium bicarb drip, also recommended a neurological consultation, kept him on antibiotics/Zosyn, and we'll likely recommend a GI consultation as well as general surgery consultation, as I am a bit concerned about the possibility of ischemic bowel Although his physical examination is unremarkable, and there is no evidence of abdominal tenderness.in the meantime, the patient is now on IV fluids, antibiotics empirically, and is also on Protonix. Reevaluated today on 04/17/2019, patient remains in the ICU, remains unresponsive in spite of deep painful stimuli, seen by neurology, and felt that the patient has metabolic encephalopathy. Patient remains on IV fluids, sodium bicarb drip, antibiotics empirically, seen by gastroenterology, and the only recommendation is to continue Protonix, and continue to monitor hemoglobin and transfuse if less than 7. Being considered for EGD and colonoscopy if his mental status improves within the next 48-72 hours. His labs are showing improvement, bicarb is up to 23. Creatinine is about the same, 2.39, and it was 2.40 yesterday. Repeat lactic acid this morning is 1.6. So metabolically the patient is showing definite improvement, but his overall metabolic derangements are not completely resolved. I will cut down his sodium bicarb drip, and I will continue present supportive care measures and medications as listed. Chest x-ray showed minimal left lower lobe atelectasis, doubt infiltrate. And there is a small tiny pleural effusion. EEG showed no evidence of seizure focus, however it showed severe diffuse cerebral dysfunction consistent with toxic metabolic encephalopathy. Patient was reevaluated today on 04/18/2019, remains up on that, however for the first time in the last few days patient is able to open his eyes with deep painful stimuli, and not following any simple instructions. His blood cultures yesterday came back positive for gram-negative bacilli, patient remains on Zosyn. He remains hemodynamically stable. No further episodes of GI bleeding. Patient may have had ischemic bowel. However his labs are improving. Hemoglobin is holding at 7.1. Electrolytes are normal bicarb is 27 hence I will discontinue sodium bicarb drip. Renal functioning is improving creatinine is down to 2.08. Chest x-ray after nasogastric tube placement showed adequate plac ement of the nasogastric tube, and chronic parenchymal changes with mild interstitial edema. Patient was reevaluated today on 04/19/2019, basically unchanged compared to yesterday. Opens eyes only and moans with deep painful stimuli. Does not follow any instructions. Patient is hemodynamically stable. Blood cultures were positive for gram-negative rods, however no further report on identificat ion and sensitivity. Urine has shown no growth. Patient remains on Zosyn. CBC today showed improvement in his WBC count is 11.2, hemoglobin is 7, it was 8.02 days ago, may consider transfusing the patient if hemoglobin drops any further. Basic metabolic profile is relatively normal. BUN is down to 35 creatinine is down to 1.75, from 2.403 days ago. His urine output seems to be adequate, gomes sanchez his chest x-ray showed evidence of mild congestive changes, hence I will give him a trial of Lasix. The findings on the chest x-ray are basically nonspecific. Patient was reevaluated today on 04/20/2019, basically about the same compared to yesterday, only opens eyes to deep painful stimuli, otherwise he does not follow any instructions. Remains hemodynamically stable. 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 Patient has been on Zosyn all along, and I will go ahead and add Flagyl. Further cultures are pending. Sodium today remains elevated at 151, hence I have changed his main IV fluid to D5W I have also increased the free water flushes via the nasogastric tube. CBC is noted hemoglobin is 7.5. BUN is 34 creatinine 2.04, slightly worse compared to yesterday. But similar to the day before. Urine output is marginal. Chest x-ray from yesterday showed mild congestive changes, patient was given Lasix. No follow-up chest x-ray was done today, I will order one to be done tomorrow morning. Reevaluated today on 04/21/2019, patient remains in the ICU, no major jacket changer the last few days. Patient is basically about the same. Chest x-ray is showing some worsening interstitial edema. Patient has not shown any significant neurological improvement. Remains encephalopathic, opens eyes only to deep painful stimuli. He was seen by infectious disease, The patient on Zosyn and Flagyl. CBC showed WBC count of 11.6 hemoglobin is 7 sodium is down to 148 renal profile showed a BUN of 35 creatinine 2.38. Repeat blood cultures from 04 19 until now remain negative. Urine cultures have been negative. Patient had initially 1 positive blood culture positive for fusobacterium species. Reevaluated today on 04/22/2019, patient again is about the same. No change w hatsoever noted over the last few days, patient is still on arousable, opens eyes only, does not respond to any other stimuli. Patient does not follow any commands. His blood count is holding hemoglobin is 7.6, sodium is better at 148 yesterday, renal profile is slightly worse. His last chest x-ray showed worsening edema, hence I recommended again Lasix today 40 mg IV push. 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 Being followed by many consultants. However I have a feeling the patient is not making any progress, and it is best to start discussing with family comfort care measures. Patient remains DO NOT RESUSCITATE at this point. Objective - Vital Signs Vital signs: Vital Signs Temp 98.4 F 04/22/19 00:00 Pulse 130 H 04/22/19 09:00 Resp 23 04/22/19 09:00 BP 149/106 04/22/19 09:00 Pulse Ox 96 04/22/19 09:00 Intake & Output 04/21/19 04/22/19 04/22/19 18:59 06:59 18:59 Intake Total 1175 1955 160 Output Total 631 777 350 Balance 544 1178 -190 Weight 105.7 kg Intake: IV 300 380 160 0.9 25 180 60 Dextrose 5% in Water 1, 75 000 ml @ 75 mls/hr IV . [id number] [facility] Rx#:[id number] Piperacillin-Tazobactam 3 100 100 .375 gm In Sodium Chloride 0.9% 100 ml @ 25 mls/hr IVPB Q8H [facility] Rx#: [id number] metroNIDAZOLE-NS PMX 500 100 200 mg In Saline 1 100ml.bag @ 100 mls/hr IVPB Q8H [facility] Rx#:[id number] Tube Feeding 675 975 Other 200 600 Output: Urine 630 775 350 Stool 1 2 Other: Voiding Method Indwelling Catheter Indwelling Catheter - Exam Physical Exam: Revealed a 78-year-old white male, encephalopathic, opens eyes to deep painful stimuli otherwise no other responses. HEENT:[Neck is supple.] [No neck masses.] [No thyromegaly.] [No JVD.] Throat was noted to be clear. PERRLA, EOMI, no icterus. Chest: [Symmetrical chest expansion, crackles at the bases, no rhonchi no wheezes.] Cardiac Exam: [Normal S1 and S2, no S3 gallop, no murmur.] Abdomen: [Soft, nontender, no megaly, no rebound, no guarding, normal bowel sounds.] Extremities: [No clubbing, 2+ bipedal cody, no cyanosis.] Neurological Exam: obtunded, opens eyes to deep painful stimuli only does not follow any instructions. Psychiatric could not be assessed, Skin: No rashes. Lymphatics: No lymphadenopathy. - Labs CBC & Chem 7: 04/22/19 04:32 04/21/19 05:29 Labs: Abnormal Lab Results - Last 24 Hours (Table) 04/21/19 04/21/19 04/21/19 Range/Units 11:28 17:02 20:12 WBC (3.8-10.6) k/uL RBC (4.30-5.90) m/uL Hgb (13.0-17.5) gm/dL Hct (39.0-53.0) % RDW (11.5-15.5) % Neutrophils # (1.3-7.7) k/uL POC Glucose (mg/dL) 253 H 228 H 251 H (75-99) mg/dL 04/21/19 04/22/19 04/22/19 Range/Units 23:39 03:57 04:32 WBC 11.8 H (3.8-10.6) k/uL RBC 2.49 L (4.30-5.90) m/uL Hgb 7.6 L (13.0-17.5) gm/dL Hct 24.0 L (39.0-53.0) % RDW 15.8 H (11.5-15.5) % Neutrophils # 9.1 H (1.3-7.7) k/uL POC Glucose (mg/dL) 247 H 236 H (75-99) mg/dL 04/22/19 Range/Units 09:58 WBC (3.8-10.6) k/uL RBC (4.30-5.90) m/uL Hgb (13.0-17.5) gm/dL Hct (39.0-53.0) % RDW (11.5-15.5) % Neutrophils # (1.3-7.7) k/uL POC Glucose (mg/dL) 197 H (75-99) mg/dL Microbiology - Last 24 Hours (Table) 04/19/19 12:45 Blood Culture - Preliminary Blood No Growth after 48 hours Assessment and Plan Assessment: impression: 1acute GI bleeding most likely lower GI in nature, possible ischemic bowel. 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 3 acute metabolic encephalopathy, secondary to sepsis bacteremia. 4chronic atrial fibrillation, patient was on Eliquis until admission. 5 coronary artery disease 6 chronic obstructive pulmonary disease 7 history of underlying dementia 8 history of underlying diabetes type 2 9 history of chronic renal disease stage III, however patient has presently acute on chronic kidney injury. 10 history of previous myocardial infarction 11 left lower lobe atelectasis, strongly doubt pneumonia, 12 history of obstructive sleep apnea, 13 history of chronic low back pain. 14 history of gouty arthritis. 15 history of diverticular disease. Recommendation: Suggest transfer the patient to a regular medical floor, and pursue the issue of comfort care measures. Discussed with family the option of comfort care measures. Continue Protonix. Twice a day. Continue IV fluids. Continue free water flushes. Continue diuretics when necessary. Continue Zosyn and Flagyl. continue insulin as per protocol. Continue to monitor daily electrolytes and renal profile. Continue enteral feeding via nasogastric tube. Increase free water flushes via Prognosis is extremely poor and guarded, patient should be considered for comfor t care measures. And this should be brought up with the family. In the meantime I will arrange for the patient to be transferred to a regular medical floor. Prognosis is extremely poor and guarded. Time with Patient: Less than 30
[2019-04-22 11:47] LABS: Glucose,Whole Blood 205 mg/dL (75-99)
--- NOTE | 2019-04-22 12:38 | P.PN ---
Subjective Progress Note Date: 04/22/19 CHIEF COMPLAINT: Ischemic colitis HISTORY OF PRESENT ILLNESS: The patient is a 78-year-old male with ischemic colitis, sedated and vent dependent. He is on tube feeds. He is currently getting chronic diuresis with Lasix. Per family at bedside, status is unchanged. The patient is DO NOT RESUSCITATE. ROS: No reports of nausea and vomiting. No fevers or chills. No new chest pain. PHYSICAL EXAM: VITAL SIGNS: Reviewed CONSTITUTIONAL: Well developed and in no acute distress. EYES: Conjuctivae without sclera icterus. Extraocular movements grossly intact. HEAD, EARS, NOSE, THROAT: Moist buccal mucosa. Head is atraumatic, normocephalic. Hears conversational speech. No nasal drainage. RESPIRATORY: Non-labored respirations and equal bilateral excursions. CARDIOVASCULAR: Palpable 2+ radial pulses. Tachycardia ABDOMEN: Soft. No peritonitis. MUSCULOSKELETAL: No gross deformity of the lower extremities noted. No clubbing. No cyanosis. SKIN: Good skin turgor. Well perfused. NEUROLOGIC: No focal or lateralizing signs. PSYCH: Sedated. CLINICAL LABS: Hemoglobin 7.6 ASSESSMENT: 1. Ischemic colitis 2. Congestive heart failure 3. Vent dependent respiratory failure PLAN: 1. He has multiple comorbidities including vent dependent respiratory failure and anemia with colitis. 2. He is DO NOT RESUSCITATE. 3. Conservative management for Objective - Vital Signs Vital signs: Vital Signs Temp 98.4 F 04/22/19 00:00 Pulse 130 H 04/22/19 09:00 Resp 23 04/22/19 09:00 BP 149/106 04/22/19 09:00 Pulse Ox 96 04/22/19 09:00 Intake & Output 04/21/19 04/22/19 04/22/19 18:59 06:59 18:59 Intake Total 1175 1955 160 Output Total 631 777 350 Balance 544 1178 -190 Weight 105.7 kg Intake: IV 300 380 160 0.9 25 180 60 Dextrose 5% in Water 1, 75 000 ml @ 75 mls/hr IV . [id number] [facility] Rx#:[id number] Piperacillin-Tazobactam 3 100 100 .375 gm In Sodium Chloride 0.9% 100 ml @ 25 mls/hr IVPB Q8H [facility] Rx#: [id number] metroNIDAZOLE-NS PMX 500 100 200 mg In Saline 1 100ml.bag @ 100 mls/hr IVPB Q8H [facility] Rx#:[id number] Tube Feeding 675 975 Other 200 600 Output: Urine 630 775 350 Stool 1 2 Other: Voiding Method Indwelling Catheter Indwelling Catheter Indwelling Catheter - Labs CBC & Chem 7: 04/22/19 04:32 04/21/19 05:29 Labs: Abnormal Lab Results - Last 24 Hours (Table) 04/21/19 04/21/19 04/21/19 Range/Units 17:02 20:12 23:39 WBC (3.8-10.6) k/uL RBC (4.30-5.90) m/uL Hgb (13.0-17.5) gm/dL Hct (39.0-53.0) % RDW (11.5-15.5) % Neutrophils # (1.3-7.7) k/uL POC Glucose (mg/dL) 228 H 251 H 247 H (75-99) mg/dL 04/22/19 04/22/19 04/22/19 Range/Units 03:57 04:32 09:58 WBC 11.8 H (3.8-10.6) k/uL RBC 2.49 L (4.30-5.90) m/uL Hgb 7.6 L (13.0-17.5) gm/dL Hct 24.0 L (39.0-53.0) % RDW 15.8 H (11.5-15.5) % Neutrophils # 9.1 H (1.3-7.7) k/uL POC Glucose (mg/dL) 236 H 197 H (75-99) mg/dL 04/22/19 Range/Units 11:45 WBC (3.8-10.6) k/uL RBC (4.30-5.90) m/uL Hgb (13.0-17.5) gm/dL Hct (39.0-53.0) % RDW (11.5-15.5) % Neutrophils # (1.3-7.7) k/uL POC Glucose (mg/dL) 205 H (75-99) mg/dL Microbiology - Last 24 Hours (Table) 04/19/19 12:45 Blood Culture - Preliminary Blood No Growth after 48 hours Assessment and Plan (1) Ischemic bowel disease Current Visit: Yes Status: Acute Code(s): K55.9 - VASCULAR DISORDER OF INTESTINE, UNSPECIFIED SNOMED Code(s): 50093257 (2) Lower GI hemorrhage Current Visit: No Status: Acute Code(s): K92.2 - GASTROINTESTINAL HEMORRHAGE, UNSPECIFIED SNOMED Code(s): 89965163 (3) Sleep apnea Current Visit: No Status: Acute Code(s): G47.30 - SLEEP APNEA, UNSPECIFIED SNOMED Code(s): 80930625 (4) Ventilator dependent Current Visit: Yes Status: Acute Code(s): Z99.11 - DEPENDENCE ON RESPIRATOR [VENTILATOR] STATUS SNOMED Code(s): 390428434 (5) Acute renal failure Current Visit: No Status: Acute Code(s): N17.9 - ACUTE KIDNEY FAILURE, UNSPECIFIED SNOMED Code(s): 10799998
--- NOTE | 2019-04-22 15:34 | PN ---
PROGRESS NOTE DATE OF SERVICE: 04/22/2019. 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 INTERVAL HISTORY: The patient is currently afebrile. Patient is hemodynamically stable. Mentation remains to be unsure as the patient is currently not waking up or responding to the family. No diarrhea has been reported. PHYSICAL EXAMINATION: Blood pressure is 149/100 with a pulse of 113, temperature 98. He is 96% on 2 L nasal cannula. General description is an elderly male lying in bed in no distress. Respiratory system: Unlabored breathing. Clear to auscultation anteriorly. HEART S1, S2. Regular rate and rhythm. ABDOMEN: Soft, no tenderness. EXTREMITIES: No edema of the feet. LABS: Hemoglobin 7.8, white count 11.8. Blood culture repeat has been negative so far. 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 The patient is currently covered with Flagyl and Zosyn to continue with the plan of the family leaning more towards Hospice oriented care to be discontinued. Family was at the bedside. Their questions and concerns were answered. MMODL / IJN: [id number] /
[2019-04-22 16:25] LABS: Glucose,Whole Blood 257 mg/dL (75-99)
[2019-04-22 20:20] LABS: Glucose,Whole Blood 196 mg/dL (75-99)
[2019-04-22] MEDS: TAMSULOSIN 0.4 MG CAP.ER.24H PO SCH (20:25)
[2019-04-22] MEDS: INSULIN DETEMIR (LEVEMIR) 100 UNIT/ML SYR SQ SCH (20:34)
[2019-04-22] MEDS: ATORVASTATIN 40 MG TAB PO SCH (21:35)
[2019-04-22] MEDS: CILOSTAZOL 100 MG TAB PO SCH (21:35)
[2019-04-23] LABS: Glucose,Whole Blood 150 mg/dL (75-99)
[2019-04-23] MEDS: INSULIN ASPART (NovoLOG) 100 UNIT/ML VIAL SQ SCH ×4 (00:05→13:26)
--- NOTE | 2019-04-23 00:34 | P.PN ---
Subjective Progress Note Date: 04/22/19 Principal diagnosis: Acute GI bleed possible ischemic colitis Acute metabolic encephalopathy 78-year-old male was admitted secondary to GI bleed. There was a concern for ischemic colitis consisting his symptoms of abdominal pain and abdominal tenderness patient cannot give me any history as patient is barely arousable at this time. Patient is not eating anything control. Patient had multiple episodes of bright red per rectum and patient was on Eliquis for atrial fibrillation. Patient had leukocytosis no fever concern for ischemic colitis and patient is on empiric antibiotics with Zosyn improved white blood cell count but patient is still barely responsive. Patient is receiving IV fluids and sodium bicarbonate drip nephrology is following the patient. Patient's baseline creatinine appears to be around 1.2-1.4 now around 2.5 renal failure secondary to intravascular volume depletion. 04/18/2019 I'm unable to arouse the patient but patient was apparently bitten awake when sewing techniques demonstrator evaluated the patient. Her serum creatinine did improve bicarbonate drip was discontinued. Leukocytosis improved no more GI bleed at this time. Hemoglobin is at 7.1 compared to 7.6 yesterday 04/19/2019 Patient looks little bit better today but still not responsive. Serum creatinine is around 1.6 which is his baseline. No more GI bleed. Patient does have pulmonary edema because of his obstructive and IV fluids presently received Lasix ordered by pulmonology. Patient's pulmonary edema secondary to IV fluid hydration his ejection fraction is within normal limits no evidence of diastolic dysfunction either 04/20/2019 Patient is currently in the MICU. Unable to open with verbal stimuli. Barely responds to painful stimuli. Sodium level is 151 and IV fluids changed to D5 water. Currently on NG tube feeding free water. Hemoglobin is 7.5. Creatinine level increased to 2.04 Chest x-ray showed basilar congestion yesterday and was given IV Lasix. Discussed with family regarding his medical condition and overall poor prognosis. Patient remained on antibiotics in the form of Zosyn and Flagyl was added. 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 Repeat cultures have been negative so far. Patient is afebrile. Pressure is maintained. 04 21 2019 Patient remained in the MICU. Barely responds to painful stimuli. Does open his eyes sometimes. Not following any commands. Sodium level improved to 148. Otherwise creatinine level increased to 2.38. Currently on antibiotics no cough Zosyn and Flagyl. Pulmonary and ID is following. Repeat blood cultures have been negative. Patient has been afebrile. Currently on NG tube. 04/22/2019 Patient's condition is about the same. Patient is not on arousable. Opens eyes occasionally. Chest x-ray showed worsening edema. Patient was given a dose of IV Lasix. 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 Patient is being continued on antibiotics. Current CODE STATUS is DO NOT RESUSCITATE/DO NOT INTUBATE. Family is considering comfort measures. Will discuss with them again tomorrow. Review of systems: Unable to obtain due to his clinical condition Active Medications Acetaminophen (Tylenol Tab) 650 mg PO Q6HR PRN PRN Reason: Pain Atorvastatin Calcium (Lipitor) 40 mg PO HS@2100 [facility] Last Admin: 04/21/19 20:18 Dose: 40 mg Documented by: Cilostazol (Pletal) 100 mg PO HS@2100 [facility] Last Admin: 04/21/19 20:30 Dose: 100 mg Documented by: Duloxetine HCl (Cymbalta) 30 mg PO DAILY@0900 [facility] Last Admin: 04/21/19 09:06 Dose: 30 mg Documented by: Duloxetine HCl (Cymbalta) 60 mg PO DAILY@0900 [facility] Last Admin: 04/21/19 09:06 Dose: 60 mg Documented by: Piperacillin Sod/Tazobactam (Sod 3.375 gm/ Sodium Chloride) 100 mls @ 25 mls/hr IVPB Q8H [facility] Last Admin: 04/21/19 22:01 Dose: 25 mls/hr Documented by: Metronidazole 500 mg/ IV (Solution) 100 mls @ 100 mls/hr IVPB Q8H [facility] Last Admin: 04/21/19 20:04 Dose: 100 mls/hr Documented by: Insulin Aspart (Novolog) 0 unit SQ Q4H [facility]; Protocol Last Admin: 04/21/19 20:16 Dose: 4 unit Documented by: Insulin Detemir (Levemir) 25 unit SQ HS@2100 [facility] Last Admin: 04/21/19 20:16 Dose: 25 unit Documented by: Isosorbide Mononitrate (Imdur) 30 mg PO DAILY@0900 [facility] Last Admin: 04/21/19 09:06 Dose: 30 mg Documented by: Levothyroxine Sodium (Synthroid) 75 mcg PO DAILY@0600 [facility] Last Admin: 04/21/19 05:52 Dose: 75 mcg Documented by: Metoprolol Tartrate (Lopressor) 25 mg PO BID [facility] Last Admin: 04/21/19 20:18 Dose: 25 mg Documented by: Miscellaneous Information (Potassium Per Protocol) 1 each MISCELLANE DAILY PRN; Protocol PRN Reason: Per Protocol Naloxone HCl (Narcan) 0.2 mg IV Q2M PRN PRN Reason: Opioid Reversal Nitroglycerin (Nitrostat) 0.4 mg SUBLINGUAL Q5M PRN PRN Reason: Chest Pain Pantoprazole Sodium (Protonix) 40 mg IV BID [facility] Last Admin: 04/21/19 20:07 Dose: 40 mg Documented by: Tamsulosin HCl (Flomax) 0.4 mg PO HS@2100 [facility] Last Admin: 04/21/19 20:07 Dose: Not Given Documented by: Objective - Vital Signs Vital signs: Vital Signs Temp 98.4 F 04/22/19 15:00 Pulse 111 H 04/22/19 15:00 Resp 24 04/22/19 15:00 BP 97/68 04/22/19 15:00 Pulse Ox 96 04/22/19 15:00 Intake & Output 04/22/19 04/22/19 04/23/19 06:59 18:59 06:59 Intake Total 1955 540 300 Output Total 777 1551 Balance 1178 -1011 300 Weight 105.7 kg Intake: IV 380 540 0.9 180 240 Piperacillin-Tazobactam 3 200 .375 gm In Sodium Chloride 0.9% 100 ml @ 25 mls/hr IVPB Q8H [facility] Rx#: [id number] metroNIDAZOLE-NS PMX 500 200 100 mg In Saline 1 100ml.bag @ 100 mls/hr IVPB Q8H [facility] Rx#:[id number] Tube Feeding 975 300 Other 600 Output: Urine 775 1550 Stool 2 1 Other: Voiding Method Indwelling Catheter Indwelling Catheter - Exam GENERAL: Barely responsive to painful stimuli Although does have gag Reflux HEENT: Pupils are round and equally reacting to light. EOMI. No scleral icterus. No conjunctival pallor. Normocephalic, atraumatic. No pharyngeal erythema. No thyromegaly. CARDIOVASCULAR: S1 and S2 present. No murmurs, rubs, or gallops. PULMONARY: Chest is clear to auscultation, no wheezing or crackles. ABDOMEN: Soft, nontender, nondistended, normoactive bowel sounds. No palpable organomegaly. MUSCULOSKELETAL: No joint swelling or deformity. EXTREMITIES: No cyanosis, clubbing, and does have pedal edema NEUROLOGICAL: Unable to assess SKIN: No rashes. - Labs CBC & Chem 7: 04/22/19 04:32 04/21/19 05:29 Labs: Abnormal Lab Results - Last 24 Hours (Table) 04/21/19 04/22/19 04/22/19 Range/Units 23:39 03:57 04:32 WBC 11.8 H (3.8-10.6) k/uL RBC 2.49 L (4.30-5.90) m/uL Hgb 7.6 L (13.0-17.5) gm/dL Hct 24.0 L (39.0-53.0) % RDW 15.8 H (11.5-15.5) % Neutrophils # 9.1 H (1.3-7.7) k/uL POC Glucose (mg/dL) 247 H 236 H (75-99) mg/dL 04/22/19 04/22/19 04/22/19 Range/Units 09:58 11:45 16:23 WBC (3.8-10.6) k/uL RBC (4.30-5.90) m/uL Hgb (13.0-17.5) gm/dL Hct (39.0-53.0) % RDW (11.5-15.5) % Neutrophils # (1.3-7.7) k/uL POC Glucose (mg/dL) 197 H 205 H 257 H (75-99) mg/dL 04/22/19 Range/Units 20:17 WBC (3.8-10.6) k/uL RBC (4.30-5.90) m/uL Hgb (13.0-17.5) gm/dL Hct (39.0-53.0) % RDW (11.5-15.5) % Neutrophils # (1.3-7.7) k/uL POC Glucose (mg/dL) 196 H (75-99) mg/dL Microbiology - Last 24 Hours (Table) 12/05/19 12:45 Blood Culture - Preliminary Blood No Growth after 72 hours Assessment and Plan Assessment: -Acute lower GI bleed possibility of ischemic colitis: Continue with empiric Zosyn and to hold on Eliquis and aspirin. -Acute metabolic encephalopathy secondary to acute renal failure and GI bleed. Not improving. -Lactic acidosis probably secondary to ischemic colitis continue with empiric Z osyn. Improved with IV fluids are being discontinued for above mentioned reasons -acute renal failure prerenal azotemia from sepsis and GI bleed, continue with IV fluids, bicarbonate is being discontinued -Anion gap and non-anion gap metabolic acidosis secondary to lactic acidosis and renal failure, acidosis improved -Possible sepsis from ischemic colitis -Coronary artery disease his previous CABG -Hypernatremia -COPD without any acute exacerbation -CVA with left-sided hemiparesis chronic cannot use aspirin or liquids because of the GI bleed -Type 2 diabetes mellitus -Hypertension -Hyperlipidemia -Benign prostatic hypertrophy. Currently on Flomax. - obstructive sleep apnea -Peripheral vascular disease -Fibromyalgia -Hypothyroidism -DVT prophylaxis with SCDs His clinical condition is guarded overall prognosis is poor Time with Patient: Greater than 30
[2019-04-23 04:09] LABS: Glucose,Whole Blood 188 mg/dL (75-99)
[2019-04-23] MEDS: metroNIDAZOLE-NS PMX 500 MG in SALINE 1 100ML.BAG IVPB SCH (04:15)
[2019-04-23 04:57] LABS: Anisocytosis Slight; Basophils % (A) 0 %; Eosinophils # (A) 0.6 k/uL (0-0.7); Eosinophils % (A) 4 %; HCT 22.8 % (39.0-53.0); HGB 7.4 gm/dL (13.0-17.5); Hypochromasia Moderate; Lymphocytes # (A) 1.3 k/uL (1.0-4.8); Lymphocytes % (A) 10 %; MCH 31.3 pg (25.0-35.0); MCHC 32.7 g/dL (31.0-37.0); Mean Platelet Volume 11.6; Monocytes # (A) 0.8 k/uL (0-1.0); Monocytes % (A) 6 %; Neutrophils # (A) 9.8 k/uL (1.3-7.7); Neutrophils % (A) 77 %; Platelet Count 199 k/uL (150-450); Poikilocytosis Moderate; RBC 2.37 m/uL (4.30-5.90); RDW 16.2 % (11.5-15.5); WBC 12.7 k/uL (3.8-10.6)
[2019-04-23] MEDS: PIPERACILLIN-TAZOBACTAM 3.375 GM in SODIUM CHLORIDE 0.9% 100 ML IVPB SCH (05:12)
[2019-04-23] MEDS: LEVOTHYROXINE 75 MCG TAB PO SCH (05:19)
[2019-04-23 07:54] LABS: Glucose,Whole Blood 261 mg/dL (75-99)
[2019-04-23] MEDS: PANTOPRAZOLE 40 MG/10 ML VIAL IV SCH (08:36)
[2019-04-23] MEDS: METOPROLOL TARTRATE 25 MG TAB PO SCH (08:36)
--- NOTE | 2019-04-23 09:35 | P.PN ---
Subjective Progress Note Date: 04/23/19 Principal diagnosis: Acute GI bleeding On 04/23/2019 patient seen in follow-up in the intensive care unit, he remains unresponsive, he is on 2 L of oxygen with pulse ox of 96%, afebrile, hemodynamically patient is stable, no further GI bleeding, today's hemoglobin is 7.4, no plans for endoscopic studies. Patient did receive 2 units of packed red blood cells this admission. His Eliquis remains on hold, will hold his Pletal. Mentation has not improved much, does not withdraw from pain most stimuli, does not open eyes. Patient has worsening generalized edema, remains on 0.9 normal saline at O. He is on PPI therapy, he has been receiving tube feedings through the NG tube. He is on antibiotics for fusobacterium bacteremia. His had no fever, he remains on 2 L of oxygen his pulse ox is 96%, lung sounds reveal diminished in coarse breath sounds bilaterally, with told that the patient's family would like to proceed with hospice enrollment and apparently patient does not qualify for inpatient hospice, for the plan is to arrange transfer to hospice facility sometime today. Objective - Vital Signs Vital signs: Vital Signs Temp 98.5 F 04/23/19 00:00 Pulse 97 04/23/19 00:00 Resp 25 H 04/23/19 00:00 BP 129/89 04/23/19 00:00 Pulse Ox 96 04/23/19 00:00 Intake & Output 04/22/19 04/23/19 04/23/19 18:59 06:59 18:59 Intake Total 540 2580 Output Total 1551 1050 Balance -1011 1530 Weight 104.2 kg Intake: IV 540 480 0.9 240 180 Piperacillin-Tazobactam 3 200 100 .375 gm In Sodium Chloride 0.9% 100 ml @ 25 mls/hr IVPB Q8H [facility] Rx#: [id number] metroNIDAZOLE-NS PMX 500 100 200 mg In Saline 1 100ml.bag @ 100 mls/hr IVPB Q8H [facility] Rx#:[id number] Tube Feeding 1500 Other 600 Output: Urine 1550 1050 Stool 1 Other: Voiding Method Indwelling Catheter Indwelling Catheter - Exam GENERAL EXAM: Nonresponsive, 78-year-old white male, on 2 L of oxygen with a pulse ox of 96%, does not open eyes does not withdraw from painful stimuli breathing spontaneously, comfortable in no apparent distress. Parents of gen eralized edema and significant edema in involving his upper and lower extremities HEAD: Normocephalic/atraumatic. EYES: Normal reaction of pupils, equal size. Conjunctiva pink, sclera white. NOSE: Clear with pink turbinates. THROAT: No erythema or exudates. NECK: No masses, no JVD, no thyroid enlargement, no adenopathy. CHEST: No chest wall deformity. Symmetrical expansion. LUNGS: Equal air entry coarse breath sounds, no wheezing, no rales CVS: Irregular rate and rhythm, normal S1 and S2, no gallops, no murmurs, no rubs ABDOMEN: Soft, nontender. No hepatosplenomegaly, normal bowel sounds, no guarding or rigidity. EXTREMITIES: No clubbing, denies edema, anasarca, and edema involving his upper and lower extremities no cyanosis, 2+ pulses and upper and lower extremities. MUSCULOSKELETAL: Muscle strength and tone normal. SPINE: No scoliosis or deformity SKIN: No rashes CENTRAL NERVOUS SYSTEM: Unresponsive, not withdraw from painful stimuli, does present spontaneously - Labs CBC & Chem 7: 04/23/19 04:27 04/21/19 05:29 Labs: Abnormal Lab Results - Last 24 Hours (Table) 04/22/19 04/22/19 04/22/19 Range/Units 09:58 11:45 16:23 WBC (3.8-10.6) k/uL RBC (4.30-5.90) m/uL Hgb (13.0-17.5) gm/dL Hct (39.0-53.0) % RDW (11.5-15.5) % Neutrophils # (1.3-7.7) k/uL POC Glucose (mg/dL) 197 H 205 H 257 H (75-99) mg/dL 04/22/19 04/22/19 04/23/19 Range/Units 20:17 23:59 04:08 WBC (3.8-10.6) k/uL RBC (4.30-5.90) m/uL Hgb (13.0-17.5) gm/dL Hct (39.0-53.0) % RDW (11.5-15.5) % Neutrophils # (1.3-7.7) k/uL POC Glucose (mg/dL) 196 H 150 H 188 H (75-99) mg/dL 04/23/19 04/23/19 Range/Units 04:27 07:52 WBC 12.7 H (3.8-10.6) k/uL RBC 2.37 L (4.30-5.90) m/uL Hgb 7.4 L (13.0-17.5) gm/dL Hct 22.8 L (39.0-53.0) % RDW 16.2 H (11.5-15.5) % Neutrophils # 9.8 H (1.3-7.7) k/uL POC Glucose (mg/dL) 261 H (75-99) mg/dL Microbiology - Last 24 Hours (Table) 04/19/19 12:45 Blood Culture - Preliminary Blood No Growth after 72 hours Assessment and Plan Plan: Assessment: #1. Acute GI bleeding related to a lower GI source of bleeding, possible ischemic bowel #2. 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 Acute metabolic encephalopathy, secondary to sepsis bacteremia #4. Chronic atrial fibrillation, patient is on Ahlquist which is on hold right now related to GI bleeding #5. Coronary artery disease #6. Chronic obstructive pulmonary disease #7. History of underlying dementia #8. History of underlying diabetes mellitus type 2 #9. History of chronic renal disease stage III with a component of acute kidney injury #10. History of previous myocardial infarction #11. Left lower lobe atelectasis #12. History of obstructive sleep apnea #13. History of chronic low back pain #14. History of gouty arthritis #15. History of diverticular disease Plan: We'll discontinue Pletal, antidepressants, patient remains unresponsive, does not withdraw from painful stimuli, does not respond to voice, does not open eyes, no further GI bleeding, continue PPI therapy, no plans for endoscopic studies, patient's CODE STATUS is DO NOT RESUSCITATE, and were told that the family would like to proceed with referring the patient to a hospice facility under the care of hospice, they do not want any more aggressive medical treatment. Until then we will continue supportive treatment. Maintain aspiration precautions continue close hemodynamic monitoring I performed a history & physical examination of the patient and discussed their management with my nurse practitioner, Alona Medina. I reviewed the nurse practitioner's note and agree with the documented findings and plan of care. Lung sounds are positive for diminished breath sounds. The findings and the impression was discussed with the patient. I attest to the documentation by the nurse practitioner. Time with Patient: Less than 30
[2019-04-23 10:19] VITALS: BMI 31.1
[2019-04-23 10:25] VITALS: TEMP 98.8
[2019-04-23 11:53] LABS: Glucose,Whole Blood 283 mg/dL (75-99)
--- NOTE | 2019-04-23 14:13 | P.DS ---
Providers Date of admission: 04/15/19 16:36 Attending physician: Shelbi Ruvalcaba Consults: 04/15/19 16:35 Consult Physician Routine Consulting Provider: Luis Manuel Oliver Consult Reason/Comments: GI bleed Do you want consulting provider notified?: Yes 04/15/19 16:36 Consult Physician Stat Consulting Provider: Tay Carreno Consult Reason/Comments: Critical care management Do you want consulting provider notified?: Yes 04/16/19 09:38 Consult Physician Urgent Consulting Provider: Migdalia Pagan Consult Reason/Comments: mental status changes Do you want consulting provider notified?: Yes 04/20/19 11:37 Consult Physician Routine Consulting Provider: Joshua Bynum Consult Reason/Comments: bacteremia/fusobacterium sp. Do you want consulting provider notified?: Yes Primary care physician: [facility] Course: 78-year-old male was admitted secondary to GI bleed. There was a concern for ischemic colitis consisting his symptoms of abdominal pain and abdominal tenderness patient cannot give me any history as patient is barely arousable at this time. Patient is not eating anything control. Patient had multiple episodes of bright red per rectum and patient was on Eliquis for atrial fibrillation. Patient had leukocytosis no fever concern for ischemic colitis and patient is on empiric antibiotics with Zosyn improved white blood cell count but patient is still barely responsive. Patient is receiving IV fluids and sodium bicarbonate drip nephrology is following the patient. Patient's baseline creatinine appears to be around 1.2-1.4 now around 2.5 renal failure secondary to intravascular volume depletion. 04/18/2019 I'm unable to arouse the patient but patient was apparently bitten awake when cobbler mckay evaluated the patient. Her serum creatinine did improve bicarbon ate drip was discontinued. Leukocytosis improved no more GI bleed at this time. Hemoglobin is at 7.1 compared to 7.6 yesterday 04/19/2019 Patient looks little bit better today but still not responsive. Serum creatinine is around 1.6 which is his baseline. No more GI bleed. Patient does have pulmonary edema because of his obstructive and IV fluids presently received Lasix ordered by pulmonology. Patient's pulmonary edema secondary to IV fluid hydration his ejection fraction is within normal limits no evidence of diastolic dysfunction either 04/20/2019 Patient is currently in the MICU. Unable to open with verbal stimuli. Barely responds to painful stimuli. Sodium level is 151 and IV fluids changed to D5 water. Currently on NG tube feeding free water. Hemoglobin is 7.5. Creatinine level increased to 2.04 Chest x-ray showed basilar congestion yesterday and was given IV Lasix. Discussed with family regarding his medical condition and overall poor prognosis. Patient remained on antibiotics in the form of Zosyn and Flagyl was added. 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 Repeat cultures have been negative so far. Patient is afebrile. Pressure is maintained. 04 21 2019 Patient remained in the MICU. Barely responds to painful stimuli. Does open his eyes sometimes. Not following any commands. Sodium level improved to 148. Otherwise creatinine level increased to 2.38. Currently on antibiotics no cough Zosyn and Flagyl. Pulmonary and ID is following. Repeat blood cultures have been negative. Patient has been afebrile. Currently on NG tube. 04/22/2019 Patient's condition is about the same. Patient is not on arousable. Opens eyes occasionally. Chest x-ray showed worsening edema. Patient was given a dose of IV Lasix. 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 Patient is being continued on antibiotics. Current CODE STATUS is DO NOT RESUSCITATE/DO NOT INTUBATE. Family is considering comfort measures. Will discuss with them again tomorrow. 04/23/2019 Patient is doing being discharged to a facility with hospice. GENERAL: Barely responsive to painful stimuli Although does have gag Reflux HEENT: Pupils are round and equally reacting to light. EOMI. No scleral icterus. No conjunctival pallor. Normocephalic, atraumatic. No pharyngeal erythema. No thyromegaly. CARDIOVASCULAR: S1 and S2 present. No murmurs, rubs, or gallops. PULMONARY: Chest is clear to auscultation, no wheezing or crackles. ABDOMEN: Soft, nontender, nondistended, normoactive bowel sounds. No palpable organomegaly. Youssef catheter in place MUSCULOSKELETAL: No joint swelling or deformity. EXTREMITIES: No cyanosis, clubbing, and does have pedal edema NEUROLOGICAL: Unable to assess SKIN: No rashes. Assessment and Plan Assessment: -Acute lower GI bleed possibility of ischemic colitis:patient overall prognosis is extremely poor and no significant improvement in his clinical condition since his admission in spite of aggressive treatment most appropriate care is comfort care hospice and patient is being discharged to a facility with hospice. -Acute metabolic encephalopathy secondary to acute renal failure and GI bleed. Not improving. -Lactic acidosis probably secondary to ischemic colitis continue with empiric Zosyn. Improved with IV fluids are being discontinued for above mentioned reasons -acute renal failure prerenal azotemia from sepsis and GI bleed, -Anion gap and non-anion gap metabolic acidosis secondary to lactic acidosis and renal failure, acidosis improved -Possible sepsis from ischemic colitis -Coronary artery disease his previous CABG -Hypernatremia -COPD without any acute exacerbation -CVA with left-sided hemiparesis chronic -Type 2 diabetes mellitus -Hypertension -Hyperlipidemia -Benign prostatic hypertrophy. - obstructive sleep apnea -Peripheral vascular disease -Fibromyalgia -Hypothyroidism Plan - Discharge Summary New Discharge Prescriptions: New LORazepam [Ativan] 1 mg PO QID PRN 3 Days #12 tab PRN Reason: Anxiety Atropine Sulfate/0.9 %Sod Chlr [Atropine 0.01%-Ns Eye Drops] 1 drop PO Q4H PRN #10 ml PRN Reason: Secretions MORPHINE ORAL AL CONC 20mg/mL [Roxanol Oral Soln Conc 20MG/ML] 20 mg PO Q4HR PRN 10 Days #30 ml PRN Reason: Pain Continue DULoxetine HCL [Cymbalta] 60 mg PO DAILY@0900 Tamsulosin HCl [Flomax] 0.4 mg PO HS@2100 Acetaminophen [Tylenol] 650 mg PO Q6HR PRN PRN Reason: Pain DULoxetine HCL [Cymbalta] 30 mg PO DAILY@0900 Atenolol [Tenormin] 50 mg PO DAILY@0900 Melatonin 5 mg PO HS@2100 Discontinued Cilostazol [Pletal] 100 mg PO HS@2100 Cholecalciferol [Vitamin D3 (25 Mcg = 1000 Iu)] 1,000 unit PO DAILY@0900 [place]-3 Fatty Acids/Fish Oil [Fish Oil 1,000 mg Softgel] 1 cap PO HS@2100 Atorvastatin [Lipitor] 40 mg PO HS@2100 Aspirin 81 mg PO HS@2100 Donepezil [Aricept] 10 mg PO BID@0900,2100 Nitroglycerin Sl Tabs [Nitrostat] 0.4 mg SUBLINGUAL Q5M PRN PRN Reason: Chest Pain Isosorbide Mononitrate ER [Imdur] 30 mg PO DAILY@0900 Levothyroxine Sodium [Synthroid] 75 mcg PO DAILY@0600 Furosemide [Lasix] 20 mg PO BID@0600,1200 Memantine [Namenda] 10 mg PO BID@0900,2100 Liraglutide [Victoza 2-Yayo] 1.2 mg SQ HS@2100 Apixaban [Eliquis] 2.5 mg PO BID@0900,2100 Insulin Lispro [humaLOG Kwikpen] See Protocol SQ DAILY@0800,1200,1700 Insulin Glargine,Hum.rec.anlog [Lantus Solostar] 44 unit SQ HS@2100 Ferrous Sulfate [Feosol] 325 mg PO DAILY@0900 Ranitidine HCl [Zantac] 150 mg PO HS@2100 Potassium Chloride ER [K-Dur 20] 30 meq PO DAILY@0900 Loperamide HCl [Imodium A-D] 2 - 4 mg PO QID PRN PRN Reason: Diarrhea HYDROcodone/APAP 5-325MG [[place] 5-325] 1 tab PO TID@0600,1400,2200 Discharge Medication List DULoxetine HCL [Cymbalta] 60 mg PO DAILY@0900 08/26/14 [History] Tamsulosin HCl [Flomax] 0.4 mg PO HS@209905/24/15 [History] Acetaminophen [Tylenol] 650 mg PO Q6HR PRN 10/09/17 [History] Atenolol [Tenormin] 50 mg PO DAILY@0900 06/11/18 [History] DULoxetine HCL [Cymbalta] 30 mg PO DAILY@0900 06/11/18 [History] Melatonin 5 mg PO HS@209902/16/19 [History] Atropine Sulfate/0.9 %Sod Chlr [Atropine 0.01%-Ns Eye Drops] 1 drop PO Q4H PRN #10 ml 04/23/19 [Rx] LORazepam [Ativan] 1 mg PO QID PRN 3 Days #12 tab 04/23/19 [Rx] MORPHINE ORAL AL CONC 20mg/mL [Roxanol Oral Soln Conc 20MG/ML] 20 mg PO Q4HR PRN 10 Days #30 ml 04/23/19 [Rx] Follow up Appointment(s)/Referral(s): Gautam Gale MD [Primary Care Provider] - 1-2 days Discharge Disposition: [facility] TO HOSPICE MED FACILTY
[2019-04-23 15:00] VITALS: BP 139/98; PULSE 108; RESP 25
--- NOTE | 2019-04-25 23:59 | CDI ---
Documentation Clarification Form Date: 04/26/19 From: Bryan Lopez Phone: If you have a question about this query, please contact Katelyn Bruno, Communications Consultant at [phone] between 8am and 5pm. Admit Date: 04/15/19 Discharge Date: 04/23/19 Patient Name: Jaguar Farnsworth Visit Number: [id number] ATTENTION: The Clinical Documentation Specialists (CDI) and [facility] Coding Staff appreciate your assistance in clarifying documentation. Please respond to the clarification below the line at the bottom and electronically sign. The CDI & [facility] Coding staff will review the response and follow-up if needed. Please note: Queries are made part of the Legal Health Record. If you have any questions, please contact the author of this message via ITS. Dear Yesenia Dorantes., CHF is documented in 04/22 progress note as Congestive heart failure. History/Risk Factors: Heart failure, CKD, Atrial fibrilation,CAD, CABG. Clinical Indicators: Chest x-ray showed basilar congestion yesterday and was given IV Lasix. Pulse Ox: 99 Patient does have pulmonary edema because of his obstructive and IV fluids presently received Lasix ordered by pulmonology Echocardiogram Results:.Overall left ventricular systolic function is normal with, an EF between 60 - 65 %. Chest X Ray: Stable pleural-parenchymal changes correlate for CHF versus pneumonia. Treatment: IV LASIX In your professional opinion, can you please clarify the acuity and type of CHF if known? Systolic Heart Failure: Acute Chronic Acute on Chronic Diastolic Heart Failure: Acute Chronic Systolic & Diastolic Heart Failure: Acute Chronic Acute on Chronic Heart Failure Unable to Determine Other, please specify Diastolic Heart Failure:Acute on Chronic MTDD
== END 2019-04-23 15:38 | disposition hospice, home (50) | DRG 871 ==
LOC: EC 15:27 → 2SICU 16:36
PROVIDERS: ADMIT Hospitalist; ATTEND Hospitalist
PROC: 05HM33Z Insertion of Infusion Device into Right Internal Jugular Vein, Percutaneous Approach (ICD-10-PCS; principal; 2019-04-15)
PROC: 0DH67UZ Insertion of Feeding Device into Stomach, Via Natural or Artificial Opening (ICD-10-PCS; 2019-04-18)
PROC: 3E0G76Z Introduction of Nutritional Substance into Upper GI, Via Natural or Artificial Opening (ICD-10-PCS; 2019-04-18)
DX: A41.59 Other Gram-negative sepsis (principal); G92 Toxic encephalopathy; I50.33 Acute on chronic diastolic (congestive) heart failure; E87.2 Acidosis; I69.354 Hemiplegia and hemiparesis following cerebral infarction affecting left non-dominant side; N17.9 Acute kidney failure, unspecified; I13.0 Hypertensive heart and chronic kidney disease with heart failure and stage 1 through stage 4 chronic kidney disease, or unspecified chronic kidney disease; E87.0 Hyperosmolality and hypernatremia; Z99.11 Dependence on respirator [ventilator] status; I48.20 Chronic atrial fibrillation, unspecified; J98.11 Atelectasis; K55.9 Vascular disorder of intestine, unspecified; G91.9 Hydrocephalus, unspecified; Z66 Do not resuscitate; Z51.5 Encounter for palliative care; I25.10 Atherosclerotic heart disease of native coronary artery without angina pectoris; E03.9 Hypothyroidism, unspecified; E11.22 Type 2 diabetes mellitus with diabetic chronic kidney disease; E11.51 Type 2 diabetes mellitus with diabetic peripheral angiopathy without gangrene; I50.9 Heart failure, unspecified; E78.5 Hyperlipidemia, unspecified; F03.90 Unspecified dementia, unspecified severity, without behavioral disturbance, psychotic disturbance, mood disturbance, and anxiety; M79.7 Fibromyalgia; G47.33 Obstructive sleep apnea (adult) (pediatric); Z96.1 Presence of intraocular lens; F32.9 Major depressive disorder, single episode, unspecified; F41.9 Anxiety disorder, unspecified; M10.9 Gout, unspecified; N40.0 Benign prostatic hyperplasia without lower urinary tract symptoms; J44.9 Chronic obstructive pulmonary disease, unspecified; B96.89 Other specified bacterial agents as the cause of diseases classified elsewhere; N18.3 Chronic kidney disease, stage 3 (moderate); I25.2 Old myocardial infarction; Z79.01 Long term (current) use of anticoagulants; Z79.4 Long term (current) use of insulin; Z86.14 Personal history of Methicillin resistant Staphylococcus aureus infection; Z99.89 Dependence on other enabling machines and devices; Z95.1 Presence of aortocoronary bypass graft; Z98.41 Cataract extraction status, right eye; Z98.42 Cataract extraction status, left eye; Z90.89 Acquired absence of other organs; Z98.890 Other specified postprocedural states; Z87.891 Personal history of nicotine dependence; Z82.49 Family history of ischemic heart disease and other diseases of the circulatory system; Z79.82 Long term (current) use of aspirin; Z79.890 Hormone replacement therapy; Z79.899 Other long term (current) drug therapy; Z88.8 Allergy status to other drugs, medicaments and biological substances; Z88.6 Allergy status to analgesic agent; Z88.1 Allergy status to other antibiotic agents; Z91.040 Latex allergy status
CPT/HCPCS: 36415; 36430; 36556; 36600; 70450; 70496; 70498; 71045; 80048; 80053; 81001; 82140; 82805; 83605; 84132; 85025; 85610; 85730; 86850; 86900; 86901; 86920; 87040; 87086; 87502; 93005; 93306; 95816; 96365; 99291